=== PATIENT | female | born 1950 | race Caucasian/White ===

== ENCOUNTER 2023-12-01 22:00 | Emergency (ER) | payer MEDICARE, OTHER, SELFPAY ==
[2023-12-01 22:01] VITALS: BP 147/71; PULSE 84; RESP 15; TEMP 36.2; O2SAT 98
[2023-12-01 22:44] LABS: Basophils Absolute Auto 0.1 K/mm3 (0.0-0.1); Basophils Percent Auto 0.6 % (0.2-1.2); Eosinophils Absolute Auto 0.1 K/mm3 (0-0.3); Eosinophils Percent Auto 1.2 % (0-4.4); Hemoglobin 14.3 g/dL (12.0-15.0); Immature Granulocyte Absolute 0.01 K/mm3 (0.00-0.031); Immature Granulocyte Percent A 0.1 % (0-0.5); Lymphocytes Absolute Auto 1.22 K/mm3 (0.9-3.2); Mean Corpuscular HGB Conc 32.5 g/dl (32-36); Mean Corpuscular Hemoglobin 29.4 pg (26-34); Mean Corpuscular Volume 90.5 fl (80-100); Monocytes Absolute Auto 0.8 K/mm3 (0.1-0.6); Monocytes Percent Auto 10.1 % (2.6-8.5); Neutrophils Absolute Auto 5.9 K/mm3 (1.3-6.7); Platelet Count Result 285 k/mm3 (150-375); Red Blood Count 4.86 M/mm3 (4.2-5.4); Red Cell Distribution Width 12.7 % (11.5-14.5); White Blood Count 8.1 K/mm3 (4.5-10.0)
[2023-12-01 22:50] LABS: Appearance Urine Clear (Clear); Bacteria Urine None Seen /hpf; Bilirubin Urine Negative (Negative); Blood Urine Negative (Negative); Color Urine Yellow (Yellow); Glucose Urine UA Negative (Negative); Ketones Urine Negative (Negative); Leukocyte Esterase Ur Trace LEU/UL (Negative); Nitrate Urine Negative (Negative); Non Pathogenic Casts 0-2; Protein Urine Negative (Negative); RBC Urine 0-2 /hpf (0-2); Specific Grav Ur 1.011 (1.001-1.035); Squamous Epithelial Cell Urine None seen /hpf (Few); Urobilinogen Urine 0.2 mg/dL (<2.0); pH Urine 5.5 (5.0-9.0)
[2023-12-01 22:51] LABS: Add Urine Microscopic? YES
[2023-12-01 22:58] LABS: Alanine Aminotransferase 45 U/L (6-35); Albumin Level 4.3 g/dL (3.5-5.1); Alkaline Phosphatase 75 U/L (38-126); Anion Gap 12 mmol/L (8-16); Aspartate Amino Transferase 55 U/L (14-36); Bilirubin,Total 0.6 mg/dL (0.2-1.3); Blood Urea Nitrogen 16 mg/dL (7-17); Calcium 9.2 mg/dL (8.4-10.2); Carbon Dioxide 22 mmol/L (22-30); Chloride 105 mmol/L (98-107); Estimated CRCL calculation 72 ml/min; Estimated Glomerular Filt Rate > 60; Glucose 110 mg/dL (65-110); Lipase 113 U/L (23-300); Potassium 3.9 mmol/L (3.4-5.0); Sodium 139 mmol/L (137-145)
[2023-12-02 01:06] VITALS: BP 144/70; PULSE 80; RESP 22; TEMP 36.3; O2SAT 100
[2023-12-02 01:33] VITALS: PULSE 70; RESP 28; O2SAT 100
--- NOTE | 2023-12-02 01:49 | ECG_ITS ---
Measurements Intervals [place] Rate: 60 P: 41 TN: 160 QRS: 25 QRSD: 84 T: 105 QT: 444 QTc: 446 Interpretive Statements SINUS RHYTHM ST-T WAVE ABNORMALITY IN ANTEROLATERAL LEADS- CONSIDER ISCHEMIA BASELINE ARTIFACT- II, III, AVF, V2 ABNORMAL ECG NO PREVIOUS ECG AVAILABLE FOR COMPARISON Electronically Signed On 12-02-2023 7:56:51 ROOF BOLTER HELPER by Demetri Latif D.O.
--- NOTE | 2023-12-02 01:54 | PC.NURSE ---
EDP Dr. Victor made aware of pt sx of pain, nausea, vomiting, and dizziness. Pt placed on director of cardiac rehabilitation and EKG ordered by this RN.
[2023-12-02 02:00] LABS: Magnesium 2.2 mg/dL (1.6-2.3)
[2023-12-02 02:16] VITALS: BP 155/93; PULSE 60; RESP 18; O2SAT 97
--- NOTE | 2023-12-02 02:27 | ED.ABDPAIN ---
HPI - Abdominal Pain General Chief Complaint: Abdominal Pain Stated Complaint: constipation, nothing is working Time Seen by Provider: 12/02/23 02:15 Source: patient and family (Daughter) Limitations: no limitations History of Present Illness HPI narrative: Patient is a 73-year-old female presents to the emergency department complaining of constipation. Patient states that she was diagnosed with a UTI history of to go to urgent care because she noticed some blood in her urine and is not taking nitrofurantoin is taking 2 doses in the bladder urine is since resolved and she denies any difficulty urinating at this time. Patient states her primary concern is she has been constipated since without any significant bowel movement since but does admit to daily small pebble like stools without adequate defecation. Patient is to history of a colonoscopy approximately 6 years ago. Patient denies taking stool softeners on a regular basis but she did take an [id number] MiraLax for to coming in today and also took a suppository that she was unable than and did not get any relief. Patient denies any abdominal pain however she did develop some bilateral lower quadrant abdominal discomfort upon arrival to the emergency department today that is an ache, nonradiating, mild in intensity. Patient denies any recent injuries. Patient denies any new or change medications. Patient denies melena, hematochezia, nausea, vomiting, chest pain, shortness of breath. Related Data Allergies Allergy/AdvReac Type Severity Reaction Status Date / Time acetaminophen [From Vicodin] AdvReac Anaphylaxis Verified 12/02/23 01:38 hydrocodone [From Vicodin] AdvReac Anaphylaxis Verified 12/02/23 01:38 Review of Systems Review of Systems: A 10 system review of systems was completed on the patient and is negative except for what is stated in the HPI. Nursing and ancillary documentation was reviewed. PMFSH Comments At time of signature, I have reviewed and agree with nursing past medical, surgical, social and family history unless otherwise noted. Please see the nursing chart for further information. There is no relevant family history pertinent to the presenting complaint. Exam Narrative: CONST: No acute distress. Well nourished. HENMT: Head is normocephalic and atraumatic. Moist mucous membranes. No posterior oropharynx erythema. EYES: No conjunctival icterus, injection, or pallor. PERRL. NECK: No meningeal signs. RESP: Able to speak in full sentences. Normal respiratory effort. CTAB. CARDIO: Regular rate. Regular rhythm. 2+ DP and radial pulses bilaterally. GI: Nondistended. No tenderness to palpation. Soft. : No CVA tenderness to palpation. SKIN: No rashes or lesions noted on exposed skin. NEURO: Oriented x3. Moves all extremities. EXTREM/MSK/BACK: No pedal edema. PSYCH: Normal affect. Course Vital Signs Vital signs: Vital Signs Temperature 97.1 F L 12/01/23 22:01 Pulse Rate 84 12/01/23 22:01 Respiratory Rate 15 12/01/23 22:01 Blood Pressure 147/71 H 12/01/23 22:01 Pulse Oximetry 98 12/01/23 22:01 Oxygen Delivery Room Air 12/01/23 22:01 Temperature 97.4 F L 12/02/23 01:06 Pulse Rate 60 12/02/23 02:16 Respiratory Rate 18 12/02/23 02:16 Blood Pressure 155/93 H 12/02/23 02:16 Pulse Oximetry 97 12/02/23 02:16 Oxygen Delivery Room Air 12/02/23 01:33 MDM - Abdominal Pain MDM Narrative Medical decision making narrative: Patient presents with the above complaint. Initial vitals are remarkable for no significant abnormalities. Physical examination as noted above. Plan discussed: Laboratory analysis, 1 L bolus IV fluids, Fleet's enema, MiraLax p.o., motrin 400 mg PO. After administration of the stool softener and enema patient had a significant large bowel movement and is feeling much better and still home at this time. Patient was reassessed at the bedside. No changes in physi
[2023-12-02 02:47] VITALS: BP 158/74; PULSE 65; RESP 21; O2SAT 98
[2023-12-02] MEDS: IBUPROFEN 400 MG TABLET PO (02:55)
[2023-12-02] MEDS: polyethylene glycoL 3350 17 GM POWD.PACK PO (02:56)
[2023-12-02] MEDS: SODIUM CHLORIDE 0.9% IV 1,000 ML 999 ML IV CONT (02:56)
[2023-12-02 04:04] VITALS: BP 150/69; PULSE 69; RESP 20; O2SAT 99
== END 2023-12-02 04:15 | disposition home or self-care (01) ==
LOC: ANHED 12-02 03:57
PROVIDERS: Emergency Provider Student in an Organized Health Care Education/Training Program
DX: K59.00 Constipation, unspecified (principal); R31.9 Hematuria, unspecified
CPT/HCPCS: 36415; 80053; 81001; 83690; 83735; 85025; 87086; 87088; 93005; 96360; 99283; A9270; J7030

== ENCOUNTER 2024-11-29 06:56 | Emergency (ER) | payer MEDICARE, OTHER, SELFPAY ==
--- NOTE | ~2024-11-29 | CT_ITS ---
Clinical Indication: Chest pain, shortness of breath CT Scan of the Chest with Contrast: Technique: Contiguous sections were acquired throughout the chest after intravenous administration of 100 cc of Omnipaque 350. Dose reduction technique was used on this scan by utilizing automated expos ure control and iterative reconstruction technique. The dose-length product (DLP) was 481.17 mGy-cm. Findings: There is no evidence of any significant mediastinal, hilar or axillary lymphadenopathy. There is no f illing defect in the pulmonary arterial tree to suggest pulmonary embolus. There is no evidence of ao rtic dissection or aneurysm. There is no evidence of pleural or pericardial effusion. The lungs are clear. No pulmonary nodules or infiltrates are noted. Images through the upper abdomen reveal no abnormalities. Impression: No evidence of pulmonary embolus, aortic dissection, or aortic aneurysm. Clear lungs. Reviewed, dictated and finalized at [facility]. S PROJECT ENGINEER Impression: No evidence of pulmonary embolus, aortic dissection, or aortic aneurysm. Clear lungs.
--- NOTE | 2024-11-29 06:57 | PC.NURSE ---
Pt currently being treated for UTI and has a pending C-Diff test not resulted yet.
[2024-11-29 07:30] VITALS: BP 134/66; PULSE 62; RESP 16; TEMP 36.7; O2SAT 95
[2024-11-29 08:00] VITALS: BP 128/66; PULSE 65; RESP 20; TEMP 36.7; O2SAT 95
[2024-11-29 09:00] VITALS: BP 136/63; PULSE 63; RESP 18; O2SAT 95
--- NOTE | 2024-11-29 09:36 | ED_ITS ---
HPI - Nausea/Vomiting/Diarrhea General Chief complaint: Nausea/Vomiting/Diarrhea Stated complaint: abd pain, difficulty breathing, weakness, nausea Time Seen by Provider: 11/29/24 08:49 Source: patient and family ( and daughter) Mode of arrival: ambulatory Limitations: no limitations History of Present Illness HPI Narrative: Patient presents with multiple complaints. She notes that she experienced abdominal pain, chest pain this morning associated with difficulty breathing, nausea but no vomiting and weakness. She has been having several loose stools, 5 already today. She was initially having loose stools that then became tia diarrhea and for this she submitted a sample stool for testing for C difficile approximately 2 weeks ago but still has not received the results even when attempted to call bleeding today she was told it had not resulted yet. Her stools have now gone back to being loose, slightly more formed and she believes that the yogurt that she has been taking has helped. She was recently prescribed Bactrim for a urinary tract infection was diagnosed at [facility] urgent care (Dr Enamorado) and she has taken 3 doses of this. Patient has extensive allergy list and states that she believes all of her symptoms are related to this new antibiotic given that she looked up online and all of them can be attributed to this. She notes that all of her symptoms have resolved since arriving to hospital however. Patient is on clopidogrel given that she has cardiac stent but she is otherwise not on anticoagulation. She tried to contact her primary care physician but they are currently in [place] on vacation. Related Data Allergies Allergy/AdvReac Type Severity Reaction Status Date / Time sulfamethoxazole (From AdvReac Mild shortness Verified 11/29/24 11:48 Bactrim) of breath trimethoprim (From Bactrim) AdvReac Mild shortness Verified 11/29/24 11:48 of breath acetaminophen (From Vicodin) AdvReac Anaphylaxis Verified 11/29/24 07:59 hydrocodone (From Vicodin) AdvReac Anaphylaxis Verified 11/29/24 07:59 cephalosporin Allergy Intermediate swollen Uncoded 11/29/24 12:38 eyelids PMFSH Surgical History Surgical History H/O heart artery stent Exam 2 Narrative: GENERAL: Well-appearing, well-nourished, and in no acute distress. HEAD: Normocephalic, atraumatic. EYES: Non injected, non icteric ENT: Nares clear, no rhinorrhea or epistaxis. NECK: Supple. CHEST: Speaking in full sentences. No respiratory distress. Lungs clear to auscultation bilaterally. HEART: Regular rate and rhythm. . ABDOMEN: Soft, nondistended. Nontender to palpation. EXTREMITIES: Normal range of motion. 1+ bilateral lower extremity edema. SKIN: Warm, dry, no rash. NEURO: No focal deficits. Alert and oriented x3. PSYCH: Normal mood and affect. Course Vital Signs Vital signs: Vital Signs Temperature 98.1 F 11/29/24 07:30 Pulse Rate 62 11/29/24 07:30 Respiratory Rate 16 11/29/24 07:30 Blood Pressure 134/66 11/29/24 07:30 Pulse Oximetry 95 11/29/24 07:30 Oxygen Delivery Room Air 11/29/24 07:30 Temperature 98.1 F 11/29/24 12:04 Pulse Rate 73 11/29/24 12:04 Respiratory Rate 16 11/29/24 12:04 Blood Pressure 126/58 L 11/29/24 12:04 Pulse Oximetry 98 11/29/24 12:04 Oxygen Delivery Room Air 11/29/24 07:30 MDM - Nausea/Vomiting/Diarrhea MDM Narrative Medical decision making narrative: Patient presents multiple complaints including abdominal pain brief episode chest pain as well as difficulty breathing and some nausea in addition to weakness. She has also been diarrhea several weeks. She recently started Bactrim for urinary tract infection diagnosed at an urgent care. In the emergency department they are afebrile with vital signs within normal limits. Patient states she believes all of her symptoms are related to the Bactrim that she started taking for which she had taken 3 doses. She states she has an extensive allergy list. Patient declining any medications and states she has been feeling well ever since getting to the emergency department has no symptoms. We did discuss pursing a work up however given her cardiac history and her diarrhea of several weeks duration which might have led to electrolyte abnormalites, etc. D-dimer is elevated greater than 1 thus cannot age adjusted will proceed with CT PE study. BNP is only slightly elevated, not up to suggest acute heart failure especially given patient's age and given the reference range of the assay. PE study normal. She has nitrate positive urine. She has been unable to produce a stool sample and technically had already submitted 1 elsewhere although I had not resulted after 2 weeks (?). Will discharge at this time. Patient is very concerned that her symptoms represented an allergic reaction to the medication. This was not witnessed by anyone but I will added to her allergy list as side effects and switch her to an alternative agent for her urinary tract infection. Patient is comfortable with being discharged at this time as she states she continues to feel well without any symptoms. I received a phone call from the pharmacist after discharge who notes that she has a reaction to cephalosporins and that her eyes swell shut. Allergy reconciliation must not have taken place by RN while in the emergency department. Will add this allergy to her list and approved verbal change of antibiotic to a course of nitrofurantoin which she is not allergic to. Differential Diagnosis Differential diagnosis: Likely food poisoning, clostridium difficile infection, drug-induced nausea and vomiting, dehydration and other (medication side effect, acs, acute viral syndrome) Lab Data Attestation: I reviewed the patient's lab results. 11/29/24 10:17 11/29/24 10:17 Labs: Lab Results 11/29/24 11/29/24 Range/Units 10:17 10:46 WBC 5.0 (4.5-10.0) K/mm3 RBC 4.20 (4.2-5.4) M/mm3 Hgb 12.5 (12.0-15.0) g/dL Hct 37.1 (37.0-47.0) % MCV 88.3 (80-100) fl MCH 29.8 (26-34) pg MCHC 33.7 (32-36) g/dl RDW 12.7 (11.5-14.5) % Plt Count 217 (150-375) k/mm3 MPV 9.7 (7.4-10.4) fl Immature Gran % (Auto) 0.2 (0-0.5) % Neut % (Auto) 70.4 (45.5-73.1) % Lymph % (Auto) 14.7 L (18.3-44.2) % [place] % (Auto) 9.7 H (2.6-8.5) % Eos % (Auto) 4.4 (0-4.4) % Baso % (Auto) 0.6 (0.2-1.2) % Lymph # (Auto) 0.74 L (0.9-3.2) K/mm3 [place] # (Auto) 0.5 (0.1-0.6) K/mm3 Eos # (Auto) 0.2 (0-0.3) K/mm3 Baso # (Auto) 0.0 (0.0-0.1) K/mm3 Abs Immat Gran (auto) 0.01 (0.00-0.031) K/mm3 Absolute Neuts (auto) 3.5 (1.3-6.7) K/mm3 Absolute Nucleated RBC 0.000 (0.0-0.012) K/mm3 Nucleated RBC % 0.0 (0.0-0.2) % D-Dimer 1.30 H (<0.48) ug/mL Sodium 138 (137-145) mmol/L Potassium 3.9 (3.4-5.0) mmol/L Chloride 112 H (98-107) mmol/L Carbon Dioxide 26 (22-30) mmol/L Anion Gap 0 L (4-12) mmol/L BUN 9 D (7-17) mg/dL Creatinine 0.90 (0.7-1.0) mg/dL Estim Creat Clear Calc 55 ml/min Estimated GFR > 60 (59 - ) Glucose 100 (65-110) mg/dL Calcium 8.8 (8.4-10.2) mg/dL Magnesium 2.2 (1.6-2.3) mg/dL Total Bilirubin 0.7 (0.2-1.3) mg/dL AST 28 (14-36) U/L ALT 19 (6-35) U/L Alkaline Phosphatase 61 (38-126) U/L Troponin I < 0.012 (0.000-0.034) ng/mL NT-Pro-B Natriuret Pep 149 H (19.9-100) pg/mL Total Protein 6.0 L (6.3-8.2) g/dL Albumin 3.6 (3.5-5.1) g/dL Lipase 66 (23-300) U/L Urine Color Dark yellow (Yellow) Urine Appearance Clear (Clear) Urine pH 7.5 (5.0-9.0) Ur Specific [place] 1.011 (1.001-1.035) Urine Protein Negative (Negative) mg/dL Urine Glucose (UA) Negative (Negative) mg/dL Urine Ketones Negative (Negative) mg/dL Ur Blood (Man) Negative (Negative) Urine Nitrate Positive H (Negative) Urine Bilirubin Negative (Negative) Urine Urobilinogen 1.0 (<2.0) mg/dL Add Ur Microanalysis Reviewed Leukocyte Esterase Rfl Negative (Negative) BERNARDO/UL Urine RBC 0-2 (0-2) /hpf Urine WBC 0-5 (0-3) /hpf Ur Squamous Epith Cells None seen (Few) /hpf Urine Bacteria None seen /hpf Urine Casts 0-2 Influenza A (RT-PCR) Negative (Negative) Influenza B (RT-PCR) Negative (Negative) RSV (RT-PCR) Negative (Negative) SARS-CoV-2 RNA (RT-PCR) Negative (Negative) Imaging Data Radiologist's impression: Impressions Chest CTA 11/29/24 11:36 Impression: No evidence of pulmonary embolus, aortic dissection, or aortic aneurysm. Clear lungs. ECG Data EKG #1: Attestation: I personally reviewed and interpreted this ECG as follows: ECG completion date: 11/29/24 ECG completion time: 09:50 Prior ECG tracings: available for review Interpretation: Sinus bradycardia at a rate of 57 beats per minute. MO interval 151. QRS 89. QT/QTC 419/414. T-wave inversions in V3 and V4 as well as V5. Good R-wave progression across the precordial leads. Normal axis. EKG from 12/02/2023 similarly shows T-wave inversions in V2 through V5 as well as V6 at that time. Discharge Plan Discharge Clinical Impression: Chest pain, Shortness of breath, Side effect of drug Patient Disposition: Home, Self-Care Condition: Stable Instructions: Antibiotic Form, Chest Pain (DC), Shortness of Breath (ED) Additional Instructions: As we discussed, unclear etiology of your symptoms however given the concern that this might be a side effect versus allergic reaction to the Bactrim you were taking, this has been added to your allergy list with the notation of your symptoms the bright to the emergency department. Will also switch you to an alternative antibiotic for your urinary tract infection that was seen outpatient/at an alternative facility. Follow-up with primary care physician. If you do not have 1 the name of the doctors listed below. Return to the emergency department any new or worsening symptoms. Patient Language: Palestinian Prescriptions: New cephalexin 500 mg capsule 500 mg PO Q8H 5 Days Qty: 15 0RF No Action docusate sodium 100 mg tablet 100 mg PO DAILY Qty: 20 0RF senna 8.6 mg capsule 8.6 mg PO DAILY PRN (Reason: constipation) Qty: 20 0RF Metamucil 3.4 gram/5.4 gram powder 1 tbsp PO BID Qty: 660 0RF Rx Instructions: mix into at least 8 oz of water or juice before administering Follow-up/Referrals: Geovanny Vivas MD [Physician] - UNKNOWN,DOCTOR [Primary Care Provider] - Stand Alone Forms: Work/School Release IP Time of Disposition: 11:54
--- NOTE | 2024-11-29 09:36 | ECG_ITS ---
Test Date: 2024-11-29 09:50:32 Measurements Intervals [place] Rate: 57 P: 44 [place]: 151 QRS: 19 QRSD: 89 T: 99 QT: 419 QTc: 411 Interpretive Statements SINUS BRADYCARDIA ST DEVIATION AND MODERATE T-WAVE ABNORMALITY, CONSIDER ANTEROLATERAL ISCHEMIA [-0.1+ mV T WAVE IN V3-V6] No previous ECG available for comparison Electronically Signed On 11-29-2024 22:46:42 CHILDBIRTH EDUCATOR by Jeb Quinteros M.D.
[2024-11-29 10:00] VITALS: BP 126/63; PULSE 59; RESP 16; O2SAT 96
[2024-11-29 10:23] LABS: Basophils Percent Auto 0.6 % (0.2-1.2); Eosinophils Absolute Auto 0.2 K/mm3 (0-0.3); Eosinophils Percent Auto 4.4 % (0-4.4); Hematocrit 37.1 % (37.0-47.0); Hemoglobin 12.5 g/dL (12.0-15.0); Immature Granulocyte Absolute 0.01 K/mm3 (0.00-0.031); Immature Granulocyte Percent A 0.2 % (0-0.5); Lymphocytes Absolute Auto 0.74 K/mm3 (0.9-3.2); Lymphocytes Percent Auto 14.7 % (18.3-44.2); Mean Corpuscular HGB Conc 33.7 g/dl (32-36); Mean Corpuscular Hemoglobin 29.8 pg (26-34); Mean Corpuscular Volume 88.3 fl (80-100); Mean Platelet Volume 9.7 fl (7.4-10.4); Monocytes Absolute Auto 0.5 K/mm3 (0.1-0.6); Monocytes Percent Auto 9.7 % (2.6-8.5); Neutrophils Absolute Auto 3.5 K/mm3 (1.3-6.7); Neutrophils Percent Auto 70.4 % (45.5-73.1); Platelet Count Result 217 k/mm3 (150-375); Red Cell Distribution Width 12.7 % (11.5-14.5)
--- NOTE | 2024-11-29 10:33 | PC.NURSE ---
Pt refusing Zofran, states all her symptoms have subsided.
[2024-11-29 10:34] LABS: Alanine Aminotransferase 19 U/L (6-35); Albumin Level 3.6 g/dL (3.5-5.1); Alkaline Phosphatase 61 U/L (38-126); Anion Gap 0 mmol/L (4-12); Aspartate Amino Transferase 28 U/L (14-36); Bilirubin,Total 0.7 mg/dL (0.2-1.3); Blood Urea Nitrogen 9 mg/dL (7-17); Calcium 8.8 mg/dL (8.4-10.2); Carbon Dioxide 26 mmol/L (22-30); Chloride 112 mmol/L (98-107); Estimated CRCL calculation 55 ml/min; Estimated Glomerular Filt Rate > 60; Glucose 100 mg/dL (65-110); Lipase 66 U/L (23-300); Potassium 3.9 mmol/L (3.4-5.0); Sodium 138 mmol/L (137-145)
[2024-11-29 10:43] LABS: NT Pro B Type Natriuretic Pept 149 pg/mL (19.9-100)
[2024-11-29 10:46] LABS: Troponin I < 0.012 ng/mL (0.000-0.034)
[2024-11-29 10:58] LABS: Influenza A QL RT-PCR Negative (Negative); Influenza B QL RT-PCR Negative (Negative); RSV RNA, RT-PCR Negative (Negative); SARS-CoV-2 RNA PCR Negative (Negative)
[2024-11-29 11:22] LABS: Add Urine Microscopic? YES; Appearance Urine Clear (Clear); Bacteria Urine None Seen /hpf; Bilirubin Urine Negative (Negative); Blood Urine Negative (Negative); Color Urine Dark Yellow (Yellow); Glucose Urine UA Negative (Negative); Ketones Urine Negative (Negative); Leukocyte Esterase Ur Negative LEU/UL (Negative); Need Manual Microscopic Reviewed; Nitrate Urine Positive (Negative); Non Pathogenic Casts 0-2; Protein Urine Negative (Negative); RBC Urine 0-2 /hpf (0-2); Specific Grav Ur 1.011 (1.001-1.035); Squamous Epithelial Cell Urine None Seen /hpf (Few); WBC Urine 0-5 /hpf (0-3); pH Urine 7.5 (5.0-9.0)
[2024-11-29 11:28] LABS: Magnesium 2.2 mg/dL (1.6-2.3)
[2024-11-29 12:04] VITALS: BP 126/58; PULSE 73; RESP 16; TEMP 36.7; O2SAT 98
--- OUTSIDE RECORDS SUMMARY | 2024-12-06 03:44 | XMS_ITS | Continuity of Care Document ---
Author Organization [facility] Address [address] [place] [address]- Care Team Providers Care Safety Leader Name Role Phone ELLA CRAFT, MEGGAN Hill Primary Care Physician Encounter [facility] Date(s): 03/03/24 - 03/05/24 [place] [address] [place] [address] Encounter Diagnosis Osteoarthritis(Discharge Diagnosis) - 03/05/24 Discharge Disposition: Home/Self Care Attending Physician: LUCIUS CARROLL MD Admitting Physician: SilvinoORE JOSUÉ GRANDA Referring Physician: SilvinoORE JOSUÉ GRANDA Allergies, Adverse Reactions, Alerts Substance Reaction Severity Status cefaclor anaphylaxis Active Vicodin anaphylaxis Active Assessment and Plan Extracted from: Title:Discharge Note Author:LUCIUS CARROLL MD David e:03/05/24 1.??Osteoarthritis??M19.90 Orders: Admission Notification - Family Discharge Patient Occupational Therapy Evaluation & Treatment Occupational Therapy Follow-up Patient/Family Teaching Saline Lock Insertion Functional Status 03/05/24 OT Self Care/Home Mgt 1 Safety Awareness Good Lower Extremity Dressing Assist Level SB A 1 Lower Extremity Dressing Level Standing 2 Grooming Assist Level SBA 3 Grooming Level Standing 4 Toileting Assist Level SBA 5 Toileting Level Seated chair/BSC 6 03/04/24 Gait Antalgic 03/04/24 Ambulation Device Utilized None Living Situation Home independently Home Entrance Description No steps Lives With Spouse Home Equipment Wheeled walker Activities Managed Housekeeping, Laundry, Shopping, Meal preparation, Driving, Pays bills, Manages medications Patient Activities Prior to Admission Re tired Prior Gait Mobility Ind Prior Toilet Mobility Ind Prior Bed to Chair Ind Prior Chair to Bed Ind Prior Grooming Assist Level Ind Prior LE Bathing Assist Level Ind Prior LE Dressing Assist Level Ind Prior Self Feeding Assist Level Ind Prior Sit to Stand Ind Prior Sit to Supine Ind Prior Stand to Sit Ind Prior Supine to Sit Ind Prior Toileting Assist Level Ind Prior UE Bathing Assist Level Ind Prior UE Dressing Assist Level Ind Prior Shower/Tub Ind Bathroom Equipment Handicapped height t oilet, Walk-in shower, Shower chair Left Lower Extremity Strength WFL Right Lower Extremity Strength Limited RLE Strength Description Knee PROM: 15-3 0, poor tolerance to any flexion or extension 03/04/24 Bathing Assist Level Mod 7 Lower Body Dressing Assist Level Max LUE Range of Motion WFL RUE Range of Motion WFL Strength-LUE Functional Credit Risk Analyst Strength-LUE Functional Strength-RUE Functional Credit Risk Analyst Strength-RUE Functional 03/03/24 Mobility Assistance Prior to Admission I ndependent 1Result Comment: don/doff underwear 2Result Comment: with FWW support 3Result Comment: oral and hair hygiene/grooming 4Result Comment: sinkside 5Result Comment: pericare 6Result Comment: seated pericare 7Result Comment: per clinical judgment Medications aspirin 325 mg oral tablet 325 mg = 1 tab, Oral, BID, # 60 tab, 0 Refill(s), 0, Pharmacy: [id number], 160, cm, 03/05/24 15:21:00 MST, Height, 101.4, kg, 03/03/24 14:07:00 [facility], Dosing Weight Start Date: 03/05/24 Status: Ordered cyclobenzaprine 5 mg, Oral, TID, PRN PRN prn Start Date: 03/05/24 Status: Ordered docusate sodium 100 mg oral capsule 100 mg = 1 cap, Oral, BID, # 60 cap, 0 Refill(s), 0, [id number], 160, cm, 03/05/24 15:21:00 MST, Height, 101.4, kg, 03/03/24 14:07:00 MST, Dosing Weight Start Date: 03/05/24 Status: Ordered meloxicam 7.5 mg, Oral, Daily Start Date: 03/05/24 Status: Ordered rosuvastatin 20 mg, Oral, Q Bedtime Start Date: 03/05/24 Status: Ordered Senna Plus oral tablet 2 tab, Oral, Q Bedtime Start Date: 03/05/24 Status: Ordered traMADol 50 mg, Oral, Q6hr, PRN PRN prn Start Date: 03/05/24 Status: Ordered Mental Status 03/05/24 Cognition During ADLs WNL 03/04/24 Cognition Intact Cognitive Assessments Pt able to follow all multi-step commands/safety instructions throughout session Problem List Condition Confirmation Course Effective Dates Status Health St atus Informant High cholesterol Confirmed Active patie nt Osteoarthritis Confirmed Active patient Procedures Procedure Date Related Diagnosis Body Site Status Knee Total Arthroplasty Robo tic Assisted 1 03/03/24 Completed Cataract Completed Cholecystectomy Completed Colonoscopy Completed 1auto-populated from documented surgical case Results Laboratory List Name Date Complete Blood Count With Auto Different ial 03/04/24 Comprehensive Metabolic Panel 03/04/24 Magnesium Level 03/04/24 Most recent to oldest [Reference Range]: 1 eGFR CKD-EPI [>=90 mL/min/1.73m2] 68 mL/ min/1.73m2 *LOW* (03/04/24 2:40 AM) AGAP [4.0-16.0 mmol/L] 8.0 mmol/L (03/04/24 2:40 AM) BUN/Creat 13 *NA* (03/04/24 2:40 AM) Globulin [2.0-4.5 g/dL] 2.4 g/dL (03/04/24 2:40 AM) A/G Ratio 1.5 *NA* (03/04/24 2:40 AM) RBC [4.30-5.10 x10(6)/mcL] 4.43 x10(6)/m cL (03/04/24 2:40 AM) RDW [11.6-14.8 %] 13.8 % (03/04/24 2:40 AM) Sodium Lvl [136-145 mmol/L] 138 mmol/L (03/04/24 2:40 AM) Total Protein [6.0-8.3 g/dL] 6.0 g/dL (03/04/24 2:40 AM) Albumin Lvl [3.5-5.7 g/dL] 3.6 g/dL (03/04/24 2:40 AM) Alk Phos [34-104 units/L] 48 units/L (03/04/24 2:40 AM) ALT [7-52 units/L] 16 units/L (03/04/24 2:40 AM) AST [13-39 units/L] 23 units/L (03/04/24 2:40 AM) Bili Total [0.3-1.0 mg/dL] 0.8 mg/dL (03/04/24 2:40 AM) CO2 [21-31 mmol/L] 24 mmol/L (03/04/24 2:40 AM) Glucose Level [70-105 mg/dL] 106 mg/dL *HI* (03/04/24:40 AM) Hct [35.0-45.0 %] 39.1 % (03/04/24:40 AM) Hgb [11.7-15.5 g/dL] 13.1 g/dL (03/04/24:40 AM) Magnesium Lvl [1.9-2.7 mg/dL] 2.0 mg/dL (03/04/24 2:40 AM) MCH [27.0-34.0 pg] 29.6 pg (03/04/24 2:40 AM) MCHC [32.0-36.0 g/dL] 33.5 g/dL (03/04/24 2:40 AM) MCV [80.0-100.0 fL] 88.4 fL (03/04/24 2:40 AM) MPV [7.5-11.3 fL] 8.5 fL (03/04/24 2:40 AM) Potassium Lvl [3.5-5.1 mmol/L] 3.6 mmol/ L (03/04/24 2:40 AM) WBC [4.5-11.0 x10(3)/mcL] 9.3 x10(3)/mcL (03/04/24 2:40 AM) BUN [7-25 mg/dL] 12 mg/dL (03/04/24 2:40 AM) Calcium Lvl [8.6-10.3 mg/dL] 9.1 mg/dL (03/04/24 2:40 AM) Lymphocyte Abs [1.0-4.8 x10(3)/mcL] 0.8 x10(3)/mcL *LOW* (03/04/24 2:40 AM) Platelet Count [150-400 x10(3)/mcL] 227 x10(3)/mcL (03/04/24 2:40 AM) Neutrophil Rel [40.0-85.0 %] 76.7 % (03/04/24 2:40 AM) Lymphocyte Rel [10.0-45.0 %] 8.2 % *LOW* (03/04/24 2:40 AM) Monocyte Rel [3.0-15.0 %] 14.4 % (03/04/24 2:40 AM) Monocyte Abs [0.0-0.8 x10(3)/mcL] 1.3 x1 0(3)/mcL *HI* (03/04/24 2:40 AM) Eosinophil Rel [0.0-7.0 %] 0.4 % (03/04/24 2:40 AM) Eosinophil Abs [0.0-0.5 x10(3)/mcL] 0.0 x10(3)/mcL (03/04/24 2:40 AM) Basophil Rel [0.0-2.0 %] 0.3 % (03/04/24 2:40 AM) Basophil Abs [0.0-0.2 x10(3)/mcL] 0.0 x1 0(3)/mcL (03/04/24 2:40 AM) Neutrophil Abs [1.8-7.7 x10(3)/mcL] 7.2 x10(3)/mcL (03/04/24 2:40 AM) Creatinine Lvl [0.60-1.20 mg/dL] 0.90 mg /dL (03/04/24 2:40 AM) Chloride Lvl [98-107 mmol/L] 106 mmol/L (03/04/24 2:40 AM) Osmolality Calc [278-305 mOsm/kg] 286 mO sm/kg (03/04/24 2:40 AM) Radiology Reports * Exam Date Time Procedure Performing Provider Status 03/03/24 8:57 PM XR Knee 1 or 2 Views Right THOMAS RAD T ECH, NONA; Modified Notes: (XR Knee 1 or 2 Views Right) Reason For Exam: Post-Op evaluation of hardware;Other - Populate Reason For Exam (Freetext) REPORT EXAM DESCRIPTION: XR Knee 1 or 2 Views Right XR KNEE 1-2 VIEWS RIGHT CLINICAL HISTORY: 73 years Female Post-Op evaluation of hardware COMPARISON: None FINDINGS: Right total knee arthroplasty is noted. Hardware is intact and in anatomic alignment. Postsurgical changes are noted in the adjacent soft tissues. IMPRESSION: Status post right total knee arthroplasty. Electronically signed by: Aleja Melendez MD 03/04/2024 04:02 AM [facility] Final Report Signed By: CONTRIBUTOR_SYSTEM, W_POWERSCRIBE Electronic Signature: 03/04/2024 04:02 Vital Signs Most recent to oldest [Reference Range]: 1 2 3 Blood Pressure [90-140/60-90 mmHg] 130/81mmHg (03/05/24 7:00 AM) 124/80mmHg (03/05/24 4:00 AM) 145/80mmHg *HI* (03/04/24 7:00 PM) Blood Pressure Location Arm (03/05/24 4:00 AM) Arm (03/04/24 7:00 PM) Arm (03/04/24 3:57 AM) Blood Pressure Method Automatic (03/05/24 7:00 AM) Automatic (03/05/24 4:00 AM) Automatic (03/04/24 7:00 PM) Dosing BMI 40 (03/03/24 2:07 PM) Dosing BSA-Mosteller 2.12 m2 (03/03/24 2:07 PM) Dosing Weight 101.4 kg (03/03/24 2:07 PM) Heart Rate [60-100 bpm] 98 bpm (03/05/24 7:00 AM) 96 bpm (03/05/24 4:00 AM) 90 bpm (03/04/24 7:00 PM) Height 160 cm (03/05/24 3:20 PM) 160 cm (03/05/24 12:42 PM) 160 cm (03/05/24 9:18 AM) MAP 97 mmHg (03/05/24 7:00 AM) 95 mmHg (03/05/24 4:00 AM) 102 mmHg (03/04/24 7:00 PM) Probe Site Finger (03/05/24 4:00 AM) Finger (03/04/24 7:00 PM) Finger (03/04/24 3:57 AM) Pulse/HR Method Monitor (03/05/24 7:00 AM) Monitor (03/05/24 4:00 AM) Monitor (03/04/24 7:00 PM) Respiratory Rate [14-20 breaths/min] 16 breaths/min (03/05/24 7:00 AM) 18 breaths/min (03/05/24 4:00 AM) 18 breaths/min (03/04/24 7:00 PM) SpO2/Pulse Oximetry [85-100 %] 91 % (03/05/24 7:00 AM) 92 % (03/05/24 4:00 AM) 92 % (03/04/24 7:00 PM) Temperature Oral [35.8-38 degC] 37.1 degC (03/05/24 7:00 AM) 37.5 degC (03/05/24 4:00 AM) 36.7 degC (03/04/24 7:00 PM) Temperature Temporal [36.3-38 degC] 36.8 degC (03/03/24 2:00 PM) 36.6 degC (03/03/24 7:40 AM) Social History Social History Type Response Smoking Status Never smoker entered on: 03/03/24 Sex Hospital Discharge Instructions Follow Up Care 02/25/2024 09:04:41 With:ELLA CRAFT, MEGGAN [facility] Address: [address] [place] [phone] When:5 to 7 days Consult note * REMY SO, ELMO: MODIFY, PERFORM MESHA CRAFT, AMANDA Reynolds: MODIFY Event Display: Consult Note EMR Authored Date: [id number] DATE/TIME NOTE CREATED: 03/03/2024 18:00:07 DATE/TIME PATIENT SEEN: 03/03/2024 1805 CHIEF COMPLAINT: Right knee arthroplasty REASON FOR CONSULTATION: Postop management HISTORY OF PRESENT ILLNESS: This is a 72-year-old female with past medical history of hyperlipidemia and constipation??who presents due to right knee osteoarthritis.?? Patient was seen and evaluated in Dr. Pierce's office.?? Conservative measures were initiated however failed to bring about the long-term benefit.?? An electiveright total knee arthroplasty was indicated for right knee osteoarthritis.?? Patient was seen and evaluated in room 332.?? She reports mild right knee pain however tolerable with current pain medication regimen.?? She denies numbness and tingling. REVIEW OF SYSTEMS: ROS: review of ten systems was negative apart from pertinent findings mentioned in this note PHYSICAL EXAM: VITAL SIGNS: Vital Signs: Last Charted: 24 Hr Minimum: 24 Hr Maximum: Temperature Temporal 36.8 degC?? (03/03 14:00) 36.8 degC?? (03/03 14:00) 36.6 degC?? (03/03 07:40) Heart Rate 64 bpm?? (03/03 16:30) 57 bpm (L) (03/03 15:30) 88 bpm?? (03/03 14:00) MU Cardiac Rhythm Normal sin ?? (03/03 14:00) ? Pulse/HR Method Monitor ?? (03/03 07:40) ? Respiratory Rate 18 breaths/min?? (03/03 16:30) 13 breaths/min (L) (03/03 16:15) 23 breaths/min (H) (03/03 14:15) Systolic Blood Pressure 119 mmHg?? (03/03 16:30) 119 mmHg?? (03/03 16:30) 151 mmHg (H) (03/03 14:25) Diastolic Blood Pressure 66 mmHg?? (03/03 16:30) 62 mmHg?? (03/03 15:15) 100 mmHg (H) (03/03 14:00) MAP 84 mmHg?? (03/03 16:30) 84 mmHg?? (03/03 16:30) 110 mmHg?? (03/03 14:00) SpO2/Pulse Oximetry 96 %?? (03/03 16:30) 94 %?? (03/03 15:45) 100 %?? (03/03 14:00) Oxygen Flow 6 L/min?? (03/03 14:05) 6 L/min?? (03/03 14:05) 6 L/min?? (03/03 14:05) Dosing BMI 40 ?? (03/03 14:07) 40 ?? (03/03 14:07) 40 ?? (03/03 14:07) GENERAL:??Alert and oriented, non-toxic appearing HEAD:??Normocephalic, atraumatic EYES:??PERRLA, EOMI, conjunctiva normal, no discharge. ENT:??Hearing grossly intact, normal oropharynx. NECK:??Supple,nontender, no lymphadenopathy LUNGS:??Clear breath sounds bilaterally. ??No wheezes, rales, or rhonchi. HEART:??Regular rate and rhythm. ??Normal S1 and S2, VASC:??+ radial and dorsalis pedis pulses, No edema. ABD:??Bowel sounds normal, soft, nontender :??Deferred Musculoskeletal: RLE strength??5/5. ??Right knee??mild tenderness EXT:??RLE??normal range of motion. ??RLE sensation intact SKIN:??No new rashes or suspicious nevi?? NEURO:??Alert and oriented x 3, non focal PSYCH: Normal affect.??Appropriate behavior? Assessment Right knee osteoarthritis status post??right total knee arthroplasty??on 02/[address] Pierce Hyperlipidemia Constipation ?? Plan: Admit to inpatient Medsurg F/U ortho trend WBCs and Hgb Transfuse PRBCs of Hgb < 7 observe post op milestone Bowel care multimodal pain control, avoid over sedation IS Q 1hr while awake Maintain oxygen sats > 90%, titrate 02 Notify physician if requiring increased oxygen Post op labs PRN encourage ambulation Pt/OT eval Monitor vitals Routine labs ordered Home medications reconciled. Supportive care ? Fluids: IV fluids Electrolytes: Replace electrolytes per protocol Nutrition: clear liquid ?? Activity: As tolerated VTE prophylaxis: SCDs, ambulate GI prophylaxis: none ?? Code Status: Full code Disposition: In-house ?? Findings, impression and recommendations were discussed in detail with the patient.?? Questions were invited and answered to patient's satisfaction.?? Patient verbalized understanding and is in agreement with plan of care. ?? Please note: This dictation was done using voice recognition software.?? Translation errors may be occasionally missed in editing.?? Please contact us if there are any questions or for clarification as needed. ?? Attestation: I discussed the case with supervising physician on duty.?? This chart was designated for review andattestation by the supervising physician on duty. ?? [facility] INTERNAL MEDICINE PROGRESS NOTES:Elmo Blandon, ACID TENDER-C [address], [address], [place] [address] ?? [email or web address]? ASSESSMENT/PLAN: Orders: Admission History Adult Admission Notification - Family Admit to Outpatient - Reg. Update Blood Culture Communication Adam Scale Assessment Change Patient Status/Type Change Patient Status/Type - Reg. Update Chlorhexidine Gluconate Bath Chlorhexidine Gluconate Bath Complete Blood Count With Auto Differential Comprehensive Metabolic Panel Intake and Output Interdisciplinary Patient Education Knee Total Replacement Pre-Op Report Tracker Order Magnesium Level Macias Fall Risk Assessment Notify Physician/Provider Vital Signs Fire Range Technician Details Oxygen Therapy by Respiratory Peripheral IV Insertion Physical Therapy Evaluation & Treatment Place in Outpatient Regular Diet Respiratory Therapy Assessment Resuscitation Status Review Interdisciplinary CarePlan Routine Vital Signs Routine Vital Signs Saline Lock Insertion Self Harm Risk Assessment Sepsis Screening Surgical Prep Surgical Prep Up Ad Mellisa Update Consulting Provider Verify Consent Void Prior to Procedure VTE Quality Measures PROBLEM LIST/PAST MEDICAL HISTORY: Ongoing ? High cholesterol (Patient Stated)? Osteoarthritis (Patient Stated)?? Historical ? No qualifying data? PROCEDURE/SURGICAL HISTORY: ???Knee Total Arthroplasty Robotic Assisted (03/03/2024)???Cataract???Cholecystectomy???Colonoscopy SOCIAL HISTORY: Alcohol Current, 1-2 times per year, 02/29/2024 Electronic Cigarette/Vaping Never E-Cigarette Use:., 02/29/2024 Home/Environment Human Trafficking Red Flags None., 01/28/2024 Substance Abuse Denies use Use:., 01/28/2024 Tobacco Never smoker, Never Smokeless tobacco use:., 01/28/2024 FAMILY HISTORY: Heart failure: Father. Malignant hyperthermia: Negative: Mother, Father and Brother. MEDICATIONS: Medications (16) Active Scheduled: (2) docusate (Colace) ??100 mg = 1 cap, Oral, BID senna (Senokot) ??8.6 mg = 1 tab, Oral, Daily ?? Continuous: (1) ropivacaine 0.2% On-Q pump 550 mL ??550 mL, Percutaneous, 8 mL/hr ?? PRN: (13) acetaminophen (Tylenol) ??650 mg = 2 tab, Oral, [id number] acetaminophen (Tylenol) ??650 mg = 2 tab, Oral, [id number] acetaminophen-oxyCODONE (Percocet 5/325 oral tablet) ??1 tab, Oral, Q4hr acetaminophen-oxyCODONE (Percocet 5/325 oral tablet) ??2 tab, Oral, Q4hr Al hydroxide/Mg hydroxide/simethicone (Maalox (with simethicone) Regular Strength) ??30 mL, Oral, Q4hr hydrALAZINE ??10 mg = 0.5 mL, IV Push, Q6hr LORazepam (Ativan) ??0.5 mg = 1 tab, Oral, Q4hr morphine ??2 mg = 1 mL, IV Push, Q3hr morphine ??4 mg = 1 mL, IV Push, Q3hr nalOXone (Narcan) ??0.4 mg = 1 mL, IV Push, Q2 Min-int ondansetron (Zofran) ??4 mg = 2 mL, IV Push, Q4hr sodium chloride (sodium chloride 0.9% flush) ??10 mL, IV Push, As Directed zolpidem (Ambien) ??5 mg = 1 tab, Oral, Q Bedtime ? ALLERGIES: Allergies (2) Active?Reaction cefaclor?anaphylaxis Vicodin?anaphylaxis LAB RESULTS: Hematology Basic - Last 36 hours (0) Result Date/Time ? Chemistry Comprehensive - Last 36 hours (0) Result Date/Time ? DIAGNOSTIC RESULTS: Radiology - Last 36 hours (0) No results in past 36 hours ? Diagnostics - Non-Radiology (0) No qualifying data. ? ADDITIONAL INFORMATION I personally seen and examined the patient. I reviewed the chart and discussed the care plan with the physician retail sales merchandiser. I agree with the above. ?? Amanda Jacome MD Electronically Signed On 03/03/24 18:11 [facility] BLANDON ACID TENDER-C, KES[place]KE ACID TENDER-C Electronically Signed On 03/03/24 19:28 [facility] BLANDON ACID TENDER-C, KESALUKE ACID TENDER-C Electronically Signed On 03/03/24 21:05 [facility] AMANDA JACOME MD Discharge summary * CARLY CRAFT, LUCIUS: PERFORM Event Display: Discharge Summary EMR No Cosign Authored Date: [id number] DATE/TIME NOTE CREATED: 03/05/2024 15:50:25 HOSPITAL COURSE: 72-year-old female with past medical history of hyperlipidemia and constipation??who presents due to right knee osteoarthritis.?? Patient was seen and evaluated in Dr. Pierce's office.?? Conservative measures were initiated however failed to bring about the long-term benefit.?? An elective right total knee arthroplasty was indicated for right knee osteoarthritis.?? Patient was seen and evaluated in room 332.?? She reports mild right knee pain however tolerable with current pain medication regimen.?? She denies numbness and tingling. Patient through the hospitalization course did fairly well clinically.?? Patient had a bowel movement, able to tolerate p.o. intake denies any further nausea vomiting or abdominal pain.?? Patient is aware that she will need adequate follow with primary care physician and?? orthopedic specialists asan outpatient. At the time of discharge the patient was hemodynamically stable,??vitals signs??werenormal limits. ?? Right knee osteoarthritis Hyperlipidemia Constipation ?? Plan: Continue medical management treatment plan Monitor for Bm , has not eaten thus yet Postop day 2 Status post right total knee arthroplasty??on 03/03/2024??by Dr. Pierec F/U ortho trend WBCs and Hgb Transfuse PRBCs of Hgb < 7 observe post op milestone Bowel care multimodal pain control, avoid over sedation Maintain oxygen sats > 90%, titrate 02 Pt/OT eval Monitor vitals Routine labs ordered Home medications reconciled. Supportive care PHYSICAL EXAM: VITAL SIGNS: Vital Signs: Last Charted: 24 Hr Minimum: 24 Hr Maximum: Temperature Oral 37.1 degC?? (03/05 07:00) 36.7 degC?? (03/04 19:00) 37.5 degC?? (03/05 04:00) Heart Rate 98 bpm?? (03/05 07:00) 90 bpm?? (03/04 19:00) 98 bpm?? (03/05 07:00) Pulse/HR Method Monitor ?? (03/05 07:00) ? Respiratory Rate 16 breaths/min?? (03/05 07:00) 16 breaths/min?? (03/05 07:00) 18 breaths/min?? (03/04 19:00) Systolic Blood Pressure 130 mmHg?? (03/05 07:00) 124 mmHg?? (03/05 04:00) 145 mmHg (H) (03/04 19:00) Diastolic Blood Pressure 81 mmHg?? (03/05 07:00) 80 mmHg?? (03/04 19:00) 81 mmHg?? (03/05 07:00) MAP 97 mmHg?? (03/05 07:00) 95 mmHg?? (03/05 04:00) 102 mmHg?? (03/04 19:00) Blood Pressure Location Arm ?? (03/05 04:00) ? Blood Pressure Method Automatic ?? (03/05 07:00) ? Probe Site Finger ?? (03/05 04:00) ? SpO2/Pulse Oximetry 91 %?? (03/05 07:00) 91 %?? (03/05 07:00) 92 %?? (03/04 19:00) GENERAL:??Alert and oriented, non-toxic appearing HEAD:??Normocephalic, atraumatic EYES:??PERRLA, EOMI, conjunctiva normal, no discharge. ENT:??Hearing grossly intact, normal oropharynx. NECK:??Supple,nontender, no lymphadenopathy LUNGS:??Clear breath sounds bilaterally. ??No wheezes, rales, or rhonchi. HEART:??Regular rate and rhythm. ??Normal S1 and S2, VASC:??+ radial and dorsalis pedis pulses, No edema. ABD:??Bowel sounds normal, soft, nontender :??Deferred Musculoskeletal: RLE strength??5/5. ??Right knee??mild tenderness EXT:??RLE??normal range of motion. ??RLE sensation intact SKIN:??No new rashes or suspicious nevi?? NEURO:??Alert and oriented x 3, non focal PSYCH: Normal affect.??Appropriate behavior?? DISCHARGE DIAGNOSES AND PLAN: 1.??Osteoarthritis??M19.90 Orders: Admission Notification - Family Discharge Patient Occupational Therapy Evaluation & Treatment Occupational Therapy Follow-up Patient/Family Teaching Saline Lock Insertion DISCHARGE MEDICATIONS: Discharge Medications (8) Order Details Status New / Continued Meds: (7) cyclobenzaprine ?? 5 milligram(s) Oral Three times a day as needed prn. ?? Continue docusate-senna (Senna Plus oral tablet) ?? 2 tablet(s) Oral Nightly at bedtime. ?? Continue meloxicam ?? 7.5 milligram(s) Oral Daily. ?? Continue traMADol ?? 50 milligram(s) Oral Every 6 hours scheduled as needed prn. ?? Continue aspirin (aspirin 325 mg oral tablet) ?? 1 tablet(s) Oral Twice daily. Refills: 0. ?? Continue with Changes docusate (docusate sodium 100 mg oral capsule) ?? 1 capsule(s) Oral Twice daily. Refills: 0. ?? Continue with Changes rosuvastatin ?? 20 milligram(s) Oral Nightly at bedtime. ?? Continue with Changes ?? Stopped Meds: (1) clindamycin ?? 300 milligram(s) Oral Three times a day. ?? Stop ? INSTRUCTIONS: Order Name Order Details Discharge Patient Discharge To: Home Discharge Diet: Resume Home Diet Discharge Activity: Resume Home Activity FOLLOW UP: With When Contact Information ELLA CRAFT, MEGGAN [facility] Within 5 to 7 days [address] [place], [place] [phone]- [phone] Additional Instructions: ATTESTATION: Total time spent discharging patient >35 minutes Electronically Signed On 03/05/24 15:51 MST LUCIUS CARROLL MD Admission history and physical note * EUNICE COLE: PERFORM Event Display: Admission H&P EMR Authored Date: Chief Complaint: F/U Knee Osteoarthritis, Right evaluated on November 04, 2023 ?? HPI: This is a 73 year old female who is following up for Knee Osteoarthritis on the right knee joint. She was seen on November 04, 2023, at which time she was treated with Viscosupplementation - Durolane and counseling knee djd was performed. We decided on the following plan on the right: Intraarticular viscosupplementation . Today the patient reports: Pain Intensity 6.0 - 6/10 Pain. Signs and symptoms: catching, swelling, and stiffness. Quality: sharp and aching. The patient has severe right knee pain that became drastically worse. She normally was able to walk without severe pain but now she is unable to walk short distances without severe pain. Despite having increased pain with walking she was still able to ride a bike without significant pain until recently. About several weeks ago she started having severe pain with trying to ride her bike and that has encouraged her to come in to see me to discuss surgical options. She has tried all the conservative treatment options without significant long-term relief and is now interested in surgery. She has a possible severe allergy to Vicodin but I discussed with the patient that I suspect that she may not actually have a significant allergy to Vicodin if they potentially gave her another medication at the same time. She does have a significant allergy to cephalosporins. She has tolerated Tramadol. ?? Vitals: Date Taken By B.P. Pulse Resp. O2 Sat. Temp. Ht. Wt. BMI BSA 01/21/24 09:31 Wendy Austin 64.0 in 218.0 lbs 37.4 2 ?? Allergies Reviewed July 27, 2023. Vicodin - Anaphylaxis Medications Reviewed July 27, 2023. Adult Low Dose Aspirin 81 mg Oral - tablet,delayed release (DR/EC) rosuvastatin 20 mg Oral - tablet Medical History Reviewed July 27, 2023. Obesity Musculoskeletal History None Musculoskeletal Family History None Musculoskeletal Surgery None Surgical History Reviewed July 27, 2023. Other: Gall bladder Social History Reviewed July 27, 2023. EtOH none Single Question Alcohol Screenin days Smoking status - Never smoker Healthcare Proxy: Yes Living Will: Yes ?? Exam: Knee Right Knee ROM: grossly limited and with painRight Knee ROM: Right Knee Additional ROM: The knee lacks a couple degrees of full extension. Flexion is limited to 125. Left Knee ROM: Flexion: 130 + degrees. Extension: 0 degrees. Skin: Right Knee: Right lower extremity is neurovascularly intact to motor and sensation in the L1 through S1 nerve distribution. There is brisk capillary refill and palpable distal pulses. Calf is soft and compressible with no signs of DVT. There is no effusion, warmth, or signs of infection. Skin: Left Knee: Skin intact, no rashes, lesions, erythema or signs of infection. Inspection: Right Knee: There is tenderness to palpation to the medial and lateral joint line. There is pain with patellar compression. Inspection: Left Knee: Normal alignment, no deformity, no tenderness, no warmth, no masses Right Quadriceps: Strength: 5/5, normal muscle tone. Left Quadriceps: Strength: 5/5, normal muscle tone. Right Hamstring: Strength: 5/5, normal muscle tone. Left Hamstring: Strength: 5/5, normal muscle tone. Stability: Right Knee: Slight instability to varus and valgus Stability: Left Knee: Stable stress both in extension and in flexion. There is less than 5 mm of anterior posterior instability with drawer testing. Special: Right Knee: There is crepitance to the tibiofemoral joint and to the patellofemoral joint. Special: Left Knee: Normal Right patella tracking: crepitus 2 ? Data Reviewed: 12 Ordering of each unique test (Basic metabolic 2000 panel - Serum or Plasma, Order Plain X-ray (Outside Imaging) (Chest, PA and lateral upright view), CBC W Auto Differential panel - Blood, Albumin/Protein.total in Serum or Plasma, PT and aPTT panel - Platelet poor plasma by Coagulation assay, Order CT - Knee (Knee - Right CT WO contrast; CPT 61395), VitaminD+Metabolites [Mass/volume] in Serum or Plasma, Order Surgery: Knee Arthroplasty (Hemoglobin A1c, EKG, CXR, UA), Urinalysis complete W Reflex Culture panel - Urine) ?? Impression/Plan: We will plan to have the surgery done at the hospital so that we can manage any potential significant allergies to pain medication appropriately. Knee Osteoarthritis, Right Unilateral primary osteoarthritis, right knee (M17.11) located on the right knee joint. Status: Worsening Pain Intensity: 10.0 - 10/10 Pain ?? Plan: Counseling - Knee DJD. Extensive discussion with the patient in regards to treatment. Various treatment options were discussed including heat, ice, Tylenol, anti-inflammatory medication, both [id number] versus prescription strength or compound ointments. Injections were also discussed with the patient including corticosteroid injections as well as viscosupplementationinjections. Braces and physical therapy could also be part of the treatment protocol as needed. Expectations: I counseled the patient about the natural history of degenerative joint disease of the knee which typically has exacerbations and remissions. Many people report that changes in the weather also affect the degreeof pain from arthritis. The knee joint does not heal on its own when there is arthritis. With time, the symptoms of arthritis may get worse. For some, conservative management may not be not satisfactory. These individuals should consider surgical options. Surgical Options and Alternatives Intraarticular steroid injection : I discussed with the patient that this involves the injection ofa potent antiinflammatory substance (cortisone) into the knee joint. Risks include whitening of the skin at the injection site and a transient rise in blood glucose. Complications are extremely rare; infection is the most common. There is no rule as to how many injections can be given. Because some research has shown that too much cortisone can damage cartilage, most physicians limit the number of shots they will give you. Intraarticular viscosupplementation : I discussed with the patient that this procedure involves theinjection of artificial joint fluid into the knee. The fluid acts as a lubricant, shock absorber, and an antiinflammatory agent. Depending on the specific agent used you will receive one to five shots, each shot one week apart. This intervention is most effective if used in early stage osteoarthritis. Side effects include knee swelling and pain at the injection site. dedicated intermodal truck driver efficacy is not currently known. Complications include but are not limited to infection and joint swelling. Total knee replacement : I explained to the patient that this is an option for patients that have severe pain in their knee from arthritis who have failed conservative management. The diseased parts of the knee are replaced with metal andplastic. Approximately 90% of patients who have total knee replacement experience a significant reduction in pain and a dramatic improvement in their ability to perform common activities of daily living. High impact activities should be avoided after surgery, if possible, to prolong the life of the implant. Serious complications occur in less than 2% of patients. Risks include but arenot limited to infection, injury to blood vessels and nerves, blood clots, heart complications, lung complications, stroke, and stiffness. PRP (Platelet Rich Plasma) Injection : I explained to the patient that this injection involves using the patient's own blood to treat pain and injury. Specific products from the patient's blood are injected to facilitate the body's healing response. This injection is not widely accepted or strongly supported in the literature, but does appear promising for treating some musculoskeletal conditions. Risks include infection at the injection site. Some patients will have significant pain at the injection site for days after the injection. Diagnostic Imaging Results 4 view xrays of the knee demonstrate severe joint space narrowing with sclerosis and osteophyte formation. No acute fracture, dislocation, or osseous abnormalities noted. We reviewed and discussed the radiographic findings indetail. ?? After counseling the patient, we decided on the following plan for the RIGHT KNEE: Total knee replacement Electronically Signed On 03/03/24 06:30 MST EUNICE COLE Electronically Signed On 03/03/24 07:50 MST JOSUÉ PIERCE DO Progress note * LUCIUS CARROLL MD: PERFORM Event Display: Progress Note EMR Mayra ALLRED Authored Date: [id number] DATE/TIME NOTE CREATED: 03/05/2024 11:59:09 SUBJECTIVE: Patient seen and examined in the room.?? Discussed case with at bedside. ??Patient's current complaint of abdominal pain and had not been able to have a bowel movement.?? Discussed with nurseat bedside, will go ahead and??continue with bowel care. ??Monitor for bowel movement.?? Patient will have to have a full meal??and close to her baseline before disposition.?? No acute events reported overnight. REVIEW OF SYSTEMS: Negative as otherwise specified by the HPI OBJECTIVE: VITAL SIGNS: T:??37.1?C (Oral)?? TMIN:??36.7?C (Oral)?? TMAX:??37.5?C (Oral)?? HR:??98?? RR:??16?? BP:??130/81?? SpO2:??91%?? Vital Signs: Last Charted: 24 Hr Minimum: 24 Hr Maximum: Temperature Oral 37.1 degC?? (03/05 07:00) 36.7 degC?? (03/04 19:) 37.0 degC?? (03/04 15:) Heart Rate 98 bpm?? (03/05 07:00) 90 bpm?? (03/04 19:) 98 bpm?? (03/05 07:) Pulse/HR Method Monitor ?? (03/05 07:) ? Respiratory Rate 16 breaths/min?? (03/05 07:00) 16 breaths/min?? (03/05 07:00) 18 breaths/min?? (03/04 15:23) Systolic Blood Pressure 130 mmHg?? (03/05 07:00) 112 mmHg?? (03/04 15:23) 145 mmHg (H) (03/04 19:00) Diastolic Blood Pressure 81 mmHg?? (03/05 07:00) 80 mmHg?? (03/04 19:00) 81 mmHg?? (03/04 15:23) MAP 97 mmHg?? (03/05 07:00) 91 mmHg?? (03/04 15:23) 102 mmHg?? (03/04 19:00) Blood Pressure Location Arm ?? (03/05 04:00) ? Blood Pressure Method Automatic ?? (03/05 07:00) ? Probe Site Finger ?? (03/05 04:00) ? SpO2/Pulse Oximetry 91 %?? (03/05 07:00) 91 %?? (03/05 07:00) 93 %?? (03/04 15:23) PHYSICAL EXAM: GENERAL:??Alert and oriented, non-toxic appearing HEAD:??Normocephalic, atraumatic EYES:??PERRLA, EOMI, conjunctiva normal, no discharge. ENT:??Hearing grossly intact, normal oropharynx. NECK:??Supple,nontender, no lymphadenopathy LUNGS:??Clear breath sounds bilaterally. ??No wheezes, rales, or rhonchi. HEART:??Regular rate and rhythm. ??Normal S1 and S2, VASC:??+ radial and dorsalis pedis pulses, No edema. ABD:??Bowel sounds normal, soft, nontender :??Deferred Musculoskeletal: RLE strength??5/5. ??Right knee??mild tenderness EXT:??RLE??normal range of motion. ??RLE sensation intact SKIN:??No new rashes or suspicious nevi?? NEURO:??Alert and oriented x 3, non focal PSYCH: Normal affect.??Appropriate behavior?? LAB RESULTS: Hematology Basic - Last 36 hours (20) Result Date/Time WBC 9.3?03/04 02:40 RBC 4.43?03/04 02:40 Hgb 13.1?03/04 02:40 Hct 39.1?03/04 02:40 MCV 88.4?03/04 02:40 MCH 29.6?03/04 02:40 MCHC 33.5?03/04 02:40 RDW 13.8?03/04 02:40 Platelet Count 227?03/04 02:40 MPV 8.5?03/04 02:40 Neutrophil Rel 76.7?03/04 02:40 Lymphocyte Rel 8.2 (L) ??03/04 02:40 Monocyte Rel 14.4?03/04 02:40 Eosinophil Rel 0.4?03/04 02:40 Basophil Rel 0.3?03/04 02:40 Neutrophil Abs 7.2?03/04 02:40 Lymphocyte Abs 0.8 (L) ??03/04 02:40 Monocyte Abs 1.3 (H) ??03/04 02:40 Eosinophil Abs 0.0?03/04 02:40 Basophil Abs 0.0?03/04 02:40 ? Chemistry Comprehensive - Last 36 hours (20) Result Date/Time Sodium Lvl 138?03/04 02:40 Potassium Lvl 3.6?03/04 02:40 Chloride Lvl 106?03/04 02:40 CO2 24?03/04 02:40 Glucose Level 106 (H) ??03/04 02:40 BUN 12?03/04 02:40 Creatinine Lvl 0.90?03/04 02:40 AGAP 8.0?03/04 02:40 BUN/Creat 13?03/04 02:40 Total Protein 6.0?03/04 02:40 Albumin Lvl 3.6?03/04 02:40 Calcium Lvl 9.1?03/04 02:40 Bili Total 0.8?03/04 02:40 Alk Phos 48?03/04 02:40 AST 23?03/04 02:40 ALT 16?03/04 02:40 Globulin 2.4?03/04 02:40 Osmolality Calc 286?03/04 02:40 A/G Ratio 1.5?03/04 02:40 Magnesium Lvl 2.0?03/04 02:40 ? DIAGNOSTIC RESULTS: Radiology - Last 36 hours (1) XR Knee 1 or 2 Views Right??(03/03 20:21) FINDINGS:?? Right total knee arthroplasty is noted. Hardware is intact and in anatomic alignment. Postsurgical changes are noted in the adjacent soft tissues. ?? IMPRESSION:?? Status post right total knee arthroplasty. ? Diagnostics - Non-Radiology (0) No qualifying data. ? ASSESSMENT/PLAN: Orders: Admission Notification - Family Occupational Therapy Evaluation & Treatment Occupational Therapy Follow-up Patient/Family Teaching Physical Therapy Evaluation & Treatment Physical Therapy Follow-up Saline Lock Insertion Assessment Right knee osteoarthritis Hyperlipidemia Constipation ?? Plan: Continue medical management treatment plan Monitor for Bm , has not eaten thus yet Postop day 2 Status post right total knee arthroplasty??on 03/03/2024??by Dr. Pierce F/U ortho trend WBCs and Hgb Transfuse PRBCs of Hgb < 7 observe post op milestone Bowel care multimodal pain control, avoid over sedation Maintain oxygen sats > 90%, titrate 02 Pt/OT eval Monitor vitals Routine labs ordered Home medications reconciled. Supportive care ? FEN:??Electrolyte per protocol. Activity: As tolerated DVT??prophylaxis: SCDs, ambulate. Per primary team GI prophylaxis: none ?? Code Status: Full code Electronically Signed On 03/05/24 11:59 MST LUCIUS CARROLL MD * LUCIUS CARROLL MD: PERFORM Event Display: Progress Note EMR No Cosign SOAP Authored Date: [id number] DATE/TIME NOTE CREATED: 03/04/2024 10:43:17 SUBJECTIVE: Patient seen and examined in the room.?? Discussed medical management treatment plan with patient.?? Patient is postop 1??TKA by orthopedic surgery. ??Follow recommendations today. ??Patient states she is sitting??quite a bit of pain, will continue with pain management per protocol.?? PT/OT to evaluate today REVIEW OF SYSTEMS: Negative as otherwise specified by the [facility] OBJECTIVE: VITAL SIGNS: T:??37.3?C (Oral)?? TMIN:??36.7?C (Oral)?? TMAX:??37.5?C (Oral)?? HR:??98?? RR:??18?? BP:??124/76?? SpO2:??92%?? WT:??101.4??kg?? Vital Signs: Last Charted: 24 Hr Minimum: 24 Hr Maximum: Temperature Oral 37.3 degC?? (03/04 07:00) 36.7 degC?? (03/03 21:48) 37.0 degC?? (03/04 00:00) Temperature Temporal 36.8 degC?? (03/03 14:00) 36.8 degC?? (03/03 14:00) 36.8 degC?? (03/03 14:00) Heart Rate 98 bpm?? (03/04 07:00) 57 bpm (L) (03/03 15:30) 98 bpm?? (03/04 07:00) MU Cardiac Rhythm Normal sin ?? (03/03 14:00) ? Pulse/HR Method Monitor ?? (03/04 07:00) ? Respiratory Rate 18 breaths/min?? (03/04 07:00) 13 breaths/min (L) (03/03 16:15) 23 breaths/min (H) (03/03 14:15) Systolic Blood Pressure 124 mmHg?? (03/04 07:00) 119 mmHg?? (03/03 16:30) 151 mmHg (H) (03/03 14:25) Diastolic Blood Pressure 76 mmHg?? (03/04 07:00) 62 mmHg?? (03/03 15:15) 100 mmHg (H) (03/03 14:00) MAP 92 mmHg?? (03/04 07:00) 84 mmHg?? (03/03 16:30) 110 mmHg?? (03/03 14:00) Blood Pressure Location Arm ?? (03/04 03:57) ? Blood Pressure Method Automatic ?? (03/04 07:00) ? Probe Site Finger ?? (03/04 03:57) ? SpO2/Pulse Oximetry 92 %?? (03/04 07:00) 92 %?? (03/04 07:00) 100 %?? (03/03 14:00) Oxygen Flow 6 L/min?? (03/03 14:05) 6 L/min?? (03/03 14:05) 6 L/min?? (03/03 14:05) Dosing BMI 40 ?? (03/03 14:07) 40 ?? (03/03 14:) 40 ?? (03/03 14:) PHYSICAL EXAM: GENERAL:??Alert and oriented, non-toxic appearing HEAD:??Normocephalic, atraumatic EYES:??PERRLA, EOMI, conjunctiva normal, no discharge. ENT:??Hearing grossly intact, normal oropharynx. NECK:??Supple,nontender, no lymphadenopathy LUNGS:??Clear breath sounds bilaterally. ??No wheezes, rales, or rhonchi. HEART:??Regular rate and rhythm. ??Normal S1 and S2, VASC:??+ radial and dorsalis pedis pulses, No edema. ABD:??Bowel sounds normal, soft, nontender :??Deferred Musculoskeletal: RLE strength??5/5. ??Right knee??mild tenderness EXT:??RLE??normal range of motion. ??RLE sensation intact SKIN:??No new rashes or suspicious nevi?? NEURO:??Alert and oriented x 3, non focal PSYCH: Normal affect.??Appropriate behavior?? LAB RESULTS: Hematology Basic - Last 36 hours (20) Result Date/Time WBC 9.3?03/04 02:40 RBC 4.43?03/04 02:40 Hgb 13.1?03/04 02:40 Hct 39.1?03/04 02:40 MCV 88.4?03/04 02:40 MCH 29.6?03/04 02:40 MCHC 33.5?03/04 02:40 RDW 13.8?03/04 02:40 Platelet Count 227?03/04 02:40 MPV 8.5?03/04 02:40 Neutrophil Rel 76.7?03/04 02:40 Lymphocyte Rel 8.2 (L) ??03/04 02:40 Monocyte Rel 14.4?03/04 02:40 Eosinophil Rel 0.4?03/04 02:40 Basophil Rel 0.3?03/04 02:40 Neutrophil Abs 7.2?03/04 02:40 Lymphocyte Abs 0.8 (L) ??03/04 02:40 Monocyte Abs 1.3 (H) ??03/04 02:40 Eosinophil Abs 0.0?03/04 02:40 Basophil Abs 0.0?03/04 02:40 ? Chemistry Comprehensive - Last 36 hours (20) Result Date/Time Sodium Lvl 138?03/04 02:40 Potassium Lvl 3.6?03/04 02:40 Chloride Lvl 106?03/04 02:40 CO2 24?03/04 02:40 Glucose Level 106 (H) ??03/04 02:40 BUN 12?03/04 02:40 Creatinine Lvl 0.90?03/04 02:40 AGAP 8.0?03/04 02:40 BUN/Creat 13?03/04 02:40 Total Protein 6.0?03/04 02:40 Albumin Lvl 3.6?03/04 02:40 Calcium Lvl 9.1?03/04 02:40 Bili Total 0.8?03/04 02:40 Alk Phos 48?03/04 02:40 AST 23?03/04 02:40 ALT 16?03/04 02:40 Globulin 2.4?03/04 02:40 Osmolality Calc 286?03/04 02:40 A/G Ratio 1.5?03/04 02:40 Magnesium Lvl 2.0?03/04 02:40 ? DIAGNOSTIC RESULTS: Radiology - Last 36 hours (1) XR Knee 1 or 2 Views Right??(03/03 20:21) FINDINGS:?? Right total knee arthroplasty is noted. Hardware is intact and in anatomic alignment. Postsurgical changes are noted in the adjacent soft tissues. ?? IMPRESSION:?? Status post right total knee arthroplasty. ? Diagnostics - Non-Radiology (0) No qualifying data. ? ASSESSMENT/PLAN: Orders: Active Range of Motion by Nursing Admission History Adult Admit to Outpatient - Reg. Update Ambulate AV Impulse Device Blood Culture Communication Case Management Consult Change Patient Status/Type Change Patient Status/Type - Reg. Update Chlorhexidine Gluconate Bath Complete Blood Count With Auto Differential Comprehensive Metabolic Panel Frequent Neurovascular Checks Frequent Vital Signs Graduated Compression Stocking Ice Pack Incentive Spirometry Instruct by Resp Incentive Spirometry Nursing Incentive Spirometry Nursing Intake and Output Knee Total Replacement Post-Op Report Tracker Order Magnesium Level Medical Service Consult Notify Physician/Provider Notify Physician/Provider Vital Signs Occupational Therapy Evaluation & Treatment Oxygen Therapy by Respiratory Pastoral Care Advance Directive Consult Patient/Family Teaching Physical Therapy Evaluation & Treatment Physical Therapy Evaluation & Treatment Place in Outpatient Regular Diet Regular Diet Respiratory Therapy Assessment Routine Vital Signs Saline Lock Insertion Sequential Compression Device Application Director Customer Advance Directive Consult Director Customer Consult Up Ad Mellisa Up to Chair Update Consulting Provider VTE Quality Measures Weight Bearing XR Knee 1 or 2 Views Right Assessment Right knee osteoarthritis Hyperlipidemia Constipation ?? Plan: Continue medical management treatment plan Postop day 1 Status post right total knee arthroplasty??on 03/03/2024??by Dr. Pierce F/U ortho trend WBCs and Hgb Transfuse PRBCs of Hgb < 7 observe post op milestone Bowel care multimodal pain control, avoid over sedation Maintain oxygen sats > 90%, titrate 02 Pt/OT eval Monitor vitals Routine labs ordered Home medications reconciled. Supportive care ? FEN:??Electrolyte per protocol. Activity: As tolerated DVT??prophylaxis: SCDs, ambulate. Per primary team GI prophylaxis: none ?? Code Status: Full code Electronically Signed On 03/04/24 10:43 MST LUCIUS CARROLL MD Patient Care team information Care Team Personnel Name: MEGGAN JARAMILLO MD Position: RO No Access Member Role: Primary Care Physician Address: Address: [address] [place], [place] [address] Care Team Related Persons Name: WILI FRAIRE
--- OUTSIDE RECORDS SUMMARY | 2024-12-06 03:44 | XMS_ITS | Continuity of Care Document ---
Author Organization [facility] Address [address] [place] [address]- Encounter [facility] Date(s): 10/07/24 - 10/07/24 [facility] [address] [place] [address] Discharge Disposition: Home/Self Care Attending Physician: MOHIT CARNEY MD Admitting Physician: MOHIT CARNEY MD Referring Physician: MOHIT CARNEY MD Allergies, Adverse Reactions, Alerts Substance Reaction Severity Status clindamycin rash Active cefaclor anaphylaxis Active proton pump inhibitors rash and sweating Active Ceclor eye swelled shut Active Vicodin anaphylaxis Active Functional Status 10/07/24 Living Situation Home independently Medications aspirin 325 mg oral tablet 325 mg = 1 tab, Oral, BID, # 60 tab, 0 Refill(s), 0, [id number], 160, cm, 03/05/24 15:21:00 MST, Height, 101.4, kg, 03/03/24 14:07:00 MST, Dosing Weight Start Date: 03/05/24 Status: Ordered Bentyl 10 mg oral capsule 10 mg = 1 cap, Oral, QID, # 40 cap, 0 Refill(s), 0, [id number], 160, cm, 03/22/24 16:09:00 MST, Height, 100, kg, 03/22/24 16:09:00 MST, Dosing Weight Start Date: 03/22/24 Stop Date: 04/01/24 Status: Ordered clopidogrel 75 mg oral tablet 75 mg = 1 tab, Oral, Daily, # 30 tab, 0 Refill(s) Start Date: 10/06/24 Status: Ordered cyclobenzaprine 5 mg, Oral, TID, PRN PRN prn Start Date: 03/05/24 Status: Ordered docusate sodium 100 mg oral capsule 100 mg = 1 cap, Oral, BID, # 60 cap, 0 Refill(s), 0, Pharmacy: [id number], 160, cm, 03/05/24 15:21:00 MST, Height, 101.4, kg, 03/03/24 14:07:00 MST, Dosing Weight Start Date: 03/05/24 Status: Ordered magnesium citrate oral liquid 8.725 g = 150 mL, Oral, Once Scheduled, PRN PRN Constipation, # 300 mL, 0 Refill(s), 0, Pharmacy: [id number], 160, cm, 03/22/24 16:09:00 MST, Height, 100, kg, 03/22/24 16:09:00 MST, DosingWeight Start Date: 03/22/24 Status: Ordered meloxicam 7.5 mg, Oral, Daily Start Date: 03/05/24 Status: Ordered Metoprolol Succinate ER 25 mg oral tablet, extended release 25 mg = 1 tab, Oral, Daily, # 90 tab, 0 Refill(s) Start Date: 10/06/24 Status: Ordered mineral oil rectal enema 133 mL, Rectal, Once Scheduled, # 133 mL, 0 Refill(s), 0, Pharmacy: [id number], 160, cm,03/22/24 16:09:00 MST, Height, 100, kg, 03/22/24 16:09:00 MST, Dosing Weight Start Date: 03/22/24 Status: Ordered rosuvastatin 20 mg, Oral, Q Bedtime Start Date: 03/05/24 Status: Ordered Senna Plus oral tablet 2 tab, Oral, Q Bedtime Start Date: 03/05/24 Status: Ordered traMADol 50 mg, Oral, Q6hr, PRN PRN prn Start Date: 03/05/24 Status: Ordered Voquezna 20 mg oral tablet 20 mg = 1 tab, Oral, Daily, 0 Refill(s) Start Date: 10/06/24 Status: Ordered Problem List Condition Confirmation Course Effective Dates Status H ealth Status Informant CAD (coronary artery disease) Confirmed Active patient High cholesterol Confirmed Active patie nt HTN (hypertension) Confirmed Active pat ient Osteoarthritis Confirmed Active patient Procedures Procedure Date Related Diagnosis Body Site Status Esophagogastroduodenoscopy 1 10/07/24 Completed Left Heart Cath (x1 stent) 05/2024 Completed 1auto-populated from documented surgical case Vital Signs Most recent to oldest [Reference Range]: 1 2 3 Blood Pressure [90-140/60-90 mmHg] 151/75mmHg *HI* (10/07/24 1:50 PM) 142/74mmHg *HI* (10/07/24 1:40 PM) 120/66mmHg (10/07/24 1:30 PM) Blood Pressure Location Left (10/07/24 12:40 PM) Dosing BMI 37 (10/07/24 12:39 PM) Dosing BSA-Mosteller 2.09 m2 (10/07/24 12:39 PM) Dosing Weight 97.1 kg (10/07/24 12:39 PM) Heart Rate [60-100 bpm] 59 bpm *LOW* (10/07/24 1:50 PM) 61 bpm (10/07/24 1:40 PM) 67 bpm (10/07/24 1:30 PM) Height 162 cm (10/07/24 12:39 PM) 162 cm (10/06/24 10:20 AM) MAP 87 mmHg (10/07/24 1:40 PM) 83 mmHg (10/07/24 1:30 PM) 68 mmHg (10/07/24 1:22 PM) Method for Height Stated (10/06/24 10:20 AM) Method for Weight Actual (10/07/24 12:39 PM) Respiratory Rate [14-20 breaths/min] 14 breaths/min (10/07/24 1:40 PM) 16 breaths/min (10/07/24 1:30 PM) 15 breaths/min (10/07/24 1:22 PM) SpO2/Pulse Oximetry [85-100 %] 98 % (10/07/24 1:50 PM) 96 % (10/07/24 1:40 PM) 97 % (10/07/24 1:30 PM) Temperature Temporal [36.3-38 degC] 36.1 degC *LOW* (10/07/24 1:50 PM) 36.3 degC (10/07/24 1:22 PM) 36.5 degC (10/07/24 12:40 PM) Weight Scale Type Standing (10/07/24 12:39 PM) Social History Social History Type Response Smoking Status Never smoker;Never entered on: 10/06/24 Sex Hospital Discharge Instructions Follow Up Care 09/30/2024 17:45:52 With:MOHIT CARNEY MD Address: [facility] [address] [place] [address]- When:4-6 weeks Clinical Note * MOHIT CARNEY MD: PERFORM Event Display: EGD EMR No Cosign Authored Date: [id number] Date/Time of Service:?10/07/2024 13:27:09 ?? Referring Physician:?[ ] _ ?? Procedures Performed: EGD_ ?? Indications for Procedure: Known history of??antral ulcers, multiple of them. ??Persistent abdominal pain._ ?? Description of Procedure: EGD scope inserted through the mouth down the esophagus and all the way down into the second part of the duodenum. Scope then withdrawn into the stomach, this was insufflated and distended appropriately. Scope was retroflexed in the stomach to examine fundus and cardia. Scope was then withdrawn applying some suction. Patient tolerated the procedure well.? Findings: 1. ??Normal-looking esophagus without evident evidence of erosive esophagitis. 2.?? Normal-looking stomach. ??In particular in antrum prior noted??erosive gastritis and ulcer disease is healed. ??Everything is back to normal. 3.?? Normal??examination of the duodenal bulb and second portion of the duodenum._ ?? Estimated Blood Loss: None_ ?? Complications: None_ ?? Recommendations/Instructions: 1.?? Continue using famotidine. 2.?? Avoid NSAIDs use. 3.?? Follow-up in the office in probably 8 weeks._ ?? Electronically Signed On 10/07/24 13:28 MST MOHIT CARNEY MD Patient Care team information Care Team Related Persons Name: WILI FRAIRE Name: TASHA FRAIRE
--- OUTSIDE RECORDS SUMMARY | 2024-12-06 03:44 | XMS_ITS | Continuity of Care Document ---
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 [address] Encounter Diagnosis Abdominal pain(Discharge Diagnosis) - 01/28/24 Constipation(Discharge Diagnosis) - 01/28/24 Discharge Disposition: Home/Self Care Attending Physician: ANDREA ROBINS DO Admitting Physician: ANDREA ROBINS DO Referring Physician: ANDREA ROBINS DO Allergies, Adverse Reactions, Alerts Substance Reaction Severity Status cefaclor anaphylaxis Active Vicodin anaphylaxis Active Medications Bentyl 10 mg oral capsule 10 mg = 1 cap, Oral, QID, # 28 cap, 0 Refill(s), 0 Start Date: 01/28/24 Stop Date: 02/04/24 Status: Ordered Results Laboratory List Name Date Complete Blood Count With Auto Different ial (CBC w/auto Diff) 01/28/24 Comprehensive Metabolic Panel (CMP) Lipase Level 01/28/24 Most recent to oldest [Reference Range]: 1 eGFR CKD-EPI [>=90 mL/min/1.73m2] 79 mL/ min/1.73m2 *LOW* (01/28/24 10:32 AM) AGAP [4.0-16.0 mmol/L] 9.0 mmol/L (01/28/24 10:32 AM) BUN/Creat 20 *NA* (01/28/24 10:32 AM) Globulin [2.0-4.5 g/dL] 2.9 g/dL (01/28/24 10:32 AM) A/G Ratio 1.4 *NA* (01/28/24 10:32 AM) RBC [4.30-5.10 x10(6)/mcL] 4.88 x10(6)/m cL (01/28/24 10:32 AM) RDW [11.6-14.8 %] 13.5 % (01/28/24 10:32 AM) Sodium Lvl [136-145 mmol/L] 140 mmol/L (01/28/24 10:32 AM) Total Protein [6.0-8.3 g/dL] 7.1 g/dL (01/28/24 10:32 AM) Albumin Lvl [3.5-5.7 g/dL] 4.2 g/dL (01/28/24 10:32 AM) Alk Phos [34-104 units/L] 62 units/L (01/28/24 10:32 AM) ALT [7-52 units/L] 44 units/L (01/28/24 10:32 AM) AST [13-39 units/L] 34 units/L (01/28/24 10:32 AM) Bili Total [0.3-1.0 mg/dL] 0.8 mg/dL (01/28/24 10:32 AM) CO2 [21-31 mmol/L] 25 mmol/L (01/28/24 10:32 AM) Glucose Level [70-105 mg/dL] 99 mg/dL (01/28/24 10:32 AM) Hct [35.0-45.0 %] 42.8 % (01/28/24 10:32 AM) Hgb [11.7-15.5 g/dL] 14.5 g/dL (01/28/24 10:32 AM) Lipase Lvl [11-82 units/L] 33 units/L (01/28/24 10:32 AM) MCH [27.0-34.0 pg] 29.7 pg (01/28/24 10:32 AM) MCHC [32.0-36.0 g/dL] 33.8 g/dL (01/28/24 10:32 AM) MCV [80.0-100.0 fL] 87.8 fL (01/28/24 10:32 AM) MPV [7.5-11.3 fL] 7.9 fL (01/28/24 10:32 AM) Potassium Lvl [3.5-5.1 mmol/L] 3.5 mmol/ L (01/28/24 10:32 AM) WBC [4.5-11.0 x10(3)/mcL] 6.0 x10(3)/mcL (01/28/24 10:32 AM) BUN [7-25 mg/dL] 16 mg/dL (01/28/24 10:32 AM) Calcium Lvl [8.6-10.3 mg/dL] 9.6 mg/dL (01/28/24 10:32 AM) Lymphocyte Abs [1.0-4.8 x10(3)/mcL] 1.4 x10(3)/mcL (01/28/24 10:32 AM) Platelet Count [150-400 x10(3)/mcL] 247 x10(3)/mcL (01/28/24 10:32 AM) Neutrophil Rel [40.0-85.0 %] 60.0 % (01/28/24 10:32 AM) Lymphocyte Rel [10.0-45.0 %] 23.5 % (01/28/24 10:32 AM) Monocyte Rel [3.0-15.0 %] 14.3 % (01/28/24 10:32 AM) Monocyte Abs [0.0-0.8 x10(3)/mcL] 0.9 x1 0(3)/mcL *HI* (01/28/24 10:32 AM) Eosinophil Rel [0.0-7.0 %] 1.4 % (01/28/24 10:32 AM) Eosinophil Abs [0.0-0.5 x10(3)/mcL] 0.1 x10(3)/mcL (01/28/24 10:32 AM) Basophil Rel [0.0-2.0 %] 0.8 % (01/28/24 10:32 AM) Basophil Abs [0.0-0.2 x10(3)/mcL] 0.0 x1 0(3)/mcL (01/28/24 10:32 AM) Neutrophil Abs [1.8-7.7 x10(3)/mcL] 3.6 x10(3)/mcL (01/28/24 10:32 AM) Creatinine Lvl [0.60-1.20 mg/dL] 0.80 mg /dL (01/28/24 10:32 AM) Chloride Lvl [98-107 mmol/L] 106 mmol/L (01/28/24 10:32 AM) Osmolality Calc [278-305 mOsm/kg] 291 mO sm/kg (01/28/24 10:32 AM) Radiology Reports * Exam Date Time Procedure Performing Provider Status 01/28/24 11:[address] Abdomen And Pelvis W/ Contrast WENDY AGUAYO; Modified Notes: (CT Abdomen And Pelvis W/ Contrast) Reason For Exam: Abdominal Pain Generalized REPORT Procedure: CT ABDOMEN PELVIS WITH IV CONTRAST INDICATIONS: Abdominal Pain Generalized . Technique: Following intravenous administration of contrast, multiple axial contiguous CT images of the abdomen, and pelvis were sagittal and coronal images reconstructed. A dose lowering technique was used using automated exposure control, adjustment of mA and/or kV according to the patient's size and the use of iterative reconstruction technique. FINDINGS: Findings: Lung bases: Small left basilar atelectasis Liver: Unremarkable. No mass. Gallbladder/CBD: Cholecystectomy changes Common bile duct is not dilated Spleen: Unremarkable. Normal size. No mass. Pancreas: Unremarkable. No focal mass, pancreatic duct dilatation, calcification or peripancreatic stranding. Adrenal Glands: Unremarkable. Kidneys: No hydronephrosis, solid mass or calculi. Distal esophagus/Stomach: Unremarkable. Bowel loops and mesentery:: Unremarkable. Bladder: Unremarkable. No bladder mass or calculi. Abdominal aorta and inferior vena cava: Unremarkable Reproductive: Unremarkable Lymph Nodes: No clinically significant adenopathy based on CT size criteria. Bones: No acute fracture or suspicious osseous lesion. Soft Tissue: Soft tissue is unremarkable. Miscellaneous: No free air or free fluid. CONCLUSION: 1. Normal IV contrast enhanced CT abdomen and pelvis. 2. Cholecystectomy changes. 3. Small left basilar atelectasis. Electronically signed by: Shannon Caro MD 01/28/2024 12:06 PM [facility] Final Report Signed By: CONTRIBUTOR_SYSTEM, [facility] Electronic Signature: 01/28/2024 12:06 Vital Signs Most recent to oldest [Reference Range]: 1 2 3 Blood Pressure [90-140/60-90 mmHg] 140/78mmHg (01/28/24 2:53 PM) 156/75mmHg *HI* (01/28/24 10:00 AM) 157/73mmHg *HI* (01/28/24 9:33 AM) Dosing BMI 39 (01/28/24 2:55 PM) 39 (01/28/24 9:33 AM) Dosing BSA-Mosteller 2.1 m2 (01/28/24 2:55 PM) 2.1 m2 (01/28/24 9:33 AM) Dosing Weight 99 kg (01/28/24 2:55 PM) 99 kg (01/28/24 9:33 AM) Heart Rate [60-100 bpm] 60 bpm (01/28/24 2:53 PM) 57 bpm *LOW* (01/28/24 10:34 AM) 62 bpm (01/28/24 10:00 AM) Height 160 cm (01/28/24 2:55 PM) 160 cm (01/28/24 9:33 AM) MAP 99 mmHg (01/28/24 2:53 PM) 102 mmHg (01/28/24 10:00 AM) 101 mmHg (01/28/24 9:33 AM) Respiratory Rate [14-20 breaths/min] 18 breaths/min (01/28/24 2:53 PM) 18 breaths/min (01/28/24 10:34 AM) 18 breaths/min (01/28/24 10:00 AM) SpO2/Pulse Oximetry [85-100 %] 98 % (01/28/24 2:53 PM) 97 % (01/28/24 10:34 AM) 99 % (01/28/24 10:00 AM) Temperature Temporal [36.3-38 degC] 36.5 degC (01/28/24 9:33 AM) Social History Social History Type Response Smoking Status Never smoker;Never entered on: 01/28/24 Sex Hospital Discharge Instructions Follow Up Care 01/28/2024 09:27:08 With:Abrazo West - [facility] PCP follow up Address:Unknown When:1-2 days Comments:Follow-up with your primary care provider at the next available appointment. I recommend taking Bentyl if you are having any cramping abdominal pain. Otherwise you do not need to take this. I also recommend a stool softener like MiraLAX multiple times per day for the next few days to ensure that you continue to have nice soft bowel movements. You can begin to decrease your stool softener/MiraLAX intake as tolerated. Please return to the emergency department if you have any new, worsening, or persistent symptoms, or if you are unable to follow-up with your primary care provider as above. We are happy to see you in the emergency department again if needed at the address below. [facility] DepartmentAddress: [address] [place], [place] [address]Rhrtw: If you do not have a PCP, please follow up wtih the [facility], Offices of Drs. Sada Dennis, Dawit Germain, Pilar Harding, Amanda Jacome at:[address] [address]Zmjkj: [phone] With:UNKNOWN PHYSICIAN Address: [place] When:3-5 days Patient Care team information Personnel Name: PHYSICIAN, UNKNOWN Address: Address: [facility]
--- OUTSIDE RECORDS SUMMARY | 2024-12-06 03:44 | XMS_ITS | Continuity of Care Document ---
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 [employer] Name Role Phone MEGGAN JARAMILOL MD Primary Care Physician Encounter [facility] Date(s): 03/22/24 - 03/22/24 [address] [place] [place] [address] Encounter Diagnosis Abdominal pain(Discharge Diagnosis) - 03/23/24 Discharge Disposition: Home/Self Care Attending Physician: VENESSA CRAFT TY Admitting Physician: NETO CLIFFORD MD Referring Physician: VENESSA CRAFT TY Allergies, Adverse Reactions, Alerts Substance Reaction Severity Status cefaclor anaphylaxis Active Vicodin anaphylaxis Active Medications aspirin 325 mg oral tablet 325 mg = 1 tab, Oral, BID, # 60 tab, 0 Refill(s), 0, Pharmacy: [id number], 160, cm, 03/05/24 15:21:00 MST, Height, 101.4, kg, 03/03/24 14:07:00 MST, Dosing Weight Start Date: 03/05/24 Status: Ordered Bentyl 10 mg oral capsule 10 mg = 1 cap, Oral, QID, # 40 cap, 0 Refill(s), 0, Pharmacy: [id number], 160, cm, 03/22/24 16:09:00 MST, Height, 100, kg, 03/22/24 16:09:00 MST, Dosing Weight Start Date: 03/22/24 Stop Date: 04/01/24 Status: Ordered cyclobenzaprine 5 mg, Oral, TID, PRN PRN prn Start Date: 03/05/24 Status: Ordered docusate sodium 100 mg oral capsule 100 mg = 1 cap, Oral, BID, # 60 cap, 0 Refill(s), 0, Pharmacy: [id number], 160, cm, 03/05/24 15:21:00 MST, Height, 101.4, kg, 03/03/24 14:07:00 MST, Dosing Weight Start Date: 03/05/24 Status: Ordered magnesium citrate oral liquid 8.725 g = 150 mL, Oral, Once Scheduled, PRN PRN Constipation, # 300 mL, 0 Refill(s), 0, Pharmacy: [id number], 160, cm, 03/22/24 16:09:00 MST, Height, 100, kg, 03/22/24 16:09:00 MST, DosingWeight Start Date: 03/22/24 Status: Ordered meloxicam 7.5 mg, Oral, Daily Start Date: 03/05/24 Status: Ordered mineral oil rectal enema 133 mL, Rectal, Once Scheduled, # 133 mL, 0 Refill(s), 0, Pharmacy: [id number], 160, cm,03/22/24 16:09:00 MST, Height, 100, kg, 03/22/24 16:09:00 MST, Dosing Weight Start Date: 03/22/24 Status: Ordered rosuvastatin 20 mg, Oral, Q Bedtime Start Date: 03/05/24 Status: Ordered Senna Plus oral tablet 2 tab, Oral, Q Bedtime Start Date: 03/05/24 Status: Ordered traMADol 50 mg, Oral, Q6hr, PRN PRN prn Start Date: 03/05/24 Status: Ordered Problem List Condition Confirmation Course Effective Dates Status Health St atus Informant High cholesterol Confirmed Active patie nt Osteoarthritis Confirmed Active patient Results Laboratory List Name Date Urinalysis with Microscopic Examination if Indicated 03/22/24 Complete Blood Count With Auto Different ial 03/22/24 Comprehensive Metabolic Panel 03/22/24 Lactic Acid Level (Lactate) 03/22/24 Lipase Level 03/22/24 Troponin I 03/22/24 Most recent to oldest [Reference Range]: 1 eGFR CKD-EPI [>=90 mL/min/1.73m2] 79 mL/ min/1.73m2 *LOW* (03/22/24 5:50 PM) UA Appear [Clear] Clear (03/22/24 6:33 PM) UA Bili [Negative] Negative (03/22/24 6:33 PM) UA Blood [Negative] Trace (03/22/24 6:33 PM) UA Color Yellow (03/22/24 6:33 PM) UA Glucose [Negative] Normal (03/22/24 6:33 PM) UA Ketones 80 mg/dL *ABN* (03/22/24 6:33 PM) UA Leuk Est [Negative] Negative (03/22/24 6:33 PM) UA Nitrite [Negative] Negative (03/22/24 6:33 PM) UA Protein [Negative] Negative (03/22/24 6:33 PM) UA Urobilinogen [Normal mg/dL] Normal mg /dL (03/22/24 6:33 PM) AGAP [4.0-16.0 mmol/L] 12.0 mmol/L (03/22/24 5:50 PM) BUN/Creat 14 *NA* (03/22/24 5:50 PM) Globulin [2.0-4.5 g/dL] 3.3 g/dL (03/22/24 5:50 PM) A/G Ratio 1.2 *NA* (03/22/24 5:50 PM) RBC [4.30-5.10 x10(6)/mcL] 4.40 x10(6)/m cL (03/22/24 5:50 PM) RDW [11.6-14.8 %] 13.4 % (03/22/24 5:50 PM) Sodium Lvl [136-145 mmol/L] 139 mmol/L (03/22/24 5:50 PM) Total Protein [6.0-8.3 g/dL] 7.1 g/dL (03/22/24 5:50 PM) UA pH [5.0-8.0] 5.5 *NA* (03/22/24 6:33 PM) Albumin Lvl [3.5-5.7 g/dL] 3.8 g/dL (03/22/24 5:50 PM) Alk Phos [34-104 units/L] 121 units/L *HI* (03/22/24 5:50 PM) ALT [7-52 units/L] 24 units/L (03/22/24 5:50 PM) AST [13-39 units/L] 32 units/L (03/22/24 5:50 PM) Bili Total [0.3-1.0 mg/dL] 0.8 mg/dL (03/22/24 5:50 PM) CO2 [21-31 mmol/L] 23 mmol/L (03/22/24 5:50 PM) Glucose Level [70-105 mg/dL] 79 mg/dL (03/22/24 5:50 PM) Hct [35.0-45.0 %] 38.5 % (03/22/24 5:50 PM) Hgb [11.7-15.5 g/dL] 12.6 g/dL (03/22/24 5:50 PM) Lipase Lvl [11-82 units/L] 31 units/L (03/22/24 5:50 PM) MCH [27.0-34.0 pg] 28.6 pg (03/22/24 5:50 PM) MCHC [32.0-36.0 g/dL] 32.7 g/dL (03/22/24 5:50 PM) MCV [80.0-100.0 fL] 87.4 fL (03/22/24 5:50 PM) MPV [7.5-11.3 fL] 7.2 fL *LOW* (03/22/24 5:50 PM) Potassium Lvl [3.5-5.1 mmol/L] 3.8 mmol/ L (03/22/24 5:50 PM) UA Spec Grav [1.005-1.030] 1.016 (03/22/24 6:33 PM) WBC [4.5-11.0 x10(3)/mcL] 7.2 x10(3)/mcL (03/22/24 5:50 PM) BUN [7-25 mg/dL] 11 mg/dL (03/22/24 5:50 PM) Calcium Lvl [8.6-10.3 mg/dL] 9.6 mg/dL (03/22/24 5:50 PM) Troponin I [0.00-0.02 ng/mL] <0.02 ng/mL 1 (03/22/24 5:50 PM) Lymphocyte Abs [1.0-4.8 x10(3)/mcL] 0.9 x10(3)/mcL *LOW* (03/22/24 5:50 PM) Platelet Count [150-400 x10(3)/mcL] 409 x10(3)/mcL *HI* (03/22/24 5:50 PM) Neutrophil Rel [40.0-85.0 %] 75.0 % (03/22/24 5:50 PM) Lymphocyte Rel [10.0-45.0 %] 12.3 % (03/22/24 5:50 PM) Monocyte Rel [3.0-15.0 %] 10.6 % (03/22/24 5:50 PM) Monocyte Abs [0.0-0.8 x10(3)/mcL] 0.8 x1 0(3)/mcL (03/22/24 5:50 PM) Eosinophil Rel [0.0-7.0 %] 1.4 % (03/22/24 5:50 PM) Eosinophil Abs [0.0-0.5 x10(3)/mcL] 0.1 x10(3)/mcL (03/22/24 5:50 PM) Basophil Rel [0.0-2.0 %] 0.7 % (03/22/24 5:50 PM) Basophil Abs [0.0-0.2 x10(3)/mcL] 0.0 x1 0(3)/mcL (03/22/24 5:50 PM) Neutrophil Abs [1.8-7.7 x10(3)/mcL] 5.4 x10(3)/mcL (03/22/24 5:50 PM) Creatinine Lvl [0.60-1.20 mg/dL] 0.80 mg /dL (03/22/24 5:50 PM) Chloride Lvl [98-107 mmol/L] 104 mmol/L (03/22/24 5:50 PM) Lactic Acid [0.5-2.0 mmol/L] 0.9 mmol/L (03/22/24 5:50 PM) Osmolality Calc [278-305 mOsm/kg] 286 mO sm/kg (03/22/24 5:50 PM) 1Interpretive Data: Troponin I Range Change: * <=0.02 ng/mL (Normal Adult Range)=Negative * >=0.03 ng/mL?? Consistent with AMI=Positive Radiology Reports * Exam Date Time Procedure Performing Provider Status 03/22/24 10:09 PM CTA Chest w/ Contrast PARKINSON, BENIGNO; M odified Notes: (CTA Chest w/ Contrast) Reason For Exam: Pulmonary Embolism REPORT CLINICAL HISTORY: Pulmonary Embolism COMPARISON: None. TECHNIQUE: CT CHEST ANGIOGRAPHY WITH IV CONTRAST on 03/22/2024 11:50 PM CDT. MIPS reconstructions were generated. This exam was performed according to our departmental dose-optimization program, which includes automated exposure control, adjustment of the mA and/or kV according to patient size and/or use of iterative reconstruction technique. MIP images were generated. FINDINGS: Thoracic aorta is normal in course and caliber without aneurysm or dissection. Pulmonary arteries are adequately opacified without acute or chronic filling defects. The heart is normal in size. There is no pericardial effusion. Intrathoracic lymph nodes are not enlarged. There is no pleural effusion, pleural thickening or pneumothorax. Central airways are patent. Lungsare clear with no consolidation, mass or interstitial lung disease. There are no acute abnormalities within the limited images of the upper abdomen. There are no acuteosseous findings. No suspicious bony lesions. IMPRESSION: No aortic dissection or aneurysm. No pulmonary embolus. No pneumonia. Electronically signed by: Eduardo Vee MD 03/22/2024 10:17 PM [facility] Final Report Signed By: CONTRIBUTOR_SYSTEM, [facility] Electronic Signature: 03/22/2024 22:17 * Exam Date Time Procedure Performing Provider Status 03/22/24 10:09 PM CTA Abdomen Pelvis W/ Contrast PARKINSON, BENIGNO; Modified Notes: (CTA Abdomen Pelvis W/ Contrast) Reason For Exam: Abd pain, SOB, recent surgery;Other - Populate Reason For Exam (Freetext) REPORT EXAM DESCRIPTION: CTA Abdomen Pelvis W/ Contrast 03/23/2024 12:18 AM CDT CLINICAL HISTORY: 73 years, Female, Abd pain, SOB, recent surgery COMPARISON: None PROCEDURE: Multiple transaxial tomograms of the abdominal aorta were performed utilizing 3 mm slight thicknessat 3 mm interval reconstruction from the lung bases to the ischial tuberosities, before and after the administration of large bolus of IV contrast for complete opacification of the abdominal aorta and iliac arteries. 2-D and 3-D multiplanar reformats, volume rendering technique and maximum intensity projection images were generated and reviewed. An individualized dose optimization technique, Automated Exposure Control, was utilized for the performed procedure. Findings: Aorta/iliac arteries: Atherosclerotic calcifications in the abdominal aorta without aneurysmal dilatation or evidence of dissection. Atherosclerotic calcifications in bilateral common iliac arteries without significant stenosis and/or occlusion.. The origin-proximal aspect of the celiac trunk, superior mesenteric artery demonstrate minimal peripheral atheromatous plaque with no definitive evidence for significant stenosis. There are single bilateral renal arteries with the presence of minimal peripheral atheromatous plaque at the origin/proximal aspect with no evidence for significant stenosis. Abdomen and pelvis: Lung bases: The lung bases demonstrated presence of minimal haziness within the posterior CP anglessuggesting minimal atelectasis. Liver: The liver demonstrated presence of decreased attenuation corresponding to fatty infiltration. Gallbladder: Surgical clips within the gallbladder fossa corresponding to previous cholecystectomy.No significant biliary duct dilatation. Adrenal glands: The adrenal glands demonstrate to be normal. Pancreas: The pancreas demonstrate to be normal. Spleen: The spleen demonstrate to be within normal limits. Kidneys: The kidneys demonstrate normal uptake of contrast media. There is no evidence for nephrolithiasis and/or hydronephrosis. GI: Grossly the unopacified stomach, small bowel and large bowel demonstrate to be within normal limits. No evidence for bowel dilatation and/or free air. The appendix is normal. The left-sided colon/sigmoid colon demonstrates presence of minimal diverticulosis. : The urinary bladder demonstrate to be unremarkable. Genitalia: The uterus demonstrate to be within normal limits. There are normal adnexal structures. Retroperitoneum:There is no retroperitoneal lymphadenopathy. There is no evidence for ascites and/or abnormal fluid collections. Bones: The bony structures demonstrate to be within normal limits. Soft tissues: The rest of the soft tissue and bony structures are within normal limits. IMPRESSION: Minimal atherosclerotic calcifications in the abdominal aorta without aneurysmal dilatation or evidence of dissection. Minimal atherosclerotic calcifications in bilateral common iliac arteries without significant stenosis and/or occlusion. Fatty infiltration of the liver. Status post cholecystectomy. Minimal diverticulosis without evidence of acute diverticulitis. Electronically signed by: Meggan Nance MD 03/22/2024 10:25 PM [facility] Final Report Signed By: CONTRIBUTOR_SYSTEM [facility] Electronic Signature: 03/22/2024 22:25 Vital Signs Most recent to oldest [Reference Range]: 1 2 Blood Pressure [90-140/60-90 mmHg] 145/8 0mmHg *HI* (03/22/24 11:37 PM) 158/84mmHg *HI* (03/22/24 4:09 PM) Dosing BMI 39 (03/22/24 11:35 PM) 39 (03/22/24 4:09 PM) Dosing BSA-Mosteller 2.11 m2 (03/22/24 11:35 PM) 2.11 m2 (03/22/24 4:09 PM) Dosing Weight 100 kg (03/22/24 11:35 PM) 100 kg (03/22/24 4:09 PM) ED Vital Signs Additional Information se e chart (03/22/24 11:35 PM) Heart Rate [60-100 bpm] 90 bpm (03/22/24 11:37 PM) 89 bpm (03/22/24 4:09 PM) Height 160 cm (03/22/24 11:35 PM) 160 cm (03/22/24 4:09 PM) MAP 102 mmHg (03/22/24 11:37 PM) 109 mmHg (03/22/24 4:09 PM) Respiratory Rate [14-20 breaths/min] 17 breaths/min (03/22/24 11:37 PM) 18 breaths/min (03/22/24 4:09 PM) SpO2/Pulse Oximetry [85-100 %] 98 % (03/22/24 11:37 PM) 97 % (03/22/24 4:09 PM) Temperature Oral [35.8-38 degC] 36.6 deg C (03/22/24 4:09 PM) Social History Social History Type Response Smoking Status Never smoker entered on: 03/03/24 Sex Hospital Discharge Instructions Follow Up Care 03/22/2024 16:05:02 With:JEREMY OSUNA DO Address: [id number] [place] [phone] When:2-3 days Comments:Please follow with??with this slip cover sewer??regarding your??recent emergency department encounter??as they may be better??equipped to??evaluate??your symptoms. Patient Care team information Care Team Personnel Name: MEGGAN JARAMILLO MD Position: RO No Access Member Role: Primary Care Physician Address: Address: [address] [place] [address]- Care Team Related Persons Name: WILI FRAIRE
--- OUTSIDE RECORDS SUMMARY | 2024-12-06 03:44 | XMS_ITS ---
Author Organization [place] Address [address] [facility] [address] [place] [address] Care Team Providers Care Overlock Waistline Joiner Name Role Phone Juan Jose PHYSICIANRosey Primary Care Provider BAY Figueroa [facility] REASON FOR VISIT ORDERS Encounters Encounter Location Date Provider Diagnosis [place] [address] [facility] [address] [place] [address] 10/01/2023 BAY MARINA Plan Of Treatment No Information Progress Notes * Basilia MOREJON MDOB: [birth year] (73 yo F)Acc No.[id number]:10/01/2023 Patient:?Basilia MOREJON :1950???Age:73 Y???Sex:Female Address: [address] [place] [address] * true * Date:? Generated for Printi florence/Brendon/eTransmitting on:?12/06/2024 02:44 AM MST
--- OUTSIDE RECORDS SUMMARY | 2024-12-06 03:45 | XMS_ITS | Continuity of Care Document ---
Author Organization [facility] Address [address] [place] [address]- Care Team Providers Care Feather Stitcher Name Role Phone PCP, Unknown Primary Care Physician Unavailab le Encounter [facility] [id number] Date(s): 06/13/24 - 06/13/24 [facility] [address] [place] [address] [place] Encounter Diagnosis Atherosclerotic heart disease of [place] coronary artery without angina pectoris (Final) - 06/13/24 Essential (primary) hypertension(Final) - 06/13/24 Pure hypercholesterolemia, unspecified(Final) - 06/13/24 USP (current) use of aspirin(Final) - 06/13/24 Allergy status to narcotic agent(Final) - 06/13/24 Allergy status to other antibiotic agents(Final) - 06/13/24 Allergy status to other drugs, medicaments and biological substances(Final) - 06/13/24 Discharge Disposition: Routine discharge Attending Physician: Corky Bailey MD Admitting Physician: Corky Bailey MD Referring Physician: Corky Bailey MD Allergies, Adverse Reactions, Alerts Substance Reaction Severity Status clindamycin cdiff Moderate Active omeprazole Rash Moderate Active Vicodin Anaphylactic reaction Severe Active Ceclor eyes swelling Moderate Active pantoprazole Rash Moderate Active Assessment and Plan Extracted from: Title:Discharge Note Author:Corky Bailey Date:06/13/24 wi home New Prescriptions ?? 1. ticagrelor(Brilinta (ticagrelor) 90 mg oral tablet) 90 mg= 1 Tab By mouth twice daily?? 2. aspirin(aspirin 81 mg oral enteric coated tablet) 81 mg= 1 Tab By mouth Tab, EC once daily?? 3. metoprolol(metoprolol succinate 25 mg oral capsule, extended release) 25 mg= 1 Cap By mouth Cap, ER once daily?Medications to Continue?? 4. rosuvastatin(rosuvastatin 20 mg oral tablet) 20 mg= 1 Tab By mouth once daily?? 5. acetaminophen(Tylenol oral TABLET) 650 mg By mouth every 4 hours as needed for Pain?? 6. vonoprazan(Voquezna 10 mg oral tablet) 10 mg= 1 Tab By mouth Tab once daily?? 7. cholecalciferol(Vitamin D3 125 mcg (5,000 unit) oral capsule) 125 mcg= 1 Cap By mouth Cap once daily Special Instructions: with food?Discontinued Meds ?? Medications aspirin 81 mg oral enteric coated tablet 1 Tab Tab, EC, PO, qDay, Qty: 90 Tab, Refills: 0, Maintenance, Route to Pharmacy Electronically, [facility] Start Date: 06/13/24 Status: Ordered Brilinta (ticagrelor) 90 mg oral tablet 1 Tab, PO, BID, Qty: 180 Tab, Refills: 0, Maintenance, Route to Pharmacy Electronically, [facility] Start Date: 06/13/24 Status: Ordered metoprolol succinate 25 mg oral capsule, extended release 1 Cap Cap, ER, PO, qDay, Qty: 90 Cap, Refills: 0, Maintenance, Route to Pharmacy Electronically, [id number] Start Date: 06/13/24 Status: Ordered rosuvastatin 20 mg oral tablet 1 Tab, PO, Daily, Refills: 0, Maintenance Start Date: 06/10/24 Status: Ordered Tylenol oral TABLET 650 mg, PO, q4hr, PRN, Pain, Tab, Refills: 0, Maintenance Start Date: 06/13/24 Status: Ordered Vitamin D3 125 mcg (5,000 unit) oral capsule 1 Cap Cap, PO, qDay, Qty: 100 Cap, Refills: 0, with food, Maintenance Start Date: 06/13/24 Status: Ordered Voquezna 10 mg oral tablet 1 Tab Tab, PO, qDay, Qty: 30 Each, Refills: 0, Maintenance Start Date: 06/13/24 Status: Ordered Problem List Condition Confirmation Course Effective Dates Status Health Status Informant CAD (coronary artery disease) Confirmed Active Hypercholesteremia Confirmed Active Procedures Procedure Date Related Diagnosis Body Site Status dental implants Completed right knee surgery Comple justin Results Laboratory List Name Date Activated Clot Time iSTAT (POCT) 06/13/24 Activated Clot Time iSTAT (POCT) 06/13/24 CBC w/Diff* (man diff if indicated) 06/13 Comprehensive Metabolic Pane l (CMP (BMP + ALB, Tot Prot, Bili, CA, Alk Phos, ALT, AST)) 06/13/24 Most recent to oldest [Reference Range]: 1 2 CBC Scan Auto Diff (06/13/24 10:05 AM) Lymphs 27.8 % *NA* (06/13/24 10:05 AM) Monos. 13.8 % *NA* (06/13/24 10:05 AM) Baso. 1.3 % *NA* (06/13/24 10:05 AM) Neuts 54.5 % *NA* (06/13/24 10:05 AM) Eos. 2.6 % *NA* (06/13/24 10:05 AM) Glucose Level [65-99 mg/dL] 101 mg/dL *H* (06/13/24 10:05 AM) AST [5-34 Units/L] 24 Units/L (06/13/24 10:05 AM) ABS Neut [2.0-8.0 thousand/uL] 3.1 thous and/uL (06/13/24 10:05 AM) Activated Clot Time iSTAT (P OCT) [74.0-137.0 sec] 354.0 sec 1 *H* (06/13/24 12:32 PM) 250.0 sec 2 *H* (06/13/24 12:11 PM) eGFRcr [>=90 mL/min/1.73m2] 75 mL/min/1. 73m2 3 *L* (06/13/24 10:05 AM) ABS Baso [0.0-0.2 thousand/uL] 0.1 thous and/uL (06/13/24 10:05 AM) ABS Eos [0.0-0.7 thousand/uL] 0.1 thousa nd/uL (06/13/24 10:05 AM) ABS Lymph [0.6-4.8 thousand/uL] 1.6 thou sand/uL (06/13/24 10:05 AM) ABS Hitchcock [0.1-2.0 thousand/uL] 0.8 thous and/uL (06/13/24 10:05 AM) Albumin [3.5-5.0 gm/dL] 4.0 gm/dL (06/13/24 10:05 AM) Alkphos [40-150 Units/L] 64 Units/L (06/13/24 10:05 AM) ALT [6-55 Units/L] 16 Units/L (06/13/24 10:05 AM) Anion Gap [7-15 mmol/L] 8 mmol/L (06/13/24 10:05 AM) Bili Total [0.2-1.2 mg/dL] 0.4 mg/dL (06/13/24 10:05 AM) BUN [8-25 mg/dL] 14 mg/dL (06/13/24 10:05 AM) BUN/Outside Machinist Ratio [10-20] 17 (06/13/24 10:05 AM) Chloride [100-110 mmol/L] 108 mmol/L (06/13/24 10:05 AM) CO2 [19-27 mmol/L] 24 mmol/L (06/13/24 10:05 AM) Creatinine [0.57-1.11 mg/dL] 0.83 mg/dL (06/13/24 10:05 AM) Hct [33.3-45.8 %] 40.1 % (06/13/24 10:05 AM) Hgb [11.4-14.4 gm/dL] 13.3 gm/dL (06/13/24 10:05 AM) MCH [28.0-32.0 pg] 29.0 pg (06/13/24 10:05 AM) MCHC [32.0-36.0 gm/dL] 33.2 gm/dL (06/13/24 10:05 AM) MCV [79-99 fL] 87 fL (06/13/24 10:05 AM) MPV [7.5-11.5 fL] 7.9 fL (06/13/24 10:05 AM) Plt [150-450 thousand/uL] 226 thousand/u L (06/13/24 10:05 AM) Protein, Total [6.4-8.3 gm/dL] 6.7 gm/dL (06/13/24 10:05 AM) RBC [3.69-5.19 million/uL] 4.60 million/ uL (06/13/24 10:05 AM) RDW [11.5-14.5 %] 14.4 % (06/13/24 10:05 AM) Sodium [135-145 mmol/L] 140 mmol/L (06/13/24 10:05 AM) WBC [3.6-11.1 thousand/uL] 5.7 thousand/ uL (06/13/24 10:05 AM) Potassium [3.6-5.3 mmol/L] 3.8 mmol/L (06/13/24 10:05 AM) Calcium [8.5-10.3 mg/dL] 9.5 mg/dL (06/13/24 10:05 AM) 1Result Comment: Director Of Financial Planning: [id number] Ashley Cherri 2Result Comment: Director Of Financial Planning: [id number] Tim Cui 3Interpretive Data: As of 06-24-2022, reported eGFR is based on the CKD-EPI 2020 equation that does not use a race coefficient. For eGFR of 45-59 mL/min/1.73m2 NKF, KDOQI, and KDIGO guidelines recommend confirming current results with new values based on eGFR calculated using both creatinine and cystatin C. Cystatin C is recommended in the outpatient patient setting for purposes of confirming chronic kidney disease, rather than in the acute setting for acute kidney injury or failure. The eGFRcr equation has not been validated on patients <18 years and will not be performed. Vital Signs Most recent to oldest [Reference Range]: 1 2 3 4 5 6 7 8 9 10 Temperature Temporal Artery [36.4-37.5 deg C] 36.3 deg C *L* (06/13/24 12:45 PM) 36.5 deg C (06/13/24 10:09 AM) Heart Rate [51-119 bpm] 85 bpm (06/13/24 6:10 PM) 80 bpm (06/13/24 5:40 PM) 72 bpm ( 4 5:14 PM) 65 bpm ( 4 4:36 PM) 72 bpm ( 4 4:14 PM) 70 bpm ( 4 3:30 PM) 67 bpm ( 3:01 PM) 67 bpm ( 2:44 PM) 69 bpm ( 2:15 PM) 68 bpm ( 2:00 PM) Blood Pressure [91-139/51-89 mm Hg] 150/75mm Hg *H* (06/13/24 6:10 PM) 143/78mm Hg *H* (06/13/24 5:40 PM) 149/78m m Hg *H* ( 5:00 PM) 143/66m m Hg *H* ( 4:30 PM) 123/80m m Hg ( 4:00 PM) 127/77m m Hg ( 3:30 PM) 121/69 mm Hg ( 3:00 PM) 129/67 mm Hg ( 2:30 PM) 127/62 mm Hg ( 2:15 PM) 150/79 mm Hg *H* ( 2:00 PM) NIBP Mean 107 mm Hg (06/13/24 6:10 PM) 103 mm Hg (06/13/24 5:40 PM) 107 mm Hg ( 5:00 PM) 97 mm Hg ( 4:30 PM) 96 mm Hg ( 4:00 PM) 97 mm Hg ( 3:30 PM) 90 mm Hg ( 3:00 PM) 92 mm Hg ( 2:30 PM) 90 mm Hg ( 2:15 PM) 104 mm Hg ( 2:00 PM) Resp Rate (Monitor) [13-20 Breaths/Min] 20 Breaths/Mi n (06/13/24 6:10 PM) 20 Breaths/ Min (06/13/24 5:40 PM) 22 Breaths /Min *H* ( 4 5:14 PM) 19 Breaths /Min ( 4 4:36 PM) 18 Breaths /Min (7/15/2 4 4:14 PM) 14 Breaths /Min ( 4 3:30 PM) 17 Breath s/Min ( 3:01 PM) 18 Breath s/Min ( 2:44 PM) 18 Breath s/Min ( 2:15 PM) 12 Breath s/Min *L* ( 2:00 PM) SPO2 [92 %] 97 % (06/13/24 6:10 PM) 99 % (06/13/24 5:40 PM) 99 % ( 4 5:14 PM) 96 % ( 4 4:36 PM) 99 % ( 4 4:14 PM) 96 % ( 4 3:30 PM) 99 % ( 3:01 PM) 96 % ( 2:44 PM) 99 % ( 2:15 PM) 99 % ( 2:00 PM) Oxygen Method Room air (06/13/24 12:45 PM) Room air (06/13/24 10:09 AM) Glucose Level [65-99 mg/dL] 101 mg/dL *H* (06/13/24 10:05 AM) Height 160.02 cm (06/10/24 2:40 PM) Drug Calc Weight (kg) 94.875 kg (06/10/24 2:40 PM) Weight Method Actual (06/10/24 2:40 PM) BMI 37.051 kg/m2 (06/10/24 2:40 PM) Sensory Deficits None (06/10/24 2:40 PM) Social History Social History Type Response Smoking Status Never (less than 100 in lifetime) entered on: 06/10/24 Sex Hospital Discharge Instructions Patient Education 06/13/2024 16:48:19 EV (Eng) Radial Artery Access - TR BAND (CUSTOM) [facility] RADIAL ARTERY ACCESS / TR BAND HEMOSTASIS The doctor used the radial (wrist) artery to insert catheters to access your heart arteries. When we use one of the arteries in your wrist, we do a quick test before inserting the needle. The Allens test will make sure the blood flow to your hand is normal: ??? We will apply pressure to the two arteries that carry blood to your hand. We will do this untilyour hand loses color or gets pale. ??? We will release pressure on the one artery that won't be used for the blood test. ??? If your hand regains its normal color, the artery is working well. We then know your hand will receive enough blood if the artery we use for the procedure becomes compromised. ??? We will repeat the test a second time on the other artery. Before we insert the needle, we will clean an area of your skin. We may inject some medicine to numb this area of skin. The doctor will then insert an IV into the radial artery. You may feel a pinch and some discomfort as the IV is being inserted. The doctor will then inject medication to prevent spasms in the artery. You may feel a slight burning sensation when it is injected. What are the risks? an injury to your artery ??? continued bleeding ??? an injury to a nerve TR BAND ??? When the procedure is over, the IV will be removed from the artery and a band will be placed onyour wrist. The band will provide snug constant pressure to the insertion site to prevent the artery from bleeding. This allows the artery to heal itself. ??? Your nurse will remove the band a few hours after your procedure is complete. ??? It is very important that you do not bend your wrist, to prevent bleeding from the artery. ??? Your nurse will monitor the site for bleeding and swelling. Please notify your nurse if your hand becomes numb, cold, or tingly. When you go home, follow these instructions: ??? Check the puncture site where the IV went in for possible bleeding and swelling. ??? Avoid lifting with that arm more than 10 pounds for 3-5 days. ??? Avoid strenuous activity with that arm for 3-5 days. If you have any questions regarding limitations or activities following your procedure please contact your doctor. ??? You may shower and remove the band-aid or pressure dressing bandage from your wrist in the morning. ??? Inspect the site and re-apply a clean, dry band-aid every day for 5 days or until a scab has formed at the site. ??? Keep the site clean and dry. Do not use any powders, lotions, or ointments on the site until ithas healed. ??? NO pool, Jacuzzi or tub baths for one week. ??? NO submersion of puncture site in water for one week. ??? A small amount of bruising is ok, and expected. ??? If there is any continuous bleeding or swelling at the puncture site, apply firm pressure with your hand above the puncture site and return to the hospital immediately. IF BLEEDING IS PROFUSE, DIAL 911 IMMEDIATELY. ??? You may have a small blood spot (dime to half-dollar size) on your dressing when you leave the hospital, or by the time you get home. This amount is normal. 06/13/2024 16:47:55 Sedation or Anesthesia, Aftercare, Adult & Child (KSTRAZZO) Discharge Instructions After Sedation/Anesthesia The medicines you received during the procedure or test you had today can sometimes cause you to beconfused, sleepy, dizzy, and clumsy. You need to be extra careful for the next 24 hours. Do not engage in any activity that requires you to be alert or coordinated for the next 24 hours. This includes driving, operating heavy machinery, using power tools, cooking, climbing, or riding a bicycle. ??? No swimming, hot tubs, or baths for the next 48 hours. ??? Stay with family, friends, or a caregiver for the next 24 hours. ??? Do not make any important decisions in the next 24 hours such as signing contracts, important commitments, or making expensive purchases. ??? No alcohol for 24 hours. ??? Avoid solid food if you have nausea (feeling sick to your stomach) or vomiting. ??? Drink plenty of fluids if you do not have nausea. ??? Take only medications prescribed by your caregiver, in the dose prescribed. ??? Call your caregiver for persistent nausea and/or if you vomit more than once. ??? If you cannot reach your caregiver, go to or contact the Emergency Department. Document Released: 11/16/2006 [facility]?? Patient Information ??2007 [employer]. 06/13/2024 16:47:32 Femoral Site Care Femoral Site Care The following information offers guidance on how to care for yourself after your procedure. Your health care provider may also give you more specific instructions. If you have problems or questions, contact your health care provider. What can I expect after the procedure? After the procedure, it is common to have bruising and tenderness at the incision site. This usually fades within 1???2 weeks. Follow these instructions at home: Incision site care ??? Follow instructions from your health care provider about how to take care of your incision site. Make sure you: ??? Wash your hands with soap and water for at least 20 seconds before and after you change your bandage (dressing). If soap and water are not available, use hand group work program director. ??? Change or remove your dressing as told by your health care provider. ??? Leave stitches (sutures), skin glue, or adhesive strips in place. These skin closures may need to stay in place for 2 weeks or longer. If adhesive strip edges start to loosen and curl up, you maytrim the loose edges. Do not remove adhesive strips completely unless your health care provider tells you to do that. ??? Do not take baths, swim, or use a hot tub until your health care provider approves. ??? You may shower 24???48 hours after the procedure or as told by your health care provider. ??? Gently wash the incision site with plain soap and water. ??? Pat the area dry with a clean towel. ??? Do not rub the site. This may cause bleeding. ??? Do not apply powder or lotion to the site. Keep the site clean and dry. ??? Check your femoral site every day for signs of infection. Check for: ??? Redness, swelling, or pain. ??? Fluid or blood. ??? Warmth. ??? Pus or a bad smell. Activity ??? If you were given a sedative during the procedure, it can affect you for several hours. Do not drive or operate machinery until your health care provider says that it is safe. ??? Rest as told by your health care provider. ??? Avoid sitting for a long time without moving. Get up to take short walks every 1???2 hours. This is important to improve blood flow and breathing. Ask for help if you feel weak or unsteady. ??? Return to your normal activities as told by your health care provider. Ask your health care provider what activities are safe for you and when you can return to work. ??? Avoid activities that take a lot of effort for the first 2???3 days after your procedure, or aslong as directed. ??? Do not lift anything that is heavier than 10 lb (4.5 kg), or the limit that you are told, untilyour health care provider says that it is safe. General instructions ??? Take [id number] and prescription medicines only as told by your health care provider. ??? If you will be going home right after the procedure, plan to have a responsible adult care for you for the time you are told. This is important. ??? Keep all follow-up visits. This is important. Contact a health care provider if: ??? You have a fever or chills. ??? You have any of these signs of infection at your incision site: ??? Redness, swelling, or pain. ??? Fluid or blood. ??? Warmth. ??? Pus or a bad smell. Get help right away if: ??? The incision area swells very fast. ??? The incision area is bleeding, and the bleeding does not stop when you hold steady pressure on the area. ??? Your leg or foot becomes pale, cool, tingly, or numb. These symptoms may represent a serious problem that is an emergency. Do not wait to see if the symptoms will go away. Get medical help right away. Call your local emergency services (911 in the [place] Do not drive yourself to the hospital. Summary ??? After the procedure, it is common to have bruising and tenderness that fade within 1???2 weeks. ??? Check your femoral site every day for signs of infection. ??? Do not lift anything that is heavier than 10 lb (4.5 kg), or the limit that you are told, untilyour health care provider says that it is safe. ??? Get help right away if the incision area swells very fast, you have bleeding at the incision area that does not stop, or your leg or foot becomes pale, cool, or numb. This information is not intended to replace advice given to you by your health care provider. Make sure you discuss any questions you have with your health care provider. Document Revised: 08/06/2022 Document Reviewed: 01/05/2022 [employer] Patient Education ?? 2022 [employer]. Follow Up Care 05/31/2024 12:48:45 With:Corky Bailey MD Address: [address] [facility] [address] [place] [address]- When:1 to 2 weeks History and physical note * Annia Love: PERFORM Event Display: History and Physical Authored Date: Discharge summary * Corky Bailey MD: PERFORM Event Display: Discharge Summary Authored Date: Patient: ??RHONDA FRAIRE ? Age: ??73 years ?Sex: ??F ?: ??1950 ?Active Insurance: ??MEDICARE OUTPATIENT [id number] Admitting MD: ??Corky Bailey MD ?Location: ??[facility] 2CPP: 2C07: P1 ?PCP: ??PCP, Unknown Author: ??Corky Bailey MD Hospital Course 73-year-old female past medical history hypertension hyperlipidemia presented to the outpatient complaining of significant dyspnea on exertion coronary CTA markedly abnormal with moderate severe disease circumflex with severe disease LAD.?? Stress test was also abnormal thus brought to cardiac catheterization.?? Status post PCI to the circumflex Significant Findings 85% circumflex disease status post PCI Procedures and Treatment Provided PCI to circumflex Physical Exam Vitals & Measurements T:??36.5?C ??(Temporal Artery)?? HR:??68?? RR:??13?? BP:??174/85?? SpO2:??97%?? Oxygen Method:??Room air?? GEN: No acute distress, alert and oriented x 3 HEENT: oropharynx clear, mucous membranes moist NECK: supple, no jugular venous distention CV: regular rate and rhythm, no rubs or gallops PULM: clear to auscultation bilaterally, normal respiratory excursion ABD: soft, nontender, nondistended, normoactive bowel sounds, no guarding or rebound. EXTR: no cyanosis, clubbing or edema NEURO: Non-focal, moves all extremities Discharge Diagnosis/Plan dc home Discharge Medications New Prescriptions ?? 1. ticagrelor(Brilinta (ticagrelor) 90 mg oral tablet) 90 mg= 1 Tab By mouth twice daily?? 2. aspirin(aspirin 81 mg oral enteric coated tablet) 81 mg= 1 Tab By mouth Tab, EC once daily?? 3. metoprolol(metoprolol succinate 25 mg oral capsule, extended release) 25 mg= 1 Cap By mouth Cap,ER once daily?Medications to Continue?? 4. rosuvastatin(rosuvastatin 20 mg oral tablet) 20 mg= 1 Tab By mouth once daily?? 5. acetaminophen(Tylenol oral TABLET) 650 mg By mouth every 4 hours as needed for Pain?? 6. vonoprazan(Voquezna 10 mg oral tablet) 10 mg= 1 Tab By mouth Tab once daily?? 7. cholecalciferol(Vitamin D3 125 mcg (5,000 unit) oral capsule) 125 mcg= 1 Cap By mouth Cap once daily Special Instructions: with food?Discontinued Meds ?? Electronically Signed By: Corky Bailey MD On 06/13/24 12:33 Co Signature By: Modify Signature By: Patient Care team information Care Team Personnel Name: PCP, Unknown Member Role: Lifetime Physician(PCP)
--- OUTSIDE RECORDS SUMMARY | 2024-12-06 03:45 | XMS_ITS | Patient Health Record ---
Author Organization [facility] Address [address] [place] [address] Care Team Providers Care Test Consultant Name Role Phone Juan Jose PHYSICIANRosey Primary Care Provider U navailable Allergies Allergen (clinical drug ingredient) Drug/Non Drug Allergy documented on EMR Reaction Allergy Type Onset Date Status cyclor (uncoded) eye swelling Allergy Active Vicodin Unknown Drug Allergy 03/06/2023 Active Reason For Referral No Information Medications Medication SIG (Take, Route, Frequency, Duration) Notes Start Date End Date Status Vitamin D 50 MCG (1999) 1 tablet Orally Active Rosuvastatin Calcium 20 MG 1 tablet Orally Active Gabapentin 300 MG 1 capsule Orally 03/05/2022 Active Lidoderm 5 % 1 patch remove after 12 hours Externally 03/05/2022 Active oxyBUTYnin 3.9 MG/24HR 1 patch to skin Transdermal Active Problems Problem Type SNOMED Code ICD Code Onset Dates Problem Status W/U Status Risk Notes Problem Chronic mastoiditis (63392364) Chronic mastoiditis, unspecified ear (H70.10) Active confirmed Problem Sensorineural hearing loss of bilateral ears (disorder) (273059578) Sensorineural hearing loss, bilateral (H90.3) Active confirmed Problem 217836101 Vertigo (R42) Active confirmed Problem Subjective tinnitus of both ears (376476239044968 4) Subjective tinnitus of both ears (H93.13) Active confirmed Problem Asymmetrical sensorineural hearing loss (411656432) 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) Active confirmed Problem History of fall (683717794) History of fall (Z91.81) Active confirmed Problem Subjective tinnitus of right ear (261729640602268 4) Subjective tinnitus of right ear (H93.11) Active confirmed Problem Abnormal gait (01437719) Imbalance (R26.89) Active confirmed Problem 443487926 Lightheadedness (R42) Active confirmed Plan Of Treatment Pending Test Test Name Order Date Audio Comprehensive 03/09/2023 c-ANCA 03/09/2023 Tympanometry with Reflex Threshold 03/09 MRI brain + IAC's with and without contr ast 04/06/2023 Videonystagmography 03/09/2023 Insurance Providers Payer Name Payer Address Payer Phone Subscriber Number Group Number Insured Name Patient Relationship to Insured Coverage Start Date Coverage End Date [employer] [place] [address] [place] [phone] [id number] Basilia Morejon Self - patient is the insured 3 3 [employer] [place] (Medicare Supplement) [address] [place] [phone] [id number] Basilia Morejon Self - patient is the insured 3 3 Medical (General) History Medical History History ICD Code hyperlipidemia migraine headaches cataracts vertigo Surgical History Surgery Date(Month/Year) Gall bladder tooth extraction vein ligation
--- OUTSIDE RECORDS SUMMARY | 2024-12-06 03:45 | XMS_ITS | Patient Health Record ---
Author Organization [facility] Address [address] [place] [address] Care Team Providers Care Senior Wealth Advisor Name Role Phone Rosey Ingram Primary Care Provider Ramya Gao Unavailable Unavailable Allergies Allergen (clinical drug ingredient) Drug/Non Drug Allergy documented on EMR Reaction Allergy Type Onset Date Status Vicodin Unknown Drug Allergy Active Reason For Referral No Information Medications Medication SIG (Take, Route, Frequency, Duration) Notes Start Date End Date Status Gabapentin 300 MG 1 capsule Orally onc e at bedtime for 30 day(s) 03/05/2022 Not-Taking Lidoderm 5 % 1 patch remove after 12 hours Externally Once a day for 30 days 03/05/2022 Not-Taking Vitamin D-3 125 MCG (5000 UT) as directed Orally Active Rosuvastatin Calcium 20 MG 1 po Orally Once a day Activ e oxyBUTYnin Chloride 5 MG 1 tablet Orally TID Not-Taking Social History Tobacco Use: Social History Observation Description Date Details (start date - stop date) Never Smoker NA - NA Non smoking Question Answer Notes Are you a nonsmoker Alcohol Screen (Audit-C) Question Answer Notes Did you have a drink containing alcohol in the p ast year? No Points 0 Interpretation Negative Problems Problem Type SNOMED Code ICD Code Onset Dates Problem Status W/U Status Risk Notes Problem 36327474 Meralgia paresth etica of left side (G57.12) Active confirmed Problem Vertigo (021095460) Vertigo (R42) Active confir med Problem Dizziness (465265734) Dizziness (R42) Active co nfirmed Problem Mastoiditis (51821935) Mastoiditis (H70.90) Active confirmed Problem Hypercholesterolemia (07990131) Hypercholesterolemia (E78.00) Active confirmed Plan Of Treatment No Information Insurance Providers Payer Name Payer Address Payer Phone Subscriber Number Group Number Insured Name Patient Relationship to Insured Coverage Start Date Coverage End Date MEDICARE [address] [place] [phone] [id number] Basilia Sanchez Self - patient is the insured [employer] [place] [address] [place] [phone] [id number] Basilia Sanchez Self - patient is the insured Medical (General) History Medical History History ICD Code Hypercholesterolemia E78.00 Surgical History Surgery Date(Month/Year) gallbladder removal varicose vein stripping Hospitalization History Reason Date(Month/Year) Severe dizziness, difficulty breathing 0 02/17/2023
--- OUTSIDE RECORDS SUMMARY | 2024-12-06 03:45 | XMS_ITS | Continuity of Care Document ---
Author Organization [facility] Address [address] [place] [address]- Care Team Providers Care Cabinet Assembler Name Role Phone PCP, Unknown Primary Care Physician Unavailab le Encounter [facility] [id number] Date(s): 06/13/24 - 06/13/24 [facility] [address] [place] [address] Discharge Disposition: Routine discharge Attending Physician: Corky Bailey MD Admitting Physician: Corky Bailey MD Referring Physician: Corky Bailey MD Allergies, Adverse Reactions, Alerts Substance Reaction Severity Status clindamycin cdiff Moderate Active omeprazole Rash Moderate Active Vicodin Anaphylactic reaction Severe Active Ceclor eyes swelling Moderate Active pantoprazole Rash Moderate Active Assessment and Plan Extracted from: Title:Discharge Note Author:Corky Bailey Date:06/13/24 al home New Prescriptions ?? 1. ticagrelor(Brilinta (ticagrelor) [...] Refills: 0, Maintenance, Route to Pharmacy Electronically, [id number] Start Date: 06/13/24 Status: Ordered Brilinta (ticagrelor) 90 mg oral tablet 1 Tab, PO, BID, Qty: 180 Tab, Refills: 0, Maintenance, Route to Pharmacy Electronically, [facility] Start Date: 06/13/24 Status: Ordered metoprolol succinate 25 mg oral capsule, extended release 1 Cap Cap, ER, PO, qDay, Qty: 90 Cap, Refills: 0, Maintenance, Route to Pharmacy Electronically, [facility] Start Date: 06/13/24 Status: Ordered [...] 1.6 thou sand/uL (06/13/24 10:05 AM) ABS Yancey [0.1-2.0 thousand/uL] 0.8 thous and/uL (06/13/24 10:05 AM) Albumin [3.5-5.0 gm/dL] 4.0 gm/dL (06/13/24 10:05 AM) Alkphos [40-150 Units/L] 64 Units/L (06/13/24 10:05 AM) ALT [6-55 Units/L] 16 Units/L (06/13/24 10:05 AM) Anion Gap [7-15 mmol/L] 8 mmol/L (06/13/24 10:05 AM) Bili Total [0.2-1.2 mg/dL] 0.4 mg/dL (06/13/24 10:05 AM) BUN [8-25 mg/dL] 14 mg/dL (06/13/24 10:05 AM) BUN/Clinical Research Nurse Ratio [10-20] 17 (06/13/24 10:05 AM) Chloride [...] 9.5 mg/dL (06/13/24 10:05 AM) 1Result Comment: Socket Welder Helper: [id number] Ashley Harley 2Result Comment: Socket Welder Helper: [id number] Tim Cui 3Interpretive Data: As of 06-24-2022, reported eGFR is based on the CKD-EPI 1 equation that does not use a race [...] 5:40 PM) 149/78m m Hg *H* ( 4 5:00 PM) 143/66m m Hg *H* ( 4 4:30 PM) 123/80m m Hg ( 4 4:00 PM) 127/77m m Hg ( 4 3:30 PM) 121/69 mm Hg ( 3:00 [...] 5:40 PM) 22 Breaths /Min *H* ( 5:14 PM) 19 Breaths /Min ( 4:36 PM) 18 Breaths /Min ( 4:14 PM) 14 Breaths /Min ( 3:30 PM) 17 Breath s/Min ( 3:01 [...] Radial Artery Access - TR BAND (CUSTOM) [facility] RADIAL ARTERY ACCESS / TR BAND HEMOSTASIS [...] contact the Emergency Department. Document Released: 11/16/2006 [employer]?? Patient Information ??2007 [employer]. 06/13/2024 16:47:32 Femoral Site Care Femoral Site [...] and water are not available, use hand guest service representative. ??? Change or remove your dressing as [...] it is safe. General instructions ??? Take [id number] and prescription medicines only as told by [...] provider. Document Revised: 08/06/2022 Document Reviewed: 01/05/2022 [employer] Patient Education ?? 2022 [employer] Follow Up Care 05/31/2024 12:48:45 With:Corky Bailey MD Address: [address] [facility] [address] [place] [address]- When:1 to 2 weeks History and physical note * Annia Love: PERFORM Event Display: History and Physical Authored Date: Discharge summary * Corky Bailey MD: PERFORM Event Display: Discharge Summary Authored Date: Patient: ??RHONDA FRAIRE ? Age: ??73 years ?Sex: ??F ?: ??1950 ?Active Insurance: ??MEDICARE OUTPATIENT [id number] Admitting MD: ??Corky Bailey MD ?Location: ??[facility] 2CPP: 2C07: P1 ?PCP: ??PCP, Unknown Author: [...]
--- OUTSIDE RECORDS SUMMARY | 2024-12-06 03:45 | XMS_ITS | Continuity of Care Document ---
Author Name [facility] [place] [facility] Team Providers Care Induction Coordination Engineer Name Role Phone Critical access hospital Unavailable Unavailable Problems Problem Status Onset Date Classification Date Reported Comments Source Coronary arteriosclerosis (disorder) Active 06/21/2024 [facility] Hypercholesterolemia (disorder) Active 06/21/2024 [facility] Atherosclerosis of coronary artery (disorder) 06/21/2024 [facility] Essential hypertension (disorder) 06/21/2024 [facility] Pure hypercholesterolemia (disorder) 06/21/2024 [facility] Long-term current use of aspirin (situation) 06/21/2024 [facility] Drug allergy (disorder) 06/21/2024 [facility] Medications Medication Details Route Status Patient Instructions Ordering Provider Order Date Source metoprolol succinate 25 mg oral capsule, extended release 1 Cap Cap, ER, PO, qDay, Qty: 90 Cap, Refills: 0, Maintenance, Route to Pharmacy Electronically , [facility] 5429 Active [facility] Brilinta (ticagrelor) 90 mg oral tablet 1 Tab, PO, BID, Qty: 180 Tab, Refills: 0, Maintenance, Route to Pharmacy Electronically , [facility] 5429 Active [facility] aspirin 81 mg oral enteric coated tablet 1 Tab Tab, EC, PO, qDay, Qty: 90 Tab, Refills: 0, Maintenance, Route to Pharmacy Electronically , [facility]29 Active [facility] Tylenol oral TABLET 650 mg, PO, q4hr, PRN, Pain, Tab, Refills: 0, Maintenance Active [facility] Vitamin D3 125 mcg (5,000 unit) oral capsule 1 Cap Cap, PO, qDay, Qty: 100 Cap, Refills: 0, with food, Maintenance Active 024 [facility] Voquezna 10 mg oral tablet 1 Tab Tab, PO, qDay, Qty: 30 Each, Refills: 0, Maintenance Active 024 [facility] rosuvastatin 20 mg oral tablet 1 Tab, PO, Daily, Refills: 0, Maintenance Active 024 [facility] Allergies, Adverse Reactions, Alerts Substance Category Reaction Severity Reaction type Status Date Reported Comments Source clindamycin Assertion cdiff Moderate Drug allergy Active [facility] omeprazole Assertion Eruption (morphologi c abnormality ) Moderate Drug allergy Active [facility] Vicodin Assertion Anaphylaxis (disorder) Severe Drug allergy Active [facility] Ceclor Assertion eyes swelling Moderate Drug allergy Active [facility] pantoprazole Assertion Eruption of skin (disorder) Moderate Drug allergy Active [facility] Results Order Name Results Value Reference Range Date Interpretation Comments Source ACT iSTAT (POCT) Activated Clot Time iSTAT (POCT) 354.0 74.0 - 137.0 06/13 H Electrical Prospecting Operator: [id number] [facility] ACT iSTAT (POCT) Activated Clot Time iSTAT (POCT) 250.0 74.0 - 137.0 06/13 H Electrical Prospecting Operator: [id number] [facility] POC Coagulation Activated Clot Time iSTAT (POCT) 354.0 74.0 - 137.0 06/13 Result Comment: Electrical Prospecting Operator: [id number] [facility] POC Coagulation Activated Clot Time iSTAT (POCT) 250.0 74.0 - 137.0 06/13 Result Comment: Electrical Prospecting Operator: [id number] [facility] CMP Sodium 140 135 - 145 06/13 [facility] CMP Potassium 3.8 3.6 - 5.3 06/13 [facility] CMP Chloride 108 100 - 110 06/13 [facility] CMP CO2 24 19 - 27 06/13 [facility] CMP Glucose Level 101 65 - 99 06/13 H [facility] CMP BUN 14 8 - 25 06/13 [facility] CMP Creatinine 0.83 0.57 - 1.11 06/13 [facility] CMP BUN/Agricultural Research Engineer Ratio 17 10 - 20 06/13 [facility] Anion Gap 8 7 - 15 06/13 [facility] CMP Calcium 9.5 8.5 - 10.3 06/13 [facility] CMP Protein, Total 6.7 6.4 - 8.3 06/13 [facility] CMP Albumin 4.0 3.5 - 5.0 06/13 [facility] CMP Alkphos 64 40 - 150 06/13 [facility] CMP ALT 16 6 - 55 06/13 [facility] CMP AST 24 5 - 34 06/13 [facility] CMP Bili Total 0.4 0.2 - 1.2 06/13 [facility] CMP eGFRcr 75 >=90 06/13 L As of 06-24-2022, reported eGFR is based [...] <18 years and will not be performed. [facility] CMP Heme Index Negative 06/13 [facility] PT PT 11.4 9.9 - 13.9 06/13 [facility] PT INR 0.9 0.8 - 1.2 06/13 Recommended ranges for protime INR: 2.0-3.0 for most medical and surgical thromboembolic states. 2.5-3.5 for artificial heart valves and recurrent embolism. [facility] PTT PTT 31.0 25.1 - 39.1 06/13 [facility] CBC w/Diff WBC 5.7 3.6 - 11.1 06/13 [facility] CBC w/Diff RBC 4.60 3.69 - 5.19 06/13 [facility] CBC w/Diff Hgb 13.3 11.4 - 14.4 06/13 [facility] CBC w/Diff Hct 40.1 33.3 - 45.8 06/13 [facility] CBC w/Diff MCV 87 79 - 99 06/13 [facility] CBC w/Diff MCH 29.0 28.0 - 32.0 06/13 [facility] CBC w/Diff MCHC 33.2 32.0 - 36.0 06/13 [facility] CBC w/Diff RDW 14.4 11.5 - 14.5 06/13 [facility] CBC w/Diff Plt 226 150 - 450 06/13 [facility] CBC w/Diff Neuts 54.5 06/13 [facility] CBC w/Diff Lymphs 27.8 06/13 [facility] CBC w/Diff Monos. 13.8 06/13 [facility] CBC w/Diff Eos. 2.6 06/13 [facility] CBC w/Diff Baso. 1.3 06/13 [facility] CBC w/Diff ABS Neut 3.1 2.0 - 8.0 06/13 [facility] CBC w/Diff ABS Lymph 1.6 0.6 - 4.8 06/13 [facility] CBC w/Diff ABS Hyde 0.8 0.1 - 2.0 06/13 [facility] CBC w/Diff ABS Eos 0.1 0.0 - 0.7 06/13 [facility] CBC w/Diff ABS Baso 0.1 0.0 - 0.2 06/13 [facility] CBC w/Diff CBC Scan Auto Diff 06/13 [facility] CBC w/Diff MPV 7.9 7.5 - 11.5 06/13 [facility] CBC WBC 5.7 3.6 - 11.1 06/13 [facility] CBC RBC 4.60 3.69 - 5.19 06/13 [facility] CBC Hgb 13.3 11.4 - 14.4 06/13 [facility] CBC Hct 40.1 33.3 - 45.8 06/13 [facility] CBC MCV 87 79 - 99 06/13 [facility] CBC MCH 29.0 28.0 - 32.0 06/13 [facility] CBC MCHC 33.2 32.0 - 36.0 06/13 [facility] CBC RDW 14.4 11.5 - 14.5 06/13 [facility] CBC Plt 226 150 - 450 06/13 [facility] CBC MPV 7.9 7.5 - 11.5 06/13 [facility] CBC CBC Scan Auto Diff (06/13/24 10:05 AM) 06/13 [facility] CBC Neuts 54.5 06/13 [facility] CBC Lymphs 27.8 06/13 [facility] CBC Monos. 13.8 06/13 [facility] CBC Eos. 2.6 06/13 [facility] CBC Baso. 1.3 06/13 [facility] CBC ABS Neut 3.1 2.0 - 8.0 06/13 [facility] CBC ABS Lymph 1.6 0.6 - 4.8 06/13 [facility] CBC ABS Hyde 0.8 0.1 - 2.0 06/13 [facility] CBC ABS Eos 0.1 0.0 - 0.7 06/13 [facility] CBC ABS Baso 0.1 0.0 - 0.2 06/13 [facility] General Chemistry eGFRcr 75 06/13 Interpretive Data: As of 06-24-2022, reported eGFR is [...] <18 years and will not be performed. [facility] General Chemistry Sodium 140 135 - 145 06/13 [facility] General Chemistry Potassium 3.8 3.6 - 5.3 06/13 [facility] General Chemistry Chloride 108 100 - 110 06/13 [facility] General Chemistry CO2 24 19 - 27 06/13 [facility] General Chemistry Glucose Level 101 65 - 99 06/13 [facility] General Chemistry BUN 14 8 - 25 06/13 [facility] General Chemistry Creatinine 0.83 0.57 - 1.11 06/13 [facility] General Chemistry Calcium 9.5 8.5 - 10.3 06/13 [facility] General Chemistry Protein, Total 6.7 6.4 - 8.3 06/13 [facility] General Chemistry Albumin 4.0 3.5 - 5.0 06/13 [facility] General Chemistry Alkphos 64 40 - 150 06/13 [facility] General Chemistry ALT 16 6 - 55 06/13 [facility] General Chemistry AST 24 5 - 34 06/13 [facility] General Chemistry Bili Total 0.4 0.2 - 1.2 06/13 [facility] General Chemistry Anion Gap 8 7 - 15 06/13 [facility] General Chemistry BUN/Agricultural Research Engineer Ratio 17 10 - 20 06/13 [facility] Diagnostic Reports Report Value Date Source CARDIAC STRUCTURE & CORONARY ARTERIES WITH CALCIUM INDICATION: Fatigue. Other forms of dyspnea COMPARISON: None TECHNIQUE: Axial images were obtained through the level of the heart without intravenous contrast for the purpose of calcium scoring. This was followed by the intravenous administration of contrast. Following the bolus, axial images were obtained through the level of the heart. 3D postprocessing with multiplanar reconstructions of the coronary arteries and calcium scoring were performed on a dedicated workstation. CT scan done according to ALARA (As Low As Reasonably Achievable). CONTRAST: 100 mL of Omnipaque (350 mg/mL) single use vial was administered IV with 0 mL discarded. Prior known CT or cardiac nuclear medicine studies performed in the last 12 months: 0 RADIATION DOSE: CTDI volume 7.36,15.88 mGy; total DLP 1079.81 mGy-cm. FINDINGS: Acquisition mode: Prospective Medication used: Sublingual Nitroglycerin 800 mcg Complications: None Image quality: Good. Meets quality standards for diagnostic CAD-RADS classification. Heart rate: 54 bpm Coronary Calcium (Agatston): The total Agatston CAC score is 718.6 Age/sex adjusted CAC score percentile: 90th Vessel-level Agatston CAC scoring: LM: 85.2 LAD: 333.2 CX: 137.1 RCA: 163.1 Coronary angiography: Left Main: The left main is a normal caliber vessel with a normal take off from the left coronary cusp that bifurcates to form a left anterior descending artery and a left circumflex artery. Calcified plaque within the left main resulting in 10-20% stenosis. Left anterior descending artery: Mixed plaque at the LAD ostium/proximal segment resulting in 65-75% stenosis with artifact from calcified plaque burden. Additional areas of mixed plaque throughout the proximal to mid LAD resulting in 55-69% stenosis. 2 diagonal branches are noted. The LAD wraps around the cardiac apex distally. Left circumflex artery: The LCX is non-dominant. Mixed plaque within the proximal to mid circumflex resulting in 50-60% stenosis. One diagonal branches noted. Right coronary artery: The RCA is dominant. Scattered areas of calcified and mixed plaque noted throughout the course of the RCA resulting in up to 40-50% stenosis within the proximal to mid RCA. The RCA terminates as a small PDA and posterolateral branch. Left Atrium: Left atrial size is within normal limits. There are no filling defects noted within the left atrial appendage. Left Ventricle: The ventricular cavity size is within normal limits. Pericardium: Normal thickness with no significant effusion or calcium present. Cardiac valves: There is no thickening or calcifications involving the aortic and mitral valves. Aorta: Sinuses of Valsalva 3.3 cm, sinotubular junction 2.7 cm, mid ascending aorta 3.1 cm Main pulmonary artery: Measures 2.5 cm transversely Extra-cardiac findings: No focal airspace consolidation. Degenerative changes of the midthoracic spine. IMPRESSION: 1. Total calcium score of 718.6. This corresponds to the 90th percentile. That is when corrected for patient's age and gender approximately 10% of patients will have a greater calcified coronary artery plaque burden. 2. 65-75% stenosis at the LAD ostium/proximal segment secondary to mixed plaque with artifact from calcified plaque burden. 3. 55-69% stenosis within the proximal to mid LAD. 4. 50-60% stenosis within the proximal to mid circumflex. 5. 40-50% stenosis within the proximal to mid RCA. 6. No anomalous coronary artery anatomy. 7. Right dominant morphology. 8. CAD RADS 4A. Given the positive findings, this examination was assigned to the [facility] tv production assistant to be communicated to the ordering physician or their clinician's pharmaceutical specialty representative, in addition to immediate report transmission via the electronic medical record interface or fax at the time of dictation. SCCT grading scale for stenosis severity assesses degree of luminal diameter stenosis and CAD-RADS score. 0% = no visible stenosis Category 0 1-24% = minimal stenosis Category 1 25-49% = mild stenosis Category 2 50-69% = moderate stenosis Category 3 70-99% = severe stenosis Category 4 100% = occlusion Category 5 N: obstructive coronary artery disease cannot be excluded, nondiagnostic study RECOMMENDATIONS: CAD RADS 0: Reassurance. Consider non-atherosclerotic causes of chest pain. CAD RADS 1: Consider non-atherosclerotic causes of chest pain. Consider preventive therapy and risk factor modification. CAD RADS 2: Consider non-atherosclerotic causes of chest pain. Consider preventive therapy and risk factor modification, particularly for patients with nonobstructive plaque in multiple segments. CAD RADS 3: Consider further functional testing. Consider symptom-guided anti-ischemic and preventive pharmacotherapy as well as risk factor modification per published guideline statements. CAD RADS 4A: Consider further functional testing or invasive coronary angiography with revascularization per published guideline statements. Consider symptom-guided anti-ischemic and preventive pharmacotherapy as well as risk factor modification per published guideline statements. CAD RADS 4B: Invasive coronary angiography recommended with revascularization per published guideline statements. Consider symptom-guided anti-ischemic and preventive pharmacotherapy as well as risk factor modification per published guideline statements. CAD RADS 5: Consider invasive angiography and/or viability assessment with revascularization per published guideline statements. Consider symptom-guided anti-ischemic and preventive pharmacotherapy as well as risk factor modification per published guideline statements. ELECTRONICALLY SIGNED BY Paulette Webb on 05/19/2024 14:37:00 Thank you for your kind referral. If you need further assistance, please contact our Radiologist Hotline at [phone] or [phone]. 05/19/2024 [facility] KNEE 1-2 VIEWS (RIGHT) INDICATION: Posto perative follow-up. COMPARISON: 07-24-22 TECHNIQUE: 2 views of the RIGHT knee were obtained including bilateral AP view for comparison. FINDINGS: Interval intact bipolar RIGHT knee arthroplasty, with dorsal patellar implant. No acute fracture or dislocation. The bony architecture and trabecular pattern are intact and unremarkable throughout. Noconvincing loose bodies. The soft tissues about the knee are preserved and unremarkable. Incidental moderately severe narrowing of the medial LEFT tibiofemoral joint compartment. IMPRESSION: 1. Intact postoperative right knee. 2. No acute bony defect. 3. Medial LEFT knee degenerative disease. ELECTRONICALLY SIGNED BY Zaire Woodall on 04/09/2024 18:29:00 Thank you for your kind referral. If you need further assistance, please contact our Radiologist Hotline at [phone] or [phone]. 04/10/2024 [facility] LOWER EXTREMITY WITHOUT CONTRAST [facility] KNEE (RIGHT) CLINICAL HISTORY: M17.11 - Unilateral primary osteoarthritis of right knee. Preop planning. [place] protocol. COMPARISON: None. TECHNIQUE: Noncontrast spiral CT of the right lower extremity to include the hip, knee and ankle was performed according to the [place] protocol. Right knee coronal and sagittal reconstructions were generated by the technologist. CT scan done according to ALARA (As Low As Reasonably Achievable). Prior known CT or cardiac nuclear medicine studies performed in the last 12 months: 0 IMPRESSION: 1. CT imaging of the right lower extremity including the hip, knee and ankle performed according to the [place] protocol. 2. Tricompartmental osteoarthritis with joint space narrowing and osteophyte formation. Findings are worse involving the medial femoral tibial compartment where there is subchondral sclerosis and near [id number]. Prominent intercondylar and tibial spine spurring. Superior patellar enthesophyte. Trace joint effusion. There is also mild osteoarthritis involving the proximal tibiofibular joint. Osteopenia. Chronic strains with localized atrophy involving the soleus muscle and to lesser degree the adjacent medial gastrocnemius muscle. 3. Images are provided to the referring orthopedic surgeon for preoperative planning purposes. ELECTRONICALLY SIGNED BY ASHLIE COOK on 02/23/2024 10:04:00 Thank you for your kind referral. If you need further assistance, please contact our Radiologist Hotline at [phone] or [phone]. 02/23/2024 [facility] CHEST 2 VIEWS CLINICAL HISTORY: CHEST- 2 views INDICATION: Surgical clearance COMPARISON: No comparison available FINDINGS: CARDIOVASCULAR: The cardiomediastinal silhouette is not enlarged. LUNGS: There is no evidence of focal consolidation, vascular redistribution, or pleural fluid. There is no radiographic evidence of active tuberculosis. OSSEOUS STRUCTURES: Bony structures are intact. SOFT TISSUES: No foreign bodies. TUBES/LINES/IMPLANTABLE DEVICES: None. IMPRESSION: There is no radiographic evidence of acute cardiopulmonary disease. Report electronically signed by: Homer Dumont MD (Ben) on Feb 16, 08:21 AM EDT ELECTRONICALLY SIGNED BY Julia Coronel on 02/17/2024 05:21:30 Thank you for your kind referral. If you need further assistance, please contact our Radiologist Hotline at [phone] or [phone]. 02/17/2024 [facility] SHOULDER MIN 2 VIEWS CR - SHOULDER MIN 2 VIEWS Patient Name: Daniel Zhu Patient : 1950 DOS: Jul 26, 2019 Patient Ref. Physician: Carrie Montana Exam # [id number] - Jul 26 2019 - X-Ray - SHOULDER MIN 2 VIEWS (Right) Exam Performed at [facility] INDICATION: Chronic right shoulder pain with no history of trauma. COMPARISON: None. TECHNIQUE: 3 views of the right shoulder were obtained. FINDINGS: There is moderate degenerative change in the acromioclavicular articulation. Slight degenerative changes are noted in the subchondral region of the right humeral head. There is also sclerotic change involving the right glenoid rim. The glenohumeral joint space appears adequately maintained. Some deformity is noted in the region of the humeral head, may represent Hill-Sachs deformity likely associated with chronic recurrent glenohumeral dislocation. The soft tissue anatomy is satisfactory. There is no evidence of fracture, dislocation, or subluxation. IMPRESSIONS: 1. Moderate degenerative changes are noted. 2. Questioned Hill-Sachs deformity of the humeral head, usually associated with chronic recurrent glenohumeral dislocation. No current dislocation is noted. ELECTRONICALLY SIGNED BY: Javad Olson D.O. on Jul 27, 2019 07/26/2019 [facility] AAA Screening US - AAA Screening Patient Name: Daniel Zhu Patient : 1950 DOS: Jan 24, 2019 Patient Ref. Physician: Carrie Montana Exam # [id number] - Jan 24 2019 - US - AAA Screening Exam Performed at [facility] Exam: Abdominal aorta ultrasound CLINICAL HISTORY: AAA screening. COMPARISON: None. TECHNIQUE: Longitudinal and transverse images were obtained of the abdominal aorta to the level of the bifurcation. FINDINGS: The abdominal aorta is normal in caliber. There is no aneurysm. The maximum diameter measures 2.3 cm. The right and left common iliac arteries are normal in diameter. They measure 0.8 cm on the right and 0.9 cm on the left. IMPRESSION: 1. No abdominal aortic aneurysm is seen. ELECTRONICALLY SIGNED BY: Nolan Thapa M.D. on Jan 25, 2019 01/24/2019 [facility] PELVIC (NON OB) COMPLETE TA/TV WITH DOPPLER US - PELVIC (NON OB) COMPLETE TA/TV WITH DOPPLER Patient Name: Daniel Zhu Patient : 1950 DOS: Jan 24, 2019 Patient Ref. Physician: Carrie Montana Exam # [id number] - Jan 24 2019 - US - PELVIC (NON OB) COMPLETE TA/TV WITH DOPPLER Exam Performed at [facility] INDICATION: Vaginal bleeding. COMPARISON: None. TECHNIQUE: Transabdominal and transvaginal scanning was performed with grayscale and color Doppler imaging. FINDINGS: Uterus: Measures 5.8 x 5.7 x 3.9 cm. No uterine masses are identified. Anteverted. Endometrium: Measures 17 mm. Heterogeneous endometrium with scattered cystic areas. Right ovary not seen due to atrophy or bowel gas, no adnexal masses are identified. Left ovary measures 1.5 x 1.7 x 1.0 cm. No left ovarian or adnexal masses are identified. Free fluid: None. Other findings: None of significance. IMPRESSION: 1. Heterogeneous thickened endometrium with scattered cystic areas. Differential considerations include malignancy, hyperplasia, or polyp. Tissue sampling should be considered. 2. Nonvisualization of the right ovary due to bowel gas or atrophy. ELECTRONICALLY SIGNED BY: Sunil Lujan M.D. on Jan 26, 2019 01/24/2019 [facility] Imaging Consultation Notes Results Value Date Source Discharge Instructions Document [facility] [address] [place] [address] RHONDA FRAIRE :1950 ([facility]) Visit Date:06/13/2024 Inpatient Discharge Instructions Your Care Team Admitting Physician - Corky Soto MD Attending Physician - Corky Soto MD Lifetime Physician(PCP) - PCP, Unknown Referring Physician - Corky Soto MD Discharge Vitals Temperature 36.3 ?C (Temporal Artery) TMIN 36.3 ?C (Temporal Artery) TMAX 36.5 ?C (Temporal Artery) Heart Rate 85 Respiratory Rate 20 Blood Pressure 150/75 What to do next Additional Patient Instructions 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 You May Need to Schedule the Following Appointments Follow Up with Corky Soto MD When Within 1 to 2 weeks Where: [address] [facility] [address] [place] [address]- We encourage you to sign up for My Portal, where you can easily access your medical records and test results from all [facility]. Please sign up in one of the following ways: 1. Email invitation. You may have a message in your inbox. Please click the link provided to create an account. OR 2. Request an invitation at your next clinic or hospital visit. Please ask a staff member and they will be happy to assist you. Do you need help with housing, financial assistance, food pantries, or other community resources and help Search for local options using [email or web address]. Medications DO NOT STOP TAKING ANY MEDICATIONS WITHOUT CONTACTING YOUR PHYSICIAN What How Much When Instructions Next Dose New aspirin (aspirin 81 mg oral enteric coated tablet) 1 tab(s) By mouth Once daily Pickup at [facility] 5429 New metoprolol (metoprolol succinate 25 mg oral capsule, extended release) 1 cap By mouth Once daily Pickup at [facility] 5429 New ticagrelor (Brilinta (ticagrelor) 90 mg oral tablet) 1 tab(s) By mouth Twice daily Pickup at [facility] 5429 Changed rosuvastatin (rosuvastatin 20 mg oral tablet) 1 tab(s) By mouth Once daily Unchanged acetaminophen (Tylenol oral TABLET) 650 Milligram By mouth Every 4 hours as needed for Pain Unchanged cholecalciferol (Vitamin D3 125 mcg (5,000 unit) oral capsule) 1 cap By mouth Once daily with food Unchanged vonoprazan (Voquezna 10 mg oral tablet) 1 tab(s) By mouth Once daily Pharmacy Information [facility] 54: [id number] [place], [place] [phone] Discharge Orders Discharge Orders: Discharge Today, Home or self care Education Materials [facility] RADIAL ARTERY ACCESS / TR BAND HEMOSTASIS The doctor used the radial (wrist) artery to insert catheters to access your heart arteries. When we use one of the arteries in your wrist, we do a quick test before inserting the needle. The Allens test will make sure the blood flow to your hand is normal: We will apply pressure to the two arteries that carry blood to your hand. We will do this until your hand loses color or gets pale. We will release pressure on the one artery that won't be used for the blood test. If your hand regains its normal color, the artery is working well. We then know your hand will receive enough blood if the artery we use for the procedure becomes compromised. We will repeat the test a second [...] when it is injected. What are the risks an injury to your artery continued bleeding an injury to a nerve TR BAND When the procedure is over, the IV will be removed from the artery and a band will be placed on your wrist. The band will provide snug constant pressure to the insertion site to prevent the artery from bleeding. This allows the artery to heal itself. Your nurse will remove the band a few hours after your procedure is complete. It is very important that you do not bend your wrist, to prevent bleeding from the artery. Your nurse will monitor the site for bleeding and swelling. Please notify your nurse if your hand becomes numb, cold, or tingly. When you go home, follow these instructions: Check the puncture site where the IV went in for possible bleeding and swelling. Avoid lifting with that arm more than 10 pounds for 3-5 days. Avoid strenuous activity with that arm for 3-5 days. If you have any questions regarding limitations or activities following your procedure please contact your doctor. You may shower and remove the band-aid or pressure dressing bandage from your wrist in the morning. Inspect the site and re-apply a clean, dry band-aid every day for 5 days or until a scab has formed at the site. Keep the site clean and dry. Do not use any powders, lotions, or ointments on the site until it has healed. NO pool, Jacuzzi or tub baths for one week. NO submersion of puncture site in water for one week. A small amount of bruising is ok, and expected. If there is any continuous bleeding or swelling at the puncture site, apply firm pressure with your hand above the puncture site and return to the hospital immediately. IF BLEEDING IS PROFUSE, DIAL 911 IMMEDIATELY. You may have a small blood spot (dime to half-dollar size) on your dressing when you leave the hospital, or by the time you get home. This amount is normal. Discharge Instructions After Sedation/Anesthesia The medicines you received during the procedure or test you had today can sometimes cause you to be confused, sleepy, dizzy, and clumsy. You need to be extra careful for the next 24 hours. Do not engage in any activity that requires you to be alert or coordinated for the next 24 hours. This includes driving, operating heavy machinery, using power tools, cooking, climbing, or riding a bicycle. No swimming, hot tubs, or baths for the next 48 hours. Stay with family, friends, or a caregiver for the next 24 hours. Do not make any important decisions in the next 24 hours such as signing contracts, important commitments, or making expensive purchases. No alcohol for 24 hours. Avoid solid food if you have nausea (feeling sick to your stomach) or vomiting. Drink plenty of fluids if you do not have nausea. Take only medications prescribed by your caregiver, in the dose prescribed. Call your caregiver for persistent nausea and/or if you vomit more than once. If you cannot reach your caregiver, go to or contact the Emergency Department. Document Released: 11/16/2006 [employer]? Patient Information ?2007 [employer]. Femoral Site Care The following information offers guidance on how to care for yourself after your procedure. Your health care provider may also give you more specific instructions. If you have problems or questions, contact your health care provider. What can I expect after the procedure After the procedure, it is common to have bruising and tenderness at the incision site. This usually fades within 1 2 weeks. Follow these instructions at home: Incision site care Follow instructions from your health care provider about how to take care of your incision site. Make sure you: Wash your hands with soap and water for at least 20 seconds before and after you change your bandage (dressing). If soap and water are not available, use hand laundry aide. Change or remove your dressing as told by your health care provider. Leave stitches (sutures), skin glue, or adhesive strips in place. These skin closures may need to stay in place for 2 weeks or longer. If adhesive strip edges start to loosen and curl up, you may trim the loose edges. Do not remove adhesive strips completely unless your health care provider tells you to do that. Do not take baths, swim, or use a hot tub until your health care provider approves. You may shower 24 4 8 hours after the procedure or as told by your health care provider. Gently wash the incision site with plain soap and water. Pat the area dry with a clean towel. Do not rub the site. This may cause bleeding. Do not apply powder or lotion to the site. Keep the site clean and dry. Check your femoral site every day for signs of infection. Check for: Redness, swelling, or pain. Fluid or blood. Warmth. Pus or a bad smell. Activity If you were given a sedative during the procedure, it can affect you for several hours. Do not drive or operate machinery until your health care provider says that it is safe. Rest as told by your health care provider. Avoid sitting for a long time without moving. Get up to take short walks every 1 2 hours. This is important to improve blood flow and breathing. Ask for help if you feel weak or unsteady. Return to your normal activities as told by your health care provider. Ask your health care provider what activities are safe for you and when you can return to work. Avoid activities that take a lot of effort for the first 2 3 days after your procedure, or as long as directed. Do not lift anything that is heavier than 10 lb (4.5 kg), or the limit that you are told, until your health care provider says that it is safe. General instructions Take airc-vxv-vudhudy and prescription medicines only as told by your health care provider. If you will be going home right after the procedure, plan to have a responsible adult care for you for the time you are told. This is important. Keep all follow-up visits. This is important. Contact a health care provider if: You have a fever or chills. You have any of these signs of infection at your incision site: Redness, swelling, or pain. Fluid or blood. Warmth. Pus or a bad smell. Get help right away if: The incision area swells very fast. The incision area is bleeding, and the bleeding does not stop when you hold steady pressure on the area. Your leg or foot becomes pale, cool, tingly, or numb. These symptoms may represent a serious problem that is an emergency. Do not wait to see if the symptoms will go away. Get medical help right away. Call your local emergency services (911 in the [place] Do not drive yourself to the hospital. Summary After the procedure, it is common to have bruising and tenderness that fade within 1 2 weeks. Check your femoral site every day for signs of infection. Do not lift anything that is heavier than 10 lb (4.5 kg), or the limit that you are told, until your health care provider says that it is safe. Get help right away if the incision [...] provider. Document Revised: 08/06/2022 Document Reviewed: 01/05/2022 [employer] Patient Education ? 2022 [employer]. ticagrelor (naomi KA grel or) Brilinta (ticagrelor) What is the most important information I should know about ticagrelor You should not use ticagrelor if you have any active bleeding or a history of bleeding in the brain. Do not use this medicine just before heart bypass surgery. Ticagrelor may cause you to bleed more easily, which can be severe or life-threatening. Call your doctor or seek emergency medical attention if you have bleeding that will not stop, black or bloody stools, red or pink urine, or if you cough up blood or vomit that looks like coffee grounds. Tell your doctor about all your current medicines and any you start or stop using. Many drugs can interact with ticagrelor. Do not stop taking ticagrelor without first talking to your doctor, even if you have signs of bleeding. Stopping ticagrelor may increase your risk of a heart attack or stroke. What is ticagrelor Ticagrelor is used to lower your risk of heart attack, stroke, or due to a blocked artery or a prior heart attack. Ticagrelor is also used to lower your risk of blood clots if you have coronary artery disease (decreased blood flow to the heart) and have been treated with stents to open clogged arteries. Ticagrelor is also used to lower your risk of a first heart attack or stroke if you have decreased blood flow to the heart. Ticagrelor is also used to lower the risk of stroke and in adults with a blockage or decreased blood flow in an artery that supplies blood to the brain. Ticagrelor is usually given together with low-dose aspirin. Carefully follow your doctor's dosing instructions. Using too much aspirin can make ticagrelor less effective. Ticagrelor may also be used for purposes not listed in this medication guide. What should I discuss with my healthcare provider before taking ticagrelor You should not use ticagrelor if you are allergic to it, or if you have: ? any active bleeding; or ? a history of bleeding in the brain (such as from a head injury). Tell your doctor if you have ever had: ? a stroke; ? heart problems; ? a surgery or bleeding injury; ? bleeding problems; ? a stomach ulcer or colon polyps; ? liver disease; or ? asthma, COPD (chronic obstructive pulmonary disorder) or other breathing problem. It is not known whether this medicine will harm an unborn baby. Tell your doctor if you are or plan to become . You should not breastfeed while using ticagrelor. How should I take ticagrelor Follow all directions on your prescription label and read all medication guides or instruction sheets. Ticagrelor is taken together with aspirin. Use these medicines exactly as directed. Do not take more aspirin than your doctor has prescribed. Taking too much aspirin can make ticagrelor less effective. Take ticagrelor at the same times each day, with or without food. If you cannot swallow a tablet whole, crush the pill and mix it with water. Stir and drink this mixture right away. Add more water to the glass, stir, and drink right away. Ticagrelor keeps your blood from coagulating (clotting) and can make it easier for you to bleed, even from a minor injury. Contact your doctor or seek emergency medical attention if you have any bleeding that will not stop. To prevent excessive bleeding, you may need to stop using ticagrelor for a short time before a surgery, medical procedure, or dental work. Any healthcare provider who treats you should know that you are taking ticagrelor. Do not stop taking ticagrelor without first talking to your doctor, even if you have signs of bleeding. Stopping the medicine could increase your risk of a heart attack or stroke. This medicine may affect medical testing for platelets in your blood and you may have false results. Tell the laboratory staff that you use ticagrelor. Store at room temperature away from moisture and heat. What happens if I miss a dose Skip the missed dose and use your next dose at the regular time. Do not use two doses at one time. What happens if I overdose Seek emergency medical attention or call the Poison Help line at . Overdose can cause excessive bleeding. What should I avoid while taking ticagrelor Drinking alcohol while taking aspirin can increase your risk of stomach bleeding. Avoid activities that may increase your risk of bleeding or injury. Use extra care to prevent bleeding while shaving or brushing your teeth. While taking ticagrelor with aspirin, avoid using medicines for pain, fever, swelling, or cold/flu symptoms. They may contain ingredients similar to aspirin (such as salicylates, ibuprofen, ketoprofen, or naproxen). Taking certain products together can cause you to get too much aspirin which can increase your risk of bleeding. What are the possible side effects of ticagrelor Get emergency medical help if you have signs of an allergic reaction: hives; difficult breathing; swelling of your face, lips, tongue, or throat. Call your doctor at once if you have: ? slow heartbeats; ? nosebleeds, or any bleeding that will not stop; ? shortness of breath even with mild exertion or while lying down; ? easy bruising, unusual bleeding, purple or red spots under your skin; ? red, pink, or brown urine; ? black, bloody, or tarry stools; or ? coughing up blood or vomit that looks like coffee grounds. Common side effects may include: ? bleeding; or ? shortness of breath. This is not a complete list of side effects and others may occur. Call your doctor for medical advice about side effects. You may report side effects to FDA at 8-686-YLQ-0757. What other drugs will affect ticagrelor Sometimes it is not safe to use certain medications at the same time. Some drugs can affect your blood levels of other drugs you take, which may increase side effects or make the medications less effective. Tell your doctor about all your current medicines. Many drugs can affect ticagrelor, especially: ? antifungal medicine; ? antiviral medicine to treat HIV or AIDS; ? a blood thinner; ? cholesterol medication; ? heart or blood pressure medication; ? opioid medication; ? seizure medicine; or ? tuberculosis medicine. This list is not complete and many other drugs may affect ticagrelor. This includes prescription and jytu-cts-wiyooco medicines, vitamins, and herbal products. Not all possible drug interactions are listed here. Where can I get more information Your pharmacist can provide more information about ticagrelor. Remember, keep this and all other medicines out of the reach of children, never share your medicines with others, and use this medication only for the indication prescribed. Every effort has been made to ensure that the information provided by [employer]') is accurate, up-to-date, and complete, but no guarantee is made to that effect. Drug information contained herein may be time sensitive. [employer] information has been compiled for use by healthcare practitioners and consumers in the [place] and therefore [employer] does not warrant that uses outside of the [place] are appropriate, unless specifically indicated otherwise. [employer] drug information does not endorse drugs, diagnose patients or recommend therapy. [employer] drug information is an informational resource designed to assist licensed healthcare practitioners in caring for their patients and/or to serve consumers viewing this service as a supplement to, and not a substitute for, the expertise, skill, knowledge and judgment of healthcare practitioners. The absence of a warning for a given drug or drug combination in no way should be construed to indicate that the drug or drug combination is safe, effective or appropriate for any given patient. [employer] does not assume any responsibility for any aspect of healthcare administered with the aid of information [employer] provides. The information contained herein is not intended to cover all possible uses, directions, precautions, warnings, drug interactions, allergic reactions, or adverse effects. If you have questions about the drugs you are taking, check with your doctor, nurse or pharmacist. Copyright 4773-9203 [employer]. Version: 5.01. Revision Date: 12/21/2020. Medication Education aspirin (aspirin 81 mg oral enteric coated tablet) This medicine is used for the following purposes: fever inflammatory disease pain prevent blood clots prevent stroke prevent heart attack How to take medicine Take the medicine by mouth once a day. Take one (1) pill each time. Morning Noon Evening Bedtime 1 pill IMPORTANT: These are your specific instructions. If they differ from any other information you receive, including the instructions below, talk to your prescriber or pharmacist. Instructions Swallow the medicine without crushing or chewing it. Sit or stand upright for 10 minutes after taking the medicine. Do not lie down. Swallow with a full glass (8 oz) of water unless your doctor gives you different instructions. You may take with food to prevent stomach upset. Store at room temperature away from heat, light, and moisture. Do not keep in the bathroom. If you are using this medicine regularly, it is important to take each dose of medicine on time. Keep taking the medicine even if you feel well. If you forget to take a dose on time, take it as soon as you remember. If it is almost time for the next dose, do not take the missed dose. Return to your normal schedule. Do not take 2 doses at one time. Drug interactions can change how medicines work or increase risk for side effects. Tell your health care providers about all medicines taken. Include prescription and rpnk-ijy-ftneglz medicines, vitamins, and herbal medicines. Speak with your doctor or pharmacist before starting or stopping any medicine. Tell your doctor if symptoms do not get better or if they get worse. Talk to your doctor before taking other medicines, including aspirins and ibuprofen containing products. Speak to your doctor about which medicines are safe to use while you are on this medicine. Cautions IMPORTANT: Children and teenagers should not use medications containing aspirin for cold and flu symptoms or chickenpox. Tell your doctor and pharmacist if you ever had an allergic reaction to a medicine. There is an increased risk of bleeding while on this medicine, please tell your doctor or nurse if you notice any excessive bleeding or bruising. Do not use the medication any more than instructed. If you drink alcohol regularly, please speak with your doctor. Avoid smoking while on this medicine. Smoking may increase your risk for stomach bleeding. This medicine passes into breast milk. Ask your doctor before . This medicine can hurt a new baby in the womb. If you become while on this medicine, tell your doctor immediately. Your doctor may switch you to a different medicine. Always keep medicine out of reach of children and pets. Side Effects Here are some common side effects. Ask your doctor what to do if you have these or other side effects. stomach upset or abdominal pain Call your doctor or get medical help right away if you notice any of these more serious side effects: severe or persistent abdominal pain bleeding or bruising coughing up blood or vomit that looks like coffee grounds fever signs of kidney damage (such as change in urine color or bubbly urine) ringing in the ears bloody or dark, tarry stools swelling in the neck or throat A few people may have an allergic reaction to this medicine. Symptoms can include difficulty breathing, skin rash, itching, swelling, or severe dizziness. If you notice any of these symptoms, seek medical help quickly. Please speak with your doctor, nurse, or pharmacist if you have any questions about this medicine. IMPORTANT NOTE: This document tells you briefly how to take your medicine, but it does not tell you all there is to know about it. Your doctor or pharmacist may give you other documents about your medicine. Please talk to them if you have any questions. Always follow their advice. There is a more complete description of this medicine available in [employer]. Scan this code on your smartphone or tablet or use the web address below. You can also ask your pharmacist for a printout. If you have any questions, please ask your pharmacist. [email or web address]/[email or web address] Copyright(c) 2023 [employer]. metoprolol (metoprolol succinate 25 mg oral capsule, extended release) This medicine is used for the following purposes: angina heart attack heart failure high blood pressure irregular heart beat prevent migraine headaches movement disorder How to take medicine Take the medicine by mouth once a day. Take one (1) pill each time. Morning Noon Evening Bedtime 1 pill IMPORTANT: These are your specific instructions. If they differ from any other information you receive, including the instructions below, talk to your prescriber or pharmacist. Instructions Swallow the medicine without crushing or chewing it. You may sprinkle medicine from capsule onto some soft food. Eat the entire mixture right away without chewing or crushing the medicine. If medicine is mixed with food, use it within 60 minutes. Throw away any leftover food. Do not save for later use. If you are giving this medicine through a tube into the stomach, ask your doctor or pharmacist for specific directions. This medicine may be taken with or without food. Swallow with a full glass (8 oz) of water unless your doctor gives you different instructions. This medicine will work best if you take it at about the same time every day. Store at room temperature away from heat, light, and moisture. Do not keep in the bathroom. It is important that you keep taking each dose of this medicine on time even if you are feeling well. If you forget to take a dose on time, take it as soon as you remember. If it is almost time for the next dose, do not take the missed dose. Return to your normal schedule. Do not take 2 doses at one time. Drug interactions can change how medicines work or increase risk for side effects. Tell your health care providers about all medicines taken. Include prescription and opak-roa-gwnljsz medicines, vitamins, and herbal medicines. Speak with your doctor or pharmacist before starting or stopping any medicine. Tell your doctor if symptoms do not get better or if they get worse. If you have diabetes, this medicine may hide some signs of low blood sugar, such as fast heartbeat. Check your blood sugar regularly and for other signs of low blood sugar. Symptoms of low blood sugar may include nausea, shaking, sweating, cold skin, fast heartbeat, hunger, and irritability. If you need to stop this medicine, your doctor may wish to gradually reduce the dosage before stopping. Parts of this medicine may come out in the stool. This is normal. Keep all appointments for medical exams and tests while on this medicine. Cautions Tell your doctor and pharmacist if you ever had an allergic reaction to a medicine. Some patients with weak hearts may have worsening of symptoms. If you notice difficulty breathing, weight gain, or swelling of your legs or ankles, let your doctor know right away. Do not use the medication any more than instructed. This medicine may cause dizziness or fainting. Do not stand or sit up quickly. Your ability to stay alert or to react quickly may be impaired by this medicine. Do not drive or operate machinery until you know how this medicine will affect you. Please check with your doctor before drinking alcohol while on this medicine. This medicine passes into breast milk. Ask your doctor before . During , this medicine should be used only when clearly needed. Talk to your doctor about the risks and benefits. Do not share this medicine with anyone who has not been prescribed this medicine. Always keep medicine out of reach of children and pets. Side Effects Here are some common side effects. Ask your doctor what to do if you have these or other side effects. diarrhea dizziness or drowsiness lack of energy and tiredness slow heartbeat lightheadedness Call your doctor or get medical help right away if you notice any of these more serious side effects: confusion depression or feeling sad swelling of the legs, feet, and hands fainting cold hands or feet mood changes pale or blue skin, lips or fingernails shortness of breath unusual or unexplained tiredness or weakness sudden or unexplained weight gain A few people may have an allergic reaction to this medicine. Symptoms can include difficulty breathing, skin rash, itching, swelling, or severe dizziness. If you notice any of these symptoms, seek medical help quickly. Please speak with your doctor, nurse, or pharmacist if you have any questions about this medicine. IMPORTANT NOTE: This document tells you briefly how to take your medicine, but it does not tell you all there is to know about it. Your doctor or pharmacist may give you other documents about your medicine. Please talk to them if you have any questions. Always follow their advice. There is a more complete description of this medicine available in [place]. Scan this code on your smartphone or tablet or use the web address below. You can also ask your pharmacist for a printout. If you have any questions, please ask your pharmacist. [email or web address]/[email or web address]/[email or web address] 40/pem Copyright(c) 2023 [employer]. ticagrelor (Brilinta (ticagrelor) 90 mg oral tablet) This medicine is used for the following purposes: heart disease prevent blood clots prevent heart attack How to take medicine Take the medicine by mouth twice a day. Take one (1) pill each time. Morning Noon Evening Bedtime 1 pill 1 pill IMPORTANT: These are your specific instructions. If they differ from any other information you receive, including the instructions below, talk to your prescriber or pharmacist. Instructions This medicine may be taken with or without food. This medicine will work best if you take it at about the same time every day. Store at room temperature away from heat, light, and moisture. Do not keep in the bathroom. It is important that you keep taking each dose of this medicine on time even if you are feeling well. If you forget a dose, just wait. Use the next dose at the usual time. Do not use 2 doses at once. Drug interactions can change how medicines work or increase risk for side effects. Tell your health care providers about all medicines taken. Include prescription and xrdf-xcb-shmxaov medicines, vitamins, and herbal medicines. Speak with your doctor or pharmacist before starting or stopping any medicine. It is very important that you follow your doctor's instructions for all blood tests. Cautions This medicine may cause serious bleeding problems in patients taking blood thinner medications. Follow your doctor's instructions carefully to monitor your blood lab tests if you are on blood thinners. Tell your doctor and pharmacist if you ever had an allergic reaction to a medicine. This medicine may cause bleeding from the stomach or bowels. Stop this medicine and call your doctor right away if you have pain in the stomach, red or dark tarry stools, or vomit that looks like coffee grounds. There is an increased risk of bleeding while on this medicine, please tell your doctor or nurse if you notice any excessive bleeding or bruising. Do not use the medication any more than instructed. Please check with your doctor before drinking alcohol while on this medicine. Tell the doctor or pharmacist if you are , planning to be , or . Do not take [place]'s wort while on this medicine. Call your doctor right away if you notice any unusual bleeding or bruising. Do not share this medicine with anyone who has not been prescribed this medicine. Some patients have serious side effects from this medicine. Ask your pharmacist to show you the information from the Food and Drug Administration (FDA) and discuss it with you. Always refill this medicine before it runs out. Always keep medicine out of reach of children and pets. Side Effects Here are some common side effects. Ask your doctor what to do if you have these or other side effects. coughing nosebleeds Call your doctor or get medical help right away if you notice any of these more serious side effects: bleeding or bruising breathing interruption during sleep shallow, irregular breathing coughing up blood or vomit that looks like coffee grounds fainting fever numbness or tingling in hands and feet severe or persistent headache sudden leg pain, swelling, warmth or redness loss of movement anywhere on the body shortness of breath bloody or dark, tarry stools symptoms of stroke (such as one-sided weakness, slurred speech, confusion) difficulty swallowing unusual or unexplained tiredness or weakness blood in urine blurring or changes of vision A few people may have an allergic reaction to this medicine. Symptoms can include difficulty breathing, skin rash, itching, swelling, or severe dizziness. If you notice any of these symptoms, seek medical help quickly. Please speak with your doctor, nurse, or pharmacist if you have any questions about this medicine. IMPORTANT NOTE: This document tells you briefly how to take your medicine, but it does not tell you all there is to know about it. Your doctor or pharmacist may give you other documents about your medicine. Please talk to them if you have any questions. Always follow their advice. There is a more complete description of this medicine available in [place]. Scan this code on your smartphone or tablet or use the web address below. You can also ask your pharmacist for a printout. If you have any questions, please ask your pharmacist. [email or web address] 41/pem Copyright(c) 2023 [employer]. Clothes at Bedside: Coat/Jacket, Pants, Shirt, Shoes, Socks Clothes Sent Home: Coat/Jacket, Pants, Shirt, Shoes, Socks Electronics at Bedside: None Electronics Sent Home: None Jewelry at Bedside: None Jewelry Sent Home: None Miscellaneous Items Sent Home: None Personal Devices at Bedside: None Personal Devices Sent Home: None I understand that [facility] is not responsible for any personal belongings/effects or valuables that have not been identified on the valuables and belongings list. Any personal effects brought into the facility and not recorded on the valuables and belongings form are the responsibility of the patient/family/significant other.I have received the indicated patient education materials/instructions and medication list and have verbalized understanding. 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 You May Need to Schedule the Following Appointments Follow Up with Corky Soto MD When Within 1 to 2 weeks Where: [address] [facility] [address] [place] [address]- We encourage you to sign up for My Portal, where you can easily access your medical records and test results from all [facility]. Please sign up in one of the following ways: 1. Email invitation. You may have a message in your inbox. Please click the link provided to create an account. OR 2. Request an invitation at your next clinic or hospital visit. Please ask a staff member and they will be happy to assist you. Do you need help with housing, financial assistance, food pantries, or other community resources and help Search for local options using [employer]. Medications DO NOT STOP TAKING ANY MEDICATIONS WITHOUT CONTACTING YOUR PHYSICIAN What How Much When Instructions Next Dose New aspirin (aspirin 81 mg oral enteric coated tablet) 1 tab(s) By mouth Once daily Pickup at [facility] 5043 New metoprolol (metoprolol succinate 25 mg oral capsule, extended release) 1 cap By mouth Once daily Pickup at [facility]29 New ticagrelor (Brilinta (ticagrelor) 90 mg oral tablet) 1 tab(s) By mouth Twice daily Pickup at [facility] 5429 Changed rosuvastatin (rosuvastatin 20 mg oral tablet) 1 tab(s) By mouth Once daily Unchanged acetaminophen (Tylenol oral TABLET) 650 Milligram By mouth Every 4 hours as needed for Pain Unchanged cholecalciferol (Vitamin D3 125 mcg (5,000 unit) oral capsule) 1 cap By mouth Once daily with food Unchanged vonoprazan (Voquezna 10 mg oral tablet) 1 tab(s) By mouth Once daily Pharmacy Information [facility]: [address] [place], [place] [id number] [phone] Discharge Orders Discharge Orders: Discharge Today, Home or self care Education Materials [facility] RADIAL ARTERY ACCESS / TR BAND HEMOSTASIS The doctor used the radial (wrist) artery to insert catheters to access your heart arteries. When we use one of the arteries in your wrist, we do a quick test before inserting the needle. The Allens test will make sure the blood flow to your hand is normal: We will apply pressure to the two arteries that carry blood to your hand. We will do this until your hand loses color or gets pale. We will release pressure on the one artery that won't be used for the blood test. If your hand regains its normal color, the artery is working well. We then know your hand will receive enough blood if the artery we use for the procedure becomes compromised. We will repeat the test a second [...] when it is injected. What are the risks an injury to your artery continued bleeding an injury to a nerve TR BAND When the procedure is over, the IV will be removed from the artery and a band will be placed on your wrist. The band will provide snug constant pressure to the insertion site to prevent the artery from bleeding. This allows the artery to heal itself. Your nurse will remove the band a few hours after your procedure is complete. It is very important that you do not bend your wrist, to prevent bleeding from the artery. Your nurse will monitor the site for bleeding and swelling. Please notify your nurse if your hand becomes numb, cold, or tingly. When you go home, follow these instructions: Check the puncture site where the IV went in for possible bleeding and swelling. Avoid lifting with that arm more than 10 pounds for 3-5 days. Avoid strenuous activity with that arm for 3-5 days. If you have any questions regarding limitations or activities following your procedure please contact your doctor. You may shower and remove the band-aid or pressure dressing bandage from your wrist in the morning. Inspect the site and re-apply a clean, dry band-aid every day for 5 days or until a scab has formed at the site. Keep the site clean and dry. Do not use any powders, lotions, or ointments on the site until it has healed. NO pool, Jacuzzi or tub baths for one week. NO submersion of puncture site in water for one week. A small amount of bruising is ok, and expected. If there is any continuous bleeding or swelling at the puncture site, apply firm pressure with your hand above the puncture site and return to the hospital immediately. IF BLEEDING IS PROFUSE, DIAL 911 IMMEDIATELY. You may have a small blood spot (dime to half-dollar size) on your dressing when you leave the hospital, or by the time you get home. This amount is normal. Discharge Instructions After Sedation/Anesthesia The medicines you received during the procedure or test you had today can sometimes cause you to be confused, sleepy, dizzy, and clumsy. You need to be extra careful for the next 24 hours. Do not engage in any activity that requires you to be alert or coordinated for the next 24 hours. This includes driving, operating heavy machinery, using power tools, cooking, climbing, or riding a bicycle. No swimming, hot tubs, or baths for the next 48 hours. Stay with family, friends, or a caregiver for the next 24 hours. Do not make any important decisions in the next 24 hours such as signing contracts, important commitments, or making expensive purchases. No alcohol for 24 hours. Avoid solid food if you have nausea (feeling sick to your stomach) or vomiting. Drink plenty of fluids if you do not have nausea. Take only medications prescribed by your caregiver, in the dose prescribed. Call your caregiver for persistent nausea and/or if you vomit more than once. If you cannot reach your caregiver, go to or contact the Emergency Department. Document Released: 11/16/2006 [facility] Patient Information ?2007 [employer]. Femoral Site Care The following information offers guidance on how to care for yourself after your procedure. Your health care provider may also give you more specific instructions. If you have problems or questions, contact your health care provider. What can I expect after the procedure After the procedure, it is common to have bruising and tenderness at the incision site. This usually fades within 1 2 weeks. Follow these instructions at home: Incision site care Follow instructions from your health care provider about how to take care of your incision site. Make sure you: Wash your hands with soap and water for at least 20 seconds before and after you change your bandage (dressing). If soap and water are not available, use hand laundry aide. Change or remove your dressing as told by your health care provider. Leave stitches (sutures), skin glue, or adhesive strips in place. These skin closures may need to stay in place for 2 weeks or longer. If adhesive strip edges start to loosen and curl up, you may trim the loose edges. Do not remove adhesive strips completely unless your health care provider tells you to do that. Do not take baths, swim, or use a hot tub until your health care provider approves. You may shower 24 4 8 hours after the procedure or as told by your health care provider. Gently wash the incision site with plain soap and water. Pat the area dry with a clean towel. Do not rub the site. This may cause bleeding. Do not apply powder or lotion to the site. Keep the site clean and dry. Check your femoral site every day for signs of infection. Check for: Redness, swelling, or pain. Fluid or blood. Warmth. Pus or a bad smell. Activity If you were given a sedative during the procedure, it can affect you for several hours. Do not drive or operate machinery until your health care provider says that it is safe. Rest as told by your health care provider. Avoid sitting for a long time without moving. Get up to take short walks every 1 2 hours. This is important to improve blood flow and breathing. Ask for help if you feel weak or unsteady. Return to your normal activities as told by your health care provider. Ask your health care provider what activities are safe for you and when you can return to work. Avoid activities that take a lot of effort for the first 2 3 days after your procedure, or as long as directed. Do not lift anything that is heavier than 10 lb (4.5 kg), or the limit that you are told, until your health care provider says that it is safe. General instructions Take jpii-mrk-urgyywk and prescription medicines only as told by your health care provider. If you will be going home right after the procedure, plan to have a responsible adult care for you for the time you are told. This is important. Keep all follow-up visits. This is important. Contact a health care provider if: You have a fever or chills. You have any of these signs of infection at your incision site: Redness, swelling, or pain. Fluid or blood. Warmth. Pus or a bad smell. Get help right away if: The incision area swells very fast. The incision area is bleeding, and the bleeding does not stop when you hold steady pressure on the area. Your leg or foot becomes pale, cool, tingly, or numb. These symptoms may represent a serious problem that is an emergency. Do not wait to see if the symptoms will go away. Get medical help right away. Call your local emergency services (911 in the [place] Do not drive yourself to the hospital. Summary After the procedure, it is common to have bruising and tenderness that fade within 1 2 weeks. Check your femoral site every day for signs of infection. Do not lift anything that is heavier than 10 lb (4.5 kg), or the limit that you are told, until your health care provider says that it is safe. Get help right away if the incision [...] provider. Document Revised: 08/06/2022 Document Reviewed: 01/05/2022 [employer] Patient Education ? 2022 [employer]. ticagrelor (naomi KA grel or) Brilinta (ticagrelor) What is the most important information I should know about ticagrelor You should not use ticagrelor if you have any active bleeding or a history of bleeding in the brain. Do not use this medicine just before heart bypass surgery. Ticagrelor may cause you to bleed more easily, which can be severe or life-threatening. Call your doctor or seek emergency medical attention if you have bleeding that will not stop, black or bloody stools, red or pink urine, or if you cough up blood or vomit that looks like coffee grounds. Tell your doctor about all your current medicines and any you start or stop using. Many drugs can interact with ticagrelor. Do not stop taking ticagrelor without first talking to your doctor, even if you have signs of bleeding. Stopping ticagrelor may increase your risk of a heart attack or stroke. What is ticagrelor Ticagrelor is used to lower your risk of heart attack, stroke, or due to a blocked artery or a prior heart attack. Ticagrelor is also used to lower your risk of blood clots if you have coronary artery disease (decreased blood flow to the heart) and have been treated with stents to open clogged arteries. Ticagrelor is also used to lower your risk of a first heart attack or stroke if you have decreased blood flow to the heart. Ticagrelor is also used to lower the risk of stroke and in adults with a blockage or decreased blood flow in an artery that supplies blood to the brain. Ticagrelor is usually given together with low-dose aspirin. Carefully follow your doctor's dosing instructions. Using too much aspirin can make ticagrelor less effective. Ticagrelor may also be used for purposes not listed in this medication guide. What should I discuss with my healthcare provider before taking ticagrelor You should not use ticagrelor if you are allergic to it, or if you have: ? any active bleeding; or ? a history of bleeding in the brain (such as from a head injury). Tell your doctor if you have ever had: ? a stroke; ? heart problems; ? a surgery or bleeding injury; ? bleeding problems; ? a stomach ulcer or colon polyps; ? liver disease; or ? asthma, COPD (chronic obstructive pulmonary disorder) or other breathing problem. It is not known whether this medicine will harm an unborn baby. Tell your doctor if you are or plan to become . You should not breastfeed while using ticagrelor. How should I take ticagrelor Follow all directions on your prescription label and read all medication guides or instruction sheets. Ticagrelor is taken together with aspirin. Use these medicines exactly as directed. Do not take more aspirin than your doctor has prescribed. Taking too much aspirin can make ticagrelor less effective. Take ticagrelor at the same times each day, with or without food. If you cannot swallow a tablet whole, crush the pill and mix it with water. Stir and drink this mixture right away. Add more water to the glass, stir, and drink right away. Ticagrelor keeps your blood from coagulating (clotting) and can make it easier for you to bleed, even from a minor injury. Contact your doctor or seek emergency medical attention if you have any bleeding that will not stop. To prevent excessive bleeding, you may need to stop using ticagrelor for a short time before a surgery, medical procedure, or dental work. Any healthcare provider who treats you should know that you are taking ticagrelor. Do not stop taking ticagrelor without first talking to your doctor, even if you have signs of bleeding. Stopping the medicine could increase your risk of a heart attack or stroke. This medicine may affect medical testing for platelets in your blood and you may have false results. Tell the laboratory staff that you use ticagrelor. Store at room temperature away from moisture and heat. What happens if I miss a dose Skip the missed dose and use your next dose at the regular time. Do not use two doses at one time. What happens if I overdose Seek emergency medical attention or call the Poison Help line at . Overdose can cause excessive bleeding. What should I avoid while taking ticagrelor Drinking alcohol while taking aspirin can increase your risk of stomach bleeding. Avoid activities that may increase your risk of bleeding or injury. Use extra care to prevent bleeding while shaving or brushing your teeth. While taking ticagrelor with aspirin, avoid using medicines for pain, fever, swelling, or cold/flu symptoms. They may contain ingredients similar to aspirin (such as salicylates, ibuprofen, ketoprofen, or naproxen). Taking certain products together can cause you to get too much aspirin which can increase your risk of bleeding. What are the possible side effects of ticagrelor Get emergency medical help if you have signs of an allergic reaction: hives; difficult breathing; swelling of your face, lips, tongue, or throat. Call your doctor at once if you have: ? slow heartbeats; ? nosebleeds, or any bleeding that will not stop; ? shortness of breath even with mild exertion or while lying down; ? easy bruising, unusual bleeding, purple or red spots under your skin; ? red, pink, or brown urine; ? black, bloody, or tarry stools; or ? coughing up blood or vomit that looks like coffee grounds. Common side effects may include: ? bleeding; or ? shortness of breath. This is not a complete list of side effects and others may occur. Call your doctor for medical advice about side effects. You may report side effects to FDA at 5-039-WTF-5522. What other drugs will affect ticagrelor Sometimes it is not safe to use certain medications at the same time. Some drugs can affect your blood levels of other drugs you take, which may increase side effects or make the medications less effective. Tell your doctor about all your current medicines. Many drugs can affect ticagrelor, especially: ? antifungal medicine; ? antiviral medicine to treat HIV or AIDS; ? a blood thinner; ? cholesterol medication; ? heart or blood pressure medication; ? opioid medication; ? seizure medicine; or ? tuberculosis medicine. This list is not complete and many other drugs may affect ticagrelor. This includes prescription and eljl-dce-tebpsvx medicines, vitamins, and herbal products. Not all possible drug interactions are listed here. Where can I get more information Your pharmacist can provide more information about ticagrelor. Remember, keep this and all other medicines out of the reach of children, never share your medicines with others, and use this medication only for the indication prescribed. Every effort has been made to ensure that the information provided by [employer] is accurate, up-to-date, and complete, but no guarantee is made to that effect. Drug information contained herein may be time sensitive. [employer] information has been compiled for use by healthcare practitioners and consumers in the [place] and therefore [employer] does not warrant that uses outside of the [place] are appropriate, unless specifically indicated otherwise. [employer] drug information does not endorse drugs, diagnose patients or recommend therapy. [employer] drug information is an informational resource designed to assist licensed healthcare practitioners in caring for their patients and/or to serve consumers viewing this service as a supplement to, and not a substitute for, the expertise, skill, knowledge and judgment of healthcare practitioners. The absence of a warning for a given drug or drug combination in no way should be construed to indicate that the drug or drug combination is safe, effective or appropriate for any given patient. [employer] does not assume any responsibility for any aspect of healthcare administered with the aid of information [employer] provides. The information contained herein is not intended to cover all possible uses, directions, precautions, warnings, drug interactions, allergic reactions, or adverse effects. If you have questions about the drugs you are taking, check with your doctor, nurse or pharmacist. Copyright 5145-0683 [employer]. Version: 5.01. Revision Date: 12/21/2020. Medication Education aspirin (aspirin 81 mg oral enteric coated tablet) This medicine is used for the following purposes: fever inflammatory disease pain prevent blood clots prevent stroke prevent heart attack How to take medicine Take the medicine by mouth once a day. Take one (1) pill each time. Morning Noon Evening Bedtime 1 pill IMPORTANT: These are your specific instructions. If they differ from any other information you receive, including the instructions below, talk to your prescriber or pharmacist. Instructions Swallow the medicine without crushing or chewing it. Sit or stand upright for 10 minutes after taking the medicine. Do not lie down. Swallow with a full glass (8 oz) of water unless your doctor gives you different instructions. You may take with food to prevent stomach upset. Store at room temperature away from heat, light, and moisture. Do not keep in the bathroom. If you are using this medicine regularly, it is important to take each dose of medicine on time. Keep taking the medicine even if you feel well. If you forget to take a dose on time, take it as soon as you remember. If it is almost time for the next dose, do not take the missed dose. Return to your normal schedule. Do not take 2 doses at one time. Drug interactions can change how medicines work or increase risk for side effects. Tell your health care providers about all medicines taken. Include prescription and rfcd-dqm-flhguzw medicines, vitamins, and herbal medicines. Speak with your doctor or pharmacist before starting or stopping any medicine. Tell your doctor if symptoms do not get better or if they get worse. Talk to your doctor before taking other medicines, including aspirins and ibuprofen containing products. Speak to your doctor about which medicines are safe to use while you are on this medicine. Cautions IMPORTANT: Children and teenagers should not use medications containing aspirin for cold and flu symptoms or chickenpox. Tell your doctor and pharmacist if you ever had an allergic reaction to a medicine. There is an increased risk of bleeding while on this medicine, please tell your doctor or nurse if you notice any excessive bleeding or bruising. Do not use the medication any more than instructed. If you drink alcohol regularly, please speak with your doctor. Avoid smoking while on this medicine. Smoking may increase your risk for stomach bleeding. This medicine passes into breast milk. Ask your doctor before . This medicine can hurt a new baby in the womb. If you become while on this medicine, tell your doctor immediately. Your doctor may switch you to a different medicine. Always keep medicine out of reach of children and pets. Side Effects Here are some common side effects. Ask your doctor what to do if you have these or other side effects. stomach upset or abdominal pain Call your doctor or get medical help right away if you notice any of these more serious side effects: severe or persistent abdominal pain bleeding or bruising coughing up blood or vomit that looks like coffee grounds fever signs of kidney damage (such as change in urine color or bubbly urine) ringing in the ears bloody or dark, tarry stools swelling in the neck or throat A few people may have an allergic reaction to this medicine. Symptoms can include difficulty breathing, skin rash, itching, swelling, or severe dizziness. If you notice any of these symptoms, seek medical help quickly. Please speak with your doctor, nurse, or pharmacist if you have any questions about this medicine. IMPORTANT NOTE: This document tells you briefly how to take your medicine, but it does not tell you all there is to know about it. Your doctor or pharmacist may give you other documents about your medicine. Please talk to them if you have any questions. Always follow their advice. There is a more complete description of this medicine available in [employer]. Scan this code on your smartphone or tablet or use the web address below. You can also ask your pharmacist for a printout. If you have any questions, please ask your pharmacist. [email or web address]/pem Copyright(c) 2023 [employer]. metoprolol (metoprolol succinate 25 mg oral capsule, extended release) This medicine is used for the following purposes: angina heart attack heart failure high blood pressure irregular heart beat prevent migraine headaches movement disorder How to take medicine Take the medicine by mouth once a day. Take one (1) pill each time. Morning Noon Evening Bedtime 1 pill IMPORTANT: These are your specific instructions. If they differ from any other information you receive, including the instructions below, talk to your prescriber or pharmacist. Instructions Swallow the medicine without crushing or chewing it. You may sprinkle medicine from capsule onto some soft food. Eat the entire mixture right away without chewing or crushing the medicine. If medicine is mixed with food, use it within 60 minutes. Throw away any leftover food. Do not save for later use. If you are giving this medicine through a tube into the stomach, ask your doctor or pharmacist for specific directions. This medicine may be taken with or without food. Swallow with a full glass (8 oz) of water unless your doctor gives you different instructions. This medicine will work best if you take it at about the same time every day. Store at room temperature away from heat, light, and moisture. Do not keep in the bathroom. It is important that you keep taking each dose of this medicine on time even if you are feeling well. If you forget to take a dose on time, take it as soon as you remember. If it is almost time for the next dose, do not take the missed dose. Return to your normal schedule. Do not take 2 doses at one time. Drug interactions can change how medicines work or increase risk for side effects. Tell your health care providers about all medicines taken. Include prescription and xmjo-cce-figzppu medicines, vitamins, and herbal medicines. Speak with your doctor or pharmacist before starting or stopping any medicine. Tell your doctor if symptoms do not get better or if they get worse. If you have diabetes, this medicine may hide some signs of low blood sugar, such as fast heartbeat. Check your blood sugar regularly and for other signs of low blood sugar. Symptoms of low blood sugar may include nausea, shaking, sweating, cold skin, fast heartbeat, hunger, and irritability. If you need to stop this medicine, your doctor may wish to gradually reduce the dosage before stopping. Parts of this medicine may come out in the stool. This is normal. Keep all appointments for medical exams and tests while on this medicine. Cautions Tell your doctor and pharmacist if you ever had an allergic reaction to a medicine. Some patients with weak hearts may have worsening of symptoms. If you notice difficulty breathing, weight gain, or swelling of your legs or ankles, let your doctor know right away. Do not use the medication any more than instructed. This medicine may cause dizziness or fainting. Do not stand or sit up quickly. Your ability to stay alert or to react quickly may be impaired by this medicine. Do not drive or operate machinery until you know how this medicine will affect you. Please check with your doctor before drinking alcohol while on this medicine. This medicine passes into breast milk. Ask your doctor before . During , this medicine should be used only when clearly needed. Talk to your doctor about the risks and benefits. Do not share this medicine with anyone who has not been prescribed this medicine. Always keep medicine out of reach of children and pets. Side Effects Here are some common side effects. Ask your doctor what to do if you have these or other side effects. diarrhea dizziness or drowsiness lack of energy and tiredness slow heartbeat lightheadedness Call your doctor or get medical help right away if you notice any of these more serious side effects: confusion depression or feeling sad swelling of the legs, feet, and hands fainting cold hands or feet mood changes pale or blue skin, lips or fingernails shortness of breath unusual or unexplained tiredness or weakness sudden or unexplained weight gain A few people may have an allergic reaction to this medicine. Symptoms can include difficulty breathing, skin rash, itching, swelling, or severe dizziness. If you notice any of these symptoms, seek medical help quickly. Please speak with your doctor, nurse, or pharmacist if you have any questions about this medicine. IMPORTANT NOTE: This document tells you briefly how to take your medicine, but it does not tell you all there is to know about it. Your doctor or pharmacist may give you other documents about your medicine. Please talk to them if you have any questions. Always follow their advice. There is a more complete description of this medicine available in [employer]. Scan this code on your smartphone or tablet or use the web address below. You can also ask your pharmacist for a printout. If you have any questions, please ask your pharmacist. [email or web address]/pem Copyright(c) 2023 [employer]. ticagrelor (Brilinta (ticagrelor) 90 mg oral tablet) This medicine is used for the following purposes: heart disease prevent blood clots prevent heart attack How to take medicine Take the medicine by mouth twice a day. Take one (1) pill each time. Morning Noon Evening Bedtime 1 pill 1 pill IMPORTANT: These are your specific instructions. If they differ from any other information you receive, including the instructions below, talk to your prescriber or pharmacist. Instructions This medicine may be taken with or without food. This medicine will work best if you take it at about the same time every day. Store at room temperature away from heat, light, and moisture. Do not keep in the bathroom. It is important that you keep taking each dose of this medicine on time even if you are feeling well. If you forget a dose, just wait. Use the next dose at the usual time. Do not use 2 doses at once. Drug interactions can change how medicines work or increase risk for side effects. Tell your health care providers about all medicines taken. Include prescription and dvav-lvd-nvveaoy medicines, vitamins, and herbal medicines. Speak with your doctor or pharmacist before starting or stopping any medicine. It is very important that you follow your doctor's instructions for all blood tests. Cautions This medicine may cause serious bleeding problems in patients taking blood thinner medications. Follow your doctor's instructions carefully to monitor your blood lab tests if you are on blood thinners. Tell your doctor and pharmacist if you ever had an allergic reaction to a medicine. This medicine may cause bleeding from the stomach or bowels. Stop this medicine and call your doctor right away if you have pain in the stomach, red or dark tarry stools, or vomit that looks like coffee grounds. There is an increased risk of bleeding while on this medicine, please tell your doctor or nurse if you notice any excessive bleeding or bruising. Do not use the medication any more than instructed. Please check with your doctor before drinking alcohol while on this medicine. Tell the doctor or pharmacist if you are , planning to be , or . Do not take Vlad's wort while on this medicine. Call your doctor right away if you notice any unusual bleeding or bruising. Do not share this medicine with anyone who has not been prescribed this medicine. Some patients have serious side effects from this medicine. Ask your pharmacist to show you the information from the Food and Drug Administration (FDA) and discuss it with you. Always refill this medicine before it runs out. Always keep medicine out of reach of children and pets. Side Effects Here are some common side effects. Ask your doctor what to do if you have these or other side effects. coughing nosebleeds Call your doctor or get medical help right away if you notice any of these more serious side effects: bleeding or bruising breathing interruption during sleep shallow, irregular breathing coughing up blood or vomit that looks like coffee grounds fainting fever numbness or tingling in hands and feet severe or persistent headache sudden leg pain, swelling, warmth or redness loss of movement anywhere on the body shortness of breath bloody or dark, tarry stools symptoms of stroke (such as one-sided weakness, slurred speech, confusion) difficulty swallowing unusual or unexplained tiredness or weakness blood in urine blurring or changes of vision A few people may have an allergic reaction to this medicine. Symptoms can include difficulty breathing, skin rash, itching, swelling, or severe dizziness. If you notice any of these symptoms, seek medical help quickly. Please speak with your doctor, nurse, or pharmacist if you have any questions about this medicine. IMPORTANT NOTE: This document tells you briefly how to take your medicine, but it does not tell you all there is to know about it. Your doctor or pharmacist may give you other documents about your medicine. Please talk to them if you have any questions. Always follow their advice. There is a more complete description of this medicine available in [place]. Scan this code on your smartphone or tablet or use the web address below. You can also ask your pharmacist for a printout. If you have any questions, please ask your pharmacist. [email or web address]/pem Copyright(c) 2023 [employer]. Clothes at Bedside: Coat/Jacket, Pants, Shirt, Shoes, Socks Clothes Sent Home: Coat/Jacket, Pants, Shirt, Shoes, Socks Electronics at Bedside: None Electronics Sent Home: None Jewelry at Bedside: None Jewelry Sent Home: None Miscellaneous Items Sent Home: None Personal Devices at Bedside: None Personal Devices Sent Home: None I understand that [facility] is not responsible for any personal belongings/effects or valuables that have not been identified on the valuables and belongings list. Any personal effects brought into the facility and not recorded on the valuables and belongings form are the responsibility of the patient/family/significant other.I have received the indicated patient education materials/instructions and medication list and have verbalized understanding. Patient Name: RHONDA FRAIRE Patient/Personnel Coordinator Signature: Relationship to Patient: __ Witness Signature: Date/Time: 06/13/2024 [facility] Cardiac Cath DATE OF PROCEDURE: 06/13/2024 PROCEDURES PERFORMED: 1. Ultrasound-guided right common femoral artery and right radial artery access. 2. Left heart cath, hemodynamic measurement left ventriculogram. 3. Selective jackson coronary angiogram. 4. IFR of the circumflex, found to be 0.91. 5. IVUS imaging pre- and post-PCI. 6. PCI of the circumflex 4.0 x 15 MARIA DE JESUS [employer]. 7. Shockwave balloon angioplasty 3.5 x 12. 8. Moderate sedation by trained observer under my supervision with Versed and fentanyl for 65 minutes. 9. Angio-Seal and TR Band deployment. INDICATIONS: The patient is a 73-year-old female past medical history of hypertension, hyperlipidemia, coronary artery disease, who presented to the outpatient complaining of worsening dyspnea on exertion, triaged to a coronary CTA. Found to be markedly abnormal in the proximal LAD and circumflex. Then triage was stress test, found to be abnormal as well. Given worsening symptoms, concern for unstable angina, or worsening angina, she was sent for a cardiac catheterization. TECHNIQUE: The risks, indications, alternatives of the procedure were explained to the patient. Informed consent obtained. Timeout conducted. Moderate sedation given. Right wrist and right groin area prepped and a 6-Grenadian sheath inserted in the right radial artery under ultrasound guidance. Patient's right radial artery is diminutive and small on ultrasound. We managed to obtain a selective jackson coronary angiogram with the Torres catheter and an LV-gram, but unable to advance a 6-Grenadian guide catheter due to severe coronary artery vasospasm. Thus, we switched to the groin approach. A 6-Grenadian sheath inserted in the right common femoral artery under ultrasound guidance. The patient was then loaded with heparin, ACT maintained above 300. EBU 3.5 guide catheter was used. IFR wire was advanced into the distal circumflex. Values seen to be 0.91. Marked fluctuation noted. Given disease was fairly severe with positive stress test, I decided to IVUS the vessel. It was found to be 3.0, 85% disease on IVUS noted. We decided to intervene. A 3.0 x 12 NC balloon was used, followed by 3.5 x 12 Shockwave balloon angioplasty. Good expansion seen. Deployment of 4.0 x 15 MARIA DE JESUS was done subsequently with good expansion seen. Post-PCI IVUS imaging showed good stent expansion and apposition with no distal or proximal edge dissection. All wires and catheters subsequently removed from the right radial artery and right common femoral artery. Hemostasis achieved by TR Band and Angio-Seal. AMOUNT CONTRAST: 110 mL. ESTIMATED BLOOD LOSS: 20 mL. COMPLICATIONS: None. FINDINGS: HEMODYNAMIC MEASUREMENT: 1. LVEDP of 10 mmHg. 2. There is no gradient across the aortic valve. 3. LVEF 55%. SELECTIVE EASTERN SHOSHONE ANGIOGRAM: 1. Left main coronary artery is angiographically free of disease, 5 mm vessel bifurcates into LAD circumflex. 2. The circumflex is a codominant large vessel with an 85% lesion in the prox portion prior to the bifurcation of OM and circ continuation, status post PCI. 3. LAD is a large wraparound vessel. Proximal 40%, mid 30% disease noted. 4. RCA is a moderate-sized codominant vessel with 40-50% disease noted in the mid portion. CONCLUSION: 1. Severe right radial artery vasospasm during diagnostic catheterization: 2. Severe circumflex disease, status post PCI. 3. Normal LVEF and LVEDP. RECOMMENDATIONS: The patient was loaded with aspirin. Brilinta was given Aggrastat bolus during the procedure as the patient was unable to swallow pills. He will be monitored. IV fluids given, followed by which she will be discharged home. Dictated by: CORKY SOTO MD [facility] Doc: [id number] Job:[id number] Electronically Signed By: Corky Soto MD On 06/13/24 16:09 Co Signature By: Modify Signature By: 06/13/2024 [facility] Discharge Summaries Results Value Date Source Discharge summary Patient: RHONDA FRAIRE Age: 73 years Sex: F : 1950 Active Insurance: MEDICARE OUTPATIENT [id number] Admitting MD: Corky Soto MD [place] [facility] [place] 2CPP: 2C07: P1 PCP: PCP, Unknown Author: Corky Soto MD Hospital Course 73-year-old female past medical history hypertension hyperlipidemia presented to the outpatient complaining of significant dyspnea on exertion coronary CTA markedly abnormal with moderate severe disease circumflex with severe disease LAD. Stress test was also abnormal thus brought to cardiac catheterization. Status post PCI to the circumflex Significant Findings 85% circumflex disease status post PCI Procedures and Treatment Provided PCI to circumflex Physical Exam Vitals and Measurements T:36.5 ?C (Temporal Artery) HR:68 RR:13 BP:174/85 SpO2:97% Oxygen Method:Room air GEN: No acute distress, alert and oriented [...] Diagnosis/Plan dc home Discharge Medications New Prescriptions 1. ticagrelor(Brilinta (ticagrelor) 90 mg oral tablet) 90 mg= 1 Tab By mouth twice daily 2. aspirin(aspirin 81 mg oral enteric coated tablet) 81 mg= 1 Tab By mouth Tab, EC once daily 3. metoprolol(metoprolol succinate 25 mg oral capsule, extended release) 25 mg= 1 Cap By mouth Cap, ER once daily Medications to Continue 4. rosuvastatin(rosuvastatin 20 mg oral tablet) 20 mg= 1 Tab By mouth once daily 5. acetaminophen(Tylenol oral TABLET) 650 mg By mouth every 4 hours as needed for Pain 6. vonoprazan(Voquezna 10 mg oral tablet) 10 mg= 1 Tab By mouth Tab once daily 7. cholecalciferol(Vitamin D3 125 mcg (5,000 unit) oral capsule) 125 mcg= 1 Cap By mouth Cap once daily Special Instructions: with food Discontinued Meds Electronically Signed By: Corky Soto MD On 06/13/24 12:33 Co Signature By: Modify Signature By: 06/13/2024 [facility] Discharge Summary Patient: WENDY FRAIRE Age: 73 years Sex: F : 1950 Active Insurance: MEDICARE OUTPATIENT [id number] Admitting MD: Corky Soto MD Location: [facility] [place] 2CPP: 2C07: P1 PCP: PCP, Unknown Author: Corky Soto MD Hospital Course 73-year-old female past medical history hypertension hyperlipidemia presented to the outpatient complaining of significant dyspnea on exertion coronary CTA markedly abnormal with moderate severe disease circumflex with severe disease LAD. Stress test was also abnormal thus brought to cardiac catheterization. Status post PCI to the circumflex Significant Findings 85% circumflex disease status post PCI Procedures and Treatment Provided PCI to circumflex Physical Exam Vitals and Measurements T: 36.5 ?C (Temporal Artery) HR: 68 RR: 13 BP: 174/85 SpO2: 97% Oxygen Method: Room air GEN: No acute distress, alert and oriented [...] Diagnosis/Plan dc home Discharge Medications New Prescriptions 1. ticagrelor(Brilinta (ticagrelor) 90 mg oral tablet) 90 mg= 1 Tab By mouth twice daily 2. aspirin(aspirin 81 mg oral enteric coated tablet) 81 mg= 1 Tab By mouth Tab, EC once daily 3. metoprolol(metoprolol succinate 25 mg oral capsule, extended release) 25 mg= 1 Cap By mouth Cap, ER once daily Medications to Continue 4. rosuvastatin(rosuvastatin 20 mg oral tablet) 20 mg= 1 Tab By mouth once daily 5. acetaminophen(Tylenol oral TABLET) 650 mg By mouth every 4 hours as needed for Pain 6. vonoprazan(Voquezna 10 mg oral tablet) 10 mg= 1 Tab By mouth Tab once daily 7. cholecalciferol(Vitamin D3 125 mcg (5,000 unit) oral capsule) 125 mcg= 1 Cap By mouth Cap once daily Special Instructions: with food Discontinued Meds Electronically Signed By: Corky Soto MD On 06/13/24 12:33 Co Signature By: Modify Signature By: 06/13/2024 [facility] History and Physicals Results Value Date Source History and physical note Annia Love : PERFORM Event Display: History and Physical Authored Date: [id number] 06/13/2024 [facility] Vital Signs Vital Sign Value Date Comments Source Heart Rate 85 bpm 06/14/2024 [facility] Respiratory Rate 20 Breaths/Min 06/14/2024 [facility] SPO2 97 % 06/14/2024 [facility] Systolic 150 mm[Hg] 06/14/2024 [facility] Diastolic 75 mm[Hg] 06/14/2024 [facility] NIBP Mean 107 mm[Hg] 06/14/2024 [facility] NIBP Mean 103 mm[Hg] 06/14/2024 [facility] Systolic 143 mm[Hg] 06/14/2024 [facility] Diastolic 78 mm[Hg] 06/14/2024 [facility] Heart Rate 80 bpm 06/14/2024 [facility] Respiratory Rate 20 Breaths/Min 06/14/2024 [facility] SPO2 99 % 06/14/2024 [facility] Heart Rate 72 bpm 06/14/2024 [facility] Respiratory Rate 22 Breaths/Min 06/14/2024 [facility] SPO2 99 % 06/14/2024 [facility] NIBP Mean 107 mm[Hg] 06/14/2024 [facility] Systolic 149 mm[Hg] 06/14/2024 [facility] Diastolic 78 mm[Hg] [facility] Heart Rate 65 bpm 06/13/2024 [facility] Respiratory Rate 19 Breaths/Min 06/13/2024 [facility] SPO2 96 % 06/13/2024 [facility] NIBP Mean 97 mm[Hg] 06/13/2024 [facility] Systolic 143 mm[Hg] 06/13/2024 [facility] Diastolic 66 mm[Hg] 06/13/2024 [facility] Heart Rate 72 bpm 06/13/2024 [facility] Respiratory Rate 18 Breaths/Min 06/13/2024 [facility] SPO2 99 % 06/13/2024 [facility] NIBP Mean 96 mm[Hg] 06/13/2024 [facility] Systolic 123 mm[Hg] 06/13/2024 [facility] Diastolic 80 mm[Hg] 06/13/2024 [facility] bpm 06/13/2024 [facility] Respiratory Rate 14 Breaths/Min 06/13/2024 [facility] SPO2 96 % 06/13/2024 [facility] NIBP Mean 97 mm[Hg] 06/13/2024 [facility] Systolic 127 mm[Hg] 06/13/2024 [facility] Diastolic 77 mm[Hg] 06/13/2024 [facility] Heart Rate 67 bpm 06/13/2024 [facility] Respiratory Rate 17 Breaths/Min 06/13/2024 [facility] SPO2 99 % 06/13/2024 [facility] NIBP Mean 90 mm[Hg] 06/13/2024 [facility] Systolic 121 mm[Hg] 06/13/2024 [facility] Diastolic 69 mm[Hg] 06/13/2024 [facility] Heart Rate 67 bpm 06/13/2024 [facility] Respiratory Rate 18 Breaths/Min 06/13/2024 [facility] SPO2 96 % 06/13/2024 [facility] NIBP Mean 92 mm[Hg] 06/13/2024 [facility] Systolic 129 mm[Hg] 06/13/2024 [facility] Diastolic 67 mm[Hg] 06/13/2024 [facility] Heart Rate 69 bpm 06/13/2024 [facility] NIBP Mean 90 mm[Hg] 06/13/2024 [facility] Systolic 127 mm[Hg] 06/13/2024 [facility] Diastolic 62 mm[Hg] 06/13/2024 [facility] Respiratory Rate 18 Breaths/Min 06/13/2024 [facility] SPO2 99 % 06/13/2024 [facility] Heart Rate 68 bpm 06/13/2024 [facility] NIBP Mean 104 mm[Hg] 06/13/2024 [facility] Systolic 150 mm[Hg] 06/13/2024 [facility] Diastolic 79 mm[Hg] 06/13/2024 [facility] Respiratory Rate 12 Breaths/Min 06/13/2024 [facility] SPO2 99 % 06/13/2024 [facility] Temperature Temporal Artery 36.3 Laverne 06/13/2024 [facility] Temperature Temporal Artery 36.5 Laverne 06/13/2024 [facility] Glucose Level 101 mg/dL 06/13/2024 [facility] Height 160.02 cm [facility]10/2024 [facility] 37.051 kg/m2 06/10/2024 [facility] Drug Calc Weight (kg) 94.875 kg 06/10/2024 [facility] Encounters Location Location Details Encounter Type Encounter Number Reason For Visit Attending Provider ADM Date DC Date Status Source [facility] Outpatient [id number] Corky Soto 06/13 [facility] Procedures Procedure Code Date Perfomer Comments Source right knee surgery S [facility] dental implants [facility] Social History Social History Date Source Social History TypeResponse Smoking Status Never (less than 100 in lifetime) entered on: 06/10/24 Sex 06/20/2024 [facility] Social History TypeResponse Smoking Status Never (less than 100 in lifetime) entered on: 06/10/24 Sex 06/10/2024 [facility] Assessment and Plan Result Assessment and Plan Date Source Assessment and Plan Extracted from:Title : Discharge Note Author: Corky Soto MD Date: 06/13/24 dc home New Prescriptions 1. ticagrelor(Brilinta (ticagrelor) 90 mg oral tablet) 90 mg= 1 Tab By mouth twice daily 2. aspirin(aspirin 81 mg oral enteric coated tablet) 81 mg= 1 Tab By mouth Tab, EC once daily 3. metoprolol(metoprolol succinate 25 mg oral capsule, extended release) 25 mg= 1 Cap By mouth Cap, ER once daily Medications to Continue 4. rosuvastatin(rosuvastatin 20 mg oral tablet) 20 mg= 1 Tab By mouth once daily 5. acetaminophen(Tylenol oral TABLET) 650 mg By mouth every 4 hours as needed for Pain 6. vonoprazan(Voquezna 10 mg oral tablet) 10 mg= 1 Tab By mouth Tab once daily 7. cholecalciferol(Vitamin D3 125 mcg (5,000 unit) oral capsule) 125 mcg= 1 Cap By mouth Cap once daily Special Instructions: with food Discontinued Meds 06/14/2024 [facility] Family History Results Value Date Source Family History No data available for this section 05/30 [facility]
--- OUTSIDE RECORDS SUMMARY | 2024-12-06 03:45 | XMS_ITS | Data Portability ---
Author Organization [place] - [employer], [facility] [place] [address] Address [address] [place] [address] Care Team Providers Care Imaging Technologist Name Role Phone JUDSON BELL Learning Facilitator BURT SONG Primary Care Provider MOHIT CARNEY OTHER Assessment Encounter Date Assessment Date Assessment LastModified by Organization Details LastModified Time 02/19/2024 02/19/2024 TMCL 01/21/23 total of 5 minutes and 48 seconds corresponding to 7.0 METS. 86% MPHR imaging shows a small area of apical ISCHEMIA. EF 56% Echo 01/26/23 EF 50-55% DDI MR TR MD [email or web address] Not available 02/19/2024 18:24:02 05/03/2024 05/03/2024 TMCL 01/21/23 total of 5 minutes and 48 seconds corresponding to 7.0 METS. 86% MPHR imaging shows a small area of apical ISCHEMIA. EF 56% Echo 01/26/23 EF 50-55% DDI MR TR MD [email or web address] Not available 05/03/2024 12:52:08 05/24/2024 05/24/2024 TMCL 01/21/23 total of 5 minutes and 48 seconds corresponding to 7.0 METS. 86% MPHR imaging shows a small area of apical ISCHEMIA. EF 56% Echo 01/26/23 EF 50-55% DDI MR TR MD [email or web address] Not available 05/24/2024 13:53:41 06/28/2024 06/28/2024 TMCL 01/21/23 total of 5 minutes and 48 seconds corresponding to 7.0 METS. 86% MPHR imaging shows a small area of apical ISCHEMIA. EF 56% Echo 01/26/23 EF 50-55% DDI MR TR MD [email or web address] Not available 06/28/2024 13:44:02 09/20/2024 09/20/2024 TMCL 01/21/23 total of 5 minutes and 48 seconds corresponding to 7.0 METS. 86% MPHR imaging shows a small area of apical ISCHEMIA. EF 56% Echo 01/26/23 EF 50-55% DDI MR TR MD Not available 09/20/2024 14:06:28 Plan of Treatment Reminders Order Date Submit Date Provider Last Modified By Organization Details Last Modified Time Details Appointments Establish ed 15 2024 10:15A Violeta Bell MD Not available Not available Not available Lab None recorded. Referral None recorded. Procedures None recorded. Surgeries cardiac catheteri zation (SURG) 2023 024 [facility] (Internal), [address], [address], [place], [address], 05/24/2024 14:17:57 Imaging electroca rdiogram 2023 024 [facility] [place], [address], [address], [place], [address], 02/19/2024 19:37:09 CT, angiogram , coronary arteries, w/ contrast 2023 024 [facility] [address], [address], [place], [address], 05/19/2024 17:40:55 Medication Orders metoprolo l tartrate 50 mg tablet 2023 024 [email or web address] [facility], [address], [place], [address], 05/24/2024 13:43:15 Brilinta 90 mg tablet 2023 [facility], [address], [place], [address], 09/20/2024 14:28:31 metoprolo l succinate ER 25 mg tablet,ex tended release 24 hr 2023 024 [facility], [address], [place], [address], 06/28/2024 14:17:43 Patient TargetsNo targets recorded. Patient Instructions Encounter Date Encounter Id Patient Instructions Last Modified By Organization Details Last Modified Time 05/03/2024 [id number] high cholesterol : care instructions [email or web address] Not available 05/03/2024 13:16:25 Thank you very much for allowing me to participate in the care of this patient. If you have any questions, please do not hesitate to contact me. This note has been produced with a combination of both voice recognition software and direct typing. Although great diligence is made to maintain accurate charting, voice recognition errors and typos may still occur. If there are any questions as to the intent of the content, please feel free to get in touch with me directly. [email or web address] Not available 05/03/2024 13:15:58 05/24/2024 [id number] high cholesterol : care instructions [email or web address] Not available 05/24/2024 14:10:35 A healthy heart: care instructions [email or web address] Not available 05/24/2024 14:10:36 learning about coronary artery disease (CAD) [email or web address] Not available 05/24/2024 14:10:36 06/28/2024 [id number] high cholesterol : care instructions [email or web address] Not available 06/28/2024 14:17:31 A healthy heart: care instructions [email or web address] Not available 06/28/2024 14:17:31 learning about coronary artery disease (CAD) [email or web address] Not available 06/28/2024 14:17:31 Thank you very much for allowing me to participate in the care of this patient. If you have any questions, please do not hesitate to contact me. This note has been produced with a combination of both voice recognition software and direct typing. Although great diligence is made to maintain accurate charting, voice recognition errors and typos may still occur. If there are any questions as to the intent of the content, please feel free to get in touch with me directly. [email or web address] Not available 06/28/2024 14:15:23 09/20/2024 [id number] high cholesterol : care instructions Not available 09/20/2024 14:31:03 A healthy heart: care instructions Not available 09/20/2024 14:31:03 learning about coronary artery disease (CAD) Not available 09/20/2024 14:31:03 Labs form PCP Mesfin simon proceed with EGD Obtain info for Dental surgery Continue current meds Follow up 3 mo Not available 09/20/2024 14:31:02 Thank you very much for allowing me to participate in the care of this patient. If you have any questions, please do not hesitate to contact me. This note has been produced with a combination of both voice recognition software and direct typing. Although great diligence is made to maintain accurate charting, voice recognition errors and typos may still occur. If there are any questions as to the intent of the content, please feel free to get in touch with me directly. Not available 09/20/2024 14:06:28 Reason for Referral None Reported. Results Created Date Observation Date Name Description Value Unit Range Abnormal Flag Note LastModifiedBy Organization Detail LastModifiedTime 02/19/20 24 02/19/2024 elect matthieuar diogr am No observ ation record ed. [facility] [place] [address] [facility] [address], [place], [address], 02/22/2024 11:11:32 02/19/20 24 02/19/2024 elect rocar diogr am No observ ation record ed. [email or web address] [facility] [place] [address] [facility] [address], [place], [address], 02/19/2024 19:47:18 05/19/20 24 05/17/2024 CT-ca rdiac struc ture & coron elisa arter ies cta W calci um Dictat ion Date: 2023 https: [email or web address] Patien t Name: Brittanie harden : [id number] Patien t Sex: F Referr ing Provid er: JUDSON BELL Perfor crow Locati on: [place] le Exam # [id number] May 17 2024 - CT - CARDIA C STRUCT URE & CASTILLO RY ARTERI ES WITH CALCIU M INDICA TION: Fatigu e. Other forms of dyspne a COMPAR MACIEJ: None TECHNI QUE: Axial images were obtain ed throug h the level of the heart withou t intrav enous contra st for the purpos e of calciu m scorin g. This was follow ed by the intrav enous admini strati on of contra st. Follow ing the bolus, axial images were obtain ed throug h the level of the heart. 3D postpr ocessi ng with multip lanar recons tructi ons of the castillo ry arteri es and calciu m scorin g were perfor med on a [employer] workst JAYS. CT scan done accord ing to ALARA (As Low As Reason ably Achiev able). CONTRA ST: 100 mL of Omnipa que (350 mg/mL) single use vial was admini stered IV with 0 mL discar ded. Prior known CT or cardia c nuclea r medici ne studie s perfor med in the last 12 months : 0 RADIAT ION DOSE: CTDI volume 7.36,1 5.88 mGy; total DLP 1079.8 1 mGy-cm . FINDIN GS: Acquis ition mode: Prospe ctive Medica tion used: Sublin gual Nitrog lyceri n 800 mcg Compli cation s: None Image qualit y: Good. Meets qualit y standa rds for diagno stic CAD-RA DS classi ficati on. Heart rate: 54 bpm Castillo ry Calciu m (Agats ton): The total Agatst on CAC score is 718.6 Age/se x adjust ed CAC score percen tile: 90th Vessel -level Agatst on CAC scorin g: LM: 85.2 LAD: 333.2 CX: 137.1 RCA: 163.1 Castillo ry angiog mabel: Left Main: The left main is a normal calibe r vessel with a normal take off from the left castillo ry cusp that bifurc ates to form a left anteri or descen ding artery and a left circum flex artery . Calcif ied plaque within the left main result ing in 10-20% stenos is. Left anteri or descen ding artery : Mixed plaque at the LAD ostium /proxi mal segmen t result ing in 65-75% stenos is with artifa ct from calcif ied plaque burden . Additi onal areas of mixed plaque throug hout the proxim al to mid LAD result ing in 55-69% stenos is. 2 diagon al branch es are noted. The LAD wraps around the cardia c apex distal ly. Left circum flex artery : The LCX is non-do minant . Mixed plaque within the proxim al to mid circum flex result ing in 50-60% stenos is. One diagon al branch es noted. Right castillo ry artery : The RCA is domina nt. Scatte red areas of calcif ied and mixed plaque noted throug hout the course of the RCA result ing in up to 40-50% stenos is within the proxim al to mid RCA. The RCA termin ates as a small PDA and lip reading teacher olater al branch . Left Atrium : Left atrial size is within normal limits . There are no fillin g defect s noted within the left atrial append age. Left Ventri esme: The ventri cular cavity size is within normal limits . Perica rdium: Normal thickn ess with no signif icant effusi on or calciu m presen t. Cardia c valves : There is no thicke juanita or calcif icatio ns involv ing the aortic and mitral valves . Aorta: Sinuse s of Valsal va 3.3 cm, sinotu bular juncti on 2.7 cm, mid ascend ing aorta 3.1 cm Main pulmon elisa artery : Measur es 2.5 cm transv ersely Extra- cardia c findin gs: No focal airspa ce consol idatio n. Degene rative change s of the midtho racic spine. IMPRES CAMILA: 1. Total calciu m score of 718.6. This corres ponds to the 90th percen tile. That is when correc justin for patien t's age and gender approx imatel y 10% of patien ts will have a greate r calcif ied castillo ry artery plaque burden . 2. 65-75% stenos is at the LAD ostium /proxi mal segmen t second elisa to mixed plaque with artifa ct from calcif ied plaque burden . 3. 55-69% stenos is within the proxim al to mid LAD. 4. 50-60% stenos is within the proxim al to mid circum flex. 5. 40-50% stenos is within the proxim al to mid RCA. 6. No anomal ous castillo ry artery anatom y. 7. Right domina nt morpho logy. 8. CAD RADS 4A. Given the positi ve findin gs, this examin ation was assign ed to the [facility] ed assist ant to be commun icated to the [facility] or their clinic yuliet's repres entati ve, in additi on to immedi ate report transm ission via the electr [place] l record interf vesta or fax at the time of dictat ion. ------ ------ ------ ------ ------ ------ ------ ------ ------ ------ ------ ------ ------ ------ ------ ------ ------ ----- SCCT cheyanne mccall scale for stenos is severi ty assess es degree of lumina l diamet er stenos is and CAD-RA DS score. 0% = no visibl e stenos is Catego ry 0 1-24% = minima l stenos is Catego ry 1 25-49% = mild stenos is Catego ry 2 50-69% = modera te stenos is Catego ry 3 70-99% = severe stenos is Catego ry 4 100% = occlus ion Catego ry 5 N: obstru ctive castillo ry artery diseas e cannot be exclud ed, nondia gnosti c study RECOMM ENDATI ONS: CAD RADS 0: Reassu sabina. Consid er non-at herosc leroti c causes of chest pain. CAD RADS 1: Consid er non-at herosc leroti c causes of chest pain. Consid er preven tive therap y and risk factor modifi cation . CAD RADS 2: Consid er non-at herosc leroti c causes of chest pain. Consid er preven tive therap y and risk factor modifi cation , partic ularly for patien ts with nonobs tructi ve plaque in multip le segmen ts. CAD RADS 3: Consid er furthe r functi onal testin g. Consid er sympto m-guid ed anti-i schemi c and preven tive pharma cother apy as well as risk factor modifi cation per publis hed guidel ine statem ents. CAD RADS 4A: Consid er furthe r functi onal testin g or invasi ve castillo ry angiog mabel with revasc ulariz ation per publis hed guidel ine statem ents. Consid er sympto m-guid ed anti-i schemi c and preven tive pharma cother apy as well as risk factor modifi cation per publis hed guidel ine statem ents. CAD RADS 4B: Invasi ve castillo ry angiog mabel recomm ended with revasc ulariz ation per publis hed guidel ine statem ents. Consid er sympto m-guid ed anti-i schemi c and preven tive pharma cother apy as well as risk factor modifi cation per publis hed guidel ine statem ents. CAD RADS 5: Consid er invasi ve angiog mabel and/or viabil ity assess ment with revasc ulariz ation per publis hed guidel ine statem ents. Consid er sympto m-guid ed anti-i schemi c and preven tive pharma cother apy as well as risk factor modifi cation per publis hed guidel ine statem ents. ELECTR ONICAL LY SIGNED BY: Anne er (Tyshawn Hernandez) on May 19, 2024 Thank you for your kind referr al. If you need furthe r assist ance, please contac t our Radiol ogist Tess e at [phone] or [phone] . [email or web address] [place] [address], [place], [address], 05/23/2024 11:31:56 Result Notes None recorded. Problems Name Problem SNOMED Code Status Onset Date Resolution Date Notes Provider Name and Address Organization Details Recorded Time Health education given 482087923 Active 2023 Judson Bell MD [address], [place], [address], [place] - [facility] 4 13:54:45 Hypercholester olemia 64036006 Active 2023 Judson Bell MD [address], [place], [address], [place] - [facility] 4 13:54:45 Dyspnea on exertion 01468870 Active 2023 Judson Bell MD [address], [place], [address], [place] - [facility] 4 13:54:46 Coronary arterioscleros is 31409743 Active 2023 Judson Bell MD [address], [place], [address], [place] - [facility] 4 14:09:03 Chest pain 78817336 Active [address], [place], [address], [place] - [facility] 3 12:53:01 Electrocardiog aminah abnormal 181143427 Active 2022 Judson Bell MD [address], [place], [address], [place] - [facility] 3 12:53:02 Problem Notes None recorded. Procedures Surgical History Date Name Laterality Status Provider Name and Address Organization Details Recorded Time 01/21/20 Cardiology Test Interpretation completed Attila castro MD [address], [place], [address], [facility] - [facility] 01/22/2023 11:29:24 Cataract Surgery completed Giovanny Pettit [place] - [facility] 06/28/2024 13:34:13 Gall Bladder Removal completed Giovanny Pettit [place] - [facility] 06/28/2024 13:34:13 Imaging Results Imaging Date Name Status LastModified by Organization Details LastModified Time 02/19/2024 electrocardiogram completed [email or web address] [facility] [place] [address] [place] [address], [address], 02/22/2024 11:11:32 02/19/2024 electrocardiogram completed [email or web address] [facility] [place] [address], [address], 02/19/2024 19:47:18 05/17/2024 CT-cardiac structure & coronary arteries cta W calcium completed [address] - [place] [address], [place], [address], 05/23/2024 11:31:56 Procedure Notes None recorded. Medical Equipment None Reported. Allergies Allergen ID Allergen Name Allergen Category Reaction Reaction Severity Criticality Documentation Date Start Date Code Code System Note Provider Name and Address Organization Details Recorded Time [id number] 2824e acetamino phen / hydrocodo ne medicatio n Not available Not available Not available 09/20/202478458 2 RxNorm Not Available Not Available Not Available [id number] 2824e Ceclor medicatio n Not available Not available Not available 09/20/202465999 5 RxNorm Not Available Not Available Not Available Medications Name Sig Start Date Stop Date Status Note LastModified by Organization Details LastModified Time stool soft raf41di-4.6 mg tab TAKE 2 TABLETS BY MOUTH ONCE DAILY AT BEDTIME 05/03 completed Not Available Not Available Not Available clindamycin HCl 300 mg capsule TAKE 1 CAPSULE BY MOUTH THREE TIMES DAILY FOR 10 DAYS 05/03 completed Not Available Not Available Not Available trazodone 50 mg tablet 01/06 completed Not Available Not Available Not Available azithromyci n 250 mg tablet TAKE 2 TABLETS BY MOUTH ON DAY 1, AND THEN TAKE 1 TABLET BY MOUTH ONCE A DAY ON DAY 2 THROUGH DAY 5 01/06 completed Not Available Not Available Not Available famotidine 40 mg tablet active Not Available Not Available Not Available penicillin V potassium 250 mg/5 mL oral solution TAKE 5 ML BY MOUTH 4 TIMES DAILY UNTIL GONE FOR 7 DAYS -DISCARD REMAINDER 02/18 completed Not Available Not Available Not Available metronidazo le 500 mg tablet 05/03 completed Not Available Not Available Not Available clopidogrel 75 mg tablet Take 1 tablet by mouth once daily 2023 active Not Available Not Available Not Avai lable aspirin 81 mg tablet,yen yed release Take 1 tablet every day by oral route. active Not Available Not Available No t Available acetaminoph en 650 mg tablet Take 1 mg twice a day by oral route. 09/20 completed Not Available Not Available Not Available tramadol 50 mg tablet 09/20 completed Not Available Not Available Not Available meloxicam 7.5 mg tablet TAKE 1 TABLET BY MOUTH ONCE DAILY 05/03 completed Not Available Not Available Not Available amoxicillin 875 mg tablet TAKE 1 TABLET BY MOUTH TWICE DAILY FOR 7 DAYS 02/18 completed Not Available Not Available Not Available cephalexin 500 mg capsule TAKE 1 CAPSULE BY MOUTH EVERY 6 HOURS 05/03 completed Not Available Not Available Not Available pantoprazol e 40 mg tablet,yen yed release TAKE 1 TABLET BY MOUTH 30 MINUTES BEFORE BREAKFAST 05/03 completed Not Available Not Available Not Available erythromyci n 5 mg/gram (0.5 %) eye ointment 09/20 completed Not Available Not Available Not Available prednisone 50 mg tablet TAKE 1 TABLET BY MOUTH ONCE DAILY FOR 5 DAYS 01/06 completed Not Available Not Available Not Available metoprolol tartrate 50 mg tablet Take 1 tablet the night before CT scan. THEN take 1 tablet 1 hour beforeCT scan 05/24 completed Not Available Not Available Not Available docusate sodium 100 mg capsule TAKE 1 CAPSULE BY MOUTH TWICE DAILY NEEDED FOR CONSTIPAT ION FOR 30 DAYS 05/03 completed Not Available Not Available Not Available Senna Laxative 8.6 mg tablet TAKE 1 TABLET BY MOUTH EVERY DAY AT BEDTIME NEEDED FOR CONSTIPAT ION FOR 30 DAYS 05/03 completed Not Available Not Available Not Available omeprazole 20 mg capsule,del ayed release TAKE 1 CAPSULE BY MOUTH ONCE DAILY 30-60 MINUTES BEFORE A MEAL 05/03 completed Not Available Not Available Not Available aspirin 81 mg chewable tablet Chew 1 tablet every day by oral route. 09/20 completed Not Available Not Available Not Available metoprolol succinate ER 25 mg tablet,exte nded release 24 hr Take 1 tablet every day by oral route for 90 days. active Not Available Not Available No t Available polyethylen e glycol 3350 17 gram/dose oral powder DISSOLVE 17 GRAMS IN WATER AND DRINK BY MOUTH DAILY FOR 14 DAYS 05/03 completed Not Available Not Available Not Available dicyclomine 10 mg capsule TAKE 1 CAPSULE BY MOUTH 4 TIMES DAILY FOR 10 DAYS 05/03 completed Not Available Not Available Not Available amoxicillin 875 mg-potassiu m clavulanate 125 mg tablet TAKE 1 TABLET BY MOUTH EVERY 12 HOURS UNTIL GONE 01/06 completed Not Available Not Available Not Available amoxicillin 500 mg-potassiu m clavulanate 125 mg tablet TAKE 1 TABLET BY MOUTH TWICE DAILY FOR 5 DAYS 05/03 completed Not Available Not Available Not Available cyclobenzap rine 5 mg tablet TAKE 1 TABLET BY MOUTH THREE TIMES DAILY NEEDED FOR PAIN AND FOR MUSCLE SPASM 05/03 completed Not Available Not Available Not Available rosuvastati n 20 mg tablet Take 1 tablet every day by oral route. active Not Available Not Available No t Available nitrofurant oin monohydrate /macrocryst als 100 mg capsule TAKE 1 CAPSULE BY MOUTH TWICE DAILY FOR 7 DAYS 05/03 completed Not Available Not Available Not Available chlorhexidi ne gluconate 0.12 % mouthwash SWISH AND SPIT WITH 1/2 CAPFUL (15 MLS) BY MOUTH TWICE DAILY 02/18 completed Not Available Not Available Not Available Vitamin D3 125 MCG active Not Available Not A vailable Not Available sodium,pota ssium,mag sulfates 17.5 gram-3.13 gram-1.6 gram oral soln TAKE 1ST DOSE AT 4 PM THE EVENING BEFORE AND THE 2ND DOSE AT 4 AM THE MORNING OF COLONOSCO PY. TAKE 32 OZ OF WATER WITHIN 1 HOUR AFTER EACH DOSE 05/03 completed Not Available Not Available Not Available Brilinta 90 mg tablet Take 1 tablet twice a day by oral route for 90 days. 09/20 completed Not Available Not Available Not Available Brilinta BID 06/29 completed Not Available Not Available Not Available aspirin 81 mg capsule Take 1 capsule every day by oral route. 05/03 completed Not Available Not Available Not Available COVID-19 At-Home Test kit TEST DIRECTED TODAY 09/20 completed Not Available Not Available Not Available Centrum Minis Women 50 Plus active Not Available Not Available Not Available Voquezna 20 mg tablet active Not Available Not Available No t Available Vitals Date Recorded Body height Body mass index (BMI) Body weight Heart rate Systolic blood pressure Diastolic blood pressure Provider Name and Address Organization Details Last Updated DateTime 4 160.02 cm 40.2 kg/m2 626785. 47 g 82 /min 132 mm[Hg] 80 mm[Hg] [employer] 4 18:10:09 Date Recorded Body height Body mass index (BMI) Body weight Heart rate Oxygen saturation Oxygen saturation in Arterial blood by Pulse oximetry Systolic blood pressure Diastolic blood pressure Provider Name and Address Organization Details Last Updated DateTime 4 160.02 cm 36.5 kg/m2 16188.0 3 g 89 /min 97 % 97 % 128 mm[Hg] 84 mm[Hg] [employer] 4 12:44:00 Date Recorded Body height Body mass index (BMI) Body weight Heart rate Oxygen saturation Oxygen saturation in Arterial blood by Pulse oximetry Systolic blood pressure Diastolic blood pressure Provider Name and Address Organization Details Last Updated DateTime 4 160.02 cm 36.5 kg/m2 33173.0 3 g 79 /min 96 % 96 % 124 mm[Hg] 88 mm[Hg] [employer] 4 13:43:01 Date Recorded Body height Body weight Body mass index (BMI) Heart rate Oxygen saturation Oxygen saturation in Arterial blood by Pulse oximetry Systolic blood pressure Diastolic blood pressure Provider Name and Address Organization Details Last Updated DateTime 4 160.02 cm 92583.8 1 g 37 kg/m2 73 /min 98 % 98 % 122 mm[Hg] 76 mm[Hg] Giovanny Wilver [facility] [employer] 4 13:33:36 Date Recorded Body height Body weight Heart rate Oxygen saturation Oxygen saturation in Arterial blood by Pulse oximetry Systolic blood pressure Diastolic blood pressure Provider Name and Address Organization Details Last Updated DateTime 4 160.02 cm 58703.3 6 g 81 /min 97 % 97 % 128 mm[Hg] 78 mm[Hg] Heribertomaria gmamta Wilver [facility] [employer] 4 14:10:43 Social History Question Answer Notes LastModified by Organizat ion Details LastModified Time Tobacco Smoking Status Never Smoker Judson Bell MD [address], [place], [address], [facility] - [employer] 01/06/2023 12:45:04 Do You Have An Advance Directive? Yes [email or web address] Information not available 06/28/2024 What Is Your Level Of Alcohol Consumption? None [email or web address] Information not available 06/28/2024 What Is Your Level Of Caffeine Consumption? Occasional [email or web address] Information not available 06/28/2024 How Much Tobacco Do You Chew? None [email or web address] Information not available 06/28/2024 Do You Or Have You Ever Used E-cigarettes Or Vape? Never Used Electronic Cigarettes [email or web address] Information not available 06/28/2024 What Is The Highest Grade Or Level Of School You Have Completed Or The Highest Degree You Have Received? 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 2 [email or web address] Information not available 06/28/2024 What Is Your Relationship Status? [email or web address] Information not available 06/28/2024 Are You Passively Exposed To Smoke? No [email or web address] Information no t available 06/28/2024 Do You Use Any Illicit Or Recreational Drugs? No [email or web address] Information not available 06/28/2024 Sex: Unknown Functional Status Question Answer Note LastModified by Organizat ion Details LastModified Time What is your exercise level? Occasional [email or web address] Information not available 06/28/2024 Mental Status None recorded. Family History Nothing Reported. Medical History Condition Response Panic Attacks Y Abdominal Pain Y Varicose Veins Y Obesity Y High Cholesterol Y Gynecological HistoryNo gynecological history recorded. Obstetrics History GPAL:G 0 P 0 0 0 0 Past Encounters Encounter ID Performer Location Encounter Start Date Encounter Closed Date Diagnosis/Indication Diagnosis SNOMED-CT Code Diagnosis ICD10 Code Diagnosis Note [id number] Judson Bell MD [facility] [place] [address] [place] [address] 01/06/2023 12:03:34 01/06/2023 13:02:19 Chest pain 61590997 R07.9 Recurrent CP, in context of HLP, objective ekg changes that could be ischemic related, will rule out cardiac dysfunctio n or aortic dilatation by echo. Rule out ischemia by treadmill nuclear stress test. Electrocar diogram abnormal 309112516 R94.31 Considerat ions as noted above. [id number] Attila johnson MD [facility] - [place] [address] [place] [address] 01/21/2023 10:19:02 01/21/2023 11:27:38 Chest pain 73675555 R07.9 Recurrent CP, in context of HLP, objective ekg changes that could be ischemic related, will rule out cardiac dysfunctio n or aortic dilatation by echo. Rule out ischemia by treadmill nuclear stress test. [id number] [facility] [place] [address] [place] [address] 01/26/2023 09:40:15 01/26/2023 09:41:12 Chest pain 20110299 R07.9 Recurrent CP, in context of HLP, objective ekg changes that could be ischemic related, will rule out cardiac dysfunctio n or aortic dilatation by echo. Rule out ischemia by treadmill nuclear stress test. [id number] Judson Bell MD [facility] - [place] [address] [place] [address] 01/28/2023 17:53:01 01/28/2023 18:46:28 Chest pain 09592450 R07.9 Prior atypical CP, no symptoms now, very small apical defect on stress test not convincing for ischemic disease. Advised to increase physical activity, if exertional symptoms then will consider coronary CTA vs cardiac cath in that context. [id number] Judson Bell MD [facility] [place] [address] [place] [address] 02/19/2024 17:46:23 02/19/2024 18:29:15 Preoperative cardiovascular examination [id number] Z01.810 Awaiting low risk surgery. No CV related symptoms. No confirmed underlying CVD. EKG today is normal. Stable to proceed from CV standpoint . [id number] Janelle Ferris NP [facility] - [place] [address] [place] [address] 05/03/2024 12:22:45 05/03/2024 13:18:15 Preoperative cardiovascular examination 772001412 Z01.810 Cleared for knee surgery at last visit. Dyspnea on exertion 6084 5006 R06.09 Significan t difficulty increasing physical activity. Numerous risk factors for IHD. Warrants more definitive evaluation . Plan for CCTA. Cardiovasc ular stress test abnormal 289719310 R94.39 Small area of apical ischemia on nuclear stress testing. Other considerat ions as above. Family his tory of premature coronary heart disease 015710230 Z82.49 Brother with 5V CABG in his 50s Hypercholesterolemia 136 78336 E78.00 Target LDL: {{ <70 <80 < 100* }} Target TGS: < 150 Diet: Low fat & carbohydra dariel. Trend labs over time. All risks outlined. Health edu cation given 295845153 Z71.9 Health Education Provided. [id number] Judson Bell MD [facility] - [place] [address] [place] [address] 05/24/2024 13:29:09 05/24/2024 14:18:36 Hypercholesterolemia 78052096 E78.00 Target LDL: {{ <70 <80 < 100* }} Target TGS: < 150 Diet: Low fat & carbohydra dariel. Trend labs over time. All risks outlined. [facility] edu cation given 813783301 Z71.9 Health Education Provided. Coronary arteriosclerosis 71515872 I25.10 CAD w/out Angina Target LDL: {{<70* <80 < 100}} High risk calcium score, also possible high grade ostial/pro ximal LAD based on coronary CTA. Prior stress test shows possible small apical ischemia which would also be LAD territory. In context of prior SOB/poor functional capacity though that has improved a bit. Could be overestima tion of stenosis severity, but not clear.-rx asa, statin-kapil ck cardiac cath for evaluation Co-managem ent with cardiology to improve compliance , care delivery, and improve outcomes: {{YES* NO} } Diet recommenda tions reviewed. Medication s including compliance reviewed. [id number] Janelle Ferris NP [facility] [place] [address] [place] [address] 06/28/2024 13:24:55 06/28/2024 14:14:51 Coronary arteriosclerosis 22294939 I25.10 CAD w/out AnginaTarg et LDL: {{<70* <80 < 100}} S/P [facility] with PCI to LCX, mod residual disease to RCA, LAD. Continue DAPT, statin, BB. Consider transition to Plavix if random dyspnea contonues. Diet recommenda tions reviewed.M edications including compliance reviewed. Hypercholesterolemia 136 81806 E78.00 Target LDL: {{<70 <80 < 100 < 55#}} Target TGS: < 150 Diet: Low fat & carbohydra dariel. Trend labs over time. All risks outlined. Will request most recent lipid panel. [facility] edu cation given [id number] Z71.9 Health Education Provided. [id number] Dayami Espinoza NP [facility] - [place] [address] [place] [address] 09/20/2024 13:46:33 09/20/2024 14:25:51 Coronary arteriosclerosis 92157655 I25.10 CAD w/out AnginaTarg et LDL: {{<70* <80 < 100}} S/P [facility] with PCI to LCX, mod residual disease to RCA, LAD. Continue DAPT (ASA/Plavi x) statin, BB. Diet recommenda tions reviewed.M edications including compliance reviewed. Hypercholesterolemia 136 41806 E78.00 Target LDL: {{<70 <80 < 100 < 55#}}Targe t TGS: < 150 Diet: Low fat & carbohydra dariel. Trend labs over time. All risks outlined. [facility] given 088359280 Z71.9 Health Education Provided. Stented co ronary artery 861595444 Z95.5 Total number of Stents: {{1* 2 3 4 5 6 7 8 9 10}}Left Main: {{0* 1}}LA D: {{0* 1 2 3 }}RCA: {{0* 1 2 3 }}Cx: {{0 1* 2}} Posterior descending : {{0* 1 2 3 }} S/P [facility] 05/2024 with PCI to LCX, mod residual disease to RCA, LAD Preoperati ve cardiovascular examination 378436857 Z01.810 Awaiting low risk EGD. May hold ASA/Plavix x 7days prior and is moderate risk for procedures . Pt to call with oral surgeon informatio n for clearance for Dental implantati on with conscious sedation, risk would be same. Health Concerns Section Related Observation LastModified by Organization Detai ls LastModified Time None Recorded Concern Status LastModified by Organization Details LastModified Time None Recorded Advance Directives Directive Y: Payers Encounter Date Sequence Insurance Name Policy Number Policy Leon Covered Member ID Leon Member ID Guarantor Name 02/19/2024 1 [place] Basilia Sanchez [id number] Basilia Sanchez 02/19/2024 2 [employer] (MEDICARE SUPPLEMENT) Basilia Sanchez [id number] Basilia Sanchez 05/03/2024 1 [place] Basilia Sanchez [id number] Basilia Sanchez 05/03/2024 2 [employer] (MEDICARE SUPPLEMENT) Basilia Mcdaniel Daniel [id number] Basilia Mcdnaiel Rikkidavian 05/24/2024 1 [place] Basilia Sanchez [id number] Basilia Sanchez 05/24/2024 2 [employer] (MEDICARE SUPPLEMENT) Basilia Mcdaniel Daniel [id number] Basilia Mcdaniel Daniel 06/28/2024 1 [place] Basilia Sanchez [id number] Basilia Sanchez 06/28/2024 2 [employer] (MEDICARE SUPPLEMENT) Basilia Mcdaniel Daniel [id number] Basilia Mcdaniel Daniel 09/20/2024 1 [place] Basilia Sanchez [id number] Basilia Sanchez 09/20/2024 2 [employer] (MEDICARE SUPPLEMENT) Basilia Mcdaniel Daniel [id number] Basliia Sanchez Notes Date Note Type Note Provider Name and Address Organization Details Recorded Time 02/19/2024 text/html 73-year old woma n with history of HLP, here for follow up. 01/06/23:Referred for chest pain. Reports rapid onset palpitations, visual disturbance, lasting several seconds to minutes, developed chest pain, several occurrence over prior month, squeezing quality, substernal, not specific to exertion. no radiation. No known CVD. No recent CV testing completed. Went to ER during one visit, no acute issues noted on labs. EKG had T-wave changes noted on my review. 01/28/23:Stress test showed possible small apical ischemia. Echo showed normal LVEF without significant valvular dysfunction. Feels well. Denies CP or SOB. Not very active physically. 02/19/24:No interval CV testing completed. Awaiting knee replacement surgery. Denies CP, SOB, palpitations, or syncopal events. Judson Bell MD [address], [place], [address], [place] [employer] 02/19/2024 18:28:59 05/03/2024 text/html 73-year old lyndsey n with history of HLP, here for follow up. 2/7/23:Referred for chest pain. Reports rapid onset palpitations, visual disturbance, lasting several seconds to minutes, developed chest pain, several occurrence over prior month, squeezing quality, substernal, not specific to exertion. no radiation. No known CVD. No recent CV testing completed. Went to ER during one visit, no acute issues noted on labs. EKG had T-wave changes noted on my review. 01/28/23:Stress test showed possible small apical ischemia. Echo showed normal LVEF without significant valvular dysfunction. Feels well. Denies CP or SOB. Not very active physically. 02/19/24:No interval CV testing completed. Awaiting knee replacement surgery. Denies CP, SOB, palpitations, or syncopal events. 05/03/24:Routine 3 month F/U. Cleared for knee surgery at last visit. BP/HR well controlled. Has stopped all home meds except famotidine. Dx with c-diff and gastric ulcers. Ongoing loss of functional capacity. Following with GI. Janelle Ferris, [employer] [address], [place], [address], [facility] - [employer] 05/03/2024 13:16:28 05/24/2024 text/html 73-year old [place] with history of HLP, here for follow up. 01/06/23:Referred for chest pain. Reports rapid onset palpitations, visual disturbance, lasting several seconds to minutes, developed chest pain, several occurrence over prior month, squeezing quality, substernal, not specific to exertion. no radiation. No known CVD. No recent CV testing completed. Went to ER during one visit, no acute issues noted on labs. EKG had T-wave changes noted on my review. 01/28/23:Stress test showed possible small apical ischemia. Echo showed normal LVEF without significant valvular dysfunction. Feels well. Denies CP or SOB. Not very active physically. 02/19/24:No interval CV testing completed. Awaiting knee replacement surgery. Denies CP, SOB, palpitations, or syncopal events. 05/03/24:Routine 3 month F/U. Cleared for knee surgery at last visit. BP/HR well controlled. Has stopped all home meds except famotidine. Dx with c-diff and gastric ulcers. Ongoing loss of functional capacity. Following with GI. 05/24/24:Coronary CTA showed CAC 718, possible high grade stenosis involving ostial/proximal LAD, moderate disease involving other arteries. Some improvement of SOB/fatigue on exertion. Improving functional capacity. uJdson Bell MD [address], [place], [address], [facility] - [employer] 05/24/2024 14:11:53 06/28/2024 text/html 73-year old [place] with history of HLP, here for follow up. 01/06/23:Referred for chest pain. Reports rapid onset palpitations, visual disturbance, lasting several seconds to minutes, developed chest pain, several occurrence over prior month, squeezing quality, substernal, not specific to exertion. no radiation. No known CVD. No recent CV testing completed. Went to ER during one visit, no acute issues noted on labs. EKG had T-wave changes noted on my review. 01/28/23:Stress test showed possible small apical ischemia. Echo showed normal LVEF without significant valvular dysfunction. Feels well. Denies CP or SOB. Not very active physically. 02/19/24:No interval CV testing completed. Awaiting knee replacement surgery. Denies CP, SOB, palpitations, or syncopal events. 05/03/24:Routine 3 month F/U. Cleared for knee surgery at last visit. BP/HR well controlled. Has stopped all home meds except famotidine. Dx with c-diff and gastric ulcers. Ongoing loss of functional capacity. Following with GI. 05/24/24:Coronary CTA showed CAC 718, possible high grade stenosis involving ostial/proximal LAD, moderate disease involving other arteries. Some improvement of SOB/fatigue on exertion. Improving functional capacity. 06/28/24:F/U after [facility] with PCI to LCX, mod residual disease to LAD/RCA. Feels well. Significant improvement in functional capacity. Some intermittent, radom dyspnea. Janelle Ferris NP [address], [place], [address], [facility] - [employer] 06/28/2024 14:17:35 09/20/2024 text/html 74-year old [place] with history of CAD with PCI to LCX (06/22), mod residual disease to RCA, LAD and HLP, here for follow up. 01/06/23:Referred for chest pain. Reports rapid onset palpitations, visual disturbance, lasting several seconds to minutes, developed chest pain, several occurrence over prior month, squeezing quality, substernal, not specific to exertion. no radiation. No known CVD. No recent CV testing completed. Went to ER during one visit, no acute issues noted on labs. EKG had T-wave changes noted on my review. 01/28/23:Stress test showed possible small apical ischemia. Echo showed normal LVEF without significant valvular dysfunction. Feels well. Denies CP or SOB. Not very active physically. 02/19/24:No interval CV testing completed. Awaiting knee replacement surgery. Denies CP, SOB, palpitations, or syncopal events. 05/03/24:Routine 3 month F/U. Cleared for knee surgery at last visit. BP/HR well controlled. Has stopped all home meds except famotidine. Dx with c-diff and gastric ulcers. Ongoing loss of functional capacity. Following with GI. 05/24/24:Coronary CTA showed CAC 718, possible high grade stenosis involving ostial/proximal LAD, moderate disease involving other arteries. Some improvement of SOB/fatigue on exertion. Improving functional capacity. 06/28/24:F/U after [facility] with PCI to LCX, mod residual disease to LAD/RCA. Feels well. Significant improvement in functional capacity. Some intermittent, random dyspnea. 09/20/24:Just now returning for 1 mo follow up. Pt was changed from brilinta to plavix since last visit 01/01 to SOB, and SOB is improving. She needs clearance for EGD and Dental Implantation. Feels well w/o CP, palpitations or LE edema. Dayami Espinoza, [employer] [address], [place], [address], [facility] - [employer] 09/20/2024 14:32:11 OBGyn Episode No OBEpisode recorded.
--- OUTSIDE RECORDS SUMMARY | 2024-12-06 03:45 | XMS_ITS | Continuity of Care Document ---
Author Organization [place] - [facility] [place] [address] [place] [address] Care Team Providers Care Carrot Buncher Name Role Phone JUDSON BELL Mine Deputy BURT SONG Primary Care Provider [phone] MOHIT CARNEY OTHER [phone] Assessment Encounter Date Assessment Date Assessment LastModified by Organization Details LastModified Time 09/20/2024 09/20/2024 TMCL 01/21/23 total of 5 minutes and 48 seconds corresponding to 7.0 METS. 86% MPHR imaging shows a small area of apical ISCHEMIA. EF 56% Echo 01/26/23 EF 50-55% DDI MR TR IA [email or web address] Not available 09/20/2024 14:06:28 Plan of Treatment Reminders Order Date Submit Date Provider Last Modified By Organization Details Last Modified Time Details Appointments Establish ed 15 2024 10:15A Violeta Bell MD Not available Not available Not available Lab None recorded. Referral None recorded. Procedures None recorded. Surgeries None recorded. Imaging None recorded. Medication Orders None recorded. Patient TargetsNo targets recorded. Patient Instructions Encounter Date Encounter Id Patient Instructions Last Modified By Organization Details Last Modified Time 09/20/2024 [id number] high cholesterol : care instructions Not available [...] 09/20/2024 14:06:28 Reason for Referral None Reported. Problems Name Problem SNOMED Code Status Onset Date Resolution Date Notes Provider Name and Address Organization Details Recorded Time Health education given 047583055 Active 2023 Judson Bell MD [address], [place], [address], [place] - [facility] 4 13:54:45 Hypercholester olemia 59794869 Active [address], [place], [address], [place] [facility] 4 13:54:45 Dyspnea on exertion 93807127 Active 2023 Judson Bell MD [address], [place], [address], [place] [facility] 4 13:54:46 Coronary arterioscleros is 91183130 Active [address], [place], [address], [place] [facility] 4 14:09:03 Chest pain 36634042 Active [address], [place], [address], [place] [facility] 3 12:53:01 Electrocardiog aminah abnormal 754943455 Active [address], [place], [address], [place] [facility] 12:53:02 Problem Notes None recorded. Procedures Surgical History Date Name Laterality Status Provider Name and Address Organization Details Recorded Time 01/21/20 Cardiology Test Interpretation completed Attial castro MD [address], [place], [address], [facility] - [facility] 01/22/2023 11:29:24 Cataract Surgery completed [facility] 06/28/2024 13:34:13 [facility] 06/28/2024 13:34:13 Imaging Results None recorded. Procedure Notes None recorded. Medical Equipment None Reported. Allergies Allergen ID Allergen Name Allergen Category Reaction Reaction Severity Criticality Documentation Date Start Date Code Code System Note Provider Name and Address Organization Details Recorded Time [id number] 4004083e5 2824e acetamino phen / hydrocodo ne medicatio n Not available Not available Not available 09/20/2024 65387 2 RxNorm Not Available Not Available Not Available [id number] [id number] 2824e Ceclor medicatio n Not available Not available Not available 09/20/2024 49096 5 RxNorm Not Available Not Available Not Available Medications Name Sig Start Date Stop Date Status Note LastModified by Organization Details LastModified Time stool soft elu51kp-7.6 mg tab TAKE 2 TABLETS BY MOUTH [...] Available Vitals Date Recorded Body height Body weight Heart rate Oxygen saturation Oxygen saturation in Arterial blood by Pulse oximetry Systolic blood pressure Diastolic blood pressure Provider Name and Address Organization Details Last Updated DateTime 4 160.02 cm 78285.3 6 g 81 /min 97 % 97 % 128 mm[Hg] 78 mm[Hg] Giovanny Pettit [place] - [employer], [employer] 4 14:10:43 Social History Question Answer Notes LastModified by [employer] Details LastModified Time Tobacco Smoking Status Never Smoker Judson Bell MD [address], [place], [address], [facility] - [employer], [employer] 01/06/2023 12:45:04 Do You Have An Advance Directive? Yes [email or web address] Information not available 06/28/2024 What Is Your Level Of Alcohol Consumption? None [email or web address] Information not available 06/28/2024 What Is Your Level Of Caffeine Consumption? Occasional [email or web address] Information not available 06/28/2024 How Much Tobacco Do You Chew? None [email or web address] Information not available 06/28/2024 Do You Or Have You Ever Used E-cigarettes Or Vape? Never Used Electronic Cigarettes [email or web address] Information not available 06/28/2024 What Is The Highest Grade Or Level Of School You Have Completed Or The Highest Degree You Have Received? 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 2 [email or web address] Information not available 06/28/2024 What Is Your Relationship Status? [email or web address] Information not available 06/28/2024 Are You Passively Exposed To Smoke? No [email or web address] Information no t available 06/28/2024 Do You Use Any Illicit Or Recreational Drugs? No [email or web address] Information not available 06/28/2024 Sex: Unknown Functional Status Question Answer Note LastModified by Organizat ion Details LastModified Time What is your exercise level? Occasional [email or web address] Information not available 06/28/2024 Mental Status None recorded. Family History Nothing Reported. Medical History Condition Response Varicose Veins Y Abdominal Pain Y Obesity Y Panic Attacks Y High Cholesterol Y Gynecological HistoryNo gynecological history recorded. Obstetrics History GPAL:G 0 P 0 0 0 0 Past Encounters Encounter ID Performer Location Encounter Start Date Encounter Closed Date Diagnosis/Indication Diagnosis SNOMED-CT Code Diagnosis ICD10 Code Diagnosis Note [id number] Dayami Espinoza NP [facility] [place] [address] [place] [address] 09/20/2024 13:46:33 09/20/2024 14:25:51 Coronary arteriosclerosis 53186308 I25.10 CAD w/out AnginaTarg et LDL: {{<70* <80 < 100}} S/P [facility] with PCI to LCX, mod residual disease to RCA, LAD. Continue DAPT (ASA/Plavi x) statin, BB. Diet recommenda tions reviewed.M edications including compliance reviewed. Hypercholesterolemia 136 01246 E78.00 Target LDL: {{<70 <80 < 100 < 55#}}Targe t TGS: < 150 Diet: Low fat & carbohydra dariel. Trend labs over time. All risks outlined. Continue currentLab s from [facility] edu cation given 834487314 Z71.9 Health Education Provided. Stented co ronary artery 047766755 Z95.5 Total number of Stents: {{1* 2 3 4 5 6 7 8 9 10}}Left Main: {{0* 1}}LA D: {{0* 1 2 3 }}RCA: {{0* 1 2 3 }}Cx: {{0 1* 2}} Posterior descending : {{0* 1 2 3 }} S/P [facility] 05/2024 with PCI to LCX, mod residual disease to RCA, LAD Preoperati ve cardiovascular examination 682255170 Z01.810 Awaiting low risk EGD. May hold ASA/Plavix x 7days prior and is moderate risk for procedures . Pt to call with oral surgeon sandra n for clearance for Dental implantati on with conscious sedation, risk would be same. Health Concerns Section Related Observation LastModified by Organization Ira osborn LastModified Time None Recorded Concern Status LastModified by Organization Details LastModified Time None Recorded Payers Encounter Date Sequence Insurance Name Policy Number Policy Leon Covered Member ID Leon Member ID Guarantor Name 09/20/2024 1 [place] Basilia Sanchez [id number] Basilia Sanchez 09/20/2024 2 [employer] (MEDICARE SUPPLEMENT) Basilia Sanchez [id number] Basilia Sanchez Notes Date Note Type Note Provider Name and Address Organization Details Recorded Time 09/20/2024 text/html 74-year old [place] with [...] on exertion. Improving functional capacity. 06/28/24:F/U after [facility] with PCI to LCX, mod residual disease to LAD/RCA. Feels well. Significant improvement in functional capacity. Some intermittent, random dyspnea. 09/20/24:Just now returning for 1 mo follow up. Pt was changed from brilinta to plavix since last visit 2/2 to SOB, and SOB is improving. She needs clearance for EGD and Dental Implantation. Feels well w/o CP, palpitations or LE edema. Dayami Espinoza, SAMIR [address], [place], [address], [facility] - [facility] 09/20/2024 14:32:11 OBGyn Episode No OBEpisode recorded.
--- OUTSIDE RECORDS SUMMARY | 2024-12-06 03:46 | XMS_ITS | Clinical Summary ---
Author Organization [place] Address Unknown Care Team Providers Care Corporate Attorney Name Role Phone Dimas Wolfe MD Primary Care Physician [phone] Allergies, Adverse Reactions, Alerts Substance Reaction Status Noted Date Resolved Date Ceclore Active PPI Active Vicodin Active Medications Medication Dose Frequency Directions Start Date End David e clopidogrel 60 hydrocortisone 1 tube apply to affe cted area bid 11/02/2024 metoprolol tartrate 3 aspirin 0 qd Vit D, MVI 0 rosuvastatin 0 qd metronidazole 30 2023 cyclobenzaprine 90 TAKE 1 TABLE T BY MOUTH THREE TIMES DAILY NEEDED FOR PAIN AND FOR MUSCLE SPASM 04/12/2024 Anusol-HC 20 each 1 per rectum bid 10/14/2024 famotidine 60 tablet 1 tab PO BID prn 04/05/2024 1 pantoprazole 30 tablet Take 1 tab PO 3 0 min before the first meal of the day 04/04/2024 04/12/2024 Suprep Bowel Prep Kit 1 kit Take f irst dose at 4 the evening before, and the second dose at 4 the morning of colonoscopy. Take 32oz water within 1 hr after each dose. 03/24/2024 04/12/2024 Voquezna 30 tablet once a day Take 1 tablet b y mouth once a day 06/24/2024 11/02/2024 meloxicam 45 TAKE 1 TABLET B Y MOUTH ONCE DAILY 04/12/2024 omeprazole 30 capsule once a day Take 1 capsule by mouth once a day 30-60 min before a meal 03/29/2024 04/12/2024 docusate sodium 60 TAKE 1 CAPSU LE BY MOUTH TWICE DAILY NEEDED FOR CONSTIPATION FOR 30 DAYS 04/12/2024 aspirin 90 TAKE 1 TABLET B Y MOUTH TWICE DAILY FOR 6 WEEKS 09/15/2024 Senna Laxative 30 TAKE 1 TABLET BY MOUTH EVERY DAY AT BEDTIME NEEDED FOR CONSTIPATION FOR 30 DAYS 04/12/2024 polyethylene glycol 3350 238 DISSOLVE 17 GRAMS IN WATER AND DRINK BY MOUTH DAILY FOR 14 DAYS 04/12/2024 nitrofurantoin monohyd/m-cryst 14 TAKE 1 CAPSULE BY MOUTH TWICE DAILY FOR 7 DAYS 04/12/2024 tramadol 84 TAKE 1 TABLET B Y MOUTH EVERY 6 HOURS NEEDED FOR PAIN 11/17/2024 Problems Problem Status Start Date End Date Abdominal Pain, Generalized (R10.0 - ICD-10) Active 03/29/2024 Altered bowel habits (R19.4 - ICD-10) Active Anal pain (K62.89 - ICD-10) Active Chronic gastric ulcer withou t hemorrhage or perforation (K25.7 - ICD-10) Active 03/29/2024 Diarrhea (R19.7 - ICD-10) Active Diverticulosis of large inte chani without perforation or abs (K57.30 - ICD-10) Active 03/29/2024 Erosive esophagitis (K22.10 - ICD-10) Active First degree hemorrhoids (K64.0 - ICD-10) Active 03/29/2024 Hemorrhoids, external (K64.4 - ICD-10) Active Hypokalemia (E87.6 - ICD-10) Active Lower abdominal pain, unspecified (R10.30 - ICD-10) Ac tive Other diseases of stomach and duodenum (K31.89 - ICD-1 0) Active 03/29/2024 Coronary Artery Disease (CAD) (I25.9 - ICD-10) Elevated cholesterol (null - null) Obesity (null - null) Results * Clinical Results from [facility] Component Value Range Date CA 19-9 3 U/mL <=35 04/13/2024 11:0 7 am PDT Alanine Aminotransferase 29 IU/L 5 - 46 11:07 am PDT Albumin 3.8 g/dL 3.8 - 5.1 04/13/2024 11:0 7 am PDT Albumin/Globulin Ratio 1.5 1.3 - 2.7 04/13 11:07 am PDT Alkaline Phosphatase 100 IU/L 42 - 146 024 11:07 am PDT Anion Gap 14 4 - 18 04/13/2024 11:0 7 am PDT Aspartate Aminotransferase 32 IU/L 11 - 40 0 04/13/2024 11:07 am PDT Bilirubin, Total 0.5 mg/dL <=1.3 04/13/2024 11:07 am PDT BUN/Creatinine Ratio 15.4 10.0 - 28.0 11:07 am PDT Calcium 8.9 mg/dL 8.7 - 10.4 04/13/2024 11:0 7 am PDT Carbon Dioxide (CO2) 24 mmol/L 20 - 31 11:07 am PDT Chloride 99 mmol/L 95 - 109 04/13/2024 11:0 7 am PDT Creatinine 1.04 mg/dL 0.51 - 1.08 04/13/2024 11:0 7 am PDT eGFRcr CKD-EPI 57 mL/min/1.73m2 >=60 11:07 am PDT Globulin 2.5 g/dL 1.7 - 3.3 04/13/2024 11:0 7 am PDT Glucose 108 mg/dL 70 - 99 04/13/2024 11:0 7 am PDT Potassium 3.1 mmol/L 3.6 - 5.3 04/13/2024 11:0 7 am PDT Protein, Total 6.3 g/dL 6.0 - 7.7 04/13/2024 11 :07 am PDT Sodium 137 mmol/L 135 - 145 04/13/2024 11:0 7 am PDT Urea Nitrogen (BUN) 16 mg/dL 8 - 36 04/13/20 11:07 am PDT CRP 64.5 mg/L <=4.9 04/13/2024 11:0 7 am PDT * GI Histology Component Value Range Date A. Stomach, Body [id number] 03/29/2024 12:00 pm PDT B. Stomach, Antrum/Body [id number].pdf 03/02 12:00 pm PDT Clinical History: Patient History Of: Other-Abdominal Pain, Generalized,Altered bowel habits,Ulcers in the antrum. (Biopsy),Erythema and few erosions in the antrum compatible with gastritis. (Biopsy),Moderate diverticulosis of the Sigmoid colon and descending colon,Grade/Stage I internal and external hemorrhoids; 03/29/2024 12:00 pm PDT Electronically Signed Electronically sig carmella by :Dr. Haja Coffey on :04/12/2024 10:43:35 03/29/2024 12:00 pm PDT PDF Report [id number] 03/29/2024 12:0 0 pm PDT Rule Outs: B) H.Pylori 03/29/2024 12:0 0 pm PDT Encounters Encounter Performer Performer Role Encounter Diagnoses Location Date First Visit [id number] - Moe, Jared Lower abdominal pain, unspecified [facility] ([place]) 03/24/20 03:45 pm PDT EGD-Colonoscopy [id number] - Moe, Jared Chronic gastric ulcer without hemorrhage or perforation Altered bowel habits Abdominal Pain, Generalized First degree hemorrhoids Other diseases of stomach and duodenum Diverticulosis of large intestine without perforation or abs [facility] 03/29/20 11:30 am PDT Follow Up [id number] - Moe, Jared [id number] - Khadijah, Annia Hypokalemia Erosive esophagitis [facility] ([place]) 05/19/20 02:00 pm PDT Follow Up [id number] - Moe, Jared Diarrhea [facility] 04/12/20 03:00 pm PDT Follow Up [id number] - Moe, Jared [facility] ([place]) 09/15/20 02:30 pm PDT Ambulatory Encounter [id number] - Moe, Jared [facility] ([place]) 09/15/20 03:28 pm PDT Follow Up [id number] - Moe, Jared Hemorrhoids, external Anal pain [facility] 11/02/20 09:00 am PST Follow Up [id number] - Khadijah, Annia [id number] - Moe, Jared [facility] ([place]) 11/17/20 02:55 pm PST Immunizations Vaccine Date COVID-19 Procedures Procedure Date Gallbladder removed Knee Replacement Plan of Care Planned Activity Planned Date Cardiac Clearance - ABL C. diff Toxin b Gene by PCR CA 19-9 CMP Elastase, Fecal pancreatic Stool Culture & Sensitivity Giardia Ag Clostridium Difficile Toxin A & B, EIA C. diff Toxin b Gene by PCR Await pathology results Stool for Giardia Enzymes Immuno Assay CMP Daily fiber supplement: Metamucil, Citru samina or Fibercon CRP PPI /H2B preferred by health plan Stool Culture O AND P W/PERMANENT STAIN x3 CMP Ova and Parasite Education - High Fiber Diet CBC fecal calprotectin CBC Obesity Pathology Requisition - [facility] Follow up in 10 weeks Follow up in 6 weeks [place] up in 3 weeks. 12/07/2024 11:00 pm PST Follow up in 4 weeks EGD with [facility] / [facility] EGD with [facility] / [facility] colonoscopy with MOVIPREP / [facility]/ [facility] Social History Observation Value Start Date End Date Marital Status Number of Previous Marriages Number of Gestations 0 Number of Pregnancies 0 Number of Abortions 0 Tobacco Use Never smoker Vital Signs Vital Sign Reading Time Taken Pulse 68 /min 11/17/2024 03:09 pm PST Rhythm 11/17/2024 03:09 pm PST Body Temperature 97 [degF] 11/17/2024 03:0 9 pm PST Respirations /min 11/17/2024 03:09 pm PST Oxygen saturation % 11/17/2024 03: 09 pm PST [id number] mmHg 11/17/2024 03:09 pm PST Height 64 in 11/17/2024 03:03 pm PST Weight 220 lbs 11/17/2024 03:03 pm PST BMI (Body Mass Index) kg/m2 11/17/2024 03:03 pm PST BP Systolic 137 mm[hg] 11/17/2024 03:09 pm PST BP Diastolic 69 mm[hg] 11/17/2024 03:09 pm PST Insurances Policy / Member / Group Numbers Plan Details Company Policy Leon [id number] / / Plan Type:Medicare Coverage Type:Primary MEDICARE B Basilia Sanchez [id number] / / Plan Type:Commercial, other Coverage Type:Secondary [employer]
--- OUTSIDE RECORDS SUMMARY | 2024-12-06 03:46 | XMS_ITS | Clinical Summary ---
Author Organization [place] Address Unknown Care Team Providers Care Water Resources Program Director Name Role Phone Unavailable Primary Care Physician Unavailab le Allergies, Adverse Reactions, Alerts Substance Reaction Status [...] (BUN) 16 mg/dL 8 - 36 04/13/20 24 11:07 am PDT CRP 64.5 mg/L <=4.9 04/13/2024 11:0 7 am PDT * GI Histology Component Value Range Date A. Stomach, Body [id number] 03/29/2024 12:00 pm PDT B. Stomach, Antrum/Body [id number].pdf 03/02 12:00 pm PDT Clinical History: Patient History Of: Other-Abdominal Pain, Generalized,Altered bowel habits,Ulcers in the antrum. (Biopsy),Erythema and few erosions in the antrum compatible with gastritis. (Biopsy),Moderate diverticulosis of the Sigmoid colon and descending colon,Grade/Stage I internal and external hemorrhoids; 03/29/2024 12:00 pm PDT Electronically Signed Electronically sig carmella by :Dr. Haja Coffey on :04/12/2024 10:43:35 03/29/2024 12:00 pm PDT PDF Report [id number] 03/29/2024 12:0 0 pm PDT Rule Outs: B) H.Pylori 03/29/2024 12:0 0 pm PDT Encounters Encounter Performer Performer Role Encounter Diagnoses Location Date First Visit [id number] - Moe, Jared Lower abdominal pain, unspecified [facility] ([place]) 03/24/20 03:45 pm PDT EGD-Colonoscopy [id number] - Moe Jared Chronic gastric ulcer without hemorrhage or perforation Altered bowel habits Abdominal Pain, Generalized First degree hemorrhoids Other diseases of stomach and duodenum Diverticulosis of large intestine without perforation or abs [facility] 03/29/20 11:30 am PDT Follow Up [id number] - Moe, Jared [id number] - Khadijah, Annia Hypokalemia Erosive esophagitis [facility] ([place]) 05/19/20 02:00 pm PDT Follow Up [id number] - Moe, Jared Diarrhea [facility] 04/12/20 03:00 pm PDT Follow Up [id number] - Moe, Jared [facility] ([place]) 09/15/20 02:30 pm PDT Ambulatory Encounter [id number] - Moe, Jared [facility] ([place]) 09/15/20 03:28 pm PDT Follow Up [id number] - Moe Jared Hemorrhoids, external Anal pain [facility] 11/02/20 09:00 am PST Follow Up [id number] - Khadijah, Annia [id number] - Moe, Jared [facility] ([place]) 11/17/20 02:55 pm PST Chief Complaint Loose stools Immunizations Vaccine Date COVID-19 Procedures Procedure Date Gallbladder removed Knee Replacement Review Of Systems Constitutional: Denies of loss of a ppetite, weight loss. Gastrointestinal: Complains of abdo ramón pain , Abdominal distention/bloating , diarrhea . Denies of stomach cramps, heartburn, gas, Indigestion, difficulty swallowing/dysphagia, coughing with swallowing, Early Satiety, nausea, vomiting, change in bowel habits, constipation, straining with defecation, rectal bleeding, wipe bleeding, Black Stools, Anal pain, fecal incontinence, jaundice, Elevated liver enzymes, enlarged liver, pancreatitis, Blood in stool. Physical Exam Constitutional: Appearance: Communication: patient is lucid and communicates well. Skin: Inspection: Head/face: Inspection: Neck: Neck: Respiratory: Effort: Chest: Inspection: Cardiovascular: Auscultation: Gastrointestinal/Abdomen: Abdomen: rebound or guarding: No rebound or guard ing present. Musculoskeletal: Gait/station: Extremities: Inspection: Neurologic: Orientation: Plan of Care Planned Activity Planned Date [...] saturation % 11/17/2024 03: 09 pm PST [id number] mmHg 11/17/2024 03:09 pm PST Height 64 in 11/17/2024 03:03 pm PST Weight 220 lbs 11/17/2024 03:03 pm PST BMI (Body Mass Index) kg/m2 11/17/2024 03:03 pm PST BP Systolic 137 mm[hg] 11/17/2024 03:09 pm PST BP Diastolic 69 mm[hg] 11/17/2024 03:09 pm PST Insurances Policy / Member / Group Numbers Plan Details Company Policy Leon [id number] / / Plan Type:Medicare Coverage Type:Primary MEDICARE B Basilia Sanchez [id number] / / Plan Type:Commercial, other Coverage Type:Secondary [employer] Basilia Sanchez
--- OUTSIDE RECORDS SUMMARY | 2024-12-06 03:46 | XMS_ITS | Clinical Summary ---
Author Organization [place] Address Unknown Care Team Providers Care City Administrator Name Role Phone Dimas Wolfe MD Primary Care Physician [phone] Allergies, Adverse Reactions, Alerts Substance Reaction Status Noted Date Resolved Date Ceclore Active PPI Active Vicodin Active Medications Medication Dose Frequency Directions Start Date End David e clopidogrel 60 hydrocortisone 1 tube apply to affe cted area bid 11/02/2024 metoprolol tartrate 3 aspirin 0 qd rosuvastatin 0 qd tramadol 84 TAKE 1 TABLET B Y MOUTH EVERY 6 HOURS NEEDED FOR PAIN metronidazole 30 2023 cyclobenzaprine 90 TAKE 1 [...] MOUTH TWICE DAILY FOR 7 DAYS 04/12/2024 Problems Problem Status Start Date End Date [...] PDT BUN/Creatinine Ratio 15.4 10.0 - 28.0 024 11:07 am PDT Calcium 8.9 mg/dL 8.7 [...] Component Value Range Date A. Stomach, Body [id number] 03/29/2024 12:00 pm PDT B. Stomach, Antrum/Body [id number] 03/02 12:00 pm PDT Clinical History: Patient History Of: Other-Abdominal Pain, Generalized,Altered bowel habits,Ulcers in the antrum. (Biopsy),Erythema and few erosions in the antrum compatible with gastritis. (Biopsy),Moderate diverticulosis of the Sigmoid colon and descending colon,Grade/Stage I internal and external hemorrhoids; 03/29/2024 12:00 pm PDT Electronically Signed Electronically sig carmella by :Dr. Haja Coffey on :04/12/2024 10:43:35 03/29/2024 12:00 pm PDT PDF Report [id number] 03/29/2024 12:0 0 pm PDT Rule Outs: B) H.Pylori 03/29/2024 12:0 0 pm PDT Encounters Encounter Performer Performer Role Encounter Diagnoses Location Date First Visit [id number] - Moe, Jared Lower abdominal pain, unspecified [facility] ([place]) 03/24/20 03:45 pm PDT EGD-Colonoscopy [id number] - Moe Jared Chronic gastric ulcer without hemorrhage or perforation Altered bowel habits Abdominal Pain, Generalized First degree hemorrhoids Other diseases of stomach and duodenum Diverticulosis of large intestine without perforation or abs [facility] 03/29/20 11:30 am PDT Follow Up [id number] - Moe Jared [id number] - Khadijah, Annia Hypokalemia Erosive esophagitis [facility] ([place]) 05/19/20 02:00 pm PDT Follow Up [id number] - Moe Jared Diarrhea [facility] 04/12/20 03:00 pm PDT Follow Up [id number] - Moe, Jared [facility] ([place]) 09/15/20 02:30 pm PDT Ambulatory Encounter [id number] - Moe, Jared [facility] ([place]) 09/15/20 03:28 pm PDT Follow Up [id number] - Moe, Jared Hemorrhoids, external Anal pain [facility], 11/02/20 09:00 am PST Immunizations Vaccine Date COVID-19 Procedures Procedure Date Gallbladder removed Knee Replacement Plan of Care Planned Activity Planned Date Cardiac Clearance - ABL CA 19-9 CMP Elastase, Fecal pancreatic Stool Culture & Sensitivity C. diff Toxin b Gene by PCR Await pathology results Stool for Giardia Enzymes Immuno Assay CMP Daily fiber supplement: Metamucil, Citru samina or Fibercon CRP PPI /H2B preferred by health plan O AND P W/PERMANENT STAIN x3 Education - High Fiber Diet fecal calprotectin CBC Obesity Pathology Requisition - [facility] Follow up in 10 weeks Follow up in 6 weeks Follow up in 4 weeks EGD with [facility] / [facility] EGD with [facility] colonoscopy with MOVIPREP / [facility] Social History Observation Value Start Date End Date Marital Status Number of Previous Marriages Number of Gestations 0 Number of Pregnancies 0 Number of Abortions 0 Tobacco Use Never smoker Vital Signs Vital Sign Reading Time Taken Pulse 67 /min 11/02/2024 08:57 am PST Rhythm 11/02/2024 08:57 am PST Body Temperature 97.1 [degF] 11/02/2024 08:5 7 am PST Respirations /min 11/02/2024 08:57 am PST Oxygen saturation % 11/02/2024 08: 57 am PST [id number] mmHg 11/02/2024 08:57 am PST Height 64 in 11/02/2024 08:56 am PST Weight 221 lbs 11/02/2024 08:56 am PST BMI (Body Mass Index) 37.93 kg/m2 11/02/2024 08:56 am PST BP Systolic 173 mm[hg] 11/02/2024 08:58 am PST BP Diastolic 95 mm[hg] 11/02/2024 08:58 am PST Insurances Policy / Member / Group Numbers Plan Details Company Policy Leon [id number] / / Plan Type:Medicare Coverage Type:Primary MEDICARE B Basilia Sanchez [id number] / / Plan Type:Commercial, other Coverage Type:Secondary [employer] [place] Basilia Sanchez
--- OUTSIDE RECORDS SUMMARY | 2024-12-06 03:46 | XMS_ITS | Clinical Summary ---
Author Organization [facility] Address [address] [place] [address] Care Team Providers Care Associate Media Planner Name Role Phone Alexis Leggett MD Primary Care Provider Immunizations Name Administration Dates Next Due Tdap 04/15/2017 Zostavax (Zoster Shingles) 04/15/2017 Social History Tobacco Use Types Packs/Day Years Used Date Smoking Tobacco: Never Assessed Inadequate Housing Answer Date Recorded Social Determinants: Housing (Overall Score Help er) 0 07/13/2019 Sex and Gender Information Value Date Recorded Sex Assigned at Not on file Gender Identity Not on file Sexual Orientation Not on file Last Filed Vital Signs Vital Sign Reading Time Taken Comments Blood Pressure 100/70 03/25/2018 2:37 PM CDT Pulse 82 03/25/2018 2:37 PM CDT Temperature 36.6 ??C (97.8 ??F) 03/25/2018 2:37 PM CD T Respiratory Rate 18 03/25/2018 2:37 PM CDT Oxygen Saturation 98% 03/20/2017 10:15 AM CDT Inhaled Oxygen Concentration - - Weight 100.7 kg (222 lb) 03/25/2018 2:37 PM CDT Height 160 cm (5' 3 ) 03/25/2018 2:37 PM CDT Body Mass Index 39.33 03/25/2018 2:37 PM CDT Plan of Treatment Health Maintenance Due Date Last Done Comments Depression Screening 1964 CT Colonography 1997 Cologuard 1997 Colonoscopy 1997 Colorectal Cancer Screen 1997 Fecal Occult Blood 1997 Sigmoidoscopy 1997 Shingles Vaccine (2 of 3) 06/10/2017 04/15/2017 Osteoporosis Screening 2017 Pneumococcal Vaccine 65+ (1 of 1 - PCV) 2017 Breast Cancer Screening 04/14/2019 04/14/2017 COVID-19 Vaccine (1 - 2023-2 5 season) 2024 Influenza Vaccine (#1) 2024 DTaP/Tdap/Td Vaccine (2 - Td or Tdap) 04/15/2027 04/15/2017 HPV Vaccine Aged Out No longer eligi ble based on patient's age to complete this topic Hepatitis B Vaccine (For Physician/APC Discussion) Aged Out No longer elig ible based on patient's age to complete this topic Meningococcal Vaccine Aged Out No jeff mona eligible based on patient's age to complete this topic Procedures Procedure Name Priority Date/Time Associated Diagnosis Comments MAMMO SCREENING BILATERAL Routine 04/14/2017 11:10 AM CDT from Last 3 Months or Most Recently Relevant to Health Maintenance Results * MA MAMMO SCREENING BILATERAL (04/14/2017 11:10 AM CDT) Anatomical Region Laterality Modality Breast Bilateral Mammography 04/14/2017 11:1 0 AM CDT 04/14/2017 11:10 AM CDT Narrative 04/18/2017 8:59 AM CDT #[id number] - MA FFDM SCREEN W CAD MAIK BILATERAL DIGITAL SCREENING MAMMOGRAM WITH CAD: 04/14/2017 CLINICAL HISTORY:Routine Screening. ?? Unknown family history of breast cancer. ??Patient is post menopausal. COMPARISON: Comparison is made to exam dated: ??07/31/2015 mammogram - [facility]. FINDINGS: The tissue of both breasts is heterogeneously dense. This may lower the sensitivity of mammography. There are benign calcifications in both breasts. ??There also are benign lymph nodes in both breasts. ??There is a mole marker on the right breast. No significant masses, calcifications, or other findings are seen in either breast. Current study was also evaluated with a Computer Aided Detection (CAD) system. There has been no significant interval change. IMPRESSION: BENIGN There is no mammographic evidence of malignancy. A 1 year screening mammogram is recommended. MAMMOGRAPHY BI-RADS: 2 BENIGN Jon Carlos M.D. mw/penrad:04/17/2017 10:57:23 Data Base Administrator: Janelle PARADA (R)([place] [facility] [place] [id number] ??FINAL ?? Dictated By: ? JON LAWSON MD Electronically Reviewed and Approved By: ?JON LAWSON MD Procedure Note Provider, [facility] Historical Conversion - 10/10/2018 #[id number] - MA FFDM SCREEN W CAD MAIK BILATERAL DIGITAL SCREENING MAMMOGRAM WITH CAD: 04/14/2017 CLINICAL HISTORY:Routine Screening. Unknown family history of breastcancer. Patient is post menopausal. COMPARISON: Comparison is made to exam dated: 07/31/2015 mammogram - [facility]. FINDINGS: The tissue of both breasts is heterogeneously dense. This may lower thesensitivity of mammography. There are benign calcifications in both breasts. There also are benignlymph nodes in both breasts. There is a mole marker on the right breast. No significant masses, calcifications, or other findings are seen ineither breast. Current study was also evaluated with a Computer Aided Detection (CAD)system. There has been no significant interval change. IMPRESSION: BENIGN There is no mammographic evidence of malignancy. A 1 year screeningmammogram is recommended. MAMMOGRAPHY BI-RADS: 2 BENIGN Jon zarate/penrad:04/17/2017 10:57:23 Data Base Administrator: Janelle VALENCIA)(Violeta), [facility] [place] sent: Normal Single Exam [id number] FINAL Dictated By: JON LAWSON MD Electronically Reviewed and Approved By: JON LAWSON MD Alexis Leggett MD IMG BI PROCEDURES from Last 3 Months or Most Recently Relevant to Health Maintenance Care Teams Associate Media Planner Relationship Specialty Start Date End Date Alexis Leggett MD PCP - General 12/14/19
--- OUTSIDE RECORDS SUMMARY | 2024-12-06 03:46 | XMS_ITS | Encounter Summary ---
Author Organization [facility] Address [address] [place] [address] Care Team Providers Care Lace Weaver Name Role Phone Unavailable Primary Care Provider Unavailabl e Encounter Details Date Type Department Care Team ([facility] st Contact Info) Description 03/20/2017 Lab Services [facility] CONVERSION Britni Lua, NO [address] [place] [address] Social History Tobacco Use Types Packs/Day Years Used Date Smoking Tobacco: Never Assessed Sex and Gender Information Value Date Recorded Sex Assigned at Not on file Gender Identity Not on file Sexual Orientation Not on file documented as of this encounter Plan of Treatment Not on file documented as of this encounter Procedures Procedure Name Priority Date/Time Associated Diagnosis Comments THINPREP PAP TEST WITH HPV Routine 03/20/2017 12:01 AM CDT documented in this encounter Results * Thin Prep Pap Test with HPV regardless (03/20/2017 12:01 AM CDT) PAP WITH HIGH RISK HPV Name: RHONDA FRAIRE ? : ??1950 ? [address] ?Gynecologic Cytology Consultation Report ? Client: [id number] ? Date Specimen Collected: 03/20/17 ? Date Specimen Received: ??03/20/17 ?Requisition ?? #:[id number] ?? Date Reported: ? 03/25/2017 10:56 ?Location: ? [facility] ?* Addendum Present * ? Cytologic Interpretation : ? Negative for intraepithelial lesion or malignancy. ?? Atrophic cellular changes. ? Satisfactory for evaluation. ? Deborah Childers, CT (ASCP) ?? Electronic Signature (GILA) 03/25/2017 ?? 10:56 ? Educational note: ??The Pap test is a screening test with a well-recognized ?? false negative rate. ??The best means available to lower the false negative ?? rate and to detect early cervical lesions is a Pap test at regular intervals. ?? All ThinPrep Paps will be reviewed with the aid of the ThinPrep Imaging ?? System, unless otherwise specified. ? Clinical Information: ?? Menstrual Hx: ??Post Menopausal ?? Other Clinical Conditions:Pap source: Cervical ?? REASON FOR COLLECTION::LOW RISK - ENCOUNTER FOR SCREENING FOR MALIGNANT ?? NEOPLASM OF CERVIX Z12.4 ?? SOURCE::CERVICAL ? Specimen(s) Submitted: ?? PAP with High Risk HPV ? Procedures/Addenda : ?? HPV, High Risk_IL: ?? Date Ordered: ? 03/23/2017 ? Date Reported:03/24/2017 ? Interpretation ?? Aptimae HPV HIGH RISK (TYPES 16,18,31,33,35,39, 45,51,52,56,58,59, 66,68): ?? NEGATIVE ? The APTIMA HPV Assay is an FDA approved in vitro nucleic acid amplification ?? test for the qualitative detection of E6/E7 viral messenger RNA (mRNA) from 14 ?? high-risk types of human papillomavirus (HPV) in cervical specimens. The ?? high-risk HPV types detected by the assay include: 16, 18, 31, 33, 35, 39, 45, ?? 51, 52, 56, 58, 59, 66, and 68. The Aptima HPV Assay does not discriminate ?? between the 14 high-risk types. Cervical specimens in the Thin Prep Pap Test ?? vials containing PreservCyt Solution and collected with broom-type or ?? cytobrush/spatula collection devices may be tested with this assay using the ?? PANTHER System. ? The APTIMA HPV Assay is intended to screen women 21 years and older with ?? atypical squamous cells of undetermined significance (ASC-US) cervical ?? cytology results to determine the need for referral to colposcopy. Test ?? results are not intended to prevent women from proceeding to colposcopy. ? In women 30 years and older, the above assay can be used with cervical ?? cytology to adjunctively screen to assess the presence or absence of high-risk ?? HPV types. This information, with the physician's assessment of cytology ?? history, other risk factors, and guidelines, may be used to guide patient ?? management. ? Electronic Signature (JRLaury) 03/24/2017 11:09 ? ICD Codes: ?? Z01.419 ? Fee Codes: ?? A: [id number] ?? HPV_IL: [id number] ? Performing Lab Location (Unless otherwise specified): ?? [facility] ?? [address] [place] [address] ?? [facility] 03/20/2017 12:0 1 AM CDT 03/25/2017 10:56 AM CDT Narrative [facility] [place] - 03/25/2017 11:28 AM CDT Performed At: [facility] Result Annotated 03/25/2017 11:28 by BRITNI LUA: ??Normal pap, HPV negative Britni Lua APNP B[facility] LAB CYTOL OGY ORDERABLES Performing Organization Address City/State/[facility] Co de Phone Number [facility] [address] [place] [address] documented in this encounter Visit Diagnoses Not on filedocumented in this encounter
--- OUTSIDE RECORDS SUMMARY | 2024-12-06 03:46 | XMS_ITS | Referral Summary ---
Author Organization [facility] Address [address] [place] [address] Care Team Providers Care Ammonium Sulfate Operator Name Role Phone Alexis Leggett MD Primary [...] 03/25/2018 2:37 PM CDT Plan of Treatment Not on file Procedures Procedure Name Priority Date/Time Associated Diagnosis Comments MAMMO SCREENING BILATERAL Routine 04/14/2017 11:10 AM CDT from Last 3 Months or Most Recently Relevant to Health Maintenance Results * MA MAMMO SCREENING BILATERAL (04/14/2017 11:10 AM CDT) Anatomical Region Laterality Modality Breast Bilateral Mammography 04/14/2017 11:1 0 AM CDT 04/14/2017 11:10 AM CDT Narrative 04/18/2017 8:59 AM CDT #[id number] - MA FFDM SCREEN W CAD MAIK BILATERAL DIGITAL SCREENING MAMMOGRAM WITH CAD: 04/14/2017 CLINICAL HISTORY:Routine Screening. ?? Unknown family history of breast cancer. ??Patient is post menopausal. COMPARISON: Comparison is made to exam dated: ??07/31/2015 mammogram - [facility][1]. FINDINGS: The tissue of both breasts is [...] MAMMOGRAPHY BI-RADS: 2 BENIGN Jon Carlos M.D. mw/xander:04/17/2017 10:57:23 Instrument Adjuster: Janelle VALENCIA)(Violeta), [facility] letter sent: Normal Single Exam [id number] ??FINAL ?? Dictated By: ? JON LAWSON MD Electronically Reviewed and Approved By: ?JON LAWSON MD Procedure Note Provider, [facility] Historical Conversion - 10/10/2018 #[id number] - MA FFDM SCREEN W CAD MAIK BILATERAL DIGITAL SCREENING MAMMOGRAM WITH CAD: 04/14/2017 CLINICAL HISTORY:Routine Screening. Unknown family history of breastcancer. Patient is post menopausal. COMPARISON: Comparison is made to exam dated: 07/31/2015 mammogram - [facility]. FINDINGS: The tissue of both breasts is [...] MAMMOGRAPHY BI-RADS: 2 BENIGN Jon Carlos M.D. mw/xander:04/17/2017 10:57:23 Instrument Adjuster: Janelle Thurston RT(R)(M), [facility] letter sent: Normal Single Exam [id number] FINAL Dictated By: JON LAWSON MD Electronically Reviewed and Approved By: JON LAWSON MD Alexis Leggett MD IMG BI PROCEDURES from Last 3 Months or Most Recently Relevant to Health Maintenance Care Teams Ammonium Sulfate Operator Relationship Specialty Start Date End Date Alexis Leggett MD PCP - General 12/14/19
--- OUTSIDE RECORDS SUMMARY | 2024-12-06 03:46 | XMS_ITS | Encounter Summary ---
Author Organization [facility] Address [address] [place] [address] Care Team Providers Care Sales Operations Director Name Role Phone Unavailable Primary Care Provider Unavailabl e Encounter Details Date Type Department Care Team ([facility] st Contact Info) Description 04/14/2017 Imaging Services [facility] CONVERSION Alexis Leggett MD [address] [place] [address] Social History Tobacco Use Types Packs/Day Years [...] SCREENING BILATERAL Routine 04/14/2017 11:10 AM CDT documented in this encounter Results * MA MAMMO SCREENING BILATERAL (04/14/2017 11:10 AM CDT) Anatomical Region Laterality Modality Breast Bilateral Mammography 04/14/2017 11:1 0 AM CDT 04/14/2017 11:10 AM CDT Narrative 04/18/2017 8:59 AM CDT #[id number] - MA FFDM SCREEN W CAD MAIK BILATERAL DIGITAL SCREENING MAMMOGRAM WITH CAD: 04/14/2017 CLINICAL HISTORY:Routine Screening. ?? Unknown family history of breast cancer. ??Patient is post menopausal. COMPARISON: Comparison is made to exam dated: ??07/31/2015 mammogram - [facility]. FINDINGS: The tissue of both breasts [...] 2 BENIGN Jon Carlos M.D. mw/penrad:04/17/2017 10:57:23 Mangle Roll Operator: Janelle PARADA (R)(Violeta), [facility] letter sent: Normal Single Exam [id number] ??FINAL ?? Dictated By: ? JON LAWSON MD Electronically Reviewed and Approved By: ?JON LAWSON MD Procedure Note Provider, [facility] Historical Conversion - 10/10/2018 #[id number] - MA FFDM SCREEN W CAD MAIK BILATERAL DIGITAL SCREENING MAMMOGRAM WITH CAD: 04/14/2017 CLINICAL HISTORY:Routine Screening. Unknown family history of breastcancer. Patient is post menopausal. COMPARISON: Comparison is made to exam dated: 07/31/2015 mammogram - [facility]. FINDINGS: The tissue of both [...] 2 BENIGN Jon Carlos M.D. mw/penrad:04/17/2017 10:57:23 Mangle Roll Operator: Janelle PARADA (R)(Violeta), [facility] letter sent: Normal Single Exam [id number] FINAL Dictated By: JON LAWSON MD Electronically Reviewed and Approved By: JON LAWSON MD Alexis Leggett MD IMG BI PROCEDURES documented in this encounter Visit Diagnoses Not on filedocumented in this encounter
--- OUTSIDE RECORDS SUMMARY | 2024-12-06 03:46 | XMS_ITS | Clinical Summary ---
Author Organization [facility] Address Unknown Care Team Providers Care Transit Operator Name Role Phone Unavailable Primary Care Physician [...] Component Value Range Date A. Stomach, Body [id number] 03/29/2024 12:00 pm PDT B. Stomach, Antrum/Body [id number] 03/02 12:00 pm PDT Clinical History: Patient History Of: Other-Abdominal Pain, Generalized,Altered bowel habits,Ulcers in the antrum. (Biopsy),Erythema and few erosions in the antrum compatible with gastritis. (Biopsy),Moderate diverticulosis of the Sigmoid colon and descending colon,Grade/Stage I internal and external hemorrhoids; 03/29/2024 12:00 pm PDT Electronically Signed Electronically sig carmella by :Dr. Haja Coffey on :04/12/2024 10:43:35 03/29/2024 12:00 pm PDT PDF Report [id number] 03/29/2024 12:0 0 pm PDT Rule Outs: B) H.Pylori 03/29/2024 12:0 0 pm PDT Encounters Encounter Performer Performer Role Encounter Diagnoses Location Date First Visit [id number] - Abhi Jared Lower abdominal pain, unspecified [facility] ([place]) 03/24/20 03:45 pm PDT EGD-Colonoscopy [id number] - Jared Moe Chronic gastric ulcer without hemorrhage or perforation Altered bowel habits Abdominal Pain, Generalized First degree hemorrhoids Other diseases of stomach and duodenum Diverticulosis of large intestine without perforation or abs [facility] 03/29/20 11:30 am PDT Follow Up [id number] Duarte Polkrique [id number] - Khadijah, Annia Hypokalemia Erosive esophagitis [facility] ([place]) 05/19/20 02:00 pm PDT Follow Up [id number] Duarte Polkrique Diarrhea [facility], 04/12/20 03:00 pm PDT Follow Up [id number] - Moe, Jared [facility] ([place]) 09/15/20 02:30 pm PDT Ambulatory Encounter [id number] - Moe, Jared [facility] ([place]) 09/15/20 03:28 pm PDT Follow Up [id number] Jared Polk Hemorrhoids, external Anal pain [facility], 11/02/20 09:00 am PST Chief Complaint EGD results & hemorrhoids. Gastric ulcer Immunizations Vaccine Date COVID-19 Procedures Procedure Date Gallbladder removed Knee Replacement Review Of Systems Allergic/Immunologic: Denies of persist ent infections, strong allergic reactions or urticaria, Food allergies. Constitutional: Denies of fatigue, fever, chills, loss of appetite, malaise, weight gain, weight loss. ENMT: Denies of difficult y swallowing, dizziness, nose bleeds, sore throat, loss of vision, hoarseness of voice, Post nasal drip. Endocrine: Denies of excessive thirst, hair loss, Flushing. Cardiovascular: Denies of chest judy n, dyspnea with exercise, irregular heart beat, palpitations, peripheral edema, syncope, shortness of breath with exercise. Respiratory: Denies of cough, dy spnea, excessive sputum, shortness of breath with exercise, wheezing, hemoptysis, Coughing up blood. Gastrointestinal: Complains of gas , Anal pain . Denies of abdominal pain, abdominal swelling, Abdominal distention/bloating, stomach cramps, heartburn, reflux, Indigestion, difficulty swallowing/dysphagia, solids stick with swallowing, liquids stick with swallowing, coughing with swallowing, Early Satiety, nausea, vomiting, change in bowel habits, diarrhea, constipation, straining with defecation, rectal bleeding, wipe bleeding, Black Stools, Rectal Pain, Anal itching, Anal burning, Anal pressure, fecal incontinence, jaundice, Blood in stool. Genitourinary: Denies of dark urin e, frequent urination, urinary incontinence. Hematologic/Lymphatic: Denies of bleedi ng gums or palpable lymph nodes, easy bruising. Integumentary: Denies of dryness, itching, rashes. Musculoskeletal: Denies of joint judy n, back pain, muscle weakness. Neurological: Denies of dizziness , fainting, frequent headaches, headaches, numbness or tingling, tremors. Psychiatric: Denies of anxiety, panic attacks, depression, paranoia, difficulty sleeping, hallucinations, nervousness. Physical Exam Constitutional: Appearance: Communication: patient is lucid and communicates well. Skin: Inspection: Eyes: Conjunctivae/lids: ENMT: Lips/teeth/gums: Neck: Neck: Thyroid: no thyromegaly. Lymph nodes: within normal limits . Respiratory: Effort: Auscultation: normal breath sounds ; no rubs, wheezes, rales or ronchi. Chest: Inspection: Cardiovascular: Auscultation: Abdominal aorta: normal size and posi tion; no bruits. Carotids: no carotid bruits. Peripheral: no edema, varicositi es or cyanosis. Gastrointestinal/Abdomen: Abdomen: Liver/Spleen: no palpable hepatosplenomegaly. Hernias: no abdominal hernias appreciated. rebound or guarding: No rebound or guard ing present. Musculoskeletal: Digits/nails: Head/neck - Inspection/palpation: normocephalic, atraumatic. Extremities: Inspection: Psychiatric: Judgment/insight: Orientation: oriented to time, sp vesta and person. Memory: within normal limits for recent and remote events. Mood and affect: within normal limits . Lymphatic: Neck: Neurologic: Orientation: Plan of Care Planned Activity [...] saturation % 11/02/2024 08: 57 am PST [id number] mmHg 11/02/2024 08:57 am PST Height 64 in 11/02/2024 08:56 am PST Weight 221 lbs 11/02/2024 08:56 am PST BMI (Body Mass Index) 37.93 kg/m2 11/02/2024 08:56 am PST BP Systolic 173 mm[hg] 11/02/2024 08:58 am PST BP Diastolic 95 mm[hg] 11/02/2024 08:58 am PST Insurances Policy / Member / Group Numbers Plan Details Company Policy Leon [id number] / / Plan Type:Medicare Coverage Type:Primary MEDICARE B Basilia Sanchez [id number] / / Plan Type:Commercial, other Coverage Type:Secondary [employer] Basilia Sanchez
--- OUTSIDE RECORDS SUMMARY | 2024-12-06 03:46 | XMS_ITS | Continuity of Care Document ---
Author Organization [facility] Varun [facility] Address [address] [place] [address]- Encounter MS4 ACCT R - [facility] [id number] Date(s): 04/11/19 - 04/13/[address] [address]- [facility] Attending Physician: FELIPE GARIBAY DO Admitting Physician: FELIPE GARIBAY DO Referring Physician: FELIPE GARIBAY DO Allergies, Adverse Reactions, Alerts Substance Reaction Severity Status Vicodin Anaphylactic Severe Active Ceclor Eye swelling Moderate Active Medications Vitamin D3 50,000 IU, Oral, Q7days, 0 Refill(s), Signed: 04/04/19 11:33:00 [facility], Acute Start Date: 04/04/19 Status: Ordered Problem List Condition Effective Dates Status Health Status Inform ant Post menopausal problems/BLEEDING(Confirmed) Active Varicose vein of leg(Confirmed) Active Procedures Procedure Date Related Diagnosis Body Site Status HYSTEROSCOPY WITH DILATION & CURETTAGE 1 04/11/19 Completed WITH POLYPECTOMY 2 04/11/19 Comple justin Cataract extraction Compl eted Cholecystectomy Completed Varicose veins of both legs REMOVAL/LASER Completed Vein stripper Completed 1auto-populated from documented surgical case 2auto-populated from documented surgical case Results Laboratory List Name Date ABSOLUTES-Discern 04/11/19 CBC (WITH Differential) 04/11/19 CBC-Add'L Parameters - discern 04/11/19 DIFF (Differential Cell Count)-Discern Most recent to oldest [Reference Range]: 1 Nucleated RBCs, Automated [<=0 %] 0 % (04/11/19 10:55 AM) Immature Granulocytes % 0.2 % *NA* (04/11/19 10:55 AM) RDW-SD [38.0-49.0 fL] 39.7 fL (04/11/19 10:55 AM) Immature Granulocytes # [0.0-0.1 K/uL] 0 .0 K/uL (04/11/19 10:55 AM) WBC [4.0-11.0 K/MM3] 5.5 K/MM3 (04/11/19 10:55 AM) RBC [3.70-5.40 M/MM3] 4.74 M/MM3 (04/11/19 10:55 AM) HGB [12.0-16.0 g/dL] 13.8 g/dL (04/11/19 10:55 AM) HCT [35.0-48.0 %] 42.3 % (04/11/19 10:55 AM) MCH [27.0-34.0 pg] 29.1 pg (04/11/19 10:55 AM) MCHC [31.0-37.0 g/dL] 32.6 g/dL (04/11/19 10:55 AM) MCV [78-100 fL] 89 fL (04/11/19 10:55 AM) RDW-CV [11.0-15.0 %] 12.1 % (04/11/19 10:55 AM) Platelet [130-450 K/MM3] 233 K/MM3 (04/11/19 10:55 AM) Neutrophils % 56 % *NA* (04/11/19 10:55 AM) Lymphocytes % 28 % *NA* (04/11/19 10:55 AM) Monocytes % 12 % *NA* (04/11/19 10:55 AM) Eosinophils % 4 % *NA* (04/11/19 10:55 AM) Basophils % 1 % *NA* (04/11/19 10:55 AM) Differential Method Automated (04/11/19 10:55 AM) MPV [9.0-12.0 fL] 9.7 fL (04/11/19 10:55 AM) Neutrophils # [1.5-7.8 K/uL] 3.0 K/uL (04/11/19 10:55 AM) Lymphocytes # [0.9-3.9 K/uL] 1.5 K/uL (04/11/19 10:55 AM) Monocytes # [0.2-1.0 K/uL] 0.6 K/uL (04/11/19 10:55 AM) Eosinophils # [0.0-0.6 K/uL] 0.2 K/uL (04/11/19 10:55 AM) Basophils # [0.0-0.2 K/uL] 0.0 K/uL (04/11/19 10:55 AM) Vital Signs Most recent to oldest [Reference Range]: 1 2 3 AVPU Alert and responsive 1 (04/11/19 5:36 PM) In procedural area (04/11/19 2:30 PM) In procedural area (04/11/19 2:15 PM) Temp C 36.2 DegC (04/11/19 2:30 PM) 36.2 DegC (04/11/19 2:00 PM) 36.3 DegC (04/11/19 1:16 PM) Temperature Site Temporal (04/11/19 1:16 PM) Temporal (04/11/19 10:23 AM) Heart Rate 60 bpm (04/11/19 2:30 PM) 57 bpm (04/11/19 2:15 PM) 57 bpm (04/11/19 2:00 PM) HR Board Member (04/11/19 2:30 PM) Monitor (04/11/19 2:15 PM) Monitor (04/11/19 2:00 PM) Respiratory Rate 16 br/min (04/11/19 2:30 PM) 15 br/min (04/11/19 2:15 PM) 14 br/min (04/11/19 2:00 PM) Blood Pressure 142/63mmHg (04/11/19 2:30 PM) 143/65mmHg (04/11/19 2:15 PM) 141/65mmHg (04/11/19 2:00 PM) SpO2 96 % (04/11/19 2:30 PM) 96 % (04/11/19 2:15 PM) 97 % (04/11/19 2:00 PM) Oxygen Therapy Room air (04/11/19 2:30 PM) Room air (04/11/19 2:15 PM) Room air (04/11/19 2:00 PM) Oxygen Flow Rate 10 L/min (04/11/19 1:30 PM) 10 L/min (04/11/19 1:25 PM) 10 L/min (04/11/19 1:20 PM) Height 165 cm (04/11/19 10:23 AM) Weight 106.82 kg (04/11/19 10:23 AM) BMI (Pt Care) 39.24 kg/m2 (04/11/19 10:23 AM) BSA (pt care) 2.21 (04/11/19 10:23 AM) 1Result Comment: Added by Discern Social History Social History Type Response Smoking Status Never (less than 100 in lifetime) entered on: 04/04/19 Sex Hospital Discharge Instructions Patient Education 04/11/2019 13:57:00 Anesthesia: After Your Surgery Discharge Instructions: After Your Surgery You???ve just had surgery. During surgery, you were given medicine called anesthesia to keep you relaxed and free of pain. After surgery, you may have some pain or nausea. This is common. Here are some tips for feeling better and getting well after surgery. Stay on schedule with your medicine. Going home Your healthcare provider will show you how to take care of yourself when you go home. He or she will also answer your questions. Have an adult family member or friend drive you home. For the first 24hours after your surgery: ??? Do not drive or use heavy equipment. ??? Do not make important decisions or sign legal papers. ??? Do not drink alcohol. ??? Have someone stay with you, if needed. He or she can watch for problems and help keep you safe. Be sure to go to all follow-up visits with your healthcare provider. And rest after your surgery for as long as your healthcare provider tells you to. Coping with pain If you have pain after surgery, pain medicine will help you feel better. Take it as told, before pain becomes severe. Also, ask your healthcare provider or pharmacist about other ways to control pain. This might be with heat, ice, or relaxation. And follow any other instructions your surgeon or nurse gives you. Tips for taking pain medicine To get the best relief possible, remember these points: ??? Pain medicines can upset your stomach. Taking them with a little food may help. ??? Most pain relievers taken by mouth need at least 20 to 30 minutes to start to work. ??? Taking medicine on a schedule can help you remember to take it. Try to time your medicine so that you can take it before starting an activity. This might be before you get dressed, go for a walk,or sit down for dinner. ??? Constipation is a common side effect of pain medicines. Call your healthcare provider before taking any medicines such as laxatives or stool softeners to help ease constipation. Also ask if you should skip any foods. Drinking??lots of fluids and??eating foods??such as fruits and vegetables thatare high in fiber can also help. Remember, do not take laxatives unless your surgeon has prescribedthem. ??? Drinking alcohol and taking pain medicine can cause dizziness and slow your breathing. It can even be deadly. Do not drink alcohol while taking pain medicine. ??? Pain medicine can make you react more slowly to things. Do not drive or run machinery while taking pain medicine. Your healthcare provider??may tell you to take acetaminophen to help ease your pain. Ask him or herhow much you are supposed to take each day. Acetaminophen or other pain relievers may interact withyour prescription medicines or other scsg-fjs-[id number] (OTC) medicines. Some prescription medicines have acetaminophen and other ingredients.??Using both prescription and OTC acetaminophen??for pain??can cause you to overdose. Read??the labels on your OTC medicines??with care. This will help you??toclearly know the list of ingredients, how much to take, and any??warnings. It may also help you nottake too much??acetaminophen.??If you have questions or do not understand the information, ask yourpharmacist or healthcare provider to explain it to you before you take the OTC medicine. Managing nausea Some people have an upset stomach after surgery. This is often because of anesthesia, pain, or painmedicine, or the stress of surgery. These tips will help you handle nausea and eat healthy foods asyou get better. If you were on a special food plan before surgery, ask your healthcare provider if you should follow it while you get better. These tips may help: ??? Do not push yourself to eat. Your body will tell you when to eat and how much. ??? Start off with clear liquids and soup. They are easier to digest. ??? Next try semi-solid foods, such as mashed potatoes, applesauce, and gelatin, as you feel ready. ??? Slowly move to solid foods. Don???t eat fatty, rich, or spicy foods at first. ??? Do not force yourself to have 3 large meals a day. Instead eat smaller amounts more often. ??? Take pain medicines with a small amount of solid food, such as crackers or toast, to avoid nausea. Call your surgeon if? You still have pain an hour after taking medicine. The medicine may not be strong enough. ??? You feel too sleepy, dizzy, or groggy. The medicine may be too strong. ??? You have side effects like nausea, vomiting, or skin changes, such as rash, itching, or hives. If you have obstructive sleep apnea You were given anesthesia medicine during surgery to keep you comfortable and free of pain. After surgery, you may have more apnea spells because of this medicine and other medicines you were given. The spells may last longer than usual. At home: ??? Keep using the continuous positive airway pressure (CPAP) device when you sleep. Unless your healthcare provider tells you not to, use it when you sleep, day or night. CPAP is a common device used to treat obstructive sleep apnea. ??? Talk with your provider before taking any pain medicine, muscle relaxants, or sedatives. Your provider will tell you about the possible dangers of taking these medicines. ?? 2494-0516 [employer]. [address] [place] [address]. All rights reserved. This information is not intended as a substitute for professional medical care. Always follow your healthcare professional's instructions. 04/11/2019 13:14:40 outpt d/c instructions (RFADOOL)2 (RFADOOL) (RFADOOL) Outpatient Surgery Discharge Instruction Call the office to follow-up in the office in 2 weeks. Due to medications that you received during surgery, you may feel drowsy for 24- hours. YOU SHOULD NOT: Drive a car, operate machinery or power tools Drink alcohol, including beer Make important decisions Type of Anesthesia that you received during your procedure: general DIET AND FLUIDS Begin with liquids and light foods (soda pop, tea, jello, broth, popsicles). Avoid greasy, fried and spicy foods. If nauseated or vomiting occurs, drink liquids until resolved. If nausea/vomiting persist, notify physician. Increase fluids. Resume your normal diet ___ Special Instructions: DRESSINGS ___ Not indicated. ___Keep dressing clean and dry. ___ Remove dressing , leave steri-strips (tapes) or transparent dressing in place. ___ Rewrap vesta bandage if too loose or too tight. ___ May shower, pat steri-strips dry ___ Ice packs ___ Special Instructions: ACTIVITY __x_ Rest on the day of surgery. For your safety, you should have a responsible adult with you. Youmay be up and about according to your physician instructions. ___ You have received a regional block or local anesthetic and will need to protect the involved area until sensation and movement are normal. ___ Ask your physician when you may return to work and normal activities. ___ Avoid heavy lifting, strenuous activities or pushing and pulling of heavy objects until your physician gives you permission. ___ No weight bearing ___ Weight bearing as tolerated ___ Crutches or walker as needed ___ Elevate affected extremity ___ Special Instructions: COMPLICATIONS TO LOOK FOR Notify physician if you develop: A fever over 101 degrees. Pain not relieved by medication ordered by your physician. Inability to urinate. Excessive bleeding or unexpected wound drainage. Excessive redness or swelling around incision. Tingling or discoloration of surgical extremity. Tightness of cast or dressing. Shortness of breath. Chest pain. Call your doctor if skin rash develops. Call anytime for questions/problems. ADDITIONAL INSTRUCTIONS ___ Smoking Cessation Information & Education Materials Given _x__ No tub baths/hot tubs __x_ No tampons, douching or intercourse until okay'd with physician I have read an understood the above instructions. I will call my doctor for any problems or questions
--- OUTSIDE RECORDS SUMMARY | 2024-12-06 03:46 | XMS_ITS | Encounter Summary ---
Author Organization [facility] Address [address] [place] [address] Care Team Providers Care Automotive Porter Name Role Phone Unavailable Primary Care Provider Unavailabl e Encounter Details Date Type Department Care Team (Late st Contact Info) Description 03/25/2018 Lab Services ALLSCRICatina Rivera NP [address] [place] [address] Social History Tobacco Use Types Packs/Day Years Used Date Smoking Tobacco: Never Assessed Sex and Gender Information Value Date Recorded Sex Assigned at Not on file Gender Identity Not on file Sexual Orientation Not on file documented as of this encounter Plan of Treatment Not on file documented as of this encounter Procedures Procedure Name Priority Date/Time Associated Diagnosis Comments POCT RAPID STREP A Routine 03/25/2018 2: 55 PM CDT documented in this encounter Results * POCT Rapid Strep A, In-Office (03/25/2018 2:55 PM CDT) RAPID STREP GROUP A Positive IN OFFICE 03/25/2018 2:55 PM CDT 03/25/2018 2:55 PM CDT Narrative IN OFFICE - 03/25/2018 2:55 PM CDT Performed At: In Office Catina Monahan NP POINT OF CARE TEST O RDERABLES IN OFFICE documented in this encounter Visit Diagnoses Not on filedocumented in this encounter
--- OUTSIDE RECORDS SUMMARY | 2024-12-06 03:46 | XMS_ITS | Clinical Summary ---
Author Organization [facility] Address Unknown Care Team Providers Care Network Engineer Administrator Name Role Phone Unavailable Primary Care Physician [...] Component Value Range Date A. Stomach, Body [id number] 03/29/2024 12:00 pm PDT B. Stomach, Antrum/Body [id number] 03/02 12:00 pm PDT Clinical History: Patient History Of: Other-Abdominal Pain, Generalized,Altered bowel habits,Ulcers in the antrum. (Biopsy),Erythema and few erosions in the antrum compatible with gastritis. (Biopsy),Moderate diverticulosis of the Sigmoid colon and descending colon,Grade/Stage I internal and external hemorrhoids; 03/29/2024 12:00 pm PDT Electronically Signed Electronically sig carmella by :Dr. Haja Coffey on :04/12/2024 10:43:35 03/29/2024 12:00 pm PDT PDF Report [id number] 03/29/2024 12:0 0 pm PDT Rule Outs: B) H.Pylori 03/29/2024 12:0 0 pm PDT Encounters Encounter Performer Performer Role Encounter Diagnoses Location Date First Visit [id number] - Moe, Jared Lower abdominal pain, unspecified [facility] ([place]) 03/24/20 03:45 pm PDT EGD-Colonoscopy [id number] - Moe Jared Chronic gastric ulcer without hemorrhage or perforation Altered bowel habits Abdominal Pain, Generalized First degree hemorrhoids Other diseases of stomach and duodenum Diverticulosis of large intestine without perforation or abs [facility] 03/29/20 11:30 am PDT Follow Up [id number] - Moe, Jared [id number] - Khadijah, Annia Hypokalemia Erosive esophagitis [facility] ([place]) 05/19/20 02:00 pm PDT Follow Up [id number] - Moe, Jared Diarrhea [facility] 04/12/20 03:00 pm PDT Follow Up [id number] - Moe, Jared [facility] ([place]) 09/15/20 02:30 pm PDT Ambulatory Encounter [id number] - Moe, Jared [facility] ([place]) 09/15/20 03:28 pm PDT Follow Up [id number] - Moe Jared Hemorrhoids, external Anal pain [facility] 11/02/20 09:00 am PST Follow Up [id number] - Khadijah, Annia [id number] - Moe, Jared [facility] ([place]) 11/17/20 02:55 pm PST Chief Complaint Loose [...] saturation % 11/17/2024 03: 09 pm PST [id number] mmHg 11/17/2024 03:09 pm PST Height 64 in 11/17/2024 03:03 pm PST Weight 220 lbs 11/17/2024 03:03 pm PST BMI (Body Mass Index) kg/m2 11/17/2024 03:03 pm PST BP Systolic 137 mm[hg] 11/17/2024 03:09 pm PST BP Diastolic 69 mm[hg] 11/17/2024 03:09 pm PST Insurances Policy / Member / Group Numbers Plan Details Company Policy Leon [id number] / / Plan Type:Medicare Coverage Type:Primary MEDICARE B Basilia Sanchez [id number] / / Plan Type:Commercial, other Coverage Type:Secondary [employer] Basilia Sanchez
--- OUTSIDE RECORDS SUMMARY | 2024-12-06 03:46 | XMS_ITS | Clinical Summary ---
Author Organization [facility] Address Unknown Care Team Providers Care Technology Analyst Name Role Phone Dimas Wolfe MD Primary Care Physician [phone] Allergies, Adverse Reactions, Alerts Substance Reaction [...] Component Value Range Date A. Stomach, Body [id number] 03/29/2024 12:00 pm PDT B. Stomach, Antrum/Body [id number] 03/02 12:00 pm PDT Clinical History: Patient History Of: Other-Abdominal Pain, Generalized,Altered bowel habits,Ulcers in the antrum. (Biopsy),Erythema and few erosions in the antrum compatible with gastritis. (Biopsy),Moderate diverticulosis of the Sigmoid colon and descending colon,Grade/Stage I internal and external hemorrhoids; 03/29/2024 12:00 pm PDT Electronically Signed Electronically sig carmella by :Dr. Haja Coffey on :04/12/2024 10:43:35 03/29/2024 12:00 pm PDT PDF Report [id number] 03/29/2024 12:0 0 pm PDT Rule Outs: B) H.Pylori 03/29/2024 12:0 0 pm PDT Encounters Encounter Performer Performer Role Encounter Diagnoses Location Date First Visit [id number] - Moe, Jared Lower abdominal pain, unspecified [facility] ([place]) 03/24/20 03:45 pm PDT EGD-Colonoscopy [id number] - Moe, Jared Chronic gastric ulcer without hemorrhage or perforation Altered bowel habits Abdominal Pain, Generalized First degree hemorrhoids Other diseases of stomach and duodenum Diverticulosis of large intestine without perforation or abs [facility] 03/29/20 11:30 am PDT Follow Up [id number] - Moe, Jared [id number] - Khadijah, Annia Hypokalemia Erosive esophagitis [facility] ([place]) 05/19/20 02:00 pm PDT Follow Up [id number] - Moe, Jared Diarrhea [facility] 04/12/20 03:00 pm PDT Follow Up [id number] - Moe, Jared [facility] ([place]) 09/15/20 02:30 pm PDT Ambulatory Encounter [id number] - Moe, Jared [facility] ([place]) 09/15/20 03:28 pm PDT Follow Up [id number] - Moe, Jared Hemorrhoids, external Anal pain [facility] 11/02/20 09:00 am PST Follow Up [id number] - Khadijah, Annia [id number] - Moe, Jared [facility] ([place]) 11/17/20 02:55 pm PST Immunizations Vaccine Date [...] saturation % 11/17/2024 03: 09 pm PST FIRH2Oxvyh mmHg 11/17/2024 03:09 pm PST Height 64 in 11/17/2024 03:03 pm PST Weight 220 lbs 11/17/2024 03:03 pm PST BMI (Body Mass Index) kg/m2 11/17/2024 03:03 pm PST BP Systolic 137 mm[hg] 11/17/2024 03:09 pm PST BP Diastolic 69 mm[hg] 11/17/2024 03:09 pm PST Insurances Policy / Member / Group Numbers Plan Details Company Policy Leon [id number] / / Plan Type:Medicare Coverage Type:Primary MEDICARE B Basilia Sanchez [id number] / / Plan Type:Commercial, other Coverage Type:Secondary [employer] BRANDY Sanchez
--- OUTSIDE RECORDS SUMMARY | 2024-12-06 03:47 | XMS_ITS | Referral Summary ---
Author Organization [address] Address [address] [place] [address] Care Team Providers Care Director Radio News Name Role Phone No, Physician Primary Care Provider [phone] Encounters Date Type Department Care Team Description 11/26/[address] [facility] at [address] [place] [phone] Abbie Shaffer [place] 11/24/2024 1:21 PM DEPLOYMENT TECHNICIAN - 11/24/2024 11:59 PM DEPLOYMENT TECHNICIAN [place] [address] UTI symptoms Discharge Disposition: Discharge to home or self care 11/24/2024 1:15 PM DEPLOYMENT TECHNICIAN Office Visit [facility] Medical [facility] at [place] [address] [place] [place] [address] Kadi Lambert NP UTI symptoms (Primary Dx) from Last 3 Months Allergies Active Allergy Reactions Criticality Noted Date Comments Baclofen Unknown,Other (See comments) Low 023 Unknown Cefaclor Anaphylaxis,Shortnes s of breath,Swelling High 08/01/2014 Clindamycin Rash Medium 11/24/2024 Hydrocodone-Guaifenesin Anaphylaxis High 02/24/2015 Omeprazole Anaphylaxis High 11/24/2024 Pantoprazole Rash Medium 11/24/2024 Proton Pump Inhibitors Rash Medium 11/24/2024 Medications ASPIRIN ORAL Take 81 mg by mouth Active cholecalcifero l (VITAMIN D-3) 5,000 unit tablet Take 1 tablet (5,000 Units total) by mouth daily Active meclizine (ANTIVERT) 12.5 mg tablet Take 1 tablet (12.5 mg total) by mouth Active pqbfxag-CAPW-f dj-nnlzx-lbte- lm 0.97-99-913-20 0 mg capsule nightly as needed Active rosuvastatin (CRESTOR) 20 mg tablet Take 1 tablet (20 mg total) by mouth daily 09/18/20 23 Active clopidogreL (PLAVIX) 75 mg tablet Take 1 tablet (75 mg total) by mouth daily 10/05/20 24 Active metoprolol succinate (KAPSPARGO) 25 mg capsule,sprink le,ER 24hr extended release capsule Take 25 mg by mouth 10/06/20 24 Active phenazopyridin e (Pyridium) 200 mg tabletIndicati ons:UTI symptoms Take 1 tablet (200 mg total) by mouth 3 (three) times a day as needed for bladder spasms Take 1 Tab with meals every 8 hours x2 days 9 tablet 11/24/20 24 Active phenazopyridin e (Pyridium) 200 mg tablet Take 1 tablet (200 mg total) by mouth 3 (three) times a day as needed for bladder spasms Take 1 Tab with meals every 8 hours x2 days 9 tablet 11/24/20 24 024 Discontinued sulfamethoxazo le-trimethopri m (Bactrim DS) 800-160 mg per tablet Take 1 tablet (160 mg of trimethoprim total) by mouth 2 (two) times a day for 7 days 14 tablet 11/26/20 24 025 Active Problems No known active problems Social History Tobacco Use Types Packs/Day Years Used Date Smoking Tobacco: Never Smokeless Tobacco: Never Comments Unknown Sex and Gender Information Value Date Recorded Sex Assigned at Not on file Legal Sex Female 2:21 PM DEPLOYMENT TECHNICIAN Gender Identity Not on file Sexual Orientation Not on file Last Filed Vital Signs Vital Sign Reading Time Taken Comments Blood Pressure 140/90 11/24/2024 1:18 PM DEPLOYMENT TECHNICIAN Pulse 78 11/24/2024 1:18 PM DEPLOYMENT TECHNICIAN Temperature 36.6 ??C (97.9 ??F) 11/24/2024 1:18 PM CS T Respiratory Rate 19 11/24/2024 1:18 PM DEPLOYMENT TECHNICIAN Oxygen Saturation 98% 11/24/2024 1:18 PM DEPLOYMENT TECHNICIAN Inhaled Oxygen Concentration - - Weight 99.3 kg (219 lb) 11/24/2024 1:18 PM DEPLOYMENT TECHNICIAN Height 160 cm (5' 3 ) 11/24/2024 1:18 PM DEPLOYMENT TECHNICIAN Body Mass Index 38.79 11/24/2024 1:18 PM DEPLOYMENT TECHNICIAN Plan of Treatment Not on file Procedures Procedure Name Priority Date/Time Associated Diagnosis Comments URINE CULTURE Routine 11/24/2024 4:36 PM DEPLOYMENT TECHNICIAN UTI symptoms POCT URINALYSIS DIPSTICK Routine 11/24/2024 1:32 PM DEPLOYMENT TECHNICIAN UTI symptoms from Last 3 Months Results * (ABNORMAL) Urine culture Urine, clean voided (11/24/2024 4:36 PM DEPLOYMENT TECHNICIAN) Report Final Report: Greater than or equal to 100,000 colonies/mL of Escherichia coli (.) Comment:Testing performed by : [facility] [place], [address] [place] [address] Organism [facility] Urine, clean voided 11/24/2024 4:36 PM DEPLOYMENT TECHNICIAN 11/24/2024 8:57 PM DEPLOYMENT TECHNICIAN Narrative KEY[facility] - 11/26/2024 3:49 PM DEPLOYMENT TECHNICIAN Testing performed by [facility] [place] [facility] ([phone]) Organism Antibiotic Method Susceptibility Escherichia coli Ampicillin INTERPRETATION Resistant Escherichia coli Cefazolin INTERPRETATION Susceptible Escherichia coli Nitrofurantoin INTERPRETATION Susceptible Escherichia coli Gentamicin INTERPRETATION Resistant Escherichia coli Trimethoprim with Sulfamethoxazole IN TERPRETATION Susceptible Escherichia coli Meropenem INTERPRETATION Susceptible Escherichia coli Cefepime INTERPRETATION Susceptible Escherichia coli Ciprofloxacin INTERPRETATION Resistant Escherichia coli Ceftazidime INTERPRETATION Susceptible Escherichia coli Ceftriaxone INTERPRETATION Susceptible Escherichia coli Piperacillin/Tazobactam INTERPRETATIO N Susceptible Escherichia coli Cephalexin INTERPRETATION Susceptible Escherichia coli Cefuroxime-axetil INTERPRETATION Susceptible Escherichia coli Cefdinir INTERPRETATION Susceptible us Kadi Lambert NP LAB MICROBIOLOGY - GENERAL ORD ERABLES Final Result [facility] [address] [place] [address] * (ABNORMAL) POCT urinalysis dipstick (11/24/2024 1:32 PM DEPLOYMENT TECHNICIAN) Color, Urine, POC Dark Yellow Clarity, ur, POC Clear Clear Glucose, ur, POC Negative Negative MG/DL Bilirubin, ur, POC Negative Negative, Small, Moderate, Large Ketones, ur, POC Negative Negative Specific Christine, POC 1.015 1.003 - 1.030 Blood, ur, POC Moderate(A) Negative pH, ur, POC 5.5 5.0 - 8.0 Protein, ur, POC Negative Negative Urobilinogen, urine, POC 0.2 0.2 - 1.0 mg/dL Nitrite, ur, POC Negative Negative Leukocytes, ur, POC Small(A) Negative Lot Number [id number] Urine 11/24/2024 1:32 PM DEPLOYMENT TECHNICIAN Kadi Lambert MANAGER OF APPLICATIONS DEVELOPMENT POINT OF CARE TEST ORDERABLES Final Result from Last 3 Months Insurance MEDICARE [facility] [place] Care Teams Director Radio News Relationship Specialty Start Date End Date No, Physician PCP - General 11/30/23
--- OUTSIDE RECORDS SUMMARY | 2024-12-06 03:47 | XMS_ITS | Encounter Summary ---
Author Organization [facility] Address [address] [place] [address] Care Team Providers Care Television Producer Name Role Phone None, Provider Pt States Primary Care Provider U navailable Encounter Details Date Type Department Care Team (Late st Contact Info) Description 04/02/2024 Documentation GENERIC EXTERNAL DATA DEPARTMENT [address] [place] [address] Unknown, Provider [address] [place] [address] Social History Tobacco Use Types Packs/Day Years Used Date Smoking Tobacco: Never Assessed Sex and Gender Information Value Date Recorded Sex Assigned at Female 04/03/2024 7:04 PM MST Gender Identity Female 04/03/2024 7:04 PM MST Sexual Orientation Straight 04/03/2024 7: 04 PM MST documented as of this encounter Plan of Treatment Not on file documented as of this encounter Procedures Procedure Name Priority Date/Time Associated Diagnosis Comments COVID-19 EXTERNAL RESULT 03/20/2024 10:12 PM MST documented in this encounter Results * COVID-19 External Result (03/20/2024 10:12 PM MST) Provider Unknown LAB BLOOD ORDERABLES [employer] [place] documented in this encounter Visit Diagnoses Not on filedocumented in this encounter Additional Health Concerns Infection Onset Date Last Indicated Resolved Time Extended Spectrum Beta-Lactamase 04/02/2024 04/02/20 24 documented as of this encounter Care Teams Television Producer Relationship Specialty Start Date End Date None, Provider Pt States [address] [place], [place] [address] PCP - General 04/02/24 documented as of this encounter
--- OUTSIDE RECORDS SUMMARY | 2024-12-06 03:47 | XMS_ITS | Encounter Summary ---
Author Organization [facility] Healthcare Address [address] [place] [address] Care Team Providers Care It Support Manager Name Role Phone No, Physician Primary Care Provider [phone] Encounter Details Date Type Department Care Team (Late st Contact Info) Description 11/26/2024 Telephone [facility] Medical Group [facility] Care at [address] [place] [phone] Abbie Shaffer MA Social History Tobacco Use Types Packs/Day Years Used Date Smoking Tobacco: Never Smokeless Tobacco: Never Comments Unknown Sex and Gender Information Value Date Recorded Sex Assigned at Not on file Legal Sex Female 2:21 PM DANCE ARTIST Gender Identity Not on file Sexual Orientation Not on file documented as of this encounter Miscellaneous Notes * Telephone Encounter - Abbie Shaffer MA - 11/26/2024 3:59 PM CST Spoke with the patient regarding results and recommendations. She states understanding and has no further questions at this time. E ARTIST * Telephone Encounter - Abbie Shaffer MA - 11/26/2024 3:59 PM CST ----- Message from Roberta Choudhury NP sent at 11/26/2024 3:51 PM DANCE ARTIST ----- Please call patient and let her know that urine culture was positive for infection. I ordered her Bactrim to the pharmacy listed in her chart. Follow up with PCP if symptoms persist or worsen. E ARTIST documented in this encounter Plan of Treatment Not on file documented as of this encounter Visit Diagnoses Not on filedocumented in this encounter Care Teams It Support Manager Relationship Specialty Start Date End Date No, Physician PCP - General 11/30/23 documented as of this encounter
--- OUTSIDE RECORDS SUMMARY | 2024-12-06 03:47 | XMS_ITS | Encounter Summary ---
Author Organization [facility] Address [address] [place] [address] Care Team Providers Care Casino Change Attendant Name Role Phone None, Provider Pt States Primary Care Provider U navailable Encounter Details Date Type Department Care Team (Latest Contact Info) Description 04/02/2024 Travel Social History Tobacco Use Types Packs/Day Years [...] on filedocumented in this encounter Care Teams Casino Change Attendant Relationship Specialty Start Date End Date None, Provider Pt States [address] [place] [address] PCP - General 04/02/24 documented as of this encounter
--- OUTSIDE RECORDS SUMMARY | 2024-12-06 03:47 | XMS_ITS | Encounter Summary ---
Author Organization [facility] Address [address] [place] [address] Care Team Providers Care Director Decision Support Name Role Phone None, Provider Pt States Primary Care Provider U navailable Reason for Visit * Reason Onset Date Comments Results 04/04/2024 Urine culture re sult Encounter Details Date Type Department Care Team (Late st Contact Info) Description 04/04/2024 Telephone [facility] [address] [place] [address] Sofy García, PharmD [phone] (Work) Results (Urine culture result) Social History Tobacco Use Types Packs/Day Years Used Date Smoking Tobacco: Never Assessed Sex and Gender Information Value Date Recorded Sex Assigned at Female 04/03/2024 7:04 PM [facility] Gender Identity Female 04/03/2024 7:04 PM [facility] Sexual Orientation Straight 04/03/2024 7: 04 PM MST documented as of this encounter Miscellaneous Notes * Telephone Encounter - Sofy García PharmD - 04/04/2024 1:27 PM [facility] Positive culture, symptoms, discharged on augmentin (cannot take capsules due to difficulty swallowing). In vitro susceptibility per susceptibility report. Discussed with patient, she has no symptomson augmentin - since patient is achieving clinical resolution with augmentin, will complete course.Discussed with patient the recommendations and course of action if symptoms return. Discussed with ED provider, no further follow up. documented in this encounter Plan of Treatment Not on file documented as of this encounter Visit Diagnoses Not on filedocumented in this encounter Additional Health Concerns Infection Onset Date Last Indicated Resolved Time Extended Spectrum Beta-Lactamase 04/02/2024 04/02/20 documented as of this encounter Care Teams Director Decision Support Relationship Specialty Start Date End Date None, Provider Pt States [address] [place], [place] [address] PCP - General 04/02/24 documented as of this encounter
--- OUTSIDE RECORDS SUMMARY | 2024-12-06 03:47 | XMS_ITS | Encounter Summary ---
Author Organization [facility] Address [address] [place] [address] Care Team Providers Care Blueprint Processor Name Role Phone None, Provider Pt States Primary Care Provider U navailable Reason for Visit * Reason Comments Evaluation For Urinary Tract Symptoms St ates she recently had a UTI and had to stop taking abx due to stomach issues. Symptoms of UTI started yesterday with frequency and burning. Encounter Details Date Type Department Care Team (Late st Contact Info) Description 04/02/2024 2:39 PM [facility] - 04/02/2024 8:00 PM [facility] Emergency [facility] - [facility] [address] [place] [address] Wendy Diaz NP [address] [place] [address] UTI (urinary tract infection), uncomplicated (Primary Dx) Discharge Disposition: Home or Self Care Social History Tobacco Use Types Packs/Day Years Used Date Smoking Tobacco: Never Assessed Sex and Gender Information Value Date Recorded Sex Assigned at Female 04/03/2024 7:04 PM [facility] Gender Identity Female 04/03/2024 7:04 PM [facility] Sexual Orientation Straight 04/03/2024 7: 04 PM [facility] documented as of this encounter Last Filed Vital Signs Vital Sign Reading Time Taken Comments Blood Pressure 160/95 04/02/2024 2:37 PM MST Pulse 93 04/02/2024 2:37 PM MST Temperature 36.4 ??C (97.5 ??F) 04/02/2024 2:37 PM MS T Respiratory Rate 16 04/02/2024 2:37 PM MST Oxygen Saturation 98% 04/02/2024 2:37 PM MST Inhaled Oxygen Concentration - - Weight - - Height - - Body Mass Index - - documented in this encounter Discharge Instructions * Attachments The following attachments cannot be sent through Care Everywhere. * UTI (Urinary Tract Infection): Female (Montserratian) documented in this encounter ED Notes * Wendy Diaz NP - 04/02/2024 4:54 PM MST Images from the original note were not included. TRANSFER OF CARE NOTE: Patient endorsed to me by Kaleigh Weir NP at shift change pending radiology results. Pleaserefer to initial history and physical exam. In summary, the patient presents with persistent UTI symptoms that started yesterday. She reports recent antibiotics usage which she had to discontinue use. The note was reviewed by me. The current assessment, history and observation period, and plan has been explained to me. 4:42 PM Patient re-evaluated by me at bedside. 7:[address] scan was reviewed by me which shows no life threatening pathology. On reevaluation, the patient is resting comfortably and is eager to be discharged home. The patientwas updated on results, pending urine culture. The patient was being treated for a UTI with Macrobid and was unable to take the antibiotic course to completion due to colonoscopy and endoscopy procedures. Of note, the findings from these procedures were 4 ulcers. She is still having UTI symptoms and would like to be treated. Urinalysis shows leukocytes and blood. While there are no nitrites, I believe this is likely due to an E coli. However cultures still pending. Unable to order a cephalosporin, as she is allergic to Ceclor. I thought about Bactrim, but this does not have good E coli coverage. I considered a fluoroquinolone, however there is risk with that. I opted to do Augmentin as thishas E coli coverage as well as Klebsiella. Patient reports that she has tolerated penicillins in the past. I recommended that she follow up with her primary care doctor on Thursday and to return if symptoms persist. Physical Exam Constitutional: General: She is awake. Appearance: Normal appearance. She is obese. HENT: Head: Normocephalic. Right Ear: External ear normal. Left Ear: External ear normal. Nose: Nose normal. Mouth/Throat: Mouth: Mucous membranes are moist. Eyes: Extraocular Movements: Extraocular movements intact. Conjunctiva/sclera: Conjunctivae normal. Pupils: Pupils are equal, round, and reactive to light. Cardiovascular: Rate and Rhythm: Normal rate and regular rhythm. Heart sounds: S1 normal and S2 normal. Pulmonary: Effort: Pulmonary effort is normal. No respiratory distress. Breath sounds: Normal breath sounds. No stridor. No wheezing, rhonchi or rales. Abdominal: General: Bowel sounds are normal. Palpations: Abdomen is soft. Tenderness: There is no abdominal tenderness. There is no right CVA tenderness, left CVA tenderness, guarding or rebound. Musculoskeletal: Cervical back: Normal range of motion and neck supple. Skin: General: Skin is warm and dry. Capillary Refill: Capillary refill takes less than 2 seconds. Neurological: Mental Status: She is alert and oriented to person, place, and time. GCS: GCS eye subscore is 4. GCS verbal subscore is 5. GCS motor subscore is 6. Gait: Gait is intact. Psychiatric: Behavior: Behavior is cooperative. Cognition and Memory: Cognition normal. 7:50 PM Discharge plans discussed with patient. All questions were answered to the best of my ability. The patient verbalize understanding of outpatient management. The patient was also advised that althoughno further investigations or interventions are warranted at this time, worsening symptoms or different symptoms should not be ignored. If the patient is not improving as expected, the patient is advised to return to the ED promptly for re-evaluation. I do not believe that the patient has an acute emergency medical concern requiring emergent management at this time. The patient is currently stablefor further outpatient treatment and continuation of care, if needed. Radiology reports independently reviewed and are as follows: CT Abdomen Pelvis W Contrast Final Result IMPRESSION: 1. No apparent explanation for the patient's symptoms. 2. Diverticulosis without evidence of diverticulitis. 3. Cholecystectomy. 4. Probable mild fatty infiltration of the liver. 5. Small hiatal hernia. ANTHONY BAHENA MD 04/02/2024 7:24 PM Laboratory results independently reviewed and are as follows: Labs Reviewed POCT URINALYSIS - Abnormal Result Value POC Glucose, Urine Negative POC Bilirubin Urine Negative POC Ketones, Urine Negative POC Specific [place], Urine 1.010 POC Blood, Urine Moderate (*) POC pH, Urine 6.0 POC Protein, Urine Negative POC Urobilinogen, Urine 0.2 POC Nitrite, Urine Negative POC Leukocytes, Urine Small (*) POC Color Yellow POC Clarity Clear POCT TEST RESULT - Abnormal POC Sodium 142 POC Potassium 3.3 (*) POC Chloride 103 POC TCO2 25.2 POC Ionized Calcium 1.22 POC Glucose 100 POC Anion Gap 10.7 Sample NUNU POCT LIVER FUNCTION PANEL - Abnormal POC ALT 34 POC Albumin 4.0 POC Alkaline Phosphatase 100 POC Amylase 32 POC AST 40 (*) POC Gamma GT 87 (*) POC Total Bilirubin 0.8 POC Total Protein 7.0 POCT CR - Normal POC Creatinine 0.8 CULTURE URINE CBC WITH DIFFERENTIAL WBC 5.8 RBC 4.60 Hemoglobin 13.3 Hematocrit 40.9 MCV 88.9 MCH 28.9 MCHC 32.5 RDW-CV 13.2 RDW-SD 43.8 Platelets 232 MPV 9.8 Neutrophils 61 Lymphs 21 Monocytes 14 Eosinophils 3 Basophils 0 Immature Grans 0 Neutrophils Absolute 3.53 Lymphocytes Absolute 1.22 Monocytes Absolute 0.79 Eosinophils Absolute 0.19 Basophils Absolute <0.05 Immature Grans Absolute 0.01 Medications ordered in ED as follows: Medications sodium chloride 0.9 % BOLUS 1,000 mL (1,000 mLs Intravenous New Bag 04/02/24 1617) iopamidol (ISOVUE-370) 76 % injection 75 mL (75 mLs Intravenous Given 04/02/24 1653) ED Vitals Date/Time Temp Pulse Resp BP SpO2 Weight [facility] 04/02/24 1437 97.5 ??F (36.4 ??C) 93 16 160/95 98 % -- BJN Diagnosis: Diagnosis Diagnosis Comment Added By Time Added UTI (urinary tract infection), uncomplicated [N39.0] Wendy Diaz NP 04/02/2024 7:47 PM Disposition: Discharged Home in Stable Condition Discharge Medications: Medications Prescribed this Visit Disp Refills Start End amoxicillin-clavulanate (AUGMENTIN) 500-125 mg per tablet 10 tablet 0 04/02/2024 04/07/2024 Take 1 tablet by mouth 2 (two) times daily for 5 days. - Oral Follow Up: [facility] - [place] [address] [facility] [address] If symptoms worsen Wendy Diaz NP [facility] Documentation assistance provided for Wendy Diaz NP by genet Sweet. Information recorded by the scribe was done at my direction and has been reviewed and validated by me. Wendy Diaz NP 04/02/242019 * ROMY RosePresident And Chief Operating Officer - 04/02/2024 3:07 PM MST Software Installation Engineer explained to the patient that this visit would be an emergency department visit and billed as such due to the workup the patient will be receiving. Software Installation Engineer explained the workup and plan of care. Patient verbalized understanding and has no further questions. * Kaleigh Weir NP - 04/02/2024 2:41 PM MST ED PROVIDER NOTE Date of Service: 04/02/2024 Time Seen: 1441 Provider: Kaleigh Weir NP CHIEF COMPLAINT Chief Complaint Patient presents with Evaluation For Urinary Tract Symptoms States she recently had a UTI and had to stop taking abx due to stomach issues. Symptoms of UTI started yesterday with frequency and burning. HISTORY OF PRESENT ILLNESS Old records reviewed: The patient was last treated at [facility] in the ED on 05/22/23 for lower extremity edema. This is a 73 y.o. female who presents to the emergency department with chief complaint of UTI symptoms onset yesterday. Patient explains she was diagnosed with a UTI recently and was taking the antibiotics as prescribed. However, she had to stop them after getting four stomach ulcers. She states she does not believe the antibiotics worked and endorses symptoms of dysuria, frequency and intermittent flank pain. The patient denies any back pain, hematuria, fever, sore throat, cough, nausea, vomiting, diarrhea,abdominal pain, shortness of breath, or chest pain. The patient has no other symptom complaints at this time. Primary Care Physician: Provider Pt States None PAST MEDICAL HISTORY No past medical history on file. PAST FAMILY HISTORY History reviewed. No pertinent family history. PAST SURGICAL HISTORY No past surgical history on file. SOCIAL HISTORY MEDICATIONS Prior to Admission medications Not on File ALLERGIES Allergies Allergen Reactions Vicodin Tuss [Cleartuss Dh] Anaphylaxis Ceclor [Cefaclor] Swelling Omeprazole Itching REVIEW OF SYSTEMS A 10 point review of systems was performed. All review of systems are negative, except for those listed above in the HPI. PHYSICAL EXAM ED Triage Vitals [04/02/24 1437] Temp 97.5 ??F (36.4 ??C) Heart Rate (!) 93 Resp 16 BP (!) 160/95 SpO2 98 % Physical Exam Constitutional: The patient appears well-developed and well-nourished. HENT: Nose normal. Mucous membranes are moist. TM intact bilaterally. No mastoid pain. Posterior oropharynx Is clear. Uvula midline. No tonsillar swelling noted. Eyes: Conjunctivae and EOM are normal. Neck: Normal range of motion. No cervical lymphadenopathy. Cardiovascular: Regular rate, regular rhythm and normal heart sounds. Pulmonary/Chest: Effort normal and breath sounds normal. No stridor. No respiratory distress. No wheezes. Chest is non-tender. Abdominal: Soft. Bowel sounds are normal. Non-distended. There is no tenderness. There is no rebound and no guarding. No CVA tenderness. Musculoskeletal: Normal range of motion. Neurological: The patient is alert. Skin: Skin is warm and dry. Nursing note and vitals reviewed. DIAGNOSTIC INVESTIGATIONS Radiology Studies: CT Abdomen Pelvis W Contrast (Results Pending) Radiology reports interpreted by radiologist, reviewed. Laboratory Studies: Results for orders placed or performed during the hospital encounter of 04/02/24 CBC with Differential (ED) Result Value Ref Range WBC 5.8 4.0 - 10.9 10??/uL RBC 4.60 3.50 - 5.40 10??6/uL Hemoglobin 13.3 12.0 - 16.0 g/dL Hematocrit 40.9 36.0 - 48.0 % MCV 88.9 80.0 - 98.0 fL MCH 28.9 27.0 - 34.0 PG MCHC 32.5 31.0 - 37.0 g/dL RDW-CV 13.2 11.5 - 14.5 % RDW-SD 43.8 36.4 - 46.3 fL Platelets 232 130 - 450 10??3/uL MPV 9.8 7.4 - 12.4 fL Neutrophils 61 % Lymphs 21 % Monocytes 14 % Eosinophils 3 % Basophils 0 % Immature Grans 0 % Neutrophils Absolute 3.53 1.48 - 8.32 10??/uL Lymphocytes Absolute 1.22 0.90 - 3.50 10??/uL Monocytes Absolute 0.79 0.26 - 0.80 10??/uL Eosinophils Absolute 0.19 0.00 - 0.62 10??/uL Basophils Absolute <0.05 0.00 - 0.10 10??/uL Immature Grans Absolute 0.01 0.00 - 0.10 10??/uL POCT Urinalysis Result Value Ref Range POC Glucose, Urine Negative Negative POC Bilirubin Urine Negative Negative POC Ketones, Urine Negative Negative mg/dL POC Specific [place], Urine 1.010 POC Blood, Urine Moderate (A) Negative POC pH, Urine 6.0 POC Protein, Urine Negative Negative mg/dL POC Urobilinogen, Urine 0.2 <=0.2 E.U./dL POC Nitrite, Urine Negative Negative POC Leukocytes, Urine Small (A) Negative POC Color Yellow POC Clarity Clear POCT Test Result Result Value Ref Range POC Sodium 142 138 - 146 mmol/L POC Potassium 3.3 (L) 3.5 - 4.9 mmol/L POC Chloride 103 98 - 109 mmol/L POC TCO2 25.2 24.0 - 29.0 mmol/L POC Ionized Calcium 1.22 1.12 - 1.32 mmol/L POC Glucose 100 70 - 130 mg/dL POC Anion Gap 10.7 10 - 20 Sample NUNU POCT CR Result Value Ref Range POC Creatinine 0.8 0.6 - 1.3 mg/dL POCT Liver Function Panel Result Value Ref Range POC ALT 34 10 - 47 U/L POC Albumin 4.0 3.3 - 5.5 g/dL POC Alkaline Phosphatase 100 42 - 141 U/L POC Amylase 32 14 - 97 U/L POC AST 40 (H) 11 - 38 U/L POC Gamma GT 87 (H) 5 - 65 U/L POC Total Bilirubin 0.8 0.2 - 1.6 mg/dL POC Total Protein 7.0 6.4 - 8.1 g/dL Labs were ordered, reviewed, and interpreted. Pulse Oxygenation: Pulse oximetry is 98% on room air which is interpreted as normal. ASSESSMENT AND PLAN Clinical Course and Critical Thinking: Basilia Sanchez is a 73 y.o. female who presents with dysuria. Patient's UA not consistent with obvious UTI. Work up completed for kidney stone, pyelonephritis, and cystitis among others. Patient's lab work is unremarkable at this time. Pending CT scan results. Patient was handed off to Dayanara Diaz NP who will monitor for final disposition. Timeline: 1441 Initiated care, patient seen and evaluated at bedside. Discussed treatment and evaluation options with patient who verbalized understanding. Shared decision making due to the fact she's had multiple CT's she would like to forgo a full workup until we get the UA results. ED Course as of 04/02/24 1647 Sat April 02, 2024 1627 POCT Liver Function Panel(!) [MF] 1627 POCT Test Result(!) [MF] 1627 POCT CR [MF] 1627 CBC with Differential (ED) Labs reviewed and are unremarkable for any clinical significance/acute abnormality at this time. [MF] ED Course User Index [MF] Kaleigh Weir NP 1459 Patient's UA shows a moderate amount of hematuria. Patient updated on results. She is agreeable with a CT scan but declines any pain medication. Case was reviewed and discussed with , ED attending, who agrees with management and treatment plan. 1642 Patient care endorsed out to Dayanara Diaz NP at shift change pending CT scan. Please refer to their note for further details including final disposition. Interventions: Medications sodium chloride 0.9 % BOLUS 1,000 mL (1,000 mLs Intravenous New Bag 04/02/24 1617) Repeat Vitals: Vitals: 04/02/24 1437 BP: (!) 160/95 Pulse: (!) 93 Resp: 16 Temp: 97.5 ??F (36.4 ??C) TempSrc: Oral SpO2: 98% PROCEDURES None MIPS No MIPS were used because the patient did not meet any of the necessary criteria. CONDITION Stable condition Dr. Velez was the supervising physician for this case and was available for consultation and assistance during the care of this patient. Kaleigh Weir NP [facility] Documentation assistance provided for Kaleigh Weir NP by genet Chakraborty. Information recorded by the scribe was done at my direction and has been reviewed and validated by me. Kaleigh Weir NP 04/02/24 1648 documented in this encounter Plan of Treatment Not on file documented as of this encounter Procedures Procedure Name Priority Date/Time Associated Diagnosis Comments CT ABDOMEN PELVIS W CONTRAST STAT 04/02/2024 4:53 PM MST POCT CR STAT 04/02/2024 4:06 PM MST POCT LIVER FUNCTION PANEL STAT 04/02/2024 4:01 PM MST POCT TEST RESULT STAT 04/02/2024 4:00 PM MST CBC WITH DIFFERENTIAL STAT 04/02/2024 3:58 PM MST CULTURE URINE STAT 04/02/2024 3:10 PM MST POCT URINALYSIS STAT 04/02/2024 2:53 PM MST documented in this encounter Results * CT Abdomen Pelvis W Contrast (04/02/2024 4:53 PM MST) Anatomical Region Laterality Modality Abdomen Computed Tomogra phy 04/02/2024 7:20 PM MST Impressions 04/02/2024 7:24 PM MST IMPRESSION: 1. ??No apparent explanation for the patient's symptoms. 2. ??Diverticulosis without evidence of diverticulitis. 3. ??Cholecystectomy. 4. ??Probable mild fatty infiltration of the liver. 5. ??Small hiatal hernia. ANTHONY BAHENA MD 04/02/2024 7:24 PM Narrative 04/02/2024 7:[address] ABDOMEN AND PELVIS WITH CONTRAST HISTORY: ??Symptoms of urinary tract infection COMPARISON: ??None. TECHNIQUE: ?? Intravenous low osmolar contrast. Coronal and sagittal reformations. Automated exposure control, adjustment of mA and/or kV according to patient size or iterative reconstruction dose optimization techniques were used. FINDINGS: LIVER: Probable mild fatty infiltration of the liver. BILIARY: Cholecystectomy. ??No biliary duct dilatation. PANCREAS: Normal. SPLEEN: Normal. ADRENALS: Normal. URINARY TRACT: Normal. ??Kidneys enhance normally. ??No perinephric soft tissue stranding. ??Bladder is unremarkable. AORTA/VASCULAR: No abdominal aortic aneurysm. LYMPH NODES: No adenopathy. PERITONEUM/ RETROPERITONEUM: Normal. ?? BOWEL: Bowel is negative for obstruction or inflammatory changes. ??Diverticulosis without evidence of diverticulitis. REPRODUCTIVE ORGANS: Normal. LOWER CHEST: Small hiatal hernia. ??Lung bases are clear. BODY WALL: ??Normal. SKELETAL: No acute bony findings. ADDITIONAL FINDINGS: None. Procedure Note Anthony Bahena MD - 04/02/2024 CT ABDOMEN AND PELVIS WITH CONTRAST HISTORY: Symptoms of urinary tract infection COMPARISON: None. TECHNIQUE: Intravenous low osmolar contrast. Coronal and sagittalreformations. Automated exposure control, adjustment of mA and/or kVaccording to patient size or iterative reconstruction dose optimizationtechniques were used. FINDINGS: LIVER: Probable mild fatty infiltration of the liver. BILIARY: Cholecystectomy. No biliary duct dilatation. PANCREAS: Normal. SPLEEN: Normal. ADRENALS: Normal. URINARY TRACT: Normal. Kidneys enhance normally. No perinephric softtissue stranding. Bladder is unremarkable. AORTA/VASCULAR: No abdominal aortic aneurysm. LYMPH NODES: No adenopathy. PERITONEUM/ RETROPERITONEUM: Normal. BOWEL: Bowel is negative for obstruction or inflammatory changes.Diverticulosis without evidence of diverticulitis. REPRODUCTIVE ORGANS: Normal. LOWER CHEST: Small hiatal hernia. Lung bases are clear. BODY WALL: Normal. SKELETAL: No acute bony findings. ADDITIONAL FINDINGS: None. IMPRESSION: 1. No apparent explanation for the patient's symptoms. 2. Diverticulosis without evidence of diverticulitis. 3. Cholecystectomy. 4. Probable mild fatty infiltration of the liver. 5. Small hiatal hernia. ANTHONY BAHENA MD 04/02/2024 7:24 PM Kaleigh Weir NP IMG CT ORDERABLES * POCT CR (04/02/2024 4:06 PM [facility]) [facility] POC Creatinine 0.8 0.6 - 1.3 mg/dL 04/02/2024 4:06 PM [facility] Blood BLOOD SPECIMEN / Unknown 04/02/2024 4:06 PM [facility] 04/02/2024 4:08 PM [facility] Narrative [facility] - 04/02/2024 4:06 PM [facility] Test Performed at: [facility] [address] [place] [address] Dung Enrique M.D. Kaleigh Weir NP POCT ORDERABLES - DEVICE Performing Organization Address City/State/[facility] Co de Phone Number [facility] [address] [employer], [place] [address] [phone] * (ABNORMAL) POCT Liver Function Panel (04/02/2024 4:01 PM [facility]) [facility] POC ALT 34 10 - 47 U/L 04/02/2024 4:01 PM [facility] POC Albumin 4.0 3.3 - 5.5 g/dL 04/02/2024 4:01 PM [facility] POC Alkaline Phosphatase 100 42 - 141 U/L 04/02/2024 4:01 PM [facility] POC Amylase 32 14 - 97 U/L 04/02/2024 4:01 PM [facility] POC AST 40(H) 11 - 38 U/L 04/02/2024 4:01 PM [facility] POC Gamma GT 87(H) 5 - 65 U/L 04/02/2024 4:01 PM [facility] POC Total Bilirubin 0.8 0.2 - 1.6 mg/dL 04/02/2024 4:01 PM [facility] POC Total Protein 7.0 6.4 - 8.1 g/dL 04/02/2024 4:01 PM [facility] Blood BLOOD SPECIMEN / Unknown 04/02/2024 4:01 PM [facility] 04/02/2024 4:16 PM [facility] Narrative [facility] - 04/02/2024 4:01 PM [facility] Test Performed at: [facility] [address] [place] [address] Dung Enrique M.D. Kaleigh Weir NP POCT ORDERABLES - DEVICE [facility] [address] [place], [place] [address] [phone] * (ABNORMAL) POCT Test Result (04/02/2024 4:00 PM [facility]) [facility] POC Sodium 142 138 - 146 mmol/L 04/02/2024 4:00 PM [facility] POC Potassium 3.3(L) 3.5 - 4.9 mmol/L 04/02/2024 4:00 PM [facility] POC Chloride 103 98 - 109 mmol/L 04/02/2024 4:00 PM [facility] POC TCO2 25.2 24.0 - 29.0 mmol/L 04/02/2024 4:00 PM [facility] POC Ionized Calcium 1.22 1.12 - 1.32 mmol/L 04/02/2024 4:00 PM [facility] POC Glucose 100 70 - 130 mg/dL 04/02/2024 4:00 PM [facility] POC Anion Gap 10.7 10 - 20 04/02/2024 4:00 PM [facility] Sample NUNU 04/02/2024 4:00 PM [facility] Blood BLOOD SPECIMEN / Unknown 04/02/2024 4:00 PM [facility] 04/02/2024 4:02 PM [facility] Narrative [facility] - 04/02/2024 4:00 PM [facility] Test Performed at: [facility] [address] [place] [address] Dung Enrique M.D. Kaleigh Weir NP POCT ORDERABLES - DEVICE [facility] [address] [place] [address], [facility] [phone] * CBC with Differential (ED) (04/02/2024 3:58 PM [facility]) WBC 5.8 4.0 - 10.9 10??/uL 04/02/2024 4:03 PM [facility] RBC 4.60 3.50 - 5.40 10? 6 /uL 04/02/2024 4:03 PM [facility] Hemoglobin 13.3 12.0 - 16.0 g/dL 04/02/2024 4:03 PM [facility] Hematocrit 40.9 36.0 - 48.0 % 04/02/2024 4:03 PM [facility] MCV 88.9 80.0 - 98.0 fL 04/02/2024 4:03 PM [facility] MCH 28.9 27.0 - 34.0 PG 04/02/2024 4:03 PM [facility] MCHC 32.5 31.0 - 37.0 g/dL 04/02/2024 4:03 PM [facility] RDW-CV 13.2 11.5 - 14.5 % 04/02/2024 4:03 PM [facility] RDW-SD 43.8 36.4 - 46.3 fL 04/02/2024 4:03 PM [facility] Platelets 232 130 - 450 10? 3 /uL 04/02/2024 4:03 PM [facility] MPV 9.8 7.4 - 12.4 fL 04/02/2024 4:03 PM [facility] Neutrophils 61 % 04/02/2024 4:03 PM [facility] Lymphs 21 % 04/02/2024 4:03 PM [facility] Monocytes 14 % 04/02/2024 4:03 PM [facility] Eosinophils 3 % 04/02/2024 4:03 PM [facility] Basophils 0 % 04/02/2024 4:03 PM [facility] Immature Grans 0 % 04/02/2024 4:03 PM [facility] Neutrophils Absolute 3.53 1.48 - 8.32 10??/uL 04/02/2024 4:03 PM [facility] Lymphocytes Absolute 1.22 0.90 - 3.50 10??/uL 04/02/2024 4:03 PM [facility] Monocytes Absolute 0.79 0.26 - 0.80 10??/uL 04/02/2024 4:03 PM [facility] Eosinophils Absolute 0.19 0.00 - 0.62 10??/uL 04/02/2024 4:03 PM [facility] Basophils Absolute <0.05 0.00 - 0.10 10??/uL 04/02/2024 4:03 PM [facility] Immature Grans Absolute 0.01 0.00 - 0.10 10??/uL 04/02/2024 4:03 PM [facility] Blood BLOOD SPECIMEN / Unknown Line / Unknown 04/02/2024 3:58 PM [facility] 04/02/2024 4:00 PM [facility] Kaleigh Weir NP LAB BLOOD ORDERAB LES [facility] Organization Address City/State/ZIP Co de Phone Number [facility] [address] [place], [place] [address] [phone] * Culture Urine (04/02/2024 3:10 PM [facility]) Culture Urine >100,000 cfu/mL ESBL Escherichia coli LEIDY 04/04/2024 12:34 PM [facility] - [place] Urine URINE SPECIMEN OBTAINED BY CLEAN CATCH PROCEDURE / Unknown Collection / Unknown 04/02/2024 3:10 PM MST 04/02/2024 3:10 PM [facility] Narrative Organism Antibiotic Method Susceptibility ESBL Escherichia coli *Organism ID Completed ESBL Escherichia coli Amikacin LEIDY <=16 ug/mL: Susceptible ESBL Escherichia coli Amoxicillin/Clavulanate LEIDY <=8/4 ug/mL: Susceptible ESBL Escherichia coli Ampicillin LEIDY >16 ug/mL: Resistant ESBL Escherichia coli Ampicillin/Sulbactam LEIDY 16/8 ug/mL: Intermediate ESBL Escherichia coli Cefazolin LEIDY >16 ug/mL: Resistant ESBL Escherichia coli Cefepime LEIDY >16 ug/mL: Resistant ESBL Escherichia coli Ceftriaxone LEIDY >32 ug/mL: Resistant ESBL Escherichia coli Cefuroxime [place]Y >16 ug/mL: Resistant ESBL Escherichia coli Ciprofloxacin LEIDY >2 ug/mL: Resistant ESBL Escherichia coli Ertapenem LEIDY <=0.5 ug/mL: Susceptible ESBL Escherichia coli Gentamicin LEIDY >8 ug/mL: Resistant ESBL Escherichia coli Levofloxacin LEIDY >4 ug/mL: Resistant ESBL Escherichia coli Meropenem LEIDY <=1 ug/mL: Susceptible ESBL Escherichia coli Nitrofurantoin LEIDY <=32 ug/mL: Susceptible ESBL Escherichia coli Tetracycline LEIDY >8 ug/mL: Resistant ESBL Escherichia coli Tobramycin LEIDY >8 ug/mL: Resistant ESBL Escherichia coli Trimethoprim/Sulfa methoxaz ole LEIDY <=0.5/9.5 ug/mL: Susceptible Comment: Susceptibility Interpretation S ??= Susceptible I ??= Intermediate R ??= Resistant MARIELOS= Beta-lactamase positive R* = Predicted resistant interpretation S* = Predicted susceptible interpretation SDD = Susceptible-dose dependent ICR = Inducible Clindamycin Resistant NI = No Interpretations Available NS = Nonsusceptible - No intermediate or resistant categories have been established for the organism/antimicrobial combination. Aminoglycosides should not be used as monotherapy for systemic infections. Consultation with an infectious disease specialist is recommended. Kaleigh Weir NP MICROBIOLOGY - [facility] ORDERABLES [facility] - [facility] [address] [place], [place] [id number] [place] [address] * (ABNORMAL) POCT Urinalysis (04/02/2024 2:53 PM [facility]) [facility] POC Glucose, Urine Negative Negative 04/02/2024 2:53 PM [facility] Bilirubin Urine Negative Negative 04/02/2024 2:53 PM [facility] Ketones, Urine Negative Negative mg/dL 04/02/2024 2:53 PM [facility] Specific [place], Urine 1.010 04/02/2024 2:53 PM [facility] Blood, Urine Moderate(A) Negative 04/02/2024 2:53 PM [facility] pH, Urine 6.0 04/02/2024 2:53 PM [facility] Protein, Urine Negative Negative mg/dL 04/02/2024 2:53 PM [facility] Urobilinogen, Urine 0.2 <=0.2 E.U./dL 04/02/2024 2:53 PM [facility] Nitrite, Urine Negative Negative 04/02/2024 2:53 PM [facility] Leukocytes, Urine Small(A) Negative 04/02/2024 2:53 PM [facility] Color Yellow 04/02/2024 2:53 PM [facility] Clarity Clear 04/02/2024 2:53 PM [facility] Urine 04/02/2024 2:53 PM MST 04/02/2024 2:56 PM [facility] Narrative [facility] - 04/02/2024 2:53 PM [facility] Test Performed at: [facility] [address] [place] [address] Dung Enrique M.D. Kaleigh Weir NP POCT ORDERABLES - DEVICE [facility] [address] [place], [place] [address] [phone] documented in this encounter Visit Diagnoses Diagnosis UTI (urinary tract infection), uncomplicated- Primary Urinary tract infection, site not specified documented in this encounter Administered Medications Inactive Administered Medications - up to 3 most recent administrations Medication Order MAR Action Action Date Dose Rate Site iopamidol (ISOVUE-370) 76 % injection 75 mL 75 mL, Intravenous, Imaging once PRN, Contrast, Starting on 04/02/24 at 1653, For 1 dose, STAT Given 04/02/2024 4:53 PM MST 75 mLs sodium chloride 0.9 % BOLUS 1,000 mL 1,000 mL, Intravenous, Administer over 1 Hours, Once, On 04/02/24 at 1515, For 1 dose, STAT New Bag 04/02/2024 4:17 PM MST 1,000 mLs 1000 mL/ hr documented in this encounter Active and Recently Administered Medications Times are shown in MST. Scheduled Medication Order 03/31/2024 04/01/2024 04/02/2024 sodium chloride 0.9 % BOLUS 1,000 mL (COMPLETED) 1,000 mL, Intravenous, Administer over 1 Hours, Once, On 04/02/24 at 1515, For 1 dose, STAT 1617 (New Bag - Prov ider: Charly Michel, EMT-President And Chief Operating Officer)1717 (Stopped - Provider: Heather Taylor RN) PRN Medication Order 03/31/2024 04/01/2024 04/02/2024 iopamidol (ISOVUE-370) 76 % injection 75 mL (COMPLETED) 75 mL, Intravenous, Imaging once PRN, Contrast, Starting on 04/02/24 at 1653, For 1 dose, STAT 1653 (Given - Provid er: Bruno Amaro) documented in this encounter Care Teams Blueprint Processor Relationship Specialty Start Date End Date None, Provider Pt States [address] [place] [address] PCP - General 04/02/24 documented as of this encounter
--- OUTSIDE RECORDS SUMMARY | 2024-12-06 03:47 | XMS_ITS | Encounter Summary ---
Author Organization [facility] Healthcare Address [address] [place] [address] Care Team Providers Care Brand Advisor Name Role Phone No, Physician Primary Care Provider [phone] Reason for Visit * Reason Comments Urinary Symptom Pt is here with pain while urinating. Onset is this morning, Nothing OTC, and no known fevers. Pt states that she possibly has C-DIF Encounter Details Date Type Department Care Team (Late st Contact Info) Description 11/24/2024 1:15 PM FINISHED YARN EXAMINER Office Visit [facility] [place] [address] [place] [address] Kadi Lambert NP [address] [place] [address] UTI symptoms (Primary Dx) Social History Tobacco Use Types Packs/Day Years Used Date Smoking Tobacco: Never Smokeless Tobacco: Never Comments Unknown Sex and Gender Information Value Date Recorded Sex Assigned at Not on file Legal Sex Female 2:21 PM FINISHED YARN EXAMINER Gender Identity Not on file Sexual Orientation Not on file documented as of this encounter Last Filed Vital Signs Vital Sign Reading Time Taken Comments Blood Pressure 140/90 11/24/2024 1:18 PM FINISHED YARN EXAMINER Pulse 78 11/24/2024 1:18 PM FINISHED YARN EXAMINER Temperature 36.6 ??C (97.9 ??F) 11/24/2024 1:18 PM CS T Respiratory Rate 19 11/24/2024 1:18 PM FINISHED YARN EXAMINER Oxygen Saturation 98% 11/24/2024 1:18 PM FINISHED YARN EXAMINER Inhaled Oxygen Concentration - - Weight 99.3 kg (219 lb) 11/24/2024 1:18 PM FINISHED YARN EXAMINER Height 160 cm (5' 3 ) 11/24/2024 1:18 PM FINISHED YARN EXAMINER Body Mass Index 38.79 11/24/2024 1:18 PM FINISHED YARN EXAMINER documented in this encounter Patient Instructions * Patient Instructions* Kadi Lambert NP - 11/24/2024 1:15 PM FINISHED YARN EXAMINER URINARY TRACT INFECTION -Drink as much water as possible to help flush bacteria from your bladder. -May take OTC AZO as directed per package instructions -Finish all of the medication prescribed to you. -Use alternate method of control while taking antibiotics and for one week after finishing antibiotics, if applicable. -Avoid foods and drinks that can irritate your bladder, such as caffeine, alcohol, chocolate, tomato products, coffee and tea, citrus fruits, spicy foods, and carbonated beverages. -Discussed importance of wiping front to back after urinating and urinating before and after intercourse, along with avoiding intercourse until symptoms resolve. -Follow up with PCP with symptoms that worsen or do not COMPLETELY resolve. Seek care (go to Urgent Care or ER) immediately if: ? You are urinating very little or not at all. ? You are nauseous and/or vomiting. ? You have a high fever with shaking chills. ? You have side or back pain that gets worse. ? Contact your primary care doctor or ENTERPRISE APPLICATION ANALYST if: ? You have a fever. ? You have white or yellow discharge from your vagina. ? You do not feel better after 2 days of taking antibiotics. ? You have questions or concerns about your condition or care SHED YARN EXAMINER documented in this encounter Ordered Prescriptions Prescription Sig Dispense Quantity Refills Last Filled Start Date End Date phenazopyridine (Pyridium) 200 mg tabletIndications :UTI symptoms Take 1 tablet (200 mg total) by mouth 3 (three) times a day as needed for bladder spasms Take 1 Tab with meals every 8 hours x2 days 9 tablet 11/24/2024 sulfamethoxazole- trimethoprim (Bactrim DS) 800-160 mg per tablet Take 1 tablet (160 mg of trimethoprim total) by mouth 2 (two) times a day for 7 days 14 tablet 11/26/2024 5 phenazopyridine (Pyridium) 200 mg tablet Take 1 tablet (200 mg total) by mouth 3 (three) times a day as needed for bladder spasms Take 1 Tab with meals every 8 hours x2 days 9 tablet 11/24/2024 4 documented in this encounter Progress Notes * Kadi Lambert, MAID CLEANING [employer]OOKING - 11/24/2024 1:15 PM CST Images from the original note were not included. Subjective/Objective Patient ID: Basilia Sanchez is a 74 y.o. female. Chief Complaint Urinary Symptom (Pt is here with pain while urinating. Onset is this morning, Nothing OTC, and no known fevers. Pt states that she possibly has C-DIF) Pt presents to [facility] with c/o urinary frequency, burning that began last night. OTC meds tried-none. Pt is drinking plenty of fluids. She denies fever. She did have binh lower back pain over the weekend (could be from vacuuming). She denies n/v. She is awaiting stool results from her GI in [place] from 11/17/24. She is concerned for CDIF, she had loose stools, then diarrhea, now loose stools again, for 2 weeks. Review of Systems All systems reviewed and are negative or non contributory for this patient's presentation today other than as stated in the HPI. Physical Exam Vitals reviewed. Constitutional: General: She is not in acute distress. Appearance: She is not ill-appearing or toxic-appearing. HENT: Head: Normocephalic. Cardiovascular: Rate and Rhythm: Normal rate and regular rhythm. Heart sounds: Normal heart sounds. Pulmonary: Effort: Pulmonary effort is normal. No respiratory distress. Breath sounds: Normal breath sounds. Abdominal: Tenderness: There is no right CVA tenderness or left CVA tenderness. Skin: General: Skin is warm and dry. Neurological: General: No focal deficit present. Mental Status: She is alert and oriented to person, place, and time. Psychiatric: Mood and Affect: Mood normal. Behavior: Behavior normal. Thought Content: Thought content normal. Vitals: 11/24/24 1318 BP: 140/90 BP Location: Right arm Patient Position: Sitting Pulse: 78 Resp: 19 Temp: 36.6 ??C (97.9 ??F) SpO2: 98% Weight: 99.3 kg (219 lb) Height: 160 cm (5' 3 ) No LMP recorded. Assessment/Plan Urinalysis has small leukocytes and moderate blood. Given patient's current issue with diarrhea andpending C diff/stool culture results, we will hold off on prescribing antibiotics until urine culture returns Pyridium prescribed for symptoms Discussed follow-up precautions, home care, OTC meds Diagnoses and all orders for this visit: UTI symptoms (Primary) - Urine culture Urine, clean voided; Future - POCT urinalysis dipstick - phenazopyridine (Pyridium) 200 mg tablet; Take 1 tablet (200 mg total) by mouth 3 (three) times aday as needed for bladder spasms Take 1 Tab with meals every 8 hours x2 days Recent Results (from the past 24 hours) POCT urinalysis dipstick Collection Time: 11/24/24 1:32 PM Result Value Ref Range Color, Urine, POC Dark Yellow Clarity, ur, POC Clear Clear Glucose, ur, POC Negative Negative MG/DL Bilirubin, ur, POC Negative Negative, Small, Moderate, Large Ketones, ur, POC Negative Negative Specific [place], POC 1.015 1.003 - 1.030 Blood, ur, POC Moderate (A) Negative pH, ur, POC 5.5 5.0 - 8.0 Protein, ur, POC Negative Negative Urobilinogen, urine, POC 0.2 0.2 - 1.0 mg/dL Nitrite, ur, POC Negative Negative Leukocytes, ur, POC Small (A) Negative Lot Number [id number] Patient Education: Disposition Treatment plan including expectations, follow up, and return precautions discussed with patient/parent, verbalizes understanding. Medication dosage, use, and potential adverse reactions discussed with patient/parent. Advised to follow up with PCP if symptoms do not resolve as expected or sooner if condition worsens. Signs/symptoms warranting ER evaluation reviewed. Patient and/or guardian was given an opportunity to ask questions, questions answered. This office note has been partially dictated using [employer] software, and as a result portions of the record may have been created with this software. Occasional wrong-word or '[id number]' substitutions may have occurred due to the inherent limitations of voice recognition software. Read the chartcarefully and recognize, using context, where substitutions have occurred Kadi Lambert NP SHED YARN EXAMINER documented in this encounter Miscellaneous Notes * Addendum Note - Shaunna Choudhury NP - 11/24/2024 1:15 PM CSTAddended by: SHAUNNA CHOUDHURY on: 11/26/2024 03:51 PM Modules accepted: Orders SHED YARN EXAMINER documented in this encounter Plan of Treatment Not on file documented as of this encounter Procedures Procedure Name Priority Date/Time Associated Diagnosis Comments POCT URINALYSIS DIPSTICK Routine 11/24/2024 1:32 PM FINISHED YARN EXAMINER UTI symptoms documented in this encounter Results * (ABNORMAL) Urine culture Urine, clean voided (11/24/2024 4:36 PM FINISHED YARN EXAMINER) Report Final Report: Greater than or equal to 100,000 colonies/mL of Escherichia coli (.) Comment:Testing performed by : [facility], [address] [place]., [address] Organism ESCHERICHIA COLI [place] Urine, clean voided 11/24/2024 4:36 PM FINISHED YARN EXAMINER 11/24/2024 8:57 PM FINISHED YARN EXAMINER Narrative [facility] - 11/26/2024 3:49 PM FINISHED YARN EXAMINER Testing performed by [facility] ([phone]) Organism Antibiotic Method Susceptibility Escherichia coli Ampicillin [...] GENERAL ORD ERABLES Final Result [facility] [address] Department [place] [address] * (ABNORMAL) POCT urinalysis dipstick (11/24/2024 1:32 PM FINISHED YARN EXAMINER) Color, Urine, POC Dark Yellow Clarity, ur, POC Clear Clear Glucose, ur, POC Negative Negative MG/DL Bilirubin, ur, POC Negative Negative, Small, Moderate, Large Ketones, ur, POC Negative Negative Specific [place], POC 1.015 1.003 - 1.030 Blood, ur, POC Moderate(A) Negative pH, ur, POC 5.5 5.0 - 8.0 Protein, ur, POC Negative Negative Urobilinogen, urine, POC 0.2 0.2 - 1.0 mg/dL Nitrite, ur, POC Negative Negative Leukocytes, ur, POC Small(A) Negative Lot Number [id number] Urine 11/24/2024 1:32 PM FINISHED YARN EXAMINER Kadi Lambert NP POINT OF CARE TEST ORDERABLES Final Result documented in this encounter Visit Diagnoses Diagnosis UTI symptoms- Primary UTI symptoms documented in this encounter Discontinued Medications Medication Sig Discontinue Reason Start Date End Da te phenazopyridine (Pyridium) 200 mg tablet Take 1 tablet (200 mg total) by mouth 3 (three) times a day as needed for bladder spasms Take 1 Tab with meals every 8 hours days 11/24/2024 11/24/2024 documented as of this encounter Historical Medications * This list may reflect changes made after this encounter. metoprolol succinate (KAPSPARGO) 25 mg capsule,sprinkle, ER 24hr extended release capsule Take 25 mg by mouth 10/06/2024 clopidogreL (PLAVIX) 75 mg tablet Take 1 tablet (75 mg total) by mouth daily 10/05/2024 added in this encounter Care Teams Brand Advisor Relationship Specialty Start Date End Date No, Physician PCP - General 11/30/23 documented as of this encounter
--- OUTSIDE RECORDS SUMMARY | 2024-12-06 03:47 | XMS_ITS | Encounter Summary ---
Author Organization [facility] Healthcare Address [address] [place] [address] Care Team Providers Care Tradeshow Worker Name Role Phone No, Physician Primary Care Provider [phone] Reason for Visit * Reason Comments Blood in Urine Had bright red blood in urine, thinks she may be having an allergic reaction to allergy medication. Xyzal she said she saw a warning on the bottle that said it could be a reaction. Started taking for a few days, last dose last night. Noticed today when she didn't take she had a lot less blood and no pain when urinating. Encounter Details Date Type Department Care Team (Late st Contact Info) Description 11/30/2023 7:00 PM 5TH GRADE TEACHER Office Visit [facility] [place] [address] [place] [address] Mary Reid, BELT MACHINE OPERATOR [address] [place] [address] Hematuria, unspecified type (Primary Dx); Urinary tract infection with hematuria, site unspecified Social History Tobacco Use Types Packs/Day Years Used Date Smoking Tobacco: Never Smokeless Tobacco: Never Comments Unknown Sex and Gender Information Value Date Recorded Sex Assigned at Not on file Legal Sex Female 2:21 PM 5TH GRADE TEACHER Gender Identity Not on file Sexual Orientation Not on file documented as of this encounter Last Filed Vital Signs Vital Sign Reading Time Taken Comments Blood Pressure 110/78 11/30/2023 7:17 PM 5TH GRADE TEACHER Pulse 53 11/30/2023 7:17 PM 5TH GRADE TEACHER Temperature 36.3 ??C (97.3 ??F) 11/30/2023 7:17 PM CS T Respiratory Rate 24 11/30/2023 7:17 PM 5TH GRADE TEACHER Oxygen Saturation 95% 11/30/2023 7:17 PM 5TH GRADE TEACHER Inhaled Oxygen Concentration - - Weight 99.6 kg (219 lb 9.6 oz) 11/30/2023 7:17 P M 5TH GRADE TEACHER Height 160 cm (5' 3 ) 11/30/2023 7:17 PM 5TH GRADE TEACHER Body Mass Index 38.9 11/30/2023 7:17 PM 5TH GRADE TEACHER documented in this encounter Patient Instructions * Patient Instructions* Mary Reid NP - 11/30/2023 7:00 PM 5TH GRADE TEACHER Thank you for allowing me to take care of you today. Diagnosis UTI. Test: UA positive for blood, nitrates, and leukocytes. Unable to get culture, not enough urine. Prescribed Macrobid. Home care includes rest, hydration, over the counter medications. Follow up with your primary provider in 2-3 days as needed. Red flags include worsening symptoms including pain, swelling, headache, dizziness, congestion, fever, shortness of breath, chest pain, nausea/vomiting, abdomen pain, back pain, muscle pain, decreased range of motion, numbness/tingling, weakness, fatigue. Follow up with your primary provider, this clinic, or if severe go to ER. 5TH GRADE TEACHER * Attachments The following attachments cannot be sent through Care Everywhere. * Urinary Tract Infection in Older Adults (Lens Finisher) ([place]) documented in this encounter Ordered Prescriptions Prescription Sig Dispense Quantity Refills Last Filled Start Date End Date nitrofurantoin monohydrate (MACROBID) 100 mg capsule Take 1 capsule (100 mg total) by mouth 2 (two) times a day for 7 days 14 capsule 11/30/2023 4 documented in this encounter Progress Notes * Mary Reid NP - 11/30/2023 7:00 PM CST Images from the original note were not included. Subjective/Objective Patient ID: Basilia Sanchez is a 73 y.o. female. Chief Complaint Blood in Urine (Had bright red blood in urine, thinks she may be having an allergic reaction to allergy medication. Xyzal she said she saw a warning on the bottle that said it could be a reaction. Started taking for a few days, last dose last night. Noticed today when she didn't take she had a lot less blood and no pain when urinating. ) Patient is a 73-year-old female presents to [facility] with chief complaint of burning and frequency with urination starting today. Patient did take Zicam-, she did read on the bottle that if you start to see any blood in your urine or have any frequency to stop taking this medication. Patientreports she has no history of urinary tract infections. Denies any fever, abdomen pain, back pain, nausea/vomiting. Review of Systems Constitutional: Negative for fever. Gastrointestinal: Negative for abdominal pain, nausea and vomiting. Genitourinary: Positive for dysuria and frequency. Negative for flank pain and urgency. Physical Exam Vitals reviewed. Constitutional: General: She is not in acute distress. Appearance: Normal appearance. She is normal weight. She is not ill-appearing, toxic-appearing or diaphoretic. HENT: Head: Normocephalic and atraumatic. Mouth/Throat: Mouth: Mucous membranes are moist. Pharynx: Oropharynx is clear. Eyes: Conjunctiva/sclera: Conjunctivae normal. Pupils: Pupils are equal, round, and reactive to light. Abdominal: General: There is no distension. Musculoskeletal: General: Normal range of motion. Cervical back: Normal range of motion and neck supple. Skin: General: Skin is warm and dry. Neurological: General: No focal deficit present. Mental Status: She is alert and oriented to person, place, and time. Mental status is at baseline. Psychiatric: Mood and Affect: Mood normal. Behavior: Behavior normal. Thought Content: Thought content normal. Judgment: Judgment normal. Vitals: 11/30/23 1917 BP: 110/78 Pulse: 53 Resp: 24 Temp: 36.3 ??C (97.3 ??F) TempSrc: Temporal SpO2: 95% Weight: 99.6 kg (219 lb 9.6 oz) Height: 160 cm (5' 3 ) Assessment/Plan Diagnoses and all orders for this visit: Hematuria, unspecified type (Primary) - POCT urinalysis dipstick - Urine culture Urine, clean voided; Future Recent Results (from the past 4 hour(s)) POCT urinalysis dipstick Collection Time: 11/30/23 7:17 PM Result Value Ref Range Color, Urine, POC Red Clarity, ur, POC Turbid (A) Clear Glucose, ur, POC Negative Negative MG/DL Bilirubin, ur, POC Small Negative, Small, Moderate, Large Ketones, ur, POC Trace (A) Negative Specific [place], POC 1.030 1.003 - 1.030 Blood, ur, POC Large (A) Negative pH, ur, POC 5.5 5.0 - 8.0 Protein, ur, POC 300. (A) Negative Urobilinogen, urine, POC 1.0 0.2 - 1.0 mg/dL Nitrite, ur, POC Positive (A) Negative Leukocytes, ur, POC Trace (A) Negative Lot Number [id number] Diagnosis UTI. Test: UA positive for blood, nitrates, and leukocytes. Unable to get culture, not enough urine. Prescribed Macrobid. Home care includes rest, hydration, over the counter medications. Follow up with your primary provider in 2-3 days as needed. Red flags include worsening symptoms including pain, swelling, headache, dizziness, congestion, fever, shortness of breath, chest pain, nausea/vomiting, abdomen pain, back pain, muscle pain, decreased range of motion, numbness/tingling, weakness, fatigue. Follow up with your primary provider, this clinic, or if severe go to ER. Procedures Disposition- Patient presents with burning and frequency with urination. Patient is nontoxic- appearing and in noacute distress. Vitals signs are stable. Discussed point of care test results with patient, lab test, X-rays that may have been completed or ordered during clinic visit. Treatments completed [facility] include UA, unable to send a urine culture as it did not have enough urine. Given the history and physical exam findings, presentation/diagnosis of UTI. The Differential diagnosis includes cystitis, PID, ovarian cyst, urethritis, renal colic, bladder outlet obstruction, neurogenic bladder, pelvic pain disorder, endometriosis, vaginitis. However, these differential diagnosis are less likely given the data, history and physical exam. Supportive care was discussed including rest, hydration, xuoi-tlm-lhpoqao meds to help with symptoms. Macrobid was prescribed. Discussed medications dosages, usage & potential side effects. Advised close follow up and return criteria/red flagswere discussed. Risks and interactions reviewed with patient. Patient has been instructed to followup w PCP or go to ER for any signs or symptoms that are of concern or worsening. Understanding of discharge instructions verbalized, and agrees with plan of care. The patient was given the opportunity to ask all questions and to have all questions answered. Mary Reid NP 5TH GRADE TEACHER documented in this encounter Plan of Treatment Scheduled Orders Name Type Priority Associated Diagnoses Orde r Schedule Urine culture Urine, clean voided Microbiology Routine Hematuria, unspecified type Expected: 11/30/2023, Expires: 11/30/2024 documented as of this encounter Procedures Procedure Name Priority Date/Time Associated Diagnosis Comments POCT URINALYSIS DIPSTICK Routine 11/30/2023 7:17 PM 5TH GRADE TEACHER Hematuria, unspecified type documented in this encounter Results * (ABNORMAL) POCT urinalysis dipstick (11/30/2023 7:17 PM 5TH GRADE TEACHER) Color, Urine, POC Red Clarity, ur, POC Turbid(A) Clear Glucose, ur, POC Negative Negative MG/DL Bilirubin, ur, POC Small Negative, Small, Moderate, Large Ketones, ur, POC Trace(A) Negative Specific [place], POC 1.030 1.003 - 1.030 Blood, ur, POC Large(A) Negative pH, ur, POC 5.5 5.0 - 8.0 Protein, ur, POC 300.(A) Negative Urobilinogen, urine, POC 1.0 0.2 - 1.0 mg/dL Nitrite, ur, POC Positive(A) Negative Leukocytes, ur, POC Trace(A) Negative Lot Number [id number] Urine 11/30/2023 7:17 PM 5TH GRADE TEACHER Mary Reid BELT MACHINE OPERATOR POINT OF CARE TEST ORDERAB LES Final Result documented in this encounter Visit Diagnoses Diagnosis Hematuria, unspecified type- Primary Urinary tract infection with hematuria, site unspecified documented in this encounter Historical Medications * This list may reflect changes made after this encounter. rosuvastatin (CRESTOR) 20 mg tablet Take 1 tablet (20 mg total) by mouth daily 09/18/2023 rfuiztg-NXAH-qcl- wekti-tvvk-im 0.43-36-850-200 mg capsule nightly as needed meclizine (ANTIVERT) 12.5 mg tablet Take 1 tablet (12.5 mg total) by mouth cholecalciferol (VITAMIN D-3) 5,000 unit tablet Take 1 tablet (5,000 Units total) by mouth daily ASPIRIN ORAL Take 81 mg by mouth added in this encounter Care Teams Tradeshow Worker Relationship Specialty Start Date End Date No, Physician PCP - General 11/30/23 documented as of this encounter
--- OUTSIDE RECORDS SUMMARY | 2024-12-06 03:47 | XMS_ITS | Clinical Summary ---
Author Organization [facility] Address [address] [place] [address] Care Team Providers Care Human Resources Training Manager Name Role Phone None, Provider Pt States Primary Care Provider U navailable Allergies Active Allergy Reactions Criticality Noted Date Comments Cefaclor Swelling 04/02/2024 Omeprazole Itching 04/02/2024 Cleartuss Dh Anaphylaxis High 04/02/2024 Medications No known medications Social History Tobacco Use Types Packs/Day Years Used Date Smoking Tobacco: Never Assessed Sex and Gender Information Value Date Recorded Sex Assigned at Female 04/03/2024 7:04 PM [facility] Gender Identity Female 04/03/2024 7:04 PM [facility] Sexual Orientation Straight 04/03/2024 7: 04 PM [facility] Last Filed Vital Signs Vital Sign Reading Time Taken Comments Blood Pressure 160/95 04/02/2024 2:37 PM MST Pulse 93 04/02/2024 2:37 PM [facility] Temperature 36.4 ??C (97.5 ??F) 04/02/2024 2:37 PM MS T Respiratory Rate 16 04/02/2024 2:37 PM [facility] Oxygen Saturation 98% 04/02/2024 2:37 PM [facility] Inhaled Oxygen Concentration - - Weight - - Height - - Body Mass Index - - Plan of Treatment Health Maintenance Due Date Last Done Comments Cologuard 1950 Colonoscopy 1950 Colorectal Cancer Screening 1950 Fecal Immunohistochemical Test 1950 Sigmoidoscopy 1950 Hepatitis C Screen 1970 Zoster (Shingles) Vaccine (2 of 3) 06/10/20172016 DEXA Scan 2017 Pneumococcal Vaccine: 65+ Ye ars (1 of 1 - PCV) 2017 Mammogram 04/14/2019 04/14/2017 COVID-19 Vaccine (1 - season) 2024 Influenza Vaccine (#1) 2024 DTaP,Tdap,or Td Vaccines (2 - Td or Tdap) 04/15/2027 04/15/2017 RSV Vaccine (1 - 1-dose 75+ series) 2027 HPV VACCINES Aged Out No longer eligi ble based on patient's age to complete this topic Hepatitis A Vaccine Aged Out No longe r eligible based on patient's age to complete this topic Additional Health Concerns Infection Onset Date Last Indicated Extended Spectrum Beta-Lactamase 04/02/2024 04/02/2024 Care Teams Human Resources Training Manager Relationship Specialty Start Date End Date None, Provider Pt States [address] [place] [address] PCP - General 04/02/24
--- OUTSIDE RECORDS SUMMARY | 2024-12-06 03:47 | XMS_ITS | Clinical Summary ---
Author Organization [address] Address [address] [place] [address] Care Team Providers Care Bench Repair Technician Name Role Phone No, Physician Primary Care Provider [phone] Allergies Active Allergy Reactions Criticality Noted Date [...] tablet (12.5 mg total) by mouth Active visovqq-QRGI-n ck-zxgyh-xzdh- lm 0.51-69-407-20 0 mg capsule nightly as needed Active [...] 025 Active Problems No known active problems Encounters Date Type Department Care Team Description 11/26/[address] [facility] at [address] [place] [address] [facility] 11/24/2024 1:21 PM CYLINDER INSPECTOR - 11/24/2024 11:59 PM CYLINDER [place]PECT[place] [address] UTI symptoms Discharge Disposition: Discharge to home or self care 11/24/2024 1:15 PM CYLINDER INSPECTOR Office Visit [facility] Medical [facility] [place] [address] [place] [address] Kadi Lambert NP UTI symptoms (Primary Dx) from Last 3 Months Surgical History Surgery Date Site/Laterality Comments CHOLECYSTECTOMY CATARACT EXTRACTION VARICOSE VEIN SURGERY Bilateral Bilateral Legs Social History Tobacco Use Types Packs/Day Years Used Date Smoking Tobacco: Never Smokeless Tobacco: Never Comments Unknown Sex and Gender Information Value Date Recorded Sex Assigned at Not on file Legal Sex Female 2:21 PM CYLINDER INSPECTOR Gender Identity Not on file Sexual Orientation Not on file Obstetrics History Last Filed Vital Signs Vital Sign Reading Time Taken Comments Blood Pressure 140/90 11/24/2024 1:18 PM CYLINDER INSPECTOR Pulse 78 11/24/2024 1:18 PM CYLINDER INSPECTOR Temperature 36.6 ??C (97.9 ??F) 11/24/2024 1:18 PM CS T Respiratory Rate 19 11/24/2024 1:18 PM CYLINDER INSPECTOR Oxygen Saturation 98% 11/24/2024 1:18 PM CYLINDER INSPECTOR Inhaled Oxygen Concentration - - Weight 99.3 kg (219 lb) 11/24/2024 1:18 PM CYLINDER INSPECTOR Height 160 cm (5' 3 ) 11/24/2024 1:18 PM CYLINDER INSPECTOR Body Mass Index 38.79 11/24/2024 1:18 PM CYLINDER INSPECTOR Plan of Treatment Health Maintenance Due Date Last Done Comments Breast Cancer Screening-Mammogram 1952 Colon Cancer Screening-Colonoscopy 1952 Depression Screening 1952 Fall Risk Assessment 1952 Hepatitis C Screening 1952 Osteoporosis Screening-Bone Density Scan 1952 Hepatitis B Screening 1970 Zoster Vaccine (2 of 3) 06/10/2017 04/15/2017 Pneumococcal vaccine 65+ (1 of 1 - PCV) 2017 Well Visit 65+ 2017 Influenza Vaccine (#1) 2024 07/31/2011 DTaP/Tdap/Td Vaccine (3 - Td or Tdap) 02/20/2028, 04/15/2017 Procedures Procedure Name Priority Date/Time Associated Diagnosis Comments URINE CULTURE Routine 11/24/2024 4:36 PM CYLINDER INSPECTOR UTI symptoms POCT URINALYSIS DIPSTICK Routine 11/24/2024 1:32 PM CYLINDER INSPECTOR UTI symptoms from Last 3 Months Results * (ABNORMAL) Urine culture Urine, clean voided (11/24/2024 4:36 PM CYLINDER INSPECTOR) Report Final Report: Greater than or equal to 100,000 colonies/mL of Escherichia coli (.) Comment:Testing performed by : [facility], [address], [place]., [address] Organism ESCHERICHIA COLI [place] Urine, clean voided 11/24/2024 4:36 PM CYLINDER INSPECTOR 11/24/2024 8:57 PM CYLINDER INSPECTOR Narrative [facility] - 11/26/2024 3:49 PM CYLINDER INSPECTOR Testing performed by [facility] Microbiology Laboratory ([phone]) Organism Antibiotic Method Susceptibility Escherichia coli Ampicillin [...] INTERPRETATION Susceptible Escherichia coli Cefdinir INTERPRETATION Susceptible Kadi Lambert NP LAB MICROBIOLOGY - GENERAL ORD ERABLES Final Result [place] [id number] [address] Department [place] [address] * (ABNORMAL) POCT urinalysis dipstick (11/24/2024 1:32 PM CYLINDER INSPECTOR) Color, Urine, POC Dark Yellow Clarity, ur, POC Clear Clear Glucose, ur, POC Negative Negative MG/DL Bilirubin, ur, POC Negative Negative, Small, Moderate, Large Ketones, ur, POC Negative Negative Specific [place], POC 1.015 1.003 - 1.030 Blood, ur, POC Moderate(A) Negative pH, ur, POC 5.5 5.0 - 8.0 Protein, ur, POC Negative Negative Urobilinogen, urine, POC 0.2 0.2 - 1.0 mg/dL Nitrite, ur, POC Negative Negative Leukocytes, ur, POC Small(A) Negative Lot Number [id number] Urine 11/24/2024 1:32 PM CYLINDER INSPECTOR Kadi Lambert NP POINT OF CARE TEST ORDERABLES Final Result from Last 3 Months Insurance MEDICARE [employer] [facility] [place] Care Teams Bench Repair Technician Relationship Specialty Start Date End Date No, Physician PCP - General 11/30/23
--- OUTSIDE RECORDS SUMMARY | 2024-12-06 03:47 | XMS_ITS | Encounter Summary ---
Author Organization [facility] Healthcare Address [address] [place] [address] Care Team Providers Care Print Line Tailer Name Role Phone No, Physician Primary Care Provider [phone] Encounter Details Date Type Department Care Team (Latest Contact Info) Description 11/24/2024 1:21 PM BOBBIN HANDLER - 11/24/2024 11:59 PM BOBBIN HANDLER Hospital Encounter [address] [address] UTI symptoms Discharge Disposition: Discharge to home or self care Social History Tobacco Use Types Packs/Day Years Used Date Smoking Tobacco: Never Smokeless Tobacco: Never Comments Unknown Sex and Gender Information Value Date Recorded Sex Assigned at Not on file Legal Sex Female 2:21 PM BOBBIN HANDLER Gender Identity Not on file Sexual Orientation Not on file documented as of this encounter Medications at Time of Discharge ASPIRIN ORAL Take 81 mg by mouth cholecalciferol (VITAMIN D-3) 5,000 unit tablet Take 1 tablet (5,000 Units total) by mouth daily clopidogreL (PLAVIX) 75 mg tablet Take 1 tablet (75 mg total) by mouth daily 10/05/2024 meclizine (ANTIVERT) 12.5 mg tablet Take 1 tablet (12.5 mg total) by mouth vtjbovx-GLAE-tfo -voass-ervl-ps 0.05-03-126-200 mg capsule nightly as needed metoprolol succinate (KAPSPARGO) 25 mg capsule,sprinkle ,ER 24hr extended release capsule Take 25 mg by mouth 10/06/2024 phenazopyridine (Pyridium) 200 mg tabletIndication s:UTI symptoms Take 1 tablet (200 mg total) by mouth 3 (three) times a day as needed for bladder spasms Take 1 Tab with meals every 8 hours x2 days 9 tablet 11/24/2024 rosuvastatin (CRESTOR) 20 mg tablet Take 1 tablet (20 mg total) by mouth daily 09/18/2023 sulfamethoxazole -trimethoprim (Bactrim DS) 800-160 mg per tablet Take 1 tablet (160 mg of trimethoprim total) by mouth 2 (two) times a day for 7 days 14 tablet 11/26/2024 5 documented as of this encounter Discharge Disposition Disposition Code Departure Means Destination Discharge to home or self care documented in this encounter Miscellaneous Notes * Result Encounter Note - Abbie Shaffer MA - 11/24/2024 11:59 PM BOBBIN HANDLER Spoke with the patient regarding results and recommendations. She states understanding and has no further questions at this time. IN HANDLER documented in this encounter Plan of Treatment Not on file documented as of this encounter Procedures Procedure Name Priority Date/Time Associated Diagnosis Comments URINE CULTURE Routine 11/24/2024 4:36 PM BOBBIN HANDLER UTI symptoms documented in this encounter Results * (ABNORMAL) Urine culture Urine, clean voided (11/24/2024 4:36 PM BOBBIN HANDLER) Report Final Report: Greater than or equal to 100,000 colonies/mL of Escherichia coli (.) Comment:Testing performed by : [facility], [address], [place]., [address] Organism ESCHERICHIA COLI [place] Urine, clean voided 11/24/2024 4:36 PM BOBBIN HANDLER 11/24/2024 8:57 PM BOBBIN HANDLER Narrative [facility] - 11/26/2024 3:49 PM BOBBIN HANDLER Testing performed by [facility] Microbiology Laboratory ([phone]) Organism Antibiotic Method Susceptibility Escherichia coli Ampicillin [...] - GENERAL ORD ERABLES Final Result [place] [id number] Department of Laboratories [place] [phone] documented in this encounter Visit Diagnoses Diagnosis UTI symptoms documented in this encounter Care Teams Print Line Tailer Relationship Specialty Start Date End Date No, Physician PCP - General 11/30/23 documented as of this encounter
--- OUTSIDE RECORDS SUMMARY | 2024-12-06 19:45 | XMS_ITS | Continuity of Care Document ---
[facility] Care Team Providers Care Rn Registry Name Role Phone formerly [facility] Unavailable Unavailable Problems Problem Status Onset Date Classification Date Reported Comments Source Coronary arteriosclerosis (disorder) Active 06/21/2024 [facility] Hypercholesterolemia (disorder) Active 06/21/2024 [facility] Atherosclerosis of coronary artery (disorder) 06/21/2024 [facility] Essential hypertension (disorder) 06/21/2024 [facility] Pure hypercholesterolemia (disorder) 06/21/2024 [facility] Long-term current use of aspirin (situation) 06/21/2024 [facility] Drug allergy (disorder) 06/21/2024 [facility] Medications Medication Details Route Status Patient Instructions Ordering Provider Order Date Source metoprolol succinate 25 mg oral capsule, extended release 1 Cap Cap, ER, PO, qDay, Qty: 90 Cap, Refills: 0, Maintenance, Route to Pharmacy Electronically , [facility]29 Active [facility] Brilinta (ticagrelor) 90 mg oral tablet 1 Tab, PO, BID, Qty: 180 Tab, Refills: 0, Maintenance, Route to Pharmacy Electronically , [facility]29 Active [facility] aspirin 81 mg oral enteric coated tablet 1 Tab Tab, EC, PO, qDay, Qty: 90 Tab, Refills: 0, Maintenance, Route to Pharmacy Electronically , [facility]29 Active [facility] Tylenol oral TABLET 650 mg, PO, q4hr, PRN, Pain, Tab, Refills: 0, Maintenance Active [facility] Vitamin D3 125 mcg (5,000 unit) oral capsule 1 Cap Cap, PO, qDay, Qty: 100 Cap, Refills: 0, with food, Maintenance Active 024 [facility] Voquezna 10 mg oral tablet 1 Tab Tab, PO, qDay, Qty: 30 Each, Refills: 0, Maintenance Active 024 [facility] rosuvastatin 20 mg oral tablet 1 Tab, PO, Daily, Refills: 0, Maintenance Active 024 [facility] Allergies, Adverse Reactions, Alerts Substance Category Reaction Severity Reaction type Status Date Reported Comments Source clindamycin Assertion cdiff Moderate Drug allergy Active [facility] omeprazole Assertion Eruption (morphologi c abnormality ) Moderate Drug allergy Active [facility] Vicodin Assertion Anaphylaxis (disorder) Severe Drug allergy Active [facility] Ceclor Assertion eyes swelling Moderate Drug allergy Active [facility] pantoprazole Assertion Eruption of skin (disorder) Moderate Drug allergy Active [facility] Results Order Name Results Value Reference Range Date Interpretation Comments Source ACT iSTAT (POCT) Activated Clot Time iSTAT (POCT) 354.0 74.0 - 137.0 06/13 H Filter Press Tender Head: [id number] [facility] ACT iSTAT (POCT) Activated Clot Time iSTAT (POCT) 250.0 74.0 - 137.0 06/13 H Filter Press Tender Head: [id number] [facility] POC Coagulation Activated Clot Time iSTAT (POCT) 354.0 74.0 - 137.0 06/13 Result Comment: Filter Press Tender Head: [id number] [facility] POC Coagulation Activated Clot Time iSTAT (POCT) 250.0 74.0 - 137.0 06/13 Result Comment: Filter Press Tender Head: [id number] [facility] CMP Sodium 140 135 - 145 06/13 [facility] CMP Potassium 3.8 3.6 - 5.3 06/13 [facility] CMP Chloride 108 100 - 110 06/13 [facility] CMP CO2 24 19 - 27 06/13 [facility] CMP Glucose Level 101 65 - 99 06/13 H [facility] CMP BUN 14 8 - 25 06/13 [facility] CMP Creatinine 0.83 0.57 - 1.11 06/13 [facility] CMP BUN/Delivery Helper Ratio 17 10 - 20 06/13 [facility] Anion Gap 8 7 - 15 06/13 [facility] CMP Calcium 9.5 8.5 - 10.3 06/13 [facility] CMP Protein, Total 6.7 6.4 - 8.3 06/13 [facility] CMP Albumin 4.0 3.5 - 5.0 06/13 [facility] CMP Alkphos 64 40 - 150 06/13 [facility] CMP ALT 16 6 - 55 06/13 [facility] CMP AST 24 5 - 34 06/13 [facility] CMP Bili Total 0.4 0.2 - 1.2 06/13 [facility] CMP eGFRcr 75 >=90 06/13 L As [...] <18 years and will not be performed. [facility] CMP Heme Index Negative 06/13 [facility] PT PT 11.4 9.9 - 13.9 06/13 [facility] PT INR 0.9 0.8 - 1.2 06/13 Recommended ranges for protime INR: 2.0-3.0 for most medical and surgical thromboembolic states. 2.5-3.5 for artificial heart valves and recurrent embolism. [facility] PTT PTT 31.0 25.1 - 39.1 06/13 [facility] CBC w/Diff WBC 5.7 3.6 - 11.1 06/13 [facility] CBC w/Diff RBC 4.60 3.69 - 5.19 06/13 [facility] CBC w/Diff Hgb 13.3 11.4 - 14.4 06/13 [facility] CBC w/Diff Hct 40.1 33.3 - 45.8 06/13 [facility] CBC w/Diff MCV 87 79 - 99 06/13 [facility] CBC w/Diff MCH 29.0 28.0 - 32.0 06/13 [facility] CBC w/Diff MCHC 33.2 32.0 - 36.0 06/13 [facility] CBC w/Diff RDW 14.4 11.5 - 14.5 06/13 [facility] CBC w/Diff Plt 226 150 - 450 06/13 [facility] CBC w/Diff Neuts 54.5 06/13 [facility] CBC w/Diff Lymphs 27.8 06/13 [facility] CBC w/Diff Monos. 13.8 06/13 [facility] CBC w/Diff Eos. 2.6 06/13 [facility] CBC w/Diff Baso. 1.3 06/13 [facility] CBC w/Diff ABS Neut 3.1 2.0 - 8.0 06/13 [facility] CBC w/Diff ABS Lymph 1.6 0.6 - 4.8 06/13 [facility] CBC w/Diff ABS [place] 0.8 0.1 - 2.0 06/13 [facility] CBC w/Diff ABS Eos 0.1 0.0 - 0.7 06/13 [facility] CBC w/Diff ABS Baso 0.1 0.0 - 0.2 06/13 [facility] CBC w/Diff CBC Scan Auto Diff 06/13 [facility] CBC w/Diff MPV 7.9 7.5 - 11.5 06/13 [facility] CBC WBC 5.7 3.6 - 11.1 06/13 [facility] CBC RBC 4.60 3.69 - 5.19 06/13 [facility] CBC Hgb 13.3 11.4 - 14.4 06/13 [facility] CBC Hct 40.1 33.3 - 45.8 06/13 [facility] CBC MCV 87 79 - 99 06/13 [facility] CBC MCH 29.0 28.0 - 32.0 06/13 [facility] CBC MCHC 33.2 32.0 - 36.0 06/13 [facility] CBC RDW 14.4 11.5 - 14.5 06/13 [facility] CBC Plt 226 150 - 450 06/13 [facility] CBC MPV 7.9 7.5 - 11.5 06/13 [facility] CBC CBC Scan Auto Diff (06/13/24 10:05 AM) 06/13 [facility] CBC Neuts 54.5 06/13 [facility] CBC Lymphs 27.8 06/13 [facility] CBC Monos. 13.8 06/13 [facility] CBC Eos. 2.6 06/13 [facility] CBC Baso. 1.3 06/13 [facility] CBC ABS Neut 3.1 2.0 - 8.0 06/13 [facility] CBC ABS Lymph 1.6 0.6 - 4.8 06/13 [facility] CBC ABS [place] 0.8 0.1 - 2.0 06/13 [facility] CBC ABS Eos 0.1 0.0 - 0.7 06/13 [facility] CBC ABS Baso 0.1 0.0 - 0.2 06/13 [facility] General Chemistry eGFRcr 75 06/13 Interpretive Data: [...] <18 years and will not be performed. [facility] General Chemistry Sodium 140 135 - 145 06/13 [facility] General Chemistry Potassium 3.8 3.6 - 5.3 06/13 [facility] General Chemistry Chloride 108 100 - 110 06/13 [facility] General Chemistry CO2 24 19 - 27 06/13 [facility] General Chemistry Glucose Level 101 65 - 99 06/13 [facility] General Chemistry BUN 14 8 - 25 06/13 [facility] General Chemistry Creatinine 0.83 0.57 - 1.11 06/13 [facility] General Chemistry Calcium 9.5 8.5 - 10.3 06/13 [facility] General Chemistry Protein, Total 6.7 6.4 - 8.3 06/13 [facility] General Chemistry Albumin 4.0 3.5 - 5.0 06/13 [facility] General Chemistry Alkphos 64 40 - 150 06/13 [facility] General Chemistry ALT 16 6 - 55 06/13 [facility] General Chemistry AST 24 5 - 34 06/13 [facility] General Chemistry Bili Total 0.4 0.2 - 1.2 06/13 [facility] General Chemistry Anion Gap 8 7 - 15 06/13 [facility] General Chemistry BUN/Delivery Helper Ratio 17 10 - 20 06/13 [facility] Diagnostic Reports Report Value Date Source CARDIAC [...] findings, this examination was assigned to the [facility] assistant office manager to be communicated to the ordering physician or their clinician's herbicide service sales representative, in addition to immediate report transmission [...] assistance, please contact our Radiologist Hotline at 108-NIF-XKOB or [phone]. 05/19/2024 [facility] KNEE 1-2 VIEWS (RIGHT) INDICATION: Posto [...] assistance, please contact our Radiologist Hotline at 592-BBR-NKGR or [phone]. 04/10/2024 [facility] LOWER EXTREMITY WITHOUT CONTRAST [facility] KNEE (RIGHT) CLINICAL HISTORY: M17.11 - Unilateral [...] where there is subchondral sclerosis and near qeyw-xm-gggu. Prominent intercondylar and tibial spine spurring. Superior [...] assistance, please contact our Radiologist Hotline at 604-HUD-ZKYS or [phone]. 02/23/2024 [facility] CHEST 2 VIEWS CLINICAL HISTORY: CHEST- 2 [...] assistance, please contact our Radiologist Hotline at [phone]-SHD-BMBF or [phone]. 02/17/2024 [employer] SHOULDER MIN 2 VIEWS CR - SHOULDER MIN 2 VIEWS Patient Name: Daniel Zhu Patient : 1950 DOS: Jul 26, 2019 Patient Ref. Physician: Carrie Montana Exam # [id number] - Jul 26 2019 - X-Ray - SHOULDER MIN 2 VIEWS (Right) Exam Performed at [facility] INDICATION: Chronic right shoulder pain [...] Olson D.O. on Jul 27, 2019 07/26/2019 [facility] AAA Screening US - AAA Screening Patient Name: Daniel Zhu Patient : 1950 DOS: Jan 24, 2019 Patient Ref. Physician: Carrie Montana Exam # [id number] - Jan 24 2019 - US - AAA Screening Exam Performed at [facility] Exam: Abdominal aorta ultrasound CLINICAL [...] Thapa M.D. on Jan 25, 2019 01/24/2019 [facility] PELVIC (NON OB) COMPLETE TA/TV WITH DOPPLER US - PELVIC (NON OB) COMPLETE TA/TV WITH DOPPLER Patient Name: Daniel Zhu Patient : 1950 DOS: Jan 24, 2019 Patient Ref. Physician: Carrie Montana Exam # [id number] - Jan 24 2019 - US - PELVIC (NON OB) COMPLETE TA/TV WITH DOPPLER Exam Performed at [facility] INDICATION: Vaginal bleeding. COMPARISON: None. [...] Lujan M.D. on Jan 26, 2019 01/24/2019 [facility] Imaging Consultation Notes Results Value Date Source Discharge Instructions Document [facility] [address] [place] [address] RHONDA FRAIRE :1950 ([facility]) Visit Date:06/13/2024 Inpatient Discharge Instructions Your Care [...] What to do next Additional Patient Instructions supply officer Metoprolol at [facility]. You May Need to Schedule the Following Appointments Follow Up with Corky Soto MD When Within 1 to 2 weeks Where: [address] [facility] [address] [place] [address]- We encourage you to sign up for My Portal, where you can easily access your medical records and test results from all [facility]. Please sign up in one [...] and help Search for local options using [email or web address]. Medications DO NOT STOP TAKING ANY MEDICATIONS WITHOUT CONTACTING YOUR PHYSICIAN What How Much When Instructions Next Dose New aspirin (aspirin 81 mg oral enteric coated tablet) 1 tab(s) By mouth Once daily Pickup at [facility] 5429 New metoprolol (metoprolol succinate 25 mg oral capsule, extended release) 1 cap By mouth Once daily Pickup at [facility] 5429 New ticagrelor (Brilinta (ticagrelor) 90 mg oral tablet) 1 tab(s) By mouth Twice daily Pickup at [facility] 5429 Changed rosuvastatin (rosuvastatin 20 mg oral tablet) 1 tab(s) By mouth Once daily Unchanged acetaminophen (Tylenol oral TABLET) 650 Milligram By mouth Every 4 hours as needed for Pain Unchanged cholecalciferol (Vitamin D3 125 mcg (5,000 unit) oral capsule) 1 cap By mouth Once daily with food Unchanged vonoprazan (Voquezna 10 mg oral tablet) 1 tab(s) By mouth Once daily Pharmacy Information [facility] 54: [address] [place], [place] [id number] [phone] Discharge Orders Discharge Orders: Discharge Today, Home or self care Education Materials [facility] RADIAL ARTERY ACCESS / TR [...] contact the Emergency Department. Document Released: 11/16/2006 [employer]? Patient Information ?2007 [employer]. Femoral Site Care The following information offers [...] and water are not available, use hand health care facilities inspector. Change or remove your dressing as told [...] that it is safe. General instructions Take zflh-rif-rcyhxfm and prescription medicines only as told by [...] provider. Document Revised: 08/06/2022 Document Reviewed: 01/05/2022 [employer] Patient Education ? 2022 [employer]. ticagrelor (naomi KA grel or) Brilinta (ticagrelor) [...] may report side effects to FDA at 5-838-XRS-7718. What other drugs will affect ticagrelor Sometimes [...] may affect ticagrelor. This includes prescription and zcvl-wrn-ywrrsas medicines, vitamins, and herbal products. Not all [...] to ensure that the information provided by [employer] ('[employer]') is accurate, up-to-date, and complete, but no guarantee is made to that effect. Drug information contained herein may be time sensitive. [employer] information has been compiled for use by healthcare practitioners and consumers in the [place] and therefore [employer] does not warrant that uses outside of the [place] are appropriate, unless specifically indicated otherwise. [employer] drug information does not endorse drugs, diagnose patients or recommend therapy. [employer] drug information is an informational resource designed [...] effective or appropriate for any given patient. [employer] does not assume any responsibility for any aspect of healthcare administered with the aid of information [employer] provides. The information contained herein is not intended to cover all possible uses, directions, precautions, warnings, drug interactions, allergic reactions, or adverse effects. If you have questions about the drugs you are taking, check with your doctor, nurse or pharmacist. Copyright 9167-8510 [employer] Version: 5.01. Revision Date: 12/21/2020. Medication Education [...] about all medicines taken. Include prescription and kbdv-nby-pjusaqg medicines, vitamins, and herbal medicines. Speak with [...] complete description of this medicine available in Tunisian. Scan this code on your smartphone or tablet or use the web address below. You can also ask your pharmacist for a printout. If you have any questions, please ask your pharmacist. [email or web address] 37/pem Copyright(c) 2023 [employer]. metoprolol (metoprolol succinate 25 mg oral capsule, [...] about all medicines taken. Include prescription and hizm-onl-fajoxbs medicines, vitamins, and herbal medicines. Speak with [...] complete description of this medicine available in Tunisian. Scan this code on your smartphone or tablet or use the web address below. You can also ask your pharmacist for a printout. If you have any questions, please ask your pharmacist. [email or web address]://People to [email or web address].Kulara Water/[email or web address]/[email or web address] 40/pem Copyright(c) 2023 [employer]. ticagrelor (Brilinta (ticagrelor) 90 mg oral tablet) [...] about all medicines taken. Include prescription and wrjo-gdh-xsybnsk medicines, vitamins, and herbal medicines. Speak with [...] be , or . Do not take [place]'s wort while on this medicine. Call your [...] complete description of this medicine available in Tunisian. Scan this code on your smartphone or tablet or use the web address below. You can also ask your pharmacist for a printout. If you have any questions, please ask your pharmacist. [email or web address] to [email or web address] [email or web address] 41/pem Copyright(c) 2023 [employer]. Clothes at Bedside: Coat/Jacket, Pants, Shirt, Shoes, Socks Clothes Sent Home: Coat/Jacket, Pants, Shirt, Shoes, Socks Electronics at Bedside: None Electronics Sent Home: None Jewelry at Bedside: None Jewelry Sent Home: None Miscellaneous Items Sent Home: None Personal Devices at Bedside: None Personal Devices Sent Home: None I understand that [facility] is not responsible for any personal belongings/effects or valuables that have not been identified on the valuables and belongings list. Any personal effects brought into the facility and not recorded on the valuables and belongings form are the responsibility of the patient/family/significant other.I have received the indicated patient education materials/instructions and medication list and have verbalized understanding. Patient Name: RHONDA FRAIRE Patient/Vascular Neurologist Signature: Relationship to Patient: __ Witness Signature: Date/Time: 06/14/2024 [facility] Discharge Instructions Document [facility] [address] [place] [address] RHONDA FRAIRE :1950 ([facility]) Visit Date:06/13/2024 Inpatient Discharge Instructions Your Care [...] What to do next Additional Patient Instructions supply officer Metoprolol at [facility]. You May Need to Schedule the Following Appointments Follow Up with Corky Soto MD When Within 1 to 2 weeks Where: [address] [facility] [address] [place] [address]- We encourage you to sign up for My Portal, where you can easily access your medical records and test results from all [facility]. Please sign up in one [...] and help Search for local options using [email or web address]. Medications DO NOT STOP TAKING ANY MEDICATIONS WITHOUT CONTACTING YOUR PHYSICIAN What How Much When Instructions Next Dose New aspirin (aspirin 81 mg oral enteric coated tablet) 1 tab(s) By mouth Once daily Pickup at [facility] 5149 New metoprolol (metoprolol succinate 25 mg oral capsule, extended release) 1 cap By mouth Once daily Pickup at [facility] 5429 New ticagrelor (Brilinta (ticagrelor) 90 mg oral tablet) 1 tab(s) By mouth Twice daily Pickup at [facility] 5429 Changed rosuvastatin (rosuvastatin 20 [...] tab(s) By mouth Once daily Pharmacy Information [facility]29: [address] [place], [place] [id number] [phone] Discharge Orders Discharge Orders: Discharge Today, Home or self care Education Materials [facility] RADIAL ARTERY ACCESS / TR [...] contact the Emergency Department. Document Released: 11/16/2006 [facility] Patient Information ?2007 [employer]. Femoral Site Care The following information offers [...] and water are not available, use hand health care facilities inspector. Change or remove your dressing as told [...] that it is safe. General instructions Take vjwj-qqv-lmgobke and prescription medicines only as told by [...] provider. Document Revised: 08/06/2022 Document Reviewed: 01/05/2022 [employer] Patient Education ? 2022 [employer]. ticagrelor (naomi KA grel or) Brilinta (ticagrelor) [...] may report side effects to FDA at 1-386-KQN-3835. What other drugs will affect ticagrelor Sometimes [...] may affect ticagrelor. This includes prescription and lvwr-pry-eoceaxl medicines, vitamins, and herbal products. Not all [...] to ensure that the information provided by [employer] ('[employer]') is accurate, up-to-date, and complete, but no guarantee is made to that effect. Drug information contained herein may be time sensitive. [employer] information has been compiled for use by healthcare practitioners and consumers in the [place] and therefore [employer] does not warrant that uses outside of the [place] are appropriate, unless specifically indicated otherwise. [employer] drug information does not endorse drugs, diagnose patients or recommend therapy. [employer] drug information is an informational resource designed [...] effective or appropriate for any given patient. [employer] does not assume any responsibility for any aspect of healthcare administered with the aid of information [employer] provides. The information contained herein is not intended to cover all possible uses, directions, precautions, warnings, drug interactions, allergic reactions, or adverse effects. If you have questions about the drugs you are taking, check with your doctor, nurse or pharmacist. Copyright 4820-7830 [employer] Version: 5.01. Revision Date: 12/21/2020. Medication Education [...] about all medicines taken. Include prescription and ktmu-ydc-dzikkjp medicines, vitamins, and herbal medicines. Speak with [...] complete description of this medicine available in Tunisian. Scan this code on your smartphone or tablet or use the web address below. You can also ask your pharmacist for a printout. If you have any questions, please ask your pharmacist. [email or web address].Kulara Water/[email or web address]/[email or web address] 37/pem Copyright(c) 2023 [employer]. metoprolol (metoprolol succinate 25 mg oral capsule, [...] about all medicines taken. Include prescription and opav-udo-tllbxqy medicines, vitamins, and herbal medicines. Speak with [...] complete description of this medicine available in Tunisian. Scan this code on your smartphone or tablet or use the web address below. You can also ask your pharmacist for a printout. If you have any questions, please ask your pharmacist. [email or web address] [email or web address] 40/pem Copyright(c) 2023 [employer]. ticagrelor (Brilinta (ticagrelor) 90 mg oral tablet) [...] about all medicines taken. Include prescription and jfzb-eaf-xygpfpa medicines, vitamins, and herbal medicines. Speak with [...] complete description of this medicine available in Tunisian. Scan this code on your smartphone or tablet or use the web address below. You can also ask your pharmacist for a printout. If you have any questions, please ask your pharmacist. https://People to [email or web address].K[employer]a Water/[email or web address]/[email or web address] 41/pem Copyright(c) 2023 [employer]. Clothes at Bedside: Coat/Jacket, Pants, Shirt, Shoes, Socks Clothes Sent Home: Coat/Jacket, Pants, Shirt, Shoes, Socks Electronics at Bedside: None Electronics Sent Home: None Jewelry at Bedside: None Jewelry Sent Home: None Miscellaneous Items Sent Home: None Personal Devices at Bedside: None Personal Devices Sent Home: None I understand that [facility] is not responsible for any personal belongings/effects or valuables that have not been identified on the valuables and belongings list. Any personal effects brought into the facility and not recorded on the valuables and belongings form are the responsibility of the patient/family/significant other.I have received the indicated patient education materials/instructions and medication list and have verbalized understanding. Patient Name: RHONDA FRAIRE Patient/Vascular Neurologist Signature: Relationship to Patient: __ Witness Signature: Date/Time: 06/13/2024 [facility] Cardiac Cath DATE OF PROCEDURE: 06/13/2024 PROCEDURES PERFORMED: 1. Ultrasound-guided right common femoral artery and right radial artery access. 2. Left heart cath, hemodynamic measurement left ventriculogram. 3. Selective [place] coronary angiogram. 4. IFR of the circumflex, [...] and right groin area prepped and a 6-[place] Citizen sheath inserted in the right radial artery under ultrasound guidance. Patient's right radial artery is diminutive and small on ultrasound. We managed to obtain a selective [place] coronary angiogram with the Torres catheter and an LV-gram, but unable to advance a 6-[place] Citizen guide catheter due to severe coronary artery vasospasm. Thus, we switched to the groin approach. A 6-[place] Citizen sheath inserted in the right common femoral [...] the aortic valve. 3. LVEF 55%. SELECTIVE TUOLUMNE ANGIOGRAM: 1. Left main coronary artery is [...] discharged home. Dictated by: CORKY SOTO MD [facility] Doc: [id number] Job:[id number] Electronically Signed By: Corky Soto MD On 06/13/24 16:09 Co Signature By: Modify Signature By: 06/13/2024 [facility] Discharge Summaries Results Value Date Source Discharge summary Patient: RHONDA FRAIRE Age: 73 years Sex: F : 1950 Active Insurance: MEDICARE OUTPATIENT [id number] Admitting MD: Corky Soto MD Location: [facility] 2CPP: 2C07: P1 PCP: PCP, Unknown Author: [...] Co Signature By: Modify Signature By: 06/13/2024 [facility] Discharge Summary Patient: WENDY FRAIRE Age: 73 years Sex: F : 1950 Active Insurance: MEDICARE OUTPATIENT [id number] Admitting MD: Corky Soto MD Location: [facility] 2CPP: 2C07: P1 PCP: PCP, Unknown Author: [...] Co Signature By: Modify Signature By: 06/13/2024 [facility] History and Physicals Results Value Date Source History and physical note Annia Love : PERFORM Event Display: History and Physical Authored Date: [id number] 06/13/2024 [facility] Vital Signs Vital Sign Value Date Comments Source Heart Rate 85 bpm 06/14/2024 [facility] Respiratory Rate 20 Breaths/Min 06/14/2024 [facility] SPO2 97 % 06/14/2024 [facility] Systolic 150 mm[Hg] 06/14/2024 [facility] Diastolic 75 mm[Hg] 06/14/2024 [facility] NIBP Mean 107 mm[Hg] 06/14/2024 [facility] NIBP Mean 103 mm[Hg] 06/14/2024 [facility] Systolic 143 mm[Hg] 06/14/2024 [facility] Diastolic 78 mm[Hg] 06/14/2024 [facility] Heart Rate 80 bpm 06/14/2024 [facility] Respiratory Rate 20 Breaths/Min 06/14/2024 [facility] SPO2 99 % 06/14/2024 [facility] Rate 72 bpm 06/14/2024 [facility] Respiratory Rate 22 Breaths/Min 06/14/2024 [facility] SPO2 99 % 06/14/2024 [facility] NIBP Mean 107 mm[Hg] 06/14/2024 [facility] Systolic 149 mm[Hg] 06/14/2024 [facility] Diastolic 78 mm[Hg] [facility]20[facility] Heart Rate 65 bpm 06/13/2024 [facility] Respiratory Rate 19 Breaths/Min 06/13/2024 [facility] SPO2 96 % 06/13/2024 [facility] NIBP Mean 97 mm[Hg] 06/13/2024 [facility] Systolic 143 mm[Hg] 06/13/2024 [facility] Diastolic 66 mm[Hg] 06/13/2024 [facility] Heart Rate 72 bpm 06/13/2024 [facility] Respiratory Rate 18 Breaths/Min 06/13/2024 [facility] SPO2 99 % 06/13/2024 [facility] NIBP Mean 96 mm[Hg] 06/13/2024 [facility] Systolic 123 mm[Hg] 06/13/2024 [facility] Diastolic 80 mm[Hg] 06/13/2024 [facility] Heart Rate 70 bpm 06/13/2024 [facility] Respiratory Rate 14 Breaths/Min 06/13/2024 [facility] SPO2 96 % 06/13/2024 [facility] NIBP Mean 97 mm[Hg] 06/13/2024 [facility] Systolic 127 mm[Hg] 06/13/2024 [facility] Diastolic 77 mm[Hg] 06/13/2024 [facility] Heart Rate 67 bpm 06/13/2024 [facility] Respiratory Rate 17 Breaths/Min 06/13/2024 [facility] SPO2 99 % 06/13/2024 [facility] NIBP Mean 90 mm[Hg] 06/13/2024 [facility] Systolic 121 mm[Hg] 06/13/2024 [facility] Diastolic 69 mm[Hg] 06/13/2024 [facility] Heart Rate 67 bpm 06/13/2024 [facility] Respiratory Rate 18 Breaths/Min 06/13/2024 [facility] SPO2 96 % 06/13/2024 [facility] NIBP Mean 92 mm[Hg] 06/13/2024 [facility] Systolic 129 mm[Hg] 06/13/2024 [facility] Diastolic 67 mm[Hg] 06/13/2024 [facility] Heart Rate 69 bpm 06/13/2024 [facility] NIBP Mean 90 mm[Hg] 06/13/2024 [facility] Systolic 127 mm[Hg] 06/13/2024 [facility] Diastolic 62 mm[Hg] 06/13/2024 [facility] Respiratory Rate 18 Breaths/Min 06/13/2024 [facility] SPO2 99 % 06/13/2024 [facility] Heart Rate 68 bpm 06/13/2024 [facility] NIBP Mean 104 mm[Hg] 06/13/2024 [facility] Systolic 150 mm[Hg] 06/13/2024 [facility] Diastolic 79 mm[Hg] 06/13/2024 [facility] Respiratory Rate 12 Breaths/Min 06/13/2024 [facility] SPO2 99 % 06/13/2024 [facility] Temperature Temporal Artery 36.3 Laver[place] 06/13/2024 [facility] Temperature Temporal Artery 36.5 Laverne 06/13/2024 [facility] Glucose Level 101 mg/dL 06/13/2024 [facility] Height 160.02 cm 06/10/2024 [facility] 37.051 kg/m2 06/10/2024 [facility] Drug Calc Weight (kg) 94.875 kg 06/10/2024 [facility] Encounters Location Location Details Encounter Type Encounter Number Reason For Visit Attending Provider ADM Date DC Date Status Source [facility] Outpatient [id number] Corky Soto 06/13 [facility] Procedures Procedure Code Date Perfomer Comments Source right knee surgery [facility] dental implants [facility] Social History Social History Date Source Social History TypeResponse Smoking Status Never (less than 100 in lifetime) entered on: 06/10/24 Sex 06/20/2024 [facility] Social History TypeResponse Smoking Status Never (less than 100 in lifetime) entered on: 06/10/24 Sex 06/10/2024 [facility] Assessment and Plan Result Assessment and Plan [...] Special Instructions: with food Discontinued Meds 06/14/2024 [facility] Family History Results Value Date Source Family History No data available for this section 05/30 [facility]
--- OUTSIDE RECORDS SUMMARY | 2024-12-06 19:46 | XMS_ITS | Encounter Summary ---
[facility] Organization [facility] Address [address] [place] [address] Care Team Providers Care Manufacturing Worker Name Role Phone None, Provider Pt States [...] on filedocumented in this encounter Care Teams Manufacturing Worker Relationship Specialty Start Date End Date None, Provider Pt States [address] [place] [address] PCP - General 04/02/24 documented as of this encounter
--- OUTSIDE RECORDS SUMMARY | 2024-12-06 19:46 | XMS_ITS | Encounter Summary ---
Author Organization [facility] Address [address] [place] [address] Care Team Providers Care Customer Service Leader Name Role Phone Unavailable Primary Care Provider Unavailabl e Encounter Details Date Type Department Care Team (Late st Contact Info) Description 03/25/2018 Lab Services ALLSCR[facility]ina Rivera NP [address] [place] [address] Social History Tobacco Use Types [...]
--- OUTSIDE RECORDS SUMMARY | 2024-12-06 19:46 | XMS_ITS | Referral Summary ---
Author Organization [facility] Address [address] [place] [address] Care Team Providers Care Resource Engineer Name Role Phone Alexis Leggett MD Primary Care Provider [phone] Immunizations Name Administration Dates Next Due Tdap [...] AM CDT Narrative 04/18/2017 8:59 AM CDT #[id number] - [place] FFDM SCREEN W CAD MAIK BILATERAL DIGITAL SCREENING MAMMOGRAM WITH CAD: 04/14/2017 CLINICAL HISTORY:Routine Screening. ?? Unknown family history of breast cancer. ??Patient is post menopausal. COMPARISON: Comparison is made to exam dated: ??07/31/2015 mammogram - [facility]. FINDINGS: The tissue of both breasts is [...] 2 BENIGN Jon Carlos M.D. mw/xander:04/17/2017 10:57:23 Health Tech: Janelle VALENCIA)(Violeta), [facility] letter sent: Normal Single Exam [id number] ??FINAL ?? Dictated By: ? JON LAWSON MD Electronically Reviewed and Approved By: ?JON LAWSON MD Procedure Note Provider, [facility] Historical Conversion - 10/10/2018 #[id number] - MA FFDM SCREEN W CAD MAIK BILATERAL DIGITAL SCREENING MAMMOGRAM WITH CAD: 04/14/2017 CLINICAL HISTORY:Routine Screening. Unknown family history of breastcancer. Patient is post menopausal. COMPARISON: Comparison is made to exam dated: 07/31/2015 mammogram - [facility]. FINDINGS: The tissue of both breasts [...] 2 BENIGN Jon Carlos M.D. mw/xander:04/17/2017 10:57:23 Health Tech: Janelle Thurston RT(R)(M), [facility] letter sent: Normal Single Exam [id number] FINAL Dictated By: JON LAWSON MD Electronically Reviewed and Approved By: JON LAWSON MD Alexis Leggett MD IMG BI PROCEDURES from Last 3 Months or Most Recently Relevant to Health Maintenance Care Teams Resource Engineer Relationship Specialty Start Date End Date Alexis Leggett MD PCP - General 12/14/19
--- OUTSIDE RECORDS SUMMARY | 2024-12-06 19:46 | XMS_ITS | Encounter Summary ---
Author Organization [facility] Address [address] [place] [address] Care Team Providers Care Board Filler Name Role Phone Unavailable Primary Care Provider Unavailabl e Encounter Details Date Type Department Care Team ([facility] st Contact Info) Description 03/20/2017 Lab Services [facility] CONVERSION Britni Lua, NO [address] [place] [address] Social History Tobacco Use Types Packs/Day Years [...] Cytology Consultation Report ? Client: [id number] ? Date Specimen Collected: 03/20/17 ? Date Specimen Received: ??03/20/17 ?Requisition ?? #:[id number] ?? Date Reported: ? 03/25/2017 10:56 ?Location: ? [facility] ?* Addendum Present * ? Cytologic [...] ?? Z01.419 ? Fee Codes: ?? A: [id number] ?? HPV_IL: [id number] ? Performing Lab Location (Unless otherwise specified): ?? [facility] ?? [address] [place]. [address] ?? [facility] 03/20/2017 12:0 1 AM CDT 03/25/2017 10:56 AM CDT Narrative [facility] [place] - 03/25/2017 11:28 AM CDT Performed At: [facility] Result Annotated 03/25/2017 11:28 by BRITNI LUA: ??Normal pap, HPV negative Britni Lua APNP [facility] LAB CYTOL OGY ORDERABLES Performing Organization Address City/State/[facility] Co de Phone Number [facility] [address] [place] [address] documented in this encounter Visit Diagnoses Not on filedocumented in this encounter
--- OUTSIDE RECORDS SUMMARY | 2024-12-06 19:46 | XMS_ITS | Encounter Summary ---
Author Organization [facility] Address [address] [place] [address] Care Team Providers Care Office Assistance Name Role Phone Unavailable Primary Care Provider Unavailabl e Encounter Details Date Type Department Care Team ([facility] st Contact Info) Description 04/14/2017 Imaging Services ALLSCRIPTS CONVERSION Alexis Leggett MD [address] [place] [address] Social History Tobacco Use Types [...] AM CDT Narrative 04/18/2017 8:59 AM CDT #[id number] - MA FFDM SCREEN W CAD MAIK BILATERAL DIGITAL SCREENING MAMMOGRAM WITH CAD: 04/14/2017 CLINICAL HISTORY:Routine Screening. ?? Unknown family history of breast cancer. ??Patient is post menopausal. COMPARISON: Comparison is made to exam dated: ??07/31/[address] - [facility]. FINDINGS: The tissue of both breasts [...] 2 BENIGN Jon Carlos M.D. mw/penrad:04/17/2017 10:57:23 Gifted Program Teacher: Janelle PARADA (R)(Violeta), [facility] letter sent: Normal Single Exam [id number] ??FINAL ?? Dictated By: ? JON LAWSON MD Electronically Reviewed and Approved By: ?JON LAWSON MD Procedure Note Provider, [facility] Historical Conversion - 10/10/2018 #[id number] - [place] FFDM SCREEN W CAD MAIK BILATERAL DIGITAL SCREENING MAMMOGRAM WITH CAD: 04/14/2017 CLINICAL HISTORY:Routine Screening. Unknown family history of breastcancer. Patient is post menopausal. COMPARISON: Comparison is made to exam dated: 07/31/2015 mammogram - [facility]. FINDINGS: The tissue of both [...] 2 BENIGN Jon Carlos M.D. mw/penrad:04/17/2017 10:57:23 Gifted Program Teacher: Janelle PARADA (R)(Violeta), [facility] letter sent: Normal Single Exam [id number] FINAL Dictated By: JON LAWSON MD Electronically Reviewed and Approved By: JON LAWSON MD Alexis Leggett MD IMG BI PROCEDURES documented in this encounter Visit Diagnoses Not on filedocumented in this encounter
--- OUTSIDE RECORDS SUMMARY | 2024-12-06 19:46 | XMS_ITS | Encounter Summary ---
[facility] Organization [facility] Address [address] [place] [address] Care Team Providers Care Foundation Assistant Name Role Phone None, Provider Pt States Primary Care Provider U navailable Reason for Visit * Reason Onset Date Comments Results 04/04/2024 Urine culture re sult Encounter Details Date Type Department Care Team (Late st Contact Info) Description 04/04/2024 Telephone [facility] [address] [place] [address] Sofy García, PharmD [phone] (Work) Results (Urine culture result) Social History Tobacco Use Types Packs/Day Years Used Date Smoking Tobacco: Never Assessed Sex and Gender Information Value Date Recorded Sex Assigned at Female 04/03/2024 7:04 PM [facility] Gender Identity Female 04/03/2024 7:04 PM [facility] Sexual Orientation Straight 04/03/2024 7: 04 PM [facility] documented as of this encounter Miscellaneous Notes * Telephone Encounter - Sofy García PharmD - 04/04/2024 1:27 PM [facility] Positive culture, symptoms, discharged on augmentin (cannot [...] documented as of this encounter Care Teams Foundation Assistant Relationship Specialty Start Date End Date None, Provider Pt States [address] [place], [place] [address] PCP - General 04/02/24 documented as of this encounter
--- OUTSIDE RECORDS SUMMARY | 2024-12-06 19:46 | XMS_ITS | Clinical Summary ---
Author Organization [facility] Address [address] [place] [address] Care Team Providers Care Telecommunications Facility Examiner Name Role Phone Alexis Leggett MD Primary Care Provider [phone] Immunizations Name Administration Dates Next Due Tdap [...] AM CDT Narrative 04/18/2017 8:59 AM CDT #[id number] - MA FFDM SCREEN W CAD MAIK BILATERAL DIGITAL SCREENING MAMMOGRAM WITH CAD: 04/14/2017 CLINICAL HISTORY:Routine Screening. ?? Unknown family history of breast cancer. ??Patient is post menopausal. COMPARISON: Comparison is made to exam dated: ??07/31/2015 mammogram - [facility]. FINDINGS: The tissue of both breasts [...] 2 BENIGN Jon Carlos M.D. mw/penrad:04/17/2017 10:57:23 Physical Chemistry Teacher: Janelle PARADA (R)(Violeta), [facility] letter sent: Normal Single Exam [id number] ??FINAL ?? Dictated By: ? JON LAWSON MD Electronically Reviewed and Approved By: ?JON LAWSON MD Procedure Note Provider, [facility] Historical Conversion - 10/10/2018 #[id number] - [place] FFDM SCREEN W CAD MAIK BILATERAL DIGITAL SCREENING MAMMOGRAM WITH CAD: 04/14/2017 CLINICAL HISTORY:Routine Screening. Unknown family history of breastcancer. Patient is post menopausal. COMPARISON: Comparison is made to exam dated: 07/31/2015 mammogram - [facility]. FINDINGS: The tissue of both breasts [...] MAMMOGRAPHY BI-RADS: 2 BENIGN Jon zarate/penrad:04/17/2017 10:57:23 Physical Chemistry Teacher: Janelle VALENCIA)(Violeta), [facility] letter sent: Normal Single Exam [id number] FINAL Dictated By: JON LAWSON MD Electronically Reviewed and Approved By: JON LAWSON MD Alexis Leggett MD IMG BI PROCEDURES from Last 3 Months or Most Recently Relevant to Health Maintenance Care Teams Telecommunications Facility Examiner Relationship Specialty Start Date End Date Alexis Leggett MD PCP - General 12/14/19
--- OUTSIDE RECORDS SUMMARY | 2024-12-06 19:46 | XMS_ITS | Encounter Summary ---
Author Organization [facility] Address [address] [place] [address] Care Team Providers Care Manager Paid Name Role Phone None, Provider Pt States [...] st Contact Info) Description 04/02/2024 2:39 PM [facility] - 04/02/2024 8:00 PM [facility] Emergency [facility] Urgent Care - [facility] [address] [place] [address] Wendy Diaz NP [address] [place] [address] UTI (urinary tract infection), uncomplicated (Primary Dx) Discharge Disposition: Home or Self Care Social History Tobacco Use Types Packs/Day Years Used Date Smoking Tobacco: Never Assessed Sex and Gender Information Value Date Recorded Sex Assigned at Female 04/03/2024 7:04 PM [facility] Gender Identity Female 04/03/2024 7:04 PM [facility] Sexual Orientation Straight 04/03/2024 7: 04 PM [facility] documented as of this encounter [...] Everywhere. * UTI (Urinary Tract Infection): Female ([place]) documented in this encounter ED Notes * [...] Negative POC Ketones, Urine Negative POC Specific [place], Urine 1.010 POC Blood, Urine Moderate (*) [...] Date/Time Temp Pulse Resp BP SpO2 Weight [facility] 04/02/24 1437 97.5 ??F (36.4 ??C) [...] for 5 days. - Oral Follow Up: [facility] Care - [place] [address] [facility] [address] If symptoms worsen Wendy Diaz NP [facility] Documentation assistance provided for Wendy Diaz NP by genet Sweet. Information recorded by the scribe was done at my direction and has been reviewed and validated by me. Wendy Diaz NP 04/02/242019 * ROMY RoseEducation Finance Processor - 04/02/2024 3:07 PM MST Worm Sorter explained to the patient that this visit would be an emergency department visit and billed as such due to the workup the patient will be receiving. Worm Sorter explained the workup and plan of care. [...] reviewed: The patient was last treated at [facility] in the ED on 05/22/23 for [...] Ketones, Urine Negative Negative mg/dL POC Specific [place], Urine 1.010 POC Blood, Urine Moderate (A) [...] ORDERABLES * POCT CR (04/02/2024 4:06 PM [facility]) [facility] POC Creatinine 0.8 0.6 - 1.3 mg/dL 04/02/2024 4:06 PM [facility] Blood BLOOD SPECIMEN / Unknown 04/02/2024 4:06 PM [facility] 04/02/2024 4:08 PM [facility] Narrative [facility] - 04/02/2024 4:06 PM [facility] Test Performed at: [facility] [address] [place] [address] Dung Enrique M.D. Kaleigh Weir NP POCT ORDERABLES - DEVICE Performing Organization Address City/State/[facility] Co de Phone Number [facility] [address] [employer], [place] [address] [phone] * (ABNORMAL) POCT Liver Function Panel (04/02/2024 4:01 PM [facility]) [facility] POC ALT 34 10 - 47 U/L 04/02/2024 4:01 PM [facility] POC Albumin 4.0 3.3 - 5.5 g/dL 04/02/2024 4:01 PM [facility] POC Alkaline Phosphatase 100 42 - 141 U/L 04/02/2024 4:01 PM [facility] POC Amylase 32 14 - 97 U/L 04/02/2024 4:01 PM [facility] POC AST 40(H) 11 - 38 U/L 04/02/2024 4:01 PM [facility] POC Gamma GT 87(H) 5 - 65 U/L 04/02/2024 4:01 PM [facility] POC Total Bilirubin 0.8 0.2 - 1.6 mg/dL 04/02/2024 4:01 PM [facility] POC Total Protein 7.0 6.4 - 8.1 g/dL 04/02/2024 4:01 PM [facility] Blood BLOOD SPECIMEN / Unknown 04/02/2024 4:01 PM [facility] 04/02/2024 4:16 PM [facility] Narrative [facility] - 04/02/2024 4:01 PM [facility] Test Performed at: [facility] [address] [place] [address] Dung Enrique M.D. Kaleigh Weir NP POCT ORDERABLES - DEVICE [facility] [address] [place], [place] [address] [phone] * (ABNORMAL) POCT Test Result (04/02/2024 4:00 PM [facility]) [facility] POC Sodium 142 138 - 146 mmol/L 04/02/2024 4:00 PM [facility] POC Potassium 3.3(L) 3.5 - 4.9 mmol/L 04/02/2024 4:00 PM [facility] POC Chloride 103 98 - 109 mmol/L 04/02/2024 4:00 PM [facility] POC TCO2 25.2 24.0 - 29.0 mmol/L 04/02/2024 4:00 PM [facility] POC Ionized Calcium 1.22 1.12 - 1.32 mmol/L 04/02/2024 4:00 PM [facility] POC Glucose 100 70 - 130 mg/dL 04/02/2024 4:00 PM [facility] POC Anion Gap 10.7 10 - 20 04/02/2024 4:00 PM [facility] Sample NUNU 04/02/2024 4:00 PM [facility] Blood BLOOD SPECIMEN / Unknown 04/02/2024 4:00 PM [facility] 04/02/2024 4:02 PM [facility] Narrative [facility] - 04/02/2024 4:00 PM [facility] Test Performed at: [facility] [address] [place] [address] Dung Enrique M.D. Kaleigh Weir NP POCT ORDERABLES - DEVICE [facility] [address] [place] [address], [facility] [phone] * CBC with Differential (ED) (04/02/2024 3:58 PM [facility]) WBC 5.8 4.0 - 10.9 10??/uL 04/02/2024 4:03 PM [facility] RBC 4.60 3.50 - 5.40 10? 6 /uL 04/02/2024 4:03 PM [facility] Hemoglobin 13.3 12.0 - 16.0 g/dL 04/02/2024 4:03 PM [facility] Hematocrit 40.9 36.0 - 48.0 % 04/02/2024 4:03 PM [facility] MCV 88.9 80.0 - 98.0 fL 04/02/2024 4:03 PM [facility] MCH 28.9 27.0 - 34.0 PG 04/02/2024 4:03 PM [facility] MCHC 32.5 31.0 - 37.0 g/dL 04/02/2024 4:03 PM [facility] RDW-CV 13.2 11.5 - 14.5 % 04/02/2024 4:03 PM [facility] RDW-SD 43.8 36.4 - 46.3 fL 04/02/2024 4:03 PM [facility] Platelets 232 130 - 450 10? 3 /uL 04/02/2024 4:03 PM [facility] MPV 9.8 7.4 - 12.4 fL 04/02/2024 4:03 PM [facility] Neutrophils 61 % 04/02/2024 4:03 PM [facility] Lymphs 21 % 04/02/2024 4:03 PM [facility] Monocytes 14 % 04/02/2024 4:03 PM [facility] Eosinophils 3 % 04/02/2024 4:03 PM [facility] Basophils 0 % 04/02/2024 4:03 PM [facility] Immature Grans 0 % 04/02/2024 4:03 PM [facility] Neutrophils Absolute 3.53 1.48 - 8.32 10??/uL 04/02/2024 4:03 PM [facility] Lymphocytes Absolute 1.22 0.90 - 3.50 10??/uL 04/02/2024 4:03 PM [facility] Monocytes Absolute 0.79 0.26 - 0.80 10??/uL 04/02/2024 4:03 PM [facility] Eosinophils Absolute 0.19 0.00 - 0.62 10??/uL 04/02/2024 4:03 PM [facility] Basophils Absolute <0.05 0.00 - 0.10 10??/uL 04/02/2024 4:03 PM [facility] Immature Grans Absolute 0.01 0.00 - 0.10 10??/uL 04/02/2024 4:03 PM [facility] Blood BLOOD SPECIMEN / Unknown Line / Unknown 04/02/2024 3:58 PM [facility] 04/02/2024 4:00 PM [facility] Kaleigh Weir NP LAB BLOOD ORDERAB LES [facility] Organization Address City/State/ZIP Co de Phone Number [facility] [address] [place], [place] [address] [phone] * Culture Urine (04/02/2024 3:10 PM [facility]) Culture Urine >100,000 cfu/mL ESBL Escherichia coli LEIDY 04/04/2024 12:34 PM [facility] [place] Urine URINE SPECIMEN OBTAINED BY CLEAN CATCH PROCEDURE / Unknown Collection / Unknown 04/02/2024 3:10 PM MST 04/02/2024 3:10 PM [facility] Narrative Organism Antibiotic Method Susceptibility [...] is recommended. Kaleigh Weir NP MICRO[facility]OLOGY - [facility] ORDERABLES [facility] [address] [facility] [address] [place], [place] [id number] [place] [address] * (ABNORMAL) POCT Urinalysis (04/02/2024 2:53 PM [facility]) [facility] POC Glucose, Urine Negative Negative 04/02/2024 2:53 PM [facility] POC Bilirubin Urine Negative Negative 04/02/2024 2:53 PM [facility] POC Ketones, Urine Negative Negative mg/dL 04/02/2024 2:53 PM [facility] POC Specific [place], Urine 1.010 04/02/2024 2:53 PM [facility] POC Blood, Urine Moderate(A) Negative 04/02/2024 2:53 PM [facility] POC pH, Urine 6.0 04/02/2024 2:53 PM [facility] POC Protein, Urine Negative Negative mg/dL 04/02/2024 2:53 PM [facility] POC Urobilinogen, Urine 0.2 <=0.2 E.U./dL 04/02/2024 2:53 PM [facility] POC Nitrite, Urine Negative Negative 04/02/2024 2:53 PM [facility] POC Leukocytes, Urine Small(A) Negative 04/02/2024 2:53 PM [facility] POC Color Yellow 04/02/2024 2:53 PM [facility] POC Clarity Clear 04/02/2024 2:53 PM [facility] Urine 04/02/2024 2:53 PM MST 04/02/2024 2:56 PM [facility] Narrative [facility] - 04/02/2024 2:53 PM [facility] Test Performed at: [facility] [address] [place] [address] Dung Enrique M.D. Kaleigh Weir NP POCT ORDERABLES - DEVICE [facility] [address] [place], [place] [address] [phone] documented in this encounter Visit Diagnoses Diagnosis [...] (New Bag - Prov ider: Charly Michel, EMT-Education Finance Processor)[id number] (Stopped - Provider: Heather Taylor RN) PRN Medication Order 03/31/2024 04/01/2024 04/02/2024 iopamidol (ISOVUE-370) 76 % injection 75 mL (COMPLETED) 75 mL, Intravenous, Imaging once PRN, Contrast, Starting on 04/02/24 at 1653, For 1 dose, STAT 1653 (Given - Provid er: Bruno Amaro) documented in this encounter Care Teams Manager Paid Relationship Specialty Start Date End Date None, Provider Pt States [address] [place] [address] PCP - General 04/02/24 documented as of this encounter
--- OUTSIDE RECORDS SUMMARY | 2024-12-06 19:46 | XMS_ITS | Encounter Summary ---
Author Organization [facility] Address [address] [place] [address] Care Team Providers Care Crankshaft Grinder Name Role Phone None, Provider Pt States Primary Care Provider U navailable Encounter Details Date Type Department Care Team (Late st Contact Info) Description 04/02/2024 Documentation GENERIC EXTERNAL DATA DEPARTMENT [address] [place] [address] Unknown, Provider [address] [place] [address] Social History Tobacco Use Types Packs/Day Years [...] documented as of this encounter Care Teams Crankshaft Grinder Relationship Specialty Start Date End Date None, Provider Pt States [address] [place], [place] [address] PCP - General 04/02/24 documented as of this encounter
--- OUTSIDE RECORDS SUMMARY | 2024-12-06 19:46 | XMS_ITS | Clinical Summary ---
Author Organization [facility] Address [address] [place] [address] Care Team Providers Care Forensic Identification Specialist Name Role Phone None, Provider Pt States Primary Care Provider U navailable Allergies Active Allergy Reactions Criticality Noted Date Comments Cefaclor Swelling 04/02/2024 Omeprazole Itching 04/02/2024 Cleartuss Dh Anaphylaxis High 04/02/2024 Medications No known medications Social History Tobacco Use Types Packs/Day Years Used Date Smoking Tobacco: Never Assessed Sex and Gender Information Value Date Recorded Sex Assigned at Female 04/03/2024 7:04 PM [facility] Gender Identity Female 04/03/2024 7:04 PM [facility] Sexual Orientation Straight 04/03/2024 7: 04 PM [facility] Last Filed Vital Signs Vital Sign Reading Time Taken Comments Blood Pressure 160/95 04/02/2024 2:37 PM MST Pulse 93 04/02/2024 2:37 PM [facility] Temperature 36.4 ??C (97.5 ??F) 04/02/2024 2:37 PM MS T Respiratory Rate 16 04/02/2024 2:37 PM [facility] Oxygen Saturation 98% 04/02/2024 2:37 PM [facility] Inhaled Oxygen Concentration - - Weight - [...] Extended Spectrum Beta-Lactamase 04/02/2024 04/02/2024 Care Teams Forensic Identification Specialist Relationship Specialty Start Date End Date None, Provider Pt States [address] [place] [address] PCP - General 04/02/24
--- OUTSIDE RECORDS SUMMARY | 2024-12-06 19:47 | XMS_ITS | Encounter Summary ---
Author Organization [facility] Address [address] [place] [address] Care Team Providers Care Blocker Metal Base Name Role Phone No, Physician Primary Care Provider Reason for Visit * Reason Comments Blood [...] st Contact Info) Description 11/30/2023 7:00 PM MAINTENANCE MECHANIC Office Visit [facility] [place] [address] [place] [address] Mary Reid, SHOE SINGER [address] [place] [address] Hematuria, unspecified type (Primary Dx); Urinary tract infection with hematuria, site unspecified Social History Tobacco Use Types Packs/Day Years Used Date Smoking Tobacco: Never Smokeless Tobacco: Never Comments Unknown Sex and Gender Information Value Date Recorded Sex Assigned at Not on file Legal Sex Female 2:21 PM MAINTENANCE MECHANIC Gender Identity Not on file Sexual Orientation Not on file documented as of this encounter Last Filed Vital Signs Vital Sign Reading Time Taken Comments Blood Pressure 110/78 11/30/2023 7:17 PM MAINTENANCE MECHANIC Pulse 53 11/30/2023 7:17 PM MAINTENANCE MECHANIC Temperature 36.3 ??C (97.3 ??F) 11/30/2023 7:17 PM CS T Respiratory Rate 24 11/30/2023 7:17 PM MAINTENANCE MECHANIC Oxygen Saturation 95% 11/30/2023 7:17 PM MAINTENANCE MECHANIC Inhaled Oxygen Concentration - - Weight 99.6 kg (219 lb 9.6 oz) 11/30/2023 7:17 P M MAINTENANCE MECHANIC Height 160 cm (5' 3 ) 11/30/2023 7:17 PM MAINTENANCE MECHANIC Body Mass Index 38.9 11/30/2023 7:17 PM MAINTENANCE MECHANIC documented in this encounter Patient Instructions * Patient Instructions* Mary Reid NP - 11/30/2023 7:00 PM MAINTENANCE MECHANIC Thank you for allowing me to take [...] clinic, or if severe go to ER. TENANCE MECHANIC * Attachments The following attachments cannot be sent through Care Everywhere. * Urinary Tract Infection in Older Adults ([place]) (Taiwanese) documented in this encounter Ordered Prescriptions Prescription [...] Patient is a 73-year-old female presents to [facility] with chief complaint of burning and [...] Ketones, ur, POC Trace (A) Negative Specific [place], POC 1.030 1.003 - 1.030 Blood, ur, POC Large (A) Negative pH, ur, POC 5.5 5.0 - 8.0 Protein, ur, POC 300. (A) Negative Urobilinogen, urine, POC 1.0 0.2 - 1.0 mg/dL Nitrite, ur, POC Positive (A) Negative Leukocytes, ur, POC Trace (A) Negative Lot Number [id number] Diagnosis UTI. Test: UA positive for blood, [...] Supportive care was discussed including rest, hydration, uohs-pel-jmajdtr meds to help with symptoms. Macrobid was [...] have all questions answered. Mary Reid NP TENANCE MECHANIC documented in this encounter Plan of Treatment Scheduled Orders Name Type Priority Associated Diagnoses Orde r Schedule Urine culture Urine, clean voided Microbiology Routine Hematuria, unspecified type Expected: 11/30/2023, Expires: 11/30/2024 documented as of this encounter Procedures Procedure Name Priority Date/Time Associated Diagnosis Comments POCT URINALYSIS DIPSTICK Routine 11/30/2023 7:17 PM MAINTENANCE MECHANIC Hematuria, unspecified type documented in this encounter Results * (ABNORMAL) POCT urinalysis dipstick (11/30/2023 7:17 PM MAINTENANCE MECHANIC) Color, Urine, POC Red Clarity, ur, POC Turbid(A) Clear Glucose, ur, POC Negative Negative MG/DL Bilirubin, ur, POC Small Negative, Small, Moderate, Large Ketones, ur, POC Trace(A) Negative Specific [place], POC 1.030 1.003 - 1.030 Blood, ur, POC Large(A) Negative pH, ur, POC 5.5 5.0 - 8.0 Protein, ur, POC 300.(A) Negative Urobilinogen, urine, POC 1.0 0.2 - 1.0 mg/dL Nitrite, ur, POC Positive(A) Negative Leukocytes, ur, POC Trace(A) Negative Lot Number [id number] Urine 11/30/2023 7:17 PM MAINTENANCE MECHANIC Mary Reid SHOE SINGER POINT OF CARE TEST ORDERAB LES Final Result documented in this encounter Visit Diagnoses Diagnosis Hematuria, unspecified type- Primary Urinary tract infection with hematuria, site unspecified documented in this encounter Historical Medications * This list may reflect changes made after this encounter. rosuvastatin (CRESTOR) 20 mg tablet Take 1 tablet (20 mg total) by mouth daily 09/18/2023 hzloihr-ORVO-cdw- hqkmr-xtxv-qg 0.12-01-963-200 mg capsule nightly as needed meclizine (ANTIVERT) 12.5 mg tablet Take 1 tablet (12.5 mg total) by mouth cholecalciferol (VITAMIN D-3) 5,000 unit tablet Take 1 tablet (5,000 Units total) by mouth daily ASPIRIN ORAL Take 81 mg by mouth added in this encounter Care Teams Blocker Metal Base Relationship Specialty Start Date End Date No, Physician PCP - General 11/30/23 documented as of this encounter
--- OUTSIDE RECORDS SUMMARY | 2024-12-06 19:47 | XMS_ITS | Encounter Summary ---
Author Organization [facility] Healthcare Address [address] [place] [address] Care Team Providers Care Soda Fountain Manager Name Role Phone No, Physician Primary Care Provider [phone] Encounter Details Date Type Department Care Team (Late st Contact Info) Description 11/26/2024 Telephone [facility] Medical Group Convenient Care at [address] [place] [phone] Abbie Shaffer MA Social History Tobacco Use Types Packs/Day Years Used Date Smoking Tobacco: Never Smokeless Tobacco: Never Comments Unknown Sex and Gender Information Value Date Recorded Sex Assigned at Not on file Legal Sex Female 2:21 PM PRINCIPLE SOFTWARE ENGINEER Gender Identity Not on file Sexual Orientation Not on file documented as of this encounter Miscellaneous Notes * Telephone Encounter - Abbie Shaffer MA - 11/26/2024 3:59 PM CST Spoke with the patient regarding results and recommendations. She states understanding and has no further questions at this time. CIPLE SOFTWARE ENGINEER * Telephone Encounter - Abbie Shaffer MA - 11/26/2024 3:59 PM CST ----- Message from Roberta Choudhury NP sent at 11/26/2024 3:51 PM PRINCIPLE SOFTWARE ENGINEER ----- Please call patient and let her know that urine culture was positive for infection. I ordered her Bactrim to the pharmacy listed in her chart. Follow up with PCP if symptoms persist or worsen. CIPLE SOFTWARE ENGINEER documented in this encounter Plan of Treatment Not on file documented as of this encounter Visit Diagnoses Not on filedocumented in this encounter Care Teams Soda Fountain Manager Relationship Specialty Start Date End Date No, Physician PCP - General 11/30/23 documented as of this encounter
--- OUTSIDE RECORDS SUMMARY | 2024-12-06 19:47 | XMS_ITS | Clinical Summary ---
Author Organization [address] Address [address] [place] [address] Care Team Providers Care Lav Crewman Name Role Phone No, Physician Primary Care Provider [phone] Allergies Active Allergy Reactions Criticality Noted Date [...] tablet (12.5 mg total) by mouth Active rhuptmt-GOJK-i nr-xmgrc-emlh- lm 0.56-38-897-20 0 mg capsule nightly as needed Active [...] Type Department Care Team Description 11/26/2024 Telephone [facility] Convenient Care at [address] [place] [address] [facility] [place] 11/24/2024 1:21 PM CONTENT CREATION MANAGER - 11/24/2024 11:59 PM CONTENT CREATION [place]NA[place] [address] UTI symptoms Discharge Disposition: Discharge to home or self care 11/24/2024 1:15 PM CONTENT CREATION MANAGER Office Visit [facility] Medical [facility] Convenient Care at [place] [address] [place] [address] Kadi Lambert NP UTI symptoms (Primary Dx) from Last 3 Months Surgical History Surgery Date Site/Laterality Comments CHOLECYSTECTOMY CATARACT EXTRACTION VARICOSE VEIN SURGERY Bilateral Bilateral Legs Social History Tobacco Use Types Packs/Day Years Used Date Smoking Tobacco: Never Smokeless Tobacco: Never Comments Unknown Sex and Gender Information Value Date Recorded Sex Assigned at Not on file Legal Sex Female 2:21 PM CONTENT CREATION MANAGER Gender Identity Not on file Sexual Orientation Not on file Obstetrics History Last Filed Vital Signs Vital Sign Reading Time Taken Comments Blood Pressure 140/90 11/24/2024 1:18 PM CONTENT CREATION MANAGER Pulse 78 11/24/2024 1:18 PM CONTENT CREATION MANAGER Temperature 36.6 ??C (97.9 ??F) 11/24/2024 1:18 PM CS T Respiratory Rate 19 11/24/2024 1:18 PM CONTENT CREATION MANAGER Oxygen Saturation 98% 11/24/2024 1:18 PM CONTENT CREATION MANAGER Inhaled Oxygen Concentration - - Weight 99.3 kg (219 lb) 11/24/2024 1:18 PM CONTENT CREATION MANAGER Height 160 cm (5' 3 ) 11/24/2024 1:18 PM CONTENT CREATION MANAGER Body Mass Index 38.79 11/24/2024 1:18 PM CONTENT CREATION MANAGER Plan of Treatment Health Maintenance Due Date [...] Comments URINE CULTURE Routine 11/24/2024 4:36 PM CONTENT CREATION MANAGER UTI symptoms POCT URINALYSIS DIPSTICK Routine 11/24/2024 1:32 PM CONTENT CREATION MANAGER UTI symptoms from Last 3 Months Results * (ABNORMAL) Urine culture Urine, clean voided (11/24/2024 4:36 PM CONTENT CREATION MANAGER) Report Final Report: Greater than or equal to 100,000 colonies/mL of Escherichia coli (.) Comment:Testing performed by : [facility], [address] [facility], [place]., [address] Organism ESCHERICHIA COLI [facility] Urine, clean voided 11/24/2024 4:36 PM CONTENT CREATION MANAGER 11/24/2024 8:57 PM CONTENT CREATION MANAGER Narrative [facility] - 11/26/2024 3:49 PM CONTENT CREATION MANAGER Testing performed by [facility] Microbiology Laboratory ([phone]) Organism Antibiotic Method Susceptibility Escherichia coli Ampicillin [...] MICROBIOLOGY - GENERAL ORD ERABLES Final Result [facility] [address] [place] [address] * (ABNORMAL) POCT urinalysis dipstick (11/24/2024 1:32 PM CONTENT CREATION MANAGER) Color, Urine, POC Dark Yellow Clarity, ur, POC Clear Clear Glucose, ur, POC Negative Negative MG/DL Bilirubin, ur, POC Negative Negative, Small, Moderate, Large Ketones, ur, POC Negative Negative Specific [place], POC 1.015 1.003 - 1.030 Blood, ur, POC Moderate(A) Negative pH, ur, POC 5.5 5.0 - 8.0 Protein, ur, POC Negative Negative Urobilinogen, urine, POC 0.2 0.2 - 1.0 mg/dL Nitrite, ur, POC Negative Negative Leukocytes, ur, POC Small(A) Negative Lot Number [id number] Urine 11/24/2024 1:32 PM CONTENT CREATION MANAGER Kadi Lambert NP POINT OF CARE TEST ORDERABLES Final Result from Last 3 Months Insurance MEDICARE [employer] [facility] [place] Care Teams Lav Crewman Relationship Specialty Start Date End Date No, Physician PCP - General 11/30/23
--- OUTSIDE RECORDS SUMMARY | 2024-12-06 19:47 | XMS_ITS | Encounter Summary ---
Author Organization [facility] Healthcare Address [address] [place] [address] Care Team Providers Care Remediation Technician Name Role Phone No, Physician Primary Care Provider Encounter Details Date Type Department Care Team (Latest Contact Info) Description 11/24/2024 1:21 PM COMPUTER SYSTEMS ARCHITECT - 11/24/2024 11:59 PM COMPUTER SYSTEMS ARCHITECT Hospital Encounter [address] [address] UTI symptoms Discharge Disposition: Discharge to home or self care Social History Tobacco Use Types Packs/Day Years Used Date Smoking Tobacco: Never Smokeless Tobacco: Never Comments Unknown Sex and Gender Information Value Date Recorded Sex Assigned at Not on file Legal Sex Female 2:21 PM COMPUTER SYSTEMS ARCHITECT Gender Identity Not on file Sexual Orientation [...] 1 tablet (12.5 mg total) by mouth [id number] -qpzax-wfta-bt 0.27-75-049-200 mg capsule nightly as needed metoprolol succinate [...] Abbie Shaffer MA - 11/24/2024 11:59 PM COMPUTER SYSTEMS ARCHITECT Spoke with the patient regarding results and recommendations. She states understanding and has no further questions at this time. UTER SYSTEMS ARCHITECT documented in this encounter Plan of Treatment Not on file documented as of this encounter Procedures Procedure Name Priority Date/Time Associated Diagnosis Comments URINE CULTURE Routine 11/24/2024 4:36 PM COMPUTER SYSTEMS ARCHITECT UTI symptoms documented in this encounter Results * (ABNORMAL) Urine culture Urine, clean voided (11/24/2024 4:36 PM COMPUTER SYSTEMS ARCHITECT) Report Final Report: Greater than or equal to 100,000 colonies/mL of Escherichia coli (.) Comment:Testing performed by : [facility], [address] [facility], [place]., [address] Organism ESCHERICHIA COLI [facility] Urine, clean voided 11/24/2024 4:36 PM COMPUTER SYSTEMS ARCHITECT 11/24/2024 8:57 PM COMPUTER SYSTEMS ARCHITECT Narrative [facility] - 11/26/2024 3:49 PM COMPUTER SYSTEMS ARCHITECT Testing performed by [facility] Microbiology Laboratory ([phone]) Organism Antibiotic Method Susceptibility Escherichia coli Ampicillin [...] - GENERAL ORD ERABLES Final Result [facility] [address] [address] Department of Laboratories [place] [phone] documented in this encounter Visit Diagnoses Diagnosis UTI symptoms documented in this encounter Care Teams Remediation Technician Relationship Specialty Start Date End Date No, Physician PCP - General 11/30/23 documented as of this encounter
--- OUTSIDE RECORDS SUMMARY | 2024-12-06 19:47 | XMS_ITS | Referral Summary ---
Author Organization [address] Address [address] [place] [address] Care Team Providers Care Stitcher Feeder Name Role Phone No, Physician Primary Care Provider [phone] Encounters Date Type Department Care Team Description 11/26/2024 Telephone [facility] at [address] [place] [id number] Abbie Shaffer [place] 11/24/2024 1:21 PM BRIM PRESSER - 11/24/2024 11:59 PM BRIM PRESSER [place] [address] UTI symptoms Discharge Disposition: Discharge to home or self care 11/24/2024 1:15 PM BRIM PRESSER Office Visit [facility] Medical [facility] at [place] [address] [place] [place] [address] Kadi Lambert NP UTI symptoms [...] tablet (12.5 mg total) by mouth Active [id number]-ICHP-t oj-dxwbc-kavx- lm 0.55-12-233-20 0 mg capsule nightly as needed Active [...] on file Legal Sex Female 2:21 PM BRIM PRESSER Gender Identity Not on file Sexual Orientation Not on file Last Filed Vital Signs Vital Sign Reading Time Taken Comments Blood Pressure 140/90 11/24/2024 1:18 PM BRIM PRESSER Pulse 78 11/24/2024 1:18 PM BRIM PRESSER Temperature 36.6 ??C (97.9 ??F) 11/24/2024 1:18 PM CS T Respiratory Rate 19 11/24/2024 1:18 PM BRIM PRESSER Oxygen Saturation 98% 11/24/2024 1:18 PM BRIM PRESSER Inhaled Oxygen Concentration - - Weight 99.3 kg (219 lb) 11/24/2024 1:18 PM BRIM PRESSER Height 160 cm (5' 3 ) 11/24/2024 1:18 PM BRIM PRESSER Body Mass Index 38.79 11/24/2024 1:18 PM BRIM PRESSER Plan of Treatment Not on file Procedures Procedure Name Priority Date/Time Associated Diagnosis Comments URINE CULTURE Routine 11/24/2024 4:36 PM BRIM PRESSER UTI symptoms POCT URINALYSIS DIPSTICK Routine 11/24/2024 1:32 PM BRIM PRESSER UTI symptoms from Last 3 Months Results * (ABNORMAL) Urine culture Urine, clean voided (11/24/2024 4:36 PM BRIM PRESSER) Report Final Report: Greater than or equal to 100,000 colonies/mL of Escherichia coli (.) Comment:Testing performed by : [facility], [address] [place]., [address] Organism ESCHERICHIA COLI [facility] [place] Urine, clean voided 11/24/2024 4:36 PM BRIM PRESSER 11/24/2024 8:57 PM BRIM PRESSER Narrative KEY[facility] - 11/26/2024 3:49 PM BRIM PRESSER Testing performed by [facility] Microbiology Laboratory ([phone]) Organism Antibiotic Method Susceptibility Escherichia coli Ampicillin [...] GENERAL ORD ERABLES Final Result [place] [address] [address] Department [place] [address] * (ABNORMAL) POCT urinalysis dipstick (11/24/2024 1:32 PM BRIM PRESSER) Color, Urine, POC Dark Yellow Clarity, ur, POC Clear Clear Glucose, ur, POC Negative Negative MG/DL Bilirubin, ur, POC Negative Negative, Small, Moderate, Large Ketones, ur, POC Negative Negative Specific [place], POC 1.015 1.003 - 1.030 Blood, ur, POC Moderate(A) Negative pH, ur, POC 5.5 5.0 - 8.0 Protein, ur, POC Negative Negative Urobilinogen, urine, POC 0.2 0.2 - 1.0 mg/dL Nitrite, ur, POC Negative Negative Leukocytes, ur, POC Small(A) Negative Lot Number [id number] Urine 11/24/2024 1:32 PM BRIM PRESSER Kadi Lambert MANAGER STRATEGY & ACCOUNT POINT OF CARE TEST ORDERABLES Final Result from Last 3 Months Insurance MEDICARE [facility] Address: [address] [address] [facility] [place] Care Teams Stitcher Feeder Relationship Specialty Start Date End Date No, Physician PCP - General 11/30/23
--- OUTSIDE RECORDS SUMMARY | 2024-12-06 19:47 | XMS_ITS | Encounter Summary ---
Author Organization [facility] Healthcare Address [address] [place] [address] Care Team Providers Care Medical Certification Specialist Name Role Phone No, Physician Primary Care Provider [phone] Reason for Visit * Reason Comments Urinary Symptom Pt is here with pain while urinating. Onset is this morning, Nothing OTC, and no known fevers. Pt states that she possibly has C-DIF Encounter Details Date Type Department Care Team (Late st Contact Info) Description 11/24/2024 1:15 PM GEAR LAPPING MACHINE OPERATOR Office Visit [facility] Medical [facility] at [place] [address] [place] [address] Kadi Lambert NP [address] [place] [address] UTI symptoms (Primary Dx) Social History Tobacco Use Types Packs/Day Years Used Date Smoking Tobacco: Never Smokeless Tobacco: Never Comments Unknown Sex and Gender Information Value Date Recorded Sex Assigned at Not on file Legal Sex Female 2:21 PM GEAR LAPPING MACHINE OPERATOR Gender Identity Not on file Sexual Orientation Not on file documented as of this encounter Last Filed Vital Signs Vital Sign Reading Time Taken Comments Blood Pressure 140/90 11/24/2024 1:18 PM GEAR LAPPING MACHINE OPERATOR Pulse 78 11/24/2024 1:18 PM GEAR LAPPING MACHINE OPERATOR Temperature 36.6 ??C (97.9 ??F) 11/24/2024 1:18 PM CS T Respiratory Rate 19 11/24/2024 1:18 PM GEAR LAPPING MACHINE OPERATOR Oxygen Saturation 98% 11/24/2024 1:18 PM GEAR LAPPING MACHINE OPERATOR Inhaled Oxygen Concentration - - Weight 99.3 kg (219 lb) 11/24/2024 1:18 PM GEAR LAPPING MACHINE OPERATOR Height 160 cm (5' 3 ) 11/24/2024 1:18 PM GEAR LAPPING MACHINE OPERATOR Body Mass Index 38.79 11/24/2024 1:18 PM GEAR LAPPING MACHINE OPERATOR documented in this encounter Patient Instructions * Patient Instructions* Kaid Lambert NP - 11/24/2024 1:15 PM GEAR LAPPING MACHINE OPERATOR URINARY TRACT INFECTION -Drink as much water [...] ? Contact your primary care doctor or BOMB TECHNICIAN if: ? You have a fever. ? You have white or yellow discharge from your vagina. ? You do not feel better after 2 days of taking antibiotics. ? You have questions or concerns about your condition or care LAPPING MACHINE OPERATOR documented in this encounter Ordered Prescriptions Prescription [...] this encounter Progress Notes * Kadi Lambert, RECORD CENTER SPECIALIST - 11/24/2024 1:15 PM CST Images from [...] awaiting stool results from her GI in [place] from 11/17/24. She is concerned for CDIF, [...] Large Ketones, ur, POC Negative Negative Specific [place], POC 1.015 1.003 - 1.030 Blood, ur, POC Moderate (A) Negative pH, ur, POC 5.5 5.0 - 8.0 Protein, ur, POC Negative Negative Urobilinogen, urine, POC 0.2 0.2 - 1.0 mg/dL Nitrite, ur, POC Negative Negative Leukocytes, ur, POC Small (A) Negative Lot Number [id number] Patient Education: Disposition Treatment plan including expectations, [...] office note has been partially dictated using doxIQ software, and as a result portions of the record may have been created with this software. Occasional wrong-word or '[id number]' substitutions may have occurred due to the inherent limitations of voice recognition software. Read the chartcarefully and recognize, using context, where substitutions have occurred Kadi Lambert NP LAPPING MACHINE OPERATOR documented in this encounter Miscellaneous Notes * Addendum Note - Shaunna Choudhury NP - 11/24/2024 1:15 PM CSTAddended by: SHAUNNA CHOUDHURY on: 11/26/2024 03:51 PM Modules accepted: Orders LAPPING MACHINE OPERATOR documented in this encounter Plan of Treatment Not on file documented as of this encounter Procedures Procedure Name Priority Date/Time Associated Diagnosis Comments POCT URINALYSIS DIPSTICK Routine 11/24/2024 1:32 PM GEAR LAPPING MACHINE OPERATOR UTI symptoms documented in this encounter Results * (ABNORMAL) Urine culture Urine, clean voided (11/24/2024 4:36 PM GEAR LAPPING MACHINE OPERATOR) Report Final Report: Greater than or equal to 100,000 colonies/mL of Escherichia coli (.) Comment:Testing performed by : [facility], [address] [place]., [address] Organism ESCHERICHIA COLI [facility] Urine, clean voided 11/24/2024 4:36 PM GEAR LAPPING MACHINE OPERATOR 11/24/2024 8:57 PM GEAR LAPPING MACHINE OPERATOR Narrative KEY[facility] - 11/26/2024 3:49 PM GEAR LAPPING MACHINE OPERATOR Testing performed by [facility] Microbiology Laboratory ([phone]) Organism Antibiotic Method Susceptibility Escherichia coli Ampicillin [...] GENERAL ORD ERABLES Final Result [facility] [place] [address] Department [place] [address] * (ABNORMAL) POCT urinalysis dipstick (11/24/2024 1:32 PM GEAR LAPPING MACHINE OPERATOR) Color, Urine, POC Dark Yellow Clarity, ur, POC Clear Clear Glucose, ur, POC Negative Negative MG/DL Bilirubin, ur, POC Negative Negative, Small, Moderate, Large Ketones, ur, POC Negative Negative Specific [place], POC 1.015 1.003 - 1.030 Blood, ur, POC Moderate(A) Negative pH, ur, POC 5.5 5.0 - 8.0 Protein, ur, POC Negative Negative Urobilinogen, urine, POC 0.2 0.2 - 1.0 mg/dL Nitrite, ur, POC Negative Negative Leukocytes, ur, POC Small(A) Negative Lot Number [id number] Urine 11/24/2024 1:32 PM GEAR LAPPING MACHINE OPERATOR Kadi Lambert NP POINT OF CARE TEST [...] 10/05/2024 added in this encounter Care Teams Medical Certification Specialist Relationship Specialty Start Date End Date No, Physician PCP - General 11/30/23 documented as of this encounter
== END 2024-11-29 12:06 | disposition home or self-care (01) ==
PROVIDERS: Emergency Provider Student in an Organized Health Care Education/Training Program
DX: R07.9 Chest pain, unspecified (principal); R06.02 Shortness of breath; T36.8X5A Adverse effect of other systemic antibiotics, initial encounter; Z20.822 Contact with and (suspected) exposure to COVID-19
CPT/HCPCS: 36415; 71275; 80053; 81001; 83690; 83735; 83880; 84484; 85025; 85380; 87086; 87637; 93005; 96374; 99284; Q9967